=== PATIENT | male | born 1950 | race Caucasian/White ===

== ENCOUNTER 2016-07-06 00:21 | Inpatient (IN) | payer MEDICAID ==
[~2016-07-06] VITALS: Ht 160 cm; Wt 85.7 kg
[~2016-07-06 00:21] MED LIST: ASPI81 PO; GABA-533 PO; GLYB5 PO; HYDR25TA PO; LISI-662 PO; METF500T4 PO; ZIPR40CA2 PO
[2016-07-06 00:41] LABS: GLUCOSE,POINT OF CARE 173 MG/DL (70-110)
[2016-07-06 01:27] LABS: BASOPHILS # (AUTO) 0.05 K/uL (0.00-0.20); BASOPHILS % (AUTO) 0.4 % (0.0-2.0); EOSINOPHILS # (AUTO) 0.04 K/uL (0.00-0.70); EOSINOPHILS % (AUTO) 0.34 % (1.0-6.0); HEMATOCRIT 44.7 % (41-53); HEMOGLOBIN 14.7 g/dL (13.5-17.5); LYMPHOCYTES # (AUTO) 2.8 K/uL (1.0-4.8); LYMPHOCYTES % (AUTO) 24.9 % (22.0-44.0); MEAN CORPUSCULAR HEMOGLOBIN 27.9 pg (26.0-34.0); MEAN CORPUSCULAR HGB CONC 32.9 G/dL (31.0-37.0); MEAN CORPUSCULAR VOLUME 85 fL (80-100); MONOCYTES # (AUTO) 0.8 K/uL (0.1-1.0); MONOCYTES % (AUTO) 7.3 % (2.0-9.0); NEUTROPHILS # (AUTO) 7.6 K/uL (1.8-7.7); PLATELET COUNT (AUTO) 196 K/uL (150-450); RED BLOOD CELL COUNT(AUTO) 5.28 MIL/uL (4.50-5.90); RED CELL DISTRIBUTION WIDTH 16.7 % (11.5-14.5); WHITE BLOOD COUNT (AUTO) 11.4 K/uL (4.5-11.0)
[2016-07-06 01:40] LABS: ALANINE AMINOTRANSFERASE 110 U/L (12-78); ALBUMIN 3.8 g/dL (3.4-5.0); ANION GAP 15 mmol/L (8-16); ASPARTATE AMINOTRANSFERASE 74 U/L (15-37); BILIRUBIN,TOTAL 0.7 mg/dL (0.1-1.0); CARBON DIOXIDE 22 mmol/L (22-29); CHLORIDE 101 mmol/L (98-107); CREATININE 0.99 mg/dL (0.60-1.30); GLOMERULAR FILTR. RATE CALC > 60 mL/min (>60); SODIUM SERUM 138 mmol/L (136-145); TOTAL PROTEIN, SERUM 7.8 g/dL (6.4-8.2); UREA NITROGEN, BLOOD 14 mg/dL (7-18)
[2016-07-06 01:42] LABS: AMMONIA 29 umol/L (11-32); TROPONIN I < 0.02 ng/mL (0.00-0.05)
[2016-07-06 01:44] LABS: POTASSIUM 2.8 mmol/L (3.5-5.1)
[2016-07-06] MEDS ORDERED: ZOLPIDEM TARTRATE 10 MG TABLET PO PRN (02:00)
[2016-07-06] MEDS ORDERED: POTASSIUM CHLORIDE 10% 40 MEQ/30 ML LIQUID UDCUP PO ONE (02:00)
[2016-07-06] MEDS ORDERED: NALOXONE HCL 1 MG/ML 2 ML SYG IVP ONE (02:15)
[2016-07-06 02:36] LABS: APPEARANCE,URINE CLOUDY (CLEAR); GLUCOSE, URINE (UA) NEGATIVE (NEGATIVE); KETONES,URINE TRACE mg/dL (NEGATIVE); LEUKOCYTE ESTERASE ,URINE NEGATIVE (NEGATIVE); OCCULT BLOOD,URINE MODERATE (NEGATIVE); PROTEIN,URINE POS 1+ (NEGATIVE)
[2016-07-06 02:41] LABS: ADD UA MICROSCOPIC YES
[2016-07-06 02:43] LABS: SQUAMOUS EPITHELIAL CELL,UR Few /LPF (None Seen)
[2016-07-06] MEDS: HALOPERIDOL 5 MG TABLET PO PRN (06:13)
[2016-07-06] MEDS: LORazepam 2 MG TABLET PO PRN (06:24)
[2016-07-06 06:34] VITALS: BP 145/76
[2016-07-06] MEDS ORDERED: PNEUMOCOCCAL VACCINE POLYVALENT 0.5 ML VIAL [PPSV23] IM ONE (07:00)
[2016-07-06] MEDS ORDERED: INFLUENZA VIRUS VACCINE QVS 2016-17 (3YR+)/PF 60 MCG/0.5 ML SYRINGE IM ONE (07:00)
[2016-07-06] MEDS ORDERED: DEXTROSE 50%-WATER 25 GM/50 ML SYRINGE IVP PRN (08:00)
[2016-07-06] MEDS: LISINOPRIL 20 MG TABLET PO SCH (10:50)
[2016-07-06] MEDS: GABAPENTIN 400 MG CAPSULE PO SCH ×3 (10:50→19:00)
[2016-07-06] MEDS: ASPIRIN 81 MG CHEWABLE TABLET PO SCH (10:50)
[2016-07-06] MEDS: HYDROCHLOROTHIAZIDE 25 MG TABLET PO SCH (10:50)
[2016-07-06] MEDS ORDERED: POTASSIUM CHLORIDE 20 MEQ ER TABLET PO ONE (11:45)
[2016-07-06 17:30] VITALS: BP 139/80
[2016-07-06] MEDS: ZIPRASIDONE HCL 40 MG CAPSULE PO SCH (18:58)
[2016-07-06] MEDS: GlyBURIDE 5 MG TABLET PO SCH (18:58)
[2016-07-06] MEDS: MetFORMIN HCL 500 MG TABLET PO SCH (18:58)
[2016-07-06 19:00] LABS: GLUCOSE COMMENT 1 Received Meds; GLUCOSE,POINT OF CARE 117 MG/DL (70-110)
[2016-07-07 05:21] LABS: GLUCOSE COMMENT 1 Repeated; GLUCOSE,POINT OF CARE 142 MG/DL (70-110)
[2016-07-07 05:21] LABS: GLUCOSE COMMENT 1 Juice/Food/D50 Given; GLUCOSE,POINT OF CARE 58 MG/DL (70-110)
[2016-07-07] MEDS: MetFORMIN HCL 500 MG TABLET PO SCH ×2 (06:33→17:14)
[2016-07-07] MEDS: GlyBURIDE 5 MG TABLET PO SCH ×2 (06:33→17:28)
[2016-07-07] MEDS: ZIPRASIDONE HCL 40 MG CAPSULE PO SCH ×2 (06:33→17:28)
[2016-07-07 07:28] LABS: ALANINE AMINOTRANSFERASE 64 U/L (12-78); ALBUMIN 2.8 g/dL (3.4-5.0); ANION GAP 9 mmol/L (8-16); ASPARTATE AMINOTRANSFERASE 37 U/L (15-37); BILIRUBIN,TOTAL 0.6 mg/dL (0.1-1.0); CALCIUM, TOTAL 7.8 mg/dL (8.8-10.5); CARBON DIOXIDE 24 mmol/L (22-29); CHLORIDE 101 mmol/L (98-107); CREATININE 0.97 mg/dL (0.60-1.30); GLOMERULAR FILTR. RATE CALC > 60 mL/min (>60); POTASSIUM 3.9 mmol/L (3.5-5.1); SODIUM SERUM 134 mmol/L (136-145); TOTAL PROTEIN, SERUM 5.9 g/dL (6.4-8.2); UREA NITROGEN, BLOOD 11 mg/dL (7-18)
[2016-07-07] MEDS: ASPIRIN 81 MG CHEWABLE TABLET PO SCH (07:47)
[2016-07-07] MEDS: GABAPENTIN 400 MG CAPSULE PO SCH ×3 (07:47→17:01)
[2016-07-07] MEDS: LISINOPRIL 20 MG TABLET PO SCH (07:48)
[2016-07-07] MEDS: HYDROCHLOROTHIAZIDE 25 MG TABLET PO SCH (07:48)
[2016-07-07 08:00] VITALS: BP 154/82
[2016-07-07 10:01] LABS: GLUCOSE,POINT OF CARE 144 MG/DL (70-110)
[2016-07-07] MEDS ORDERED: BENZOCAINE/MENTHOL LOZENGE [8 LOZENGES/PACKET] PO PRN (11:00)
[2016-07-07] MEDS: HALOPERIDOL 5 MG TABLET PO PRN (11:54)
[2016-07-07] MEDS: LORazepam 2 MG TABLET PO PRN ×2 (11:55→17:01)
[2016-07-07] MEDS: LORATADINE 10 MG TABLET PO SCH (11:55)
[2016-07-07] MEDS: IBUPROFEN 800 MG TABLET PO PRN (14:33)
[2016-07-07 16:30] VITALS: BP 116/64
[2016-07-07 16:55] LABS: GLUCOSE COMMENT 1 Received Meds; GLUCOSE,POINT OF CARE 250 MG/DL (70-110)
[2016-07-07] MEDS: MOMETASONE FUROATE 50 MCG/SPRAY 17 GM NASAL SPRAY NASAL SCH (17:02)
[2016-07-07] MEDS: INSULIN ASPART 100 UNITS/ML SQ PRN (17:03)
[2016-07-08 05:37] LABS: GLUCOSE,POINT OF CARE 211 MG/DL (70-110)
[2016-07-08 05:47] VITALS: BP 139/96
[2016-07-08] MEDS: IBUPROFEN 800 MG TABLET PO PRN (05:48)
[2016-07-08] MEDS: ZIPRASIDONE HCL 40 MG CAPSULE PO SCH (06:42)
[2016-07-08] MEDS: MetFORMIN HCL 500 MG TABLET PO SCH (06:42)
[2016-07-08] MEDS: GlyBURIDE 5 MG TABLET PO SCH (06:42)
[2016-07-08] MEDS: INSULIN ASPART 100 UNITS/ML SQ PRN (06:45)
[2016-07-08 08:01] VITALS: BP 126/89
[2016-07-08] MEDS: LORATADINE 10 MG TABLET PO SCH (09:05)
[2016-07-08] MEDS: LISINOPRIL 20 MG TABLET PO SCH (09:05)
[2016-07-08] MEDS: GABAPENTIN 400 MG CAPSULE PO SCH (09:05)
[2016-07-08] MEDS: HYDROCHLOROTHIAZIDE 25 MG TABLET PO SCH (09:05)
[2016-07-08] MEDS: ASPIRIN 81 MG CHEWABLE TABLET PO SCH (09:05)
[2016-07-08] MEDS: MOMETASONE FUROATE 50 MCG/SPRAY 17 GM NASAL SPRAY NASAL SCH (09:07)
[2016-07-08] MEDS ORDERED: LORA10TA7 PO (09:59)
[2016-07-08] MEDS ORDERED: MOME17N NASAL (10:00)
== END 2016-07-08 12:00 | disposition home or self-care (01) | DRG 750 ==
LOC: EMS 00:22 → 3EC 02:48 → UNDOADMIN 03:00 → 3EC 03:00 → 3EI 07-07 13:49
PROVIDERS: ATTEND Psychiatry & Neurology Child & Adolescent Psychiatry
DX: F25.1 Schizoaffective disorder, depressive type (principal); E11.42 Type 2 diabetes mellitus with diabetic polyneuropathy; R45.851 Suicidal ideations; E11.65 Type 2 diabetes mellitus with hyperglycemia; E87.6 Hypokalemia; I10 Essential (primary) hypertension; I25.2 Old myocardial infarction; F10.10 Alcohol abuse, uncomplicated; F15.90 Other stimulant use, unspecified, uncomplicated; Z79.82 Long term (current) use of aspirin; Z79.899 Other long term (current) drug therapy; Z87.891 Personal history of nicotine dependence; Z91.5 Personal history of self-harm
CPT/HCPCS: 82962; 87081; 87086; 93005; 96374; 99285; G0480; J2310

== ENCOUNTER 2016-08-18 09:49 | Emergency (ER) | payer MEDICAID, OTHER ==
[~2016-08-18] VITALS: Ht 162.6 cm; Wt 86.3 kg
[~2016-08-18 09:49] MED LIST changes: +LORA10TA7 PO; +MOME17N NASAL
[2016-08-18] MEDS ORDERED: ASPI81 PO (10:04)
[2016-08-18] MEDS ORDERED: ACET-48 PO (10:04)
[2016-08-18] MEDS ORDERED: GLIP10 PO (10:04)
[2016-08-18] MEDS ORDERED: METF500T7 PO (10:04)
[2016-08-18] MEDS ORDERED: BECL8.7A6 PUFF (10:04)
[2016-08-18] MEDS ORDERED: LORA10TA7 PO (10:04)
[2016-08-18] MEDS ORDERED: GABA-533 PO (10:04)
[2016-08-18] MEDS ORDERED: LISI-662 PO (10:04)
[2016-08-18] MEDS ORDERED: HYDR25TA PO (10:04)
[2016-08-18] MEDS ORDERED: GuaiFENesin/D-METHORPHAN [SUGAR-FREE] 200-20MG/10 ML SYRUP UDCUP PO ONE (11:00)
[2016-08-18] MEDS ORDERED: TraMADol HCL 50 MG TABLET PO ONE (11:00)
[2016-08-18 11:17] LABS: INFLUENZA TYPE B NEGATIVE FOR TYPE B (NEGATIVE)
[2016-08-18] MEDS ORDERED: ONDANSETRON HCL 4 MG TABLET PO ONE (13:45)
[2016-08-18 14:15] VITALS: BP 123/85
== END 2016-08-18 14:16 | disposition home or self-care (01) ==
LOC: EMS 09:50
DX: J06.9 Acute upper respiratory infection, unspecified (principal); J45.909 Unspecified asthma, uncomplicated; E11.40 Type 2 diabetes mellitus with diabetic neuropathy, unspecified; I10 Essential (primary) hypertension; I25.2 Old myocardial infarction; E78.00 Pure hypercholesterolemia, unspecified; F17.210 Nicotine dependence, cigarettes, uncomplicated
CPT/HCPCS: 71010; 82962; 87804; 99285; Q0162

== ENCOUNTER 2017-01-10 10:28 | Emergency (ER) | payer OTHER ==
[~2017-01-10] VITALS: Ht 162.6 cm; Wt 86.4 kg
[~2017-01-10 10:28] MED LIST changes: +ACET-48 PO; +BECL8.7A6 PUFF; +GLIP10 PO; +METF500T7 PO
[2017-01-10 10:42] LABS: GLUCOSE,POINT OF CARE 303 MG/DL (70-110)
[2017-01-10] MEDS: OxyCODONE HCL/ACETAMINOPHEN 5-325 MG TABLET PO ONE ×2 (11:39→11:41)
[2017-01-10] MEDS ORDERED: LORazepam 2 MG/ML VIAL IVP ONE ×2 (11:45→13:30)
[2017-01-10] MEDS ORDERED: MORPHINE SULFATE 4 MG/ML SYRINGE IVP ONE (11:45)
[2017-01-10] MEDS ORDERED: LIDOCAINE HCL 1% 20 ML VIAL INJ ONE (12:15)
[2017-01-10] MEDS ORDERED: ONDANSETRON HCL 4 MG/2 ML VIAL IVP ONE (12:15)
[2017-01-10] MEDS ORDERED: MORPHINE SULFATE 2 MG/ML SYRINGE IVP ONE (13:30)
[2017-01-10 13:52] LABS: GLUCOSE,POINT OF CARE 209 MG/DL (70-110)
[2017-01-10] MEDS ORDERED: HYDROmorphone 2 MG/ML SYRINGE IVP ONE (14:15)
[2017-01-10 16:11] LABS: GLUCOSE,POINT OF CARE 187 MG/DL (70-110)
[2017-01-10] MEDS ORDERED: OxyCODONE HCL/ACETAMINOPHEN 5-325 MG TABLET PO ONE (16:45)
[2017-01-10 18:05] VITALS: BP 129/81
== END 2017-01-10 18:16 | disposition home or self-care (01) ==
LOC: EMS 10:30
DX: S46.002A Unspecified injury of muscle(s) and tendon(s) of the rotator cuff of left shoulder, initial encounter (principal); J45.909 Unspecified asthma, uncomplicated; E11.9 Type 2 diabetes mellitus without complications; E78.00 Pure hypercholesterolemia, unspecified; I10 Essential (primary) hypertension; I25.2 Old myocardial infarction; F17.210 Nicotine dependence, cigarettes, uncomplicated; W01.0XXA Fall on same level from slipping, tripping and stumbling without subsequent striking against object, initial encounter; Y93.89 Activity, other specified; Y92.89 Other specified places as the place of occurrence of the external cause; Y99.8 Other external cause status
CPT/HCPCS: 73030; 73221; 82962; 96374; 96375; 96376; 99284; J1170; J2060; J2270 ×2; J2405; J3490

== ENCOUNTER 2017-01-12 07:39 | Emergency (ER) | payer OTHER ==
[~2017-01-12] VITALS: Ht 160 cm; Wt 84.6 kg
[~2017-01-12 07:39] MED LIST changes: -GLYB5 PO; -METF500T4 PO
[2017-01-12 07:59] VITALS: BP 148/97
[2017-01-12] MEDS ORDERED: KETOROLAC TROMETHAMINE 30 MG/ML VIAL IM ONE (08:15)
== END 2017-01-12 08:10 | disposition home or self-care (01) ==
LOC: EMS 07:41
DX: F20.9 Schizophrenia, unspecified (principal); E11.9 Type 2 diabetes mellitus without complications; E78.00 Pure hypercholesterolemia, unspecified; M25.512 Pain in left shoulder; J45.909 Unspecified asthma, uncomplicated; M19.90 Unspecified osteoarthritis, unspecified site; I10 Essential (primary) hypertension; I25.2 Old myocardial infarction; G89.29 Other chronic pain; M54.5 Low back pain; F17.210 Nicotine dependence, cigarettes, uncomplicated; Z79.82 Long term (current) use of aspirin
CPT/HCPCS: 82962; 96372; 99283; J1885

== ENCOUNTER 2017-02-24 03:33 | Inpatient (IN) | payer MEDICAID, OTHER ==
[~2017-02-24] VITALS: Ht 162.6 cm; Wt 87.5 kg
[2017-02-24] MEDS ORDERED: LISI2.5T2 PO (03:47)
[2017-02-24 03:57] LABS: GLUCOSE,POINT OF CARE 299 MG/DL (70-110)
[2017-02-24 04:07] LABS: BASOPHILS # (AUTO) 0.05 K/uL (0.00-0.20); BASOPHILS % (AUTO) 0.4 % (0.0-2.0); EOSINOPHILS # (AUTO) 0.12 K/uL (0.00-0.70); EOSINOPHILS % (AUTO) 0.95 % (1.0-6.0); HEMATOCRIT 47.4 % (41-53); HEMOGLOBIN 16.2 g/dL (13.5-17.5); LYMPHOCYTES # (AUTO) 3.2 K/uL (1.0-4.8); LYMPHOCYTES % (AUTO) 25.9 % (22.0-44.0); MEAN CORPUSCULAR HEMOGLOBIN 29.2 pg (26.0-34.0); MEAN CORPUSCULAR HGB CONC 34.3 G/dL (31.0-37.0); MEAN CORPUSCULAR VOLUME 85 fL (80-100); MONOCYTES # (AUTO) 0.8 K/uL (0.1-1.0); MONOCYTES % (AUTO) 6.4 % (2.0-9.0); NEUTROPHILS # (AUTO) 8.2 K/uL (1.8-7.7); NEUTROPHILS % (AUTO) 66.4 % (40.0-70.0); PLATELET COUNT (AUTO) 166 K/uL (150-450); RED BLOOD CELL COUNT(AUTO) 5.56 MIL/uL (4.50-5.90); RED CELL DISTRIBUTION WIDTH 15.1 % (11.5-14.5); WHITE BLOOD COUNT (AUTO) 12.4 K/uL (4.5-11.0)
[2017-02-24 04:15] LABS: ANION GAP 14 mmol/L (8-16); CALCIUM, TOTAL 8.5 mg/dL (8.8-10.5); CARBON DIOXIDE 25 mmol/L (22-29); CHLORIDE 101 mmol/L (98-107); CREATININE 1.23 mg/dL (0.60-1.30); GLOMERULAR FILTR. RATE CALC 59 mL/min (>60); POTASSIUM 3.8 mmol/L (3.5-5.1); SODIUM SERUM 140 mmol/L (136-145); UREA NITROGEN, BLOOD 11 mg/dL (7-18)
[2017-02-24 04:27] LABS: ALANINE AMINOTRANSFERASE 47 U/L (12-78); ASPARTATE AMINOTRANSFERASE 36 U/L (15-37); BILIRUBIN,TOTAL 0.7 mg/dL (0.1-1.0); TOTAL PROTEIN, SERUM 8.1 g/dL (6.4-8.2)
[2017-02-24] MEDS ORDERED: HALOPERIDOL LACTATE 5 MG/ML VIAL IM ONE (04:45)
[2017-02-24] MEDS ORDERED: LORazepam 2 MG TABLET PO PRN (04:45)
[2017-02-24] MEDS ORDERED: DiphenhydrAMINE HCL 50 MG/ML VIAL IM ONE (04:45)
[2017-02-24] MEDS ORDERED: LORazepam 2 MG/ML VIAL IM ONE (04:45)
[2017-02-24] MEDS ORDERED: HALOPERIDOL 5 MG TABLET PO PRN (04:45)
[2017-02-24] MEDS ORDERED: ZOLPIDEM TARTRATE 10 MG TABLET PO PRN (04:45)
[2017-02-24 04:58] LABS: CHOL/HDL RATIO 4.4 (4.2-7.3)
[2017-02-24 05:00] LABS: APPEARANCE,URINE CLOUDY (CLEAR); GLUCOSE, URINE (UA) 500 mg/dL (NEGATIVE); KETONES,URINE NEGATIVE (NEGATIVE); LEUKOCYTE ESTERASE ,URINE NEGATIVE (NEGATIVE); OCCULT BLOOD,URINE TRACE (NEGATIVE); PH,URINE 5.5 (5.0-8.0); PROTEIN,URINE POS 1+ (NEGATIVE)
[2017-02-24 05:03] LABS: ADD UA MICROSCOPIC YES
[2017-02-24 05:16] LABS: RBC,URINE 0-2 /HPF (0-2); SQUAMOUS EPITHELIAL CELL,UR Few /LPF (None Seen)
[2017-02-24 14:27] LABS: GLUCOSE,POINT OF CARE 194 MG/DL (70-110)
[2017-02-24 14:39] VITALS: BP 138/88
[2017-02-24 14:46] VITALS: BP 138/88
[2017-02-24] MEDS ORDERED: DEXTROSE 50%-WATER 25 GM/50 ML SYRINGE IVP PRN (15:00)
[2017-02-24] MEDS: GlipiZIDE 10 MG TABLET PO SCH (17:18)
[2017-02-24] MEDS: MetFORMIN HCL 500 MG ER TABLET PO SCH (17:18)
[2017-02-24] MEDS: BECLOMETHASONE DIPR 40 MCG/PUFF 8.7 GM INHALER IH SCH (17:18)
[2017-02-24] MEDS: MOMETASONE FUROATE 50 MCG/SPRAY 17 GM NASAL SPRAY NASAL SCH (17:19)
[2017-02-24] MEDS: INSULIN ASPART 100 UNITS/ML SQ PRN (17:26)
[2017-02-24 18:56] VITALS: BP 142/87
[2017-02-24 21:22] LABS: GLUCOSE COMMENT 1 Received Meds; GLUCOSE,POINT OF CARE 254 MG/DL (70-110)
[2017-02-24 21:22] LABS: GLUCOSE,POINT OF CARE 116 MG/DL (70-110)
[2017-02-25 05:58] VITALS: BP 125/88
[2017-02-25 06:02] LABS: GLUCOSE,POINT OF CARE 138 MG/DL (70-110)
[2017-02-25] MEDS ORDERED: ONDANSETRON HCL 4 MG TABLET PO PRN (06:45)
[2017-02-25] MEDS ORDERED: MAG HYDROX/AL HYDROX/SIMETH ES 30 ML SUSPENSION UDCUP PO PRN (06:45)
[2017-02-25] MEDS ORDERED: BENZOCAINE/MENTHOL LOZENGE MM PRN (06:45)
[2017-02-25] MEDS ORDERED: BACITRACIN 28.4 GM OINTMENT TP PRN (06:45)
[2017-02-25] MEDS ORDERED: PETROLATUM,WHITE 71 GM JELLY TP PRN (06:45)
[2017-02-25] MEDS ORDERED: CloNIDine HCL 0.1 MG TABLET PO PRN (06:45)
[2017-02-25] MEDS ORDERED: LOPERAMIDE HCL 2 MG CAPSULE PO PRN (06:45)
[2017-02-25] MEDS ORDERED: ALBUTEROL SULFATE HFA 90 MCG/PUFF 8 GM INHALER IH PRN (06:45)
[2017-02-25] MEDS ORDERED: ACETAMINOPHEN 325 MG TABLET PO PRN (06:45)
[2017-02-25] MEDS ORDERED: MAGNESIUM HYDROXIDE SUSPENSION 30 ML UDCUP PO PRN (06:45)
[2017-02-25] MEDS: GlipiZIDE 10 MG TABLET PO SCH ×2 (07:02→16:40)
[2017-02-25] MEDS: INSULIN ASPART 100 UNITS/ML SQ PRN ×4 (07:02→23:14)
[2017-02-25] MEDS: ZIPRASIDONE HCL 40 MG CAPSULE PO SCH ×2 (07:03→16:40)
[2017-02-25] MEDS: MetFORMIN HCL 500 MG ER TABLET PO SCH ×2 (07:03→16:40)
[2017-02-25 08:00] VITALS: BP 128/79
[2017-02-25] MEDS: ASPIRIN 81 MG CHEWABLE TABLET PO SCH (08:51)
[2017-02-25] MEDS: GABAPENTIN 400 MG CAPSULE PO SCH ×3 (08:51→16:40)
[2017-02-25] MEDS: LORATADINE 10 MG TABLET PO SCH (08:52)
[2017-02-25] MEDS: OMEGA-3/DHA/EPA/FISH OIL 500 MG CAPSULE PO SCH (08:52)
[2017-02-25] MEDS: HYDROCHLOROTHIAZIDE 25 MG TABLET PO SCH (08:53)
[2017-02-25] MEDS: BECLOMETHASONE DIPR 40 MCG/PUFF 8.7 GM INHALER IH SCH ×2 (08:54→16:40)
[2017-02-25] MEDS: MOMETASONE FUROATE 50 MCG/SPRAY 17 GM NASAL SPRAY NASAL SCH ×2 (08:54→16:40)
[2017-02-25] MEDS: LISINOPRIL 5 MG TABLET PO SCH (08:55)
[2017-02-25 11:22] LABS: GLUCOSE,POINT OF CARE 208 MG/DL (70-110)
[2017-02-25 16:27] LABS: GLUCOSE,POINT OF CARE 181 MG/DL (70-110)
[2017-02-25 20:33] LABS: GLUCOSE,POINT OF CARE 296 MG/DL (70-110)
[2017-02-25 23:02] VITALS: BP 131/84
[2017-02-26 04:18] VITALS: BP 126/82
[2017-02-26 06:32] LABS: GLUCOSE,POINT OF CARE 245 MG/DL (70-110)
[2017-02-26] MEDS: ZIPRASIDONE HCL 40 MG CAPSULE PO SCH ×2 (07:00→17:24)
[2017-02-26] MEDS: MetFORMIN HCL 500 MG ER TABLET PO SCH ×2 (07:00→17:24)
[2017-02-26] MEDS: GlipiZIDE 10 MG TABLET PO SCH ×2 (07:00→16:17)
[2017-02-26] MEDS: INSULIN ASPART 100 UNITS/ML SQ PRN ×3 (07:01→21:00)
[2017-02-26 07:45] VITALS: BP 159/91
[2017-02-26] MEDS: IBUPROFEN 600 MG TABLET PO PRN ×2 (07:50→19:43)
[2017-02-26] MEDS: ASPIRIN 81 MG CHEWABLE TABLET PO SCH (07:51)
[2017-02-26] MEDS: OMEGA-3/DHA/EPA/FISH OIL 500 MG CAPSULE PO SCH (07:51)
[2017-02-26] MEDS: GABAPENTIN 400 MG CAPSULE PO SCH ×3 (07:51→16:18)
[2017-02-26] MEDS: HYDROCHLOROTHIAZIDE 25 MG TABLET PO SCH (07:51)
[2017-02-26] MEDS: LISINOPRIL 5 MG TABLET PO SCH (07:52)
[2017-02-26] MEDS: LORATADINE 10 MG TABLET PO SCH (07:52)
[2017-02-26] MEDS: BECLOMETHASONE DIPR 40 MCG/PUFF 8.7 GM INHALER IH SCH ×2 (07:53→16:17)
[2017-02-26] MEDS: MOMETASONE FUROATE 50 MCG/SPRAY 17 GM NASAL SPRAY NASAL SCH ×2 (07:53→16:17)
[2017-02-26 08:56] VITALS: BP 151/83
[2017-02-26 16:16] VITALS: BP 137/70
[2017-02-26 17:33] LABS: GLUCOSE,POINT OF CARE 253 MG/DL (70-110)
[2017-02-26] MEDS ORDERED: DICLOFENAC SODIUM 1% 100 GM GEL [2GM] TP PRN (18:30)
[2017-02-26 19:50] VITALS: BP 149/89
[2017-02-26 22:54] LABS: GLUCOSE COMMENT 1 Received Meds; GLUCOSE,POINT OF CARE 346 MG/DL (70-110)
[2017-02-27 06:17] LABS: GLUCOSE COMMENT 1 Juice/Food/D50 Given; GLUCOSE COMMENT 2 Received Meds; GLUCOSE,POINT OF CARE 243 MG/DL (70-110)
[2017-02-27] MEDS: MetFORMIN HCL 500 MG ER TABLET PO SCH ×2 (06:32→16:25)
[2017-02-27] MEDS: ZIPRASIDONE HCL 40 MG CAPSULE PO SCH ×2 (06:32→16:25)
[2017-02-27] MEDS: GlipiZIDE 10 MG TABLET PO SCH ×2 (06:32→16:25)
[2017-02-27] MEDS: INSULIN ASPART 100 UNITS/ML SQ PRN ×2 (07:09→11:35)
[2017-02-27 08:15] VITALS: BP 157/94
[2017-02-27] MEDS: LORATADINE 10 MG TABLET PO SCH (09:36)
[2017-02-27] MEDS: ASPIRIN 81 MG CHEWABLE TABLET PO SCH (09:36)
[2017-02-27] MEDS: BECLOMETHASONE DIPR 40 MCG/PUFF 8.7 GM INHALER IH SCH ×2 (09:36→16:24)
[2017-02-27] MEDS: MOMETASONE FUROATE 50 MCG/SPRAY 17 GM NASAL SPRAY NASAL SCH ×2 (09:36→16:25)
[2017-02-27] MEDS: HYDROCHLOROTHIAZIDE 25 MG TABLET PO SCH (09:37)
[2017-02-27] MEDS: GABAPENTIN 400 MG CAPSULE PO SCH ×3 (09:37→16:27)
[2017-02-27] MEDS: OMEGA-3/DHA/EPA/FISH OIL 500 MG CAPSULE PO SCH (09:37)
[2017-02-27] MEDS: LISINOPRIL 5 MG TABLET PO SCH (09:37)
[2017-02-27 11:18] LABS: GLUCOSE,POINT OF CARE 251 MG/DL (70-110)
[2017-02-27 11:48] LABS: GLUCOSE,POINT OF CARE 256 MG/DL (70-110)
[2017-02-27] MEDS ORDERED: OMEG-12 PO (14:47)
[2017-02-27 14:59] LABS: GLUCOSE,POINT OF CARE 313 MG/DL (70-110)
[2017-02-27] MEDS ORDERED: ZIPR40CA2 PO (16:40)
[2017-02-27] MEDS ORDERED: GABA-533 PO (16:41)
[2017-02-27 20:18] LABS: GLUCOSE,POINT OF CARE 304 MG/DL (70-110)
== END 2017-02-27 17:15 | disposition home or self-care (01) | DRG 750 ==
LOC: EMS 03:34 → 3EC 14:24 → 3EI 02-26 10:57
PROVIDERS: ADMIT Psychiatry & Neurology Psychiatry; ATTEND Psychiatry & Neurology Psychiatry
DX: F25.9 Schizoaffective disorder, unspecified (principal); E11.40 Type 2 diabetes mellitus with diabetic neuropathy, unspecified; R45.851 Suicidal ideations; E11.65 Type 2 diabetes mellitus with hyperglycemia; I10 Essential (primary) hypertension; I25.2 Old myocardial infarction; E78.5 Hyperlipidemia, unspecified; F10.129 Alcohol abuse with intoxication, unspecified; F12.90 Cannabis use, unspecified, uncomplicated; F17.200 Nicotine dependence, unspecified, uncomplicated; F32.9 Major depressive disorder, single episode, unspecified; F41.9 Anxiety disorder, unspecified; J31.0 Chronic rhinitis; J44.9 Chronic obstructive pulmonary disease, unspecified; Z87.442 Personal history of urinary calculi; G89.29 Other chronic pain; M19.90 Unspecified osteoarthritis, unspecified site; M25.512 Pain in left shoulder; M54.5 Low back pain; Z71.51 Drug abuse counseling and surveillance of drug abuser; Z71.6 Tobacco abuse counseling; Z56.0 Unemployment, unspecified; Z90.49 Acquired absence of other specified parts of digestive tract; Z79.82 Long term (current) use of aspirin; Z79.899 Other long term (current) drug therapy; Z71.41 Alcohol abuse counseling and surveillance of alcoholic
CPT/HCPCS: 82306; 82962; 84153; 87086; 87147; 93005; 96372; 99285; G0480; J1200; J1630; J2060; J3535

== ENCOUNTER 2017-03-23 15:50 | Emergency (ER) | payer MEDICAID, OTHER ==
[~2017-03-23] VITALS: Ht 170.2 cm; Wt 90.9 kg
[~2017-03-23 15:50] MED LIST changes: -ACET-48 PO; -ASPI81 PO; -BECL8.7A6 PUFF; -GLIP10 PO; -HYDR25TA PO; -LISI-662 PO; -LORA10TA7 PO; -METF500T7 PO; -MOME17N NASAL
[2017-03-23] MEDS ORDERED: NITROGLYCERIN 2% (1 GM=INCH) PACKET TP ONE (16:15)
[2017-03-23] MEDS ORDERED: ASPIRIN 81 MG CHEWABLE TABLET PO ONE (16:15)
[2017-03-23 16:17] LABS: GLUCOSE,POINT OF CARE 242 MG/DL (70-110)
[2017-03-23 16:37] LABS: BASOPHILS # (AUTO) 0.05 K/uL (0.00-0.20); BASOPHILS % (AUTO) 0.4 % (0.0-2.0); EOSINOPHILS # (AUTO) 0.13 K/uL (0.00-0.70); EOSINOPHILS % (AUTO) 1.12 % (1.0-6.0); HEMATOCRIT 49.3 % (41-53); HEMOGLOBIN 16.6 g/dL (13.5-17.5); LYMPHOCYTES # (AUTO) 2.7 K/uL (1.0-4.8); LYMPHOCYTES % (AUTO) 23.5 % (22.0-44.0); MEAN CORPUSCULAR HEMOGLOBIN 29.4 pg (26.0-34.0); MEAN CORPUSCULAR HGB CONC 33.7 G/dL (31.0-37.0); MEAN CORPUSCULAR VOLUME 87 fL (80-100); MONOCYTES # (AUTO) 0.5 K/uL (0.1-1.0); MONOCYTES % (AUTO) 4.3 % (2.0-9.0); NEUTROPHILS # (AUTO) 8.1 K/uL (1.8-7.7); NEUTROPHILS % (AUTO) 70.7 % (40.0-70.0); PLATELET COUNT (AUTO) 162 K/uL (150-450); RED BLOOD CELL COUNT(AUTO) 5.65 MIL/uL (4.50-5.90); RED CELL DISTRIBUTION WIDTH 15.4 % (11.5-14.5)
[2017-03-23 16:40] LABS: ANION GAP 12 mmol/L (8-16); CALCIUM, TOTAL 8.8 mg/dL (8.8-10.5); CARBON DIOXIDE 20 mmol/L (22-29); CHLORIDE 102 mmol/L (98-107); CREATININE 1.09 mg/dL (0.60-1.30); GLOMERULAR FILTR. RATE CALC > 60 mL/min (>60); GLUCOSE,RANDOM 210 mg/dL (70-110); POTASSIUM 3.3 mmol/L (3.5-5.1); SODIUM SERUM 134 mmol/L (136-145); UREA NITROGEN, BLOOD 16 mg/dL (7-18)
[2017-03-23 16:44] LABS: INR 1.1 (0.9-1.1); PROTHROMBIN TIME 11.4 SEC (9.4-11.6)
[2017-03-23] MEDS ORDERED: SODIUM CHLORIDE 0.9% 1,000 ML IV ONE (16:45)
[2017-03-23 16:46] LABS: ALANINE AMINOTRANSFERASE 102 U/L (12-78); ALBUMIN 3.9 g/dL (3.4-5.0); ALKALINE PHOSPHATASE 115 U/L (46-116); ASPARTATE AMINOTRANSFERASE 61 U/L (15-37); BILIRUBIN,TOTAL 0.5 mg/dL (0.1-1.0); LIPASE 208 U/L (73-393); TOTAL PROTEIN, SERUM 7.7 g/dL (6.4-8.2)
[2017-03-23 16:48] LABS: AMMONIA 32 umol/L (11-32)
[2017-03-23 16:52] LABS: TROPONIN I < 0.02 ng/mL (0.00-0.05)
[2017-03-23] MEDS ORDERED: LORazepam 2 MG/ML VIAL ONE (16:57)
[2017-03-23] MEDS ORDERED: DiphenhydrAMINE HCL 50 MG/ML VIAL ONE (16:57)
[2017-03-23] MEDS ORDERED: HALOPERIDOL LACTATE 5 MG/ML VIAL ONE (16:57)
[2017-03-23 17:01] LABS: B-TYPE NATRIURETIC PEPTIDE 50 pg/mL (0-100)
[2017-03-23] MEDS ORDERED: NALOXONE HCL 1 MG/ML 2 ML SYG ONE (17:09)
[2017-03-23] MEDS ORDERED: POTASSIUM CHLORIDE 20 MEQ ER TABLET PO ONE (17:15)
[2017-03-23 18:42] VITALS: BP 144/110
== END 2017-03-23 20:18 | disposition home or self-care (01) ==
LOC: EMS 15:51
DX: F10.129 Alcohol abuse with intoxication, unspecified (principal); J45.909 Unspecified asthma, uncomplicated; E78.00 Pure hypercholesterolemia, unspecified; I10 Essential (primary) hypertension; I25.2 Old myocardial infarction; E11.9 Type 2 diabetes mellitus without complications; F17.210 Nicotine dependence, cigarettes, uncomplicated; F11.90 Opioid use, unspecified, uncomplicated; Y90.8 Blood alcohol level of 240 mg/100 ml or more
CPT/HCPCS: 36415; 71010; 80053; 82140; 82948; 82962; 83690; 83880; 84484; 85025; 85610; 93005; 96360; 99285; G0480; J2310; J7030; J1200; J1630; J2060

== ENCOUNTER 2017-09-20 16:00 | Inpatient (IN) | payer MEDICARE, MEDICAID ==
[~2017-09-20] VITALS: Ht 162.6 cm; Wt 83.4 kg
[2017-09-20 16:22] LABS: GLUCOSE,POINT OF CARE 248 MG/DL (70-110)
[2017-09-20 16:46] LABS: BASOPHILS % (AUTO) 0.7 % (0.0-2.0); EOSINOPHILS % (AUTO) 1.5 % (1.0-6.0); HEMATOCRIT 46.2 % (41-53); HEMOGLOBIN 16.3 g/dL (13.5-17.5); LYMPHOCYTES # (AUTO) 2.3 K/uL (1.0-4.8); LYMPHOCYTES % (AUTO) 27.5 % (22.0-44.0); MEAN CORPUSCULAR HEMOGLOBIN 30.5 pg (26.0-34.0); MEAN CORPUSCULAR HGB CONC 35.3 G/dL (31.0-37.0); MEAN CORPUSCULAR VOLUME 87 fL (80-100); MONOCYTES # (AUTO) 0.6 K/uL (0.1-1.0); MONOCYTES % (AUTO) 7.2 % (2.0-9.0); NEUTROPHILS # (AUTO) 5.2 K/uL (1.8-7.7); NEUTROPHILS % (AUTO) 63.1 % (40.0-70.0); PLATELET COUNT (AUTO) 150 K/uL (150-450); RED BLOOD CELL COUNT(AUTO) 5.34 MIL/uL (4.50-5.90); RED CELL DISTRIBUTION WIDTH 15.5 % (11.5-14.5)
[2017-09-20 16:55] LABS: ANION GAP 8 mmol/L (8-16); CALCIUM, TOTAL 9.1 mg/dL (8.8-10.5); CARBON DIOXIDE 27 mmol/L (22-29); CHLORIDE 101 mmol/L (98-107); CREATININE 0.82 mg/dL (0.60-1.30); GLOMERULAR FILTR. RATE CALC > 60 mL/min (>60); GLUCOSE,RANDOM 277 mg/dL (70-110); POTASSIUM 3.2 mmol/L (3.5-5.1); SODIUM SERUM 136 mmol/L (136-145); UREA NITROGEN, BLOOD 5 mg/dL (7-18)
[2017-09-20 17:01] LABS: ALANINE AMINOTRANSFERASE 113 U/L (12-78); ALBUMIN 3.7 g/dL (3.4-5.0); ALKALINE PHOSPHATASE 135 U/L (46-116); ASPARTATE AMINOTRANSFERASE 87 U/L (15-37); BILIRUBIN,TOTAL 0.7 mg/dL (0.1-1.0); TOTAL PROTEIN, SERUM 7.5 g/dL (6.4-8.2)
[2017-09-20 17:03] LABS: AMPHET/METH SCREEN,URINE NEGATIVE (NEGATIVE); BARBITURATE SCREEN, URINE NEGATIVE (NEGATIVE); BENZODIAZEPINES SCREEN,URINE NEGATIVE (NEGATIVE); CANNABINOID SCREEN,URINE NEGATIVE (NEGATIVE); COCAINE SCREEN,URINE NEGATIVE (NEGATIVE); METHADONE SCREEN, URINE NEGATIVE (NEGATIVE); OPIATE SCREEN,URINE NEGATIVE (NEGATIVE); PHENCYCLIDINE SCREEN,URINE NEGATIVE (NEGATIVE)
[2017-09-20] MEDS ORDERED: LORazepam 1 MG TABLET PO ONE (18:45)
[2017-09-20] MEDS ORDERED: POTASSIUM CHLORIDE 20 MEQ ER TABLET PO ONE (19:00)
[2017-09-20] MEDS ORDERED: LORazepam 2 MG TABLET PO PRN (19:15)
[2017-09-20] MEDS ORDERED: HALOPERIDOL 5 MG TABLET PO PRN (19:15)
[2017-09-20] MEDS ORDERED: ZOLPIDEM TARTRATE 10 MG TABLET PO PRN (19:15)
[2017-09-20 19:55] LABS: CHOL/HDL RATIO 3.3 (4.2-7.3); CHOLESTEROL 178 mg/dL (131-200); FREE T4 (FREE THYROXINE) 1.13 ng/dL (0.76-1.46); HDL CHOLESTEROL 54 mg/dL (40-60); LDL CHOL (CALC.) 45 mg/dL (0-130); THYROID STIMULATING HORMONE 1.57 uIU/mL (0.36-3.74); TRIGLYCERIDES 396 mg/dL (15-150)
[2017-09-20] MEDS ORDERED: DEXTROSE 50%-WATER 25 GM/50 ML SYRINGE IVP PRN (21:00)
[2017-09-20] MEDS ORDERED: LISINOPRIL 20 MG TABLET PO ONE (21:00)
[2017-09-20] MEDS ORDERED: PNEUMOCOCCAL VACCINE POLYVALENT 0.5 ML VIAL [PPSV23] IM ONE (21:30)
[2017-09-20 21:31] VITALS: BP 170/100
[2017-09-20 22:08] LABS: GLUCOMETER DEV NAME(LOC) 3EX 1; GLUCOSE,POINT OF CARE 377 MG/DL (70-110)
[2017-09-20] MEDS ORDERED: INSULIN LISPRO 100 UNITS/ML SQ ONE (22:15)
[2017-09-20 22:57] LABS: GLUCOMETER DEV NAME(LOC) 3EX 1; GLUCOSE,POINT OF CARE 299 MG/DL (70-110)
[2017-09-21 03:33] VITALS: BP_SYST 119; BP_SYST 132; BP_DIAS 66; BP_DIAS 71
[2017-09-21 03:38] LABS: GLUCOMETER DEV NAME(LOC) 3EI B; GLUCOSE,POINT OF CARE 171 MG/DL (70-110)
[2017-09-21] MEDS ORDERED: PNEUMOCOCCAL VACCINE POLYVALENT 0.5 ML VIAL [PPSV23] IM ONE (04:00)
[2017-09-21 06:23] LABS: GLUCOMETER DEV NAME(LOC) 3EI B; GLUCOSE,POINT OF CARE 182 MG/DL (70-110)
[2017-09-21] MEDS: INSULIN LISPRO 100 UNITS/ML SQ PRN ×2 (06:41→11:39)
[2017-09-21] MEDS ORDERED: POTASSIUM CHLORIDE 20 MEQ ER TABLET PO ONE (07:45)
[2017-09-21] MEDS ORDERED: CloNIDine HCL 0.1 MG TABLET PO PRN (07:45)
[2017-09-21] MEDS ORDERED: MAG HYDROX/AL HYDROX/SIMETH ES 30 ML SUSPENSION UDCUP PO PRN (07:45)
[2017-09-21] MEDS ORDERED: ALBUTEROL SULFATE HFA 90 MCG/PUFF 8 GM INHALER IH PRN (07:45)
[2017-09-21] MEDS ORDERED: BACITRACIN 28.4 GM OINTMENT TP PRN (07:45)
[2017-09-21] MEDS ORDERED: MAGNESIUM HYDROXIDE SUSPENSION 30 ML UDCUP PO PRN (07:45)
[2017-09-21] MEDS ORDERED: IBUPROFEN 600 MG TABLET PO PRN (07:45)
[2017-09-21] MEDS ORDERED: ACETAMINOPHEN 325 MG TABLET PO PRN (07:45)
[2017-09-21] MEDS ORDERED: LOPERAMIDE HCL 2 MG CAPSULE PO PRN (07:45)
[2017-09-21] MEDS ORDERED: BENZOCAINE/MENTHOL LOZENGE MM PRN (07:45)
[2017-09-21] MEDS ORDERED: PETROLATUM,WHITE 71 GM JELLY TP PRN (07:45)
[2017-09-21] MEDS ORDERED: ONDANSETRON HCL 4 MG TABLET PO PRN (07:45)
[2017-09-21 08:00] VITALS: BP 129/78
[2017-09-21] MEDS: MetFORMIN HCL 500 MG TABLET PO SCH ×2 (09:00→16:20)
[2017-09-21] MEDS ORDERED: LISINOPRIL 20 MG TABLET PO SCH (09:00)
[2017-09-21] MEDS ORDERED: OMEPRAZOLE 20 MG CAPSULE PO SCH (09:00)
[2017-09-21] MEDS ORDERED: CHOLECALCIFEROL (VIT D3) 1,000 UNITS TABLET PO SCH (09:00)
[2017-09-21] MEDS ORDERED: DOCUSATE SODIUM 100 MG CAPSULE PO SCH (09:00)
[2017-09-21] MEDS: GABAPENTIN 400 MG CAPSULE PO SCH ×3 (09:00→16:20)
[2017-09-21 11:33] LABS: GLUCOMETER DEV NAME(LOC) 3EX 1; GLUCOSE,POINT OF CARE 260 MG/DL (70-110)
[2017-09-21 16:19] VITALS: BP 148/89
[2017-09-21 17:13] LABS: GLUCOMETER DEV NAME(LOC) 3EX 1; GLUCOSE,POINT OF CARE 205 MG/DL (70-110)
[2017-09-22] MEDS ORDERED: ARIPiprazole 10 MG TABLET PO SCH (09:00)
== END 2017-09-21 17:49 | disposition short-term general hospital (02) | DRG 750 ==
LOC: EMS 16:02 → 3EX 19:25
DX: F25.9 Schizoaffective disorder, unspecified (principal); E11.65 Type 2 diabetes mellitus with hyperglycemia; J44.9 Chronic obstructive pulmonary disease, unspecified; I10 Essential (primary) hypertension; E55.9 Vitamin D deficiency, unspecified; E78.5 Hyperlipidemia, unspecified; E87.6 Hypokalemia; F10.10 Alcohol abuse, uncomplicated; F32.9 Major depressive disorder, single episode, unspecified; F41.9 Anxiety disorder, unspecified; G47.00 Insomnia, unspecified; M19.90 Unspecified osteoarthritis, unspecified site; G89.29 Other chronic pain; M54.9 Dorsalgia, unspecified; R74.0 Nonspecific elevation of levels of transaminase and lactic acid dehydrogenase [LDH]; Z81.8 Family history of other mental and behavioral disorders
CPT/HCPCS: 82962; 83036; 84439; 84443; 90471; 99285; G0480; J1815

== ENCOUNTER 2017-09-21 17:50 | Inpatient (IN) | payer MEDICARE, MEDICAID ==
[~2017-09-21] VITALS: Ht 162.6 cm; Wt 83.0 kg
[2017-09-21] MEDS ORDERED: HALOPERIDOL 5 MG TABLET PO PRN (19:00)
[2017-09-21] MEDS ORDERED: ZOLPIDEM TARTRATE 10 MG TABLET PO PRN (19:00)
[2017-09-21] MEDS ORDERED: ALBUTEROL SULFATE HFA 90 MCG/PUFF 8 GM INHALER IH PRN (19:15)
[2017-09-21] MEDS ORDERED: MAGNESIUM HYDROXIDE SUSPENSION 30 ML UDCUP PO PRN (19:15)
[2017-09-21] MEDS ORDERED: PETROLATUM,WHITE 71 GM JELLY TP PRN (19:15)
[2017-09-21] MEDS ORDERED: BACITRACIN 28.4 GM OINTMENT TP PRN (19:15)
[2017-09-21] MEDS ORDERED: CloNIDine HCL 0.1 MG TABLET PO PRN (19:15)
[2017-09-21] MEDS ORDERED: ACETAMINOPHEN 325 MG TABLET PO PRN (19:15)
[2017-09-21] MEDS ORDERED: ONDANSETRON HCL 4 MG TABLET PO PRN (19:15)
[2017-09-21] MEDS ORDERED: BENZOCAINE/MENTHOL LOZENGE MM PRN (19:15)
[2017-09-21] MEDS ORDERED: LOPERAMIDE HCL 2 MG CAPSULE PO PRN (19:15)
[2017-09-21] MEDS ORDERED: DEXTROSE 50%-WATER 25 GM/50 ML SYRINGE IVP PRN (19:15)
[2017-09-21] MEDS ORDERED: MAG HYDROX/AL HYDROX/SIMETH ES 30 ML SUSPENSION UDCUP PO PRN (19:15)
[2017-09-21 19:58] VITALS: BP 125/76
[2017-09-21] MEDS: GABAPENTIN 400 MG CAPSULE PO SCH (20:58)
[2017-09-21 21:17] LABS: GLUCOMETER DEV NAME(LOC) 3EI B; GLUCOSE,POINT OF CARE 211 MG/DL (70-110)
[2017-09-21] MEDS: INSULIN LISPRO 100 UNITS/ML SQ PRN (21:19)
[2017-09-22 00:50] VITALS: BP 154/101
[2017-09-22] MEDS: IBUPROFEN 600 MG TABLET PO PRN (00:53)
[2017-09-22] MEDS: LORazepam 2 MG TABLET PO PRN (00:53)
[2017-09-22 05:33] LABS: GLUCOMETER DEV NAME(LOC) 3EI B; GLUCOSE,POINT OF CARE 274 MG/DL (70-110)
[2017-09-22] MEDS: MetFORMIN HCL 500 MG TABLET PO SCH ×2 (06:41→17:20)
[2017-09-22] MEDS: INSULIN LISPRO 100 UNITS/ML SQ PRN ×3 (06:41→21:35)
[2017-09-22 06:51] LABS: POTASSIUM 3.3 mmol/L (3.5-5.1)
[2017-09-22 08:00] VITALS: BP 147/99
[2017-09-22] MEDS ORDERED: POTASSIUM CHLORIDE 20 MEQ ER TABLET PO ONE (08:45)
[2017-09-22] MEDS: DOCUSATE SODIUM 100 MG CAPSULE PO SCH (09:00)
[2017-09-22] MEDS: OMEPRAZOLE 20 MG CAPSULE PO SCH (09:12)
[2017-09-22] MEDS: GABAPENTIN 400 MG CAPSULE PO SCH ×3 (09:12→16:02)
[2017-09-22] MEDS: ARIPiprazole 10 MG TABLET PO SCH (09:12)
[2017-09-22] MEDS: CHOLECALCIFEROL (VIT D3) 1,000 UNITS TABLET PO SCH (09:12)
[2017-09-22] MEDS: LISINOPRIL 20 MG TABLET PO SCH (09:13)
[2017-09-22 11:22] LABS: GLUCOMETER DEV NAME(LOC) 3EI B; GLUCOSE,POINT OF CARE 184 MG/DL (70-110)
[2017-09-22 16:37] LABS: GLUCOMETER DEV NAME(LOC) 3EI B; GLUCOSE,POINT OF CARE 190 MG/DL (70-110)
[2017-09-22 21:33] LABS: GLUCOMETER DEV NAME(LOC) 3EI B; GLUCOSE,POINT OF CARE 209 MG/DL (70-110)
[2017-09-22 22:02] VITALS: BP 137/77
[2017-09-23 04:15] VITALS: BP 133/96
[2017-09-23] MEDS: IBUPROFEN 600 MG TABLET PO PRN ×2 (04:22→04:25)
[2017-09-23 06:23] LABS: GLUCOMETER DEV NAME(LOC) 3EI B; GLUCOSE,POINT OF CARE 149 MG/DL (70-110)
[2017-09-23] MEDS: INSULIN LISPRO 100 UNITS/ML SQ PRN ×4 (06:34→20:49)
[2017-09-23] MEDS: MetFORMIN HCL 500 MG TABLET PO SCH ×2 (07:04→19:08)
[2017-09-23 07:29] LABS: POTASSIUM 3.6 mmol/L (3.5-5.1)
[2017-09-23] MEDS: ARIPiprazole 10 MG TABLET PO SCH (09:14)
[2017-09-23] MEDS: CHOLECALCIFEROL (VIT D3) 1,000 UNITS TABLET PO SCH (09:14)
[2017-09-23] MEDS: OMEPRAZOLE 20 MG CAPSULE PO SCH (09:14)
[2017-09-23] MEDS: DOCUSATE SODIUM 100 MG CAPSULE PO SCH (09:14)
[2017-09-23] MEDS: LORazepam 2 MG TABLET PO PRN (09:15)
[2017-09-23] MEDS: LISINOPRIL 20 MG TABLET PO SCH (09:15)
[2017-09-23] MEDS: GABAPENTIN 400 MG CAPSULE PO SCH ×3 (09:16→16:48)
[2017-09-23 11:42] LABS: GLUCOMETER DEV NAME(LOC) 3EI B; GLUCOSE,POINT OF CARE 156 MG/DL (70-110)
[2017-09-23 16:53] LABS: GLUCOMETER DEV NAME(LOC) 3EI B; GLUCOSE,POINT OF CARE 197 MG/DL (70-110)
[2017-09-23 19:28] VITALS: BP 142/79
[2017-09-23 21:18] LABS: GLUCOMETER DEV NAME(LOC) 3EI B; GLUCOSE,POINT OF CARE 207 MG/DL (70-110)
[2017-09-24 01:00] VITALS: BP 145/85
[2017-09-24 05:57] LABS: GLUCOMETER DEV NAME(LOC) 3EI B; GLUCOSE,POINT OF CARE 135 MG/DL (70-110)
[2017-09-24 06:07] VITALS: BP 121/73
[2017-09-24] MEDS: MetFORMIN HCL 500 MG TABLET PO SCH ×2 (06:35→17:27)
[2017-09-24] MEDS: IBUPROFEN 600 MG TABLET PO PRN (06:35)
[2017-09-24] MEDS: GABAPENTIN 400 MG CAPSULE PO SCH ×3 (08:50→16:21)
[2017-09-24] MEDS: OMEGA-3/DHA/EPA/FISH OIL 1,000 MG CAPSULE PO SCH (08:50)
[2017-09-24] MEDS: ARIPiprazole 10 MG TABLET PO SCH (08:50)
[2017-09-24] MEDS: OMEPRAZOLE 20 MG CAPSULE PO SCH (08:50)
[2017-09-24] MEDS: CHOLECALCIFEROL (VIT D3) 1,000 UNITS TABLET PO SCH (08:50)
[2017-09-24] MEDS: DOCUSATE SODIUM 100 MG CAPSULE PO SCH (09:00)
[2017-09-24] MEDS: LISINOPRIL 20 MG TABLET PO SCH (10:13)
[2017-09-24] MEDS: TraMADol HCL 50 MG TABLET PO PRN ×2 (10:45→17:35)
[2017-09-24 11:37] LABS: GLUCOMETER DEV NAME(LOC) 3EI B; GLUCOSE,POINT OF CARE 194 MG/DL (70-110)
[2017-09-24] MEDS: INSULIN LISPRO 100 UNITS/ML SQ PRN ×3 (11:39→22:02)
[2017-09-24 13:34] LABS: APPEARANCE,URINE CLEAR (CLEAR); BILIRUBIN,URINE NEGATIVE (NEGATIVE); GLUCOSE, URINE (UA) 100 mg/dL (NEGATIVE); KETONES,URINE NEGATIVE (NEGATIVE); LEUKOCYTE ESTERASE ,URINE NEGATIVE (NEGATIVE); NITRATE,URINE NEGATIVE (NEGATIVE); OCCULT BLOOD,URINE NEGATIVE (NEGATIVE); PH,URINE 6.5 (5.0-8.0); PROTEIN,URINE NEGATIVE (NEGATIVE)
[2017-09-24 13:53] LABS: BACTERIA,URINE None Seen /HPF (None Seen); RBC,URINE None Seen /HPF (0-2); WBC,URINE 0-2 /HPF (0-5)
[2017-09-24 13:54] LABS: SQUAMOUS EPITHELIAL CELL,UR Few /LPF (None Seen)
[2017-09-24 14:16] VITALS: BP 130/88
[2017-09-24] MEDS: HYDROCODONE/ACETAMINOPHEN 5-325 MG TABLET PO PRN ×2 (14:16→22:57)
[2017-09-24 16:37] LABS: GLUCOMETER DEV NAME(LOC) 3EI B; GLUCOSE,POINT OF CARE 183 MG/DL (70-110)
[2017-09-24 17:31] VITALS: BP 120/69
[2017-09-24 18:31] VITALS: BP 128/77
[2017-09-24 21:58] LABS: GLUCOMETER DEV NAME(LOC) 3EI B; GLUCOSE,POINT OF CARE 240 MG/DL (70-110)
[2017-09-24 22:55] VITALS: BP 130/71
[2017-09-25 04:45] VITALS: BP 148/87
[2017-09-25] MEDS: TraMADol HCL 50 MG TABLET PO PRN (04:49)
[2017-09-25 05:33] LABS: GLUCOMETER DEV NAME(LOC) 3EI B; GLUCOSE,POINT OF CARE 149 MG/DL (70-110)
[2017-09-25] MEDS: MetFORMIN HCL 500 MG TABLET PO SCH (06:59)
[2017-09-25] MEDS: INSULIN LISPRO 100 UNITS/ML SQ PRN ×2 (07:02→11:44)
[2017-09-25] MEDS: OMEPRAZOLE 20 MG CAPSULE PO SCH (08:51)
[2017-09-25] MEDS: ARIPiprazole 10 MG TABLET PO SCH (08:51)
[2017-09-25] MEDS: OMEGA-3/DHA/EPA/FISH OIL 1,000 MG CAPSULE PO SCH (08:51)
[2017-09-25] MEDS: GABAPENTIN 400 MG CAPSULE PO SCH ×2 (08:52→12:56)
[2017-09-25] MEDS: CHOLECALCIFEROL (VIT D3) 1,000 UNITS TABLET PO SCH (08:52)
[2017-09-25] MEDS: LISINOPRIL 20 MG TABLET PO SCH (08:53)
[2017-09-25 08:55] VITALS: BP 134/82
[2017-09-25] MEDS: HYDROCODONE/ACETAMINOPHEN 5-325 MG TABLET PO PRN (08:55)
[2017-09-25] MEDS: DOCUSATE SODIUM 100 MG CAPSULE PO SCH (09:00)
[2017-09-25 09:57] VITALS: BP 130/80
[2017-09-25 11:42] LABS: GLUCOMETER DEV NAME(LOC) 3EI B; GLUCOSE,POINT OF CARE 163 MG/DL (70-110)
[2017-09-25] MEDS ORDERED: ARIP10TA8 PO (12:28)
[2017-09-25] MEDS ORDERED: DSS100 PO (12:42)
[2017-09-25] MEDS ORDERED: VITAD1000 PO (12:42)
[2017-09-25] MEDS ORDERED: LISI-662 PO (12:47)
[2017-09-25] MEDS ORDERED: METF500T6 PO (12:47)
[2017-09-25] MEDS ORDERED: OMEG-12 PO (12:48)
[2017-09-25] MEDS ORDERED: OMEP20 PO (12:49)
== END 2017-09-25 14:35 | disposition home or self-care (01) | DRG 750 ==
LOC: 3EI 17:50 → OBSVTOIN 17:50
DX: F25.1 Schizoaffective disorder, depressive type (principal); E11.40 Type 2 diabetes mellitus with diabetic neuropathy, unspecified; R45.851 Suicidal ideations; J44.9 Chronic obstructive pulmonary disease, unspecified; I10 Essential (primary) hypertension; E78.5 Hyperlipidemia, unspecified; M19.90 Unspecified osteoarthritis, unspecified site; G89.29 Other chronic pain; M54.9 Dorsalgia, unspecified; F10.20 Alcohol dependence, uncomplicated; Y90.9 Presence of alcohol in blood, level not specified; E11.65 Type 2 diabetes mellitus with hyperglycemia; B19.20 Unspecified viral hepatitis C without hepatic coma; E55.9 Vitamin D deficiency, unspecified; E87.1 Hypo-osmolality and hyponatremia; E87.6 Hypokalemia; F17.200 Nicotine dependence, unspecified, uncomplicated; F41.9 Anxiety disorder, unspecified; G47.00 Insomnia, unspecified; N20.0 Calculus of kidney; Z79.899 Other long term (current) drug therapy; Z87.442 Personal history of urinary calculi; Z91.14 Patient's other noncompliance with medication regimen; Z90.49 Acquired absence of other specified parts of digestive tract; Z56.0 Unemployment, unspecified; Z71.6 Tobacco abuse counseling
CPT/HCPCS: 76770; 80074; 82962; 84132; 84295

== ENCOUNTER 2017-10-21 13:49 | Inpatient (IN) | payer MEDICARE, MEDICAID ==
[~2017-10-21] VITALS: Ht 162.6 cm; Wt 83.5 kg
[~2017-10-21 13:49] MED LIST changes: +ARIP10TA8 PO; +DSS100 PO; +LISI-662 PO; +METF500T6 PO; +OMEG-12 PO; +OMEP20 PO; +VITAD1000 PO; -ZIPR40CA2 PO
[2017-10-21] MEDS ORDERED: LORazepam 2 MG TABLET PO ONE (15:30)
[2017-10-21 16:01] LABS: BASOPHILS % (AUTO) 0.6 % (0.0-2.0); EOSINOPHILS % (AUTO) 1.3 % (1.0-6.0); HEMATOCRIT 50.2 % (41-53); HEMOGLOBIN 17.4 g/dL (13.5-17.5); LYMPHOCYTES # (AUTO) 2.3 K/uL (1.0-4.8); LYMPHOCYTES % (AUTO) 25.1 % (22.0-44.0); MEAN CORPUSCULAR HEMOGLOBIN 30.1 pg (26.0-34.0); MEAN CORPUSCULAR HGB CONC 34.7 G/dL (31.0-37.0); MEAN CORPUSCULAR VOLUME 87 fL (80-100); MONOCYTES # (AUTO) 0.6 K/uL (0.1-1.0); MONOCYTES % (AUTO) 6.2 % (2.0-9.0); NEUTROPHILS % (AUTO) 66.8 % (40.0-70.0); PLATELET COUNT (AUTO) 156 K/uL (150-450); RED BLOOD CELL COUNT(AUTO) 5.79 MIL/uL (4.50-5.90); RED CELL DISTRIBUTION WIDTH 14.3 % (11.5-14.5)
[2017-10-21 16:09] LABS: ANION GAP 14 mmol/L (8-16); CALCIUM, TOTAL 8.5 mg/dL (8.8-10.5); CARBON DIOXIDE 23 mmol/L (22-29); CHLORIDE 96 mmol/L (98-107); CREATININE 1.03 mg/dL (0.60-1.30); GLOMERULAR FILTR. RATE CALC > 60 mL/min (>60); GLUCOSE,RANDOM 379 mg/dL (70-110); POTASSIUM 3.6 mmol/L (3.5-5.1); SODIUM SERUM 133 mmol/L (136-145); UREA NITROGEN, BLOOD 8 mg/dL (7-18)
[2017-10-21 16:10] LABS: ALBUMIN 3.7 g/dL (3.4-5.0)
[2017-10-21 16:21] LABS: ALANINE AMINOTRANSFERASE 186 U/L (12-78); ALKALINE PHOSPHATASE 162 U/L (46-116); ASPARTATE AMINOTRANSFERASE 127 U/L (15-37); BILIRUBIN,TOTAL 1.1 mg/dL (0.1-1.0); TOTAL PROTEIN, SERUM 8.3 g/dL (6.4-8.2)
[2017-10-21 17:00] LABS: AMPHET/METH SCREEN,URINE NEGATIVE (NEGATIVE); BARBITURATE SCREEN, URINE NEGATIVE (NEGATIVE); BENZODIAZEPINES SCREEN,URINE NEGATIVE (NEGATIVE); CANNABINOID SCREEN,URINE POSITIVE (NEGATIVE); COCAINE SCREEN,URINE NEGATIVE (NEGATIVE); METHADONE SCREEN, URINE NEGATIVE (NEGATIVE); OPIATE SCREEN,URINE NEGATIVE (NEGATIVE); PHENCYCLIDINE SCREEN,URINE NEGATIVE (NEGATIVE)
[2017-10-21] MEDS ORDERED: MetFORMIN HCL 500 MG TABLET PO ONE (18:00)
[2017-10-21] MEDS ORDERED: HALOPERIDOL 5 MG TABLET PO PRN (18:45)
[2017-10-21] MEDS ORDERED: LORazepam 2 MG TABLET PO PRN (18:45)
[2017-10-21] MEDS ORDERED: ZOLPIDEM TARTRATE 10 MG TABLET PO PRN (18:45)
[2017-10-21 18:57] LABS: GLUCOSE,POINT OF CARE 403 MG/DL (70-110)
[2017-10-21] MEDS ORDERED: INSULIN REGULAR, HUMAN 100 UNITS/ML SQ ONE (20:00)
[2017-10-21 21:13] LABS: GLUCOSE,POINT OF CARE 335 MG/DL (70-110)
[2017-10-21] MEDS ORDERED: BACITRACIN 28.4 GM OINTMENT TP PRN (21:45)
[2017-10-21] MEDS ORDERED: ALBUTEROL SULFATE HFA 90 MCG/PUFF 8 GM INHALER IH PRN (21:45)
[2017-10-21] MEDS ORDERED: CloNIDine HCL 0.1 MG TABLET PO PRN (21:45)
[2017-10-21] MEDS ORDERED: MAG HYDROX/AL HYDROX/SIMETH ES 30 ML SUSPENSION UDCUP PO PRN (21:45)
[2017-10-21] MEDS ORDERED: DEXTROSE 50%-WATER 25 GM/50 ML SYRINGE IVP PRN (21:45)
[2017-10-21] MEDS ORDERED: ONDANSETRON HCL 4 MG TABLET PO PRN (21:45)
[2017-10-21] MEDS ORDERED: BENZOCAINE/MENTHOL LOZENGE MM PRN (21:45)
[2017-10-21] MEDS ORDERED: LOPERAMIDE HCL 2 MG CAPSULE PO PRN (21:45)
[2017-10-21] MEDS ORDERED: PETROLATUM,WHITE 71 GM JELLY TP PRN (21:45)
[2017-10-21] MEDS ORDERED: IBUPROFEN 600 MG TABLET PO PRN (21:45)
[2017-10-21] MEDS ORDERED: MAGNESIUM HYDROXIDE SUSPENSION 30 ML UDCUP PO PRN (21:45)
[2017-10-21 22:33] VITALS: BP 156/90
[2017-10-21] MEDS ORDERED: DENTURE ADHESIVE 68 GM CREAM DT PRN (23:00)
[2017-10-22 06:08] LABS: GLUCOMETER DEV NAME(LOC) 3EX 1; GLUCOSE,POINT OF CARE 254 MG/DL (70-110)
[2017-10-22 06:41] LABS: ANION GAP 9 mmol/L (8-16); CALCIUM, TOTAL 8.2 mg/dL (8.8-10.5); CARBON DIOXIDE 26 mmol/L (22-29); CHLORIDE 100 mmol/L (98-107); CREATININE 0.86 mg/dL (0.60-1.30); GLOMERULAR FILTR. RATE CALC > 60 mL/min (>60); GLUCOSE,RANDOM 232 mg/dL (70-110); POTASSIUM 3.5 mmol/L (3.5-5.1); SODIUM SERUM 135 mmol/L (136-145); UREA NITROGEN, BLOOD 12 mg/dL (7-18)
[2017-10-22 06:42] LABS: CHOL/HDL RATIO 4.8 (4.2-7.3); CHOLESTEROL 164 mg/dL (131-200); HDL CHOLESTEROL 34 mg/dL (40-60); LDL CHOL (CALC.) 78 mg/dL (0-130); PHOSPHORUS 3.4 mg/dL (2.5-4.9); THYROID STIMULATING HORMONE 2.08 uIU/mL (0.36-3.74); TRIGLYCERIDES 262 mg/dL (15-150)
[2017-10-22] MEDS: INSULIN LISPRO 100 UNITS/ML SQ PRN ×3 (06:46→21:04)
[2017-10-22 06:50] LABS: BASOPHILS % (AUTO) 0.4 % (0.0-2.0); EOSINOPHILS % (AUTO) 3.3 % (1.0-6.0); HEMATOCRIT 43.5 % (41-53); HEMOGLOBIN 15.5 g/dL (13.5-17.5); LYMPHOCYTES # (AUTO) 1.7 K/uL (1.0-4.8); LYMPHOCYTES % (AUTO) 26.1 % (22.0-44.0); MEAN CORPUSCULAR HEMOGLOBIN 30.7 pg (26.0-34.0); MEAN CORPUSCULAR HGB CONC 35.6 G/dL (31.0-37.0); MEAN CORPUSCULAR VOLUME 86 fL (80-100); MONOCYTES # (AUTO) 0.5 K/uL (0.1-1.0); MONOCYTES % (AUTO) 7.7 % (2.0-9.0); NEUTROPHILS % (AUTO) 62.5 % (40.0-70.0); PLATELET COUNT (AUTO) 97 K/uL (150-450); RED BLOOD CELL COUNT(AUTO) 5.05 MIL/uL (4.50-5.90); RED CELL DISTRIBUTION WIDTH 14.5 % (11.5-14.5)
[2017-10-22] MEDS: OMEPRAZOLE 20 MG CAPSULE PO SCH (08:49)
[2017-10-22] MEDS: DOCUSATE SODIUM 100 MG CAPSULE PO SCH (08:51)
[2017-10-22] MEDS ORDERED: OMEPRAZOLE 20 MG CAPSULE PO SCH (09:00)
[2017-10-22] MEDS: ACETAMINOPHEN 325 MG TABLET PO PRN ×2 (09:01→16:35)
[2017-10-22 09:27] LABS: HEMOGLOBIN A1C 8.7 % (4.5-6.2)
[2017-10-22 10:00] VITALS: BP 164/87
[2017-10-22] MEDS: ARIPiprazole 10 MG TABLET PO SCH (12:23)
[2017-10-22] MEDS: OMEGA-3/DHA/EPA/FISH OIL 1,000 MG CAPSULE PO SCH (12:23)
[2017-10-22] MEDS: CHOLECALCIFEROL (VIT D3) 1,000 UNITS TABLET PO SCH (12:25)
[2017-10-22] MEDS: LISINOPRIL 20 MG TABLET PO SCH (12:25)
[2017-10-22] MEDS: GABAPENTIN 400 MG CAPSULE PO SCH ×2 (12:25→16:32)
[2017-10-22] MEDS: TraMADol HCL 50 MG TABLET PO PRN (14:28)
[2017-10-22] MEDS: MetFORMIN HCL 500 MG TABLET PO SCH (16:32)
[2017-10-22 17:00] VITALS: BP 140/91
[2017-10-22 17:13] LABS: GLUCOMETER DEV NAME(LOC) 3EX 1; GLUCOSE,POINT OF CARE 361 MG/DL (70-110)
[2017-10-22 17:35] VITALS: BP 144/92
[2017-10-22 21:22] LABS: GLUCOMETER DEV NAME(LOC) 3EX 1; GLUCOSE,POINT OF CARE 291 MG/DL (70-110)
[2017-10-23] VITALS (7 sets, daily range): BP systolic 115–158; BP diastolic 72–99
[2017-10-23 06:18] LABS: GLUCOMETER DEV NAME(LOC) 3EX 1; GLUCOSE,POINT OF CARE 273 MG/DL (70-110)
[2017-10-23] MEDS: TraMADol HCL 50 MG TABLET PO PRN ×3 (06:23→19:02)
[2017-10-23] MEDS: MetFORMIN HCL 500 MG TABLET PO SCH ×2 (06:23→17:02)
[2017-10-23] MEDS: INSULIN LISPRO 100 UNITS/ML SQ PRN ×4 (06:54→21:29)
[2017-10-23] MEDS: GABAPENTIN 400 MG CAPSULE PO SCH ×3 (08:59→17:02)
[2017-10-23] MEDS: OMEPRAZOLE 20 MG CAPSULE PO SCH (08:59)
[2017-10-23] MEDS: LISINOPRIL 20 MG TABLET PO SCH (08:59)
[2017-10-23] MEDS: ARIPiprazole 10 MG TABLET PO SCH (08:59)
[2017-10-23] MEDS: CHOLECALCIFEROL (VIT D3) 1,000 UNITS TABLET PO SCH (08:59)
[2017-10-23] MEDS: OMEGA-3/DHA/EPA/FISH OIL 1,000 MG CAPSULE PO SCH (08:59)
[2017-10-23] MEDS: DOCUSATE SODIUM 100 MG CAPSULE PO SCH (09:00)
[2017-10-23 12:27] LABS: GLUCOMETER DEV NAME(LOC) 3EX 1; GLUCOSE,POINT OF CARE 346 MG/DL (70-110)
[2017-10-23 16:38] LABS: GLUCOMETER DEV NAME(LOC) 3EX 1; GLUCOSE,POINT OF CARE 227 MG/DL (70-110)
[2017-10-23] MEDS: ACETAMINOPHEN 325 MG TABLET PO PRN (20:16)
[2017-10-23 20:29] LABS: GLUCOMETER DEV NAME(LOC) 3EX 1; GLUCOSE,POINT OF CARE 213 MG/DL (70-110)
[2017-10-24] MEDS: TraMADol HCL 50 MG TABLET PO PRN (01:52)
[2017-10-24 01:54] VITALS: BP 131/90
[2017-10-24 06:39] LABS: GLUCOMETER DEV NAME(LOC) 3EI B; GLUCOSE,POINT OF CARE 243 MG/DL (70-110)
[2017-10-24] MEDS: INSULIN LISPRO 100 UNITS/ML SQ PRN ×2 (06:49→12:53)
[2017-10-24] MEDS: MetFORMIN HCL 500 MG TABLET PO SCH (07:13)
[2017-10-24] MEDS: GABAPENTIN 400 MG CAPSULE PO SCH ×2 (07:49→12:33)
[2017-10-24] MEDS: OMEPRAZOLE 20 MG CAPSULE PO SCH (07:49)
[2017-10-24] MEDS: LISINOPRIL 20 MG TABLET PO SCH (07:49)
[2017-10-24] MEDS: OMEGA-3/DHA/EPA/FISH OIL 1,000 MG CAPSULE PO SCH (07:49)
[2017-10-24] MEDS: ARIPiprazole 10 MG TABLET PO SCH (07:50)
[2017-10-24] MEDS: CHOLECALCIFEROL (VIT D3) 1,000 UNITS TABLET PO SCH (07:50)
[2017-10-24] MEDS: DOCUSATE SODIUM 100 MG CAPSULE PO SCH (07:52)
[2017-10-24 10:12] VITALS: BP 145/97
[2017-10-24 11:43] LABS: GLUCOMETER DEV NAME(LOC) 3EI B; GLUCOSE,POINT OF CARE 295 MG/DL (70-110)
[2017-10-24] MEDS ORDERED: ARIP10TA8 PO (11:45)
[2017-10-24] MEDS ORDERED: GABA-533 PO (11:45)
[2017-10-25] MEDS ORDERED: LISINOPRIL 20 MG TABLET PO SCH (09:00)
== END 2017-10-24 15:15 | disposition home or self-care (01) | DRG 750 ==
LOC: EMS 13:50 → 3EI 18:58
DX: F25.1 Schizoaffective disorder, depressive type (principal); E11.65 Type 2 diabetes mellitus with hyperglycemia; J44.9 Chronic obstructive pulmonary disease, unspecified; R45.851 Suicidal ideations; I10 Essential (primary) hypertension; F10.20 Alcohol dependence, uncomplicated; F12.10 Cannabis abuse, uncomplicated; M19.90 Unspecified osteoarthritis, unspecified site; G89.29 Other chronic pain; E55.9 Vitamin D deficiency, unspecified; F41.9 Anxiety disorder, unspecified; G47.00 Insomnia, unspecified; M54.5 Low back pain; E78.00 Pure hypercholesterolemia, unspecified; F17.210 Nicotine dependence, cigarettes, uncomplicated; Z91.14 Patient's other noncompliance with medication regimen; Z79.84 Long term (current) use of oral hypoglycemic drugs; Z79.899 Other long term (current) drug therapy; Z87.442 Personal history of urinary calculi; Z91.5 Personal history of self-harm
CPT/HCPCS: 82306; 83036; 83735; 84100; 84443; 87081; 96372; 99285; G0480; J1815; J3535

== ENCOUNTER 2018-01-02 17:03 | Inpatient (IN) | payer MEDICARE, MEDICAID ==
[~2018-01-02] VITALS: Ht 162.6 cm; Wt 83.7 kg
[2018-01-02] MEDS ORDERED: GLIM2 PO (17:17)
[2018-01-02] MEDS ORDERED: SUCR1TAB PO (17:17)
[2018-01-02] MEDS ORDERED: CYAN250014 PO (17:17)
[2018-01-02 17:39] LABS: GLUCOSE,POINT OF CARE 234 MG/DL (70-110)
[2018-01-02 17:58] LABS: BASOPHILS % (AUTO) 0.8 % (0.0-2.0); EOSINOPHILS % (AUTO) 2.3 % (1.0-6.0); HEMATOCRIT 46.7 % (41-53); HEMOGLOBIN 16.7 g/dL (13.5-17.5); LYMPHOCYTES # (AUTO) 1.9 K/uL (1.0-4.8); LYMPHOCYTES % (AUTO) 18.4 % (22.0-44.0); MEAN CORPUSCULAR HGB CONC 35.7 G/dL (31.0-37.0); MEAN CORPUSCULAR VOLUME 87 fL (80-100); MONOCYTES # (AUTO) 0.6 K/uL (0.1-1.0); MONOCYTES % (AUTO) 5.7 % (2.0-9.0); NEUTROPHILS # (AUTO) 7.4 K/uL (1.8-7.7); NEUTROPHILS % (AUTO) 72.8 % (40.0-70.0); PLATELET COUNT (AUTO) 120 K/uL (150-450); RED BLOOD CELL COUNT(AUTO) 5.39 MIL/uL (4.50-5.90); RED CELL DISTRIBUTION WIDTH 14.3 % (11.5-14.5)
[2018-01-02 18:08] LABS: ANION GAP 10 mmol/L (8-16); CALCIUM, TOTAL 8.6 mg/dL (8.8-10.5); CARBON DIOXIDE 24 mmol/L (22-29); CHLORIDE 102 mmol/L (98-107); CREATININE 0.76 mg/dL (0.60-1.30); GLOMERULAR FILTR. RATE CALC > 60 mL/min (>60); GLUCOSE,RANDOM 234 mg/dL (70-110); POTASSIUM 3.6 mmol/L (3.5-5.1); SODIUM SERUM 136 mmol/L (136-145); UREA NITROGEN, BLOOD 10 mg/dL (7-18)
[2018-01-02 18:14] LABS: ALANINE AMINOTRANSFERASE 73 U/L (12-78); ALBUMIN 3.7 g/dL (3.4-5.0); ALKALINE PHOSPHATASE 139 U/L (46-116); ASPARTATE AMINOTRANSFERASE 38 U/L (15-37); BILIRUBIN,TOTAL 0.7 mg/dL (0.1-1.0); TOTAL PROTEIN, SERUM 7.5 g/dL (6.4-8.2)
[2018-01-02] MEDS ORDERED: CYAN100099 PO (18:54)
[2018-01-02] MEDS ORDERED: LORazepam 2 MG TABLET PO PRN (19:00)
[2018-01-02] MEDS ORDERED: HALOPERIDOL 5 MG TABLET PO PRN (19:00)
[2018-01-02] MEDS ORDERED: ZOLPIDEM TARTRATE 10 MG TABLET PO PRN (19:00)
[2018-01-02 19:02] LABS: AMPHET/METH SCREEN,URINE NEGATIVE (NEGATIVE); BARBITURATE SCREEN, URINE NEGATIVE (NEGATIVE); BENZODIAZEPINES SCREEN,URINE NEGATIVE (NEGATIVE); CANNABINOID SCREEN,URINE POSITIVE (NEGATIVE); COCAINE SCREEN,URINE NEGATIVE (NEGATIVE); METHADONE SCREEN, URINE NEGATIVE (NEGATIVE); OPIATE SCREEN,URINE NEGATIVE (NEGATIVE)
[2018-01-02 19:06] LABS: PHENCYCLIDINE SCREEN,URINE NEGATIVE (NEGATIVE)
[2018-01-02] MEDS ORDERED: PETROLATUM,WHITE 71 GM JELLY TP PRN (20:15)
[2018-01-02] MEDS ORDERED: CloNIDine HCL 0.1 MG TABLET PO PRN (20:15)
[2018-01-02] MEDS ORDERED: MAGNESIUM HYDROXIDE SUSPENSION 30 ML UDCUP PO PRN (20:15)
[2018-01-02] MEDS ORDERED: GuaiFENesin/D-METHORPHAN [SUGAR-FREE] 200-20MG/10 ML SYRUP UDCUP PO PRN (20:15)
[2018-01-02] MEDS ORDERED: MAG HYDROX/AL HYDROX/SIMETH ES 30 ML SUSPENSION UDCUP PO PRN (20:15)
[2018-01-02] MEDS ORDERED: ACETAMINOPHEN 325 MG TABLET PO PRN (20:15)
[2018-01-02] MEDS ORDERED: ONDANSETRON HCL 4 MG TABLET PO PRN (20:15)
[2018-01-02] MEDS ORDERED: ALBUTEROL SULFATE HFA 90 MCG/PUFF 8 GM INHALER IH PRN (20:15)
[2018-01-02] MEDS ORDERED: NICOTINE 14 MG/24 HOUR PATCH TD PRN (20:15)
[2018-01-02] MEDS ORDERED: LOPERAMIDE HCL 2 MG CAPSULE PO PRN (20:15)
[2018-01-02 20:30] VITALS: BP 156/98
[2018-01-02] MEDS: IBUPROFEN 400 MG TABLET PO PRN (20:41)
[2018-01-02 21:41] VITALS: BP 119/65
[2018-01-03 00:10] VITALS: BP 148/98
[2018-01-03 05:54] LABS: GLUCOMETER DEV NAME(LOC) 3EI C; GLUCOSE,POINT OF CARE 300 MG/DL (70-110)
[2018-01-03 07:00] VITALS: BP 136/78
[2018-01-03] MEDS: GLIMEPIRIDE 2 MG TABLET PO SCH ×2 (07:07→17:13)
[2018-01-03] MEDS: MetFORMIN HCL 500 MG TABLET PO SCH ×2 (07:07→17:13)
[2018-01-03] MEDS: IBUPROFEN 400 MG TABLET PO PRN ×2 (07:08→16:18)
[2018-01-03 07:12] LABS: BASOPHILS % (AUTO) 0.5 % (0.0-2.0); EOSINOPHILS % (AUTO) 4.1 % (1.0-6.0); HEMATOCRIT 45.9 % (41-53); HEMOGLOBIN 16.1 g/dL (13.5-17.5); LYMPHOCYTES # (AUTO) 1.5 K/uL (1.0-4.8); LYMPHOCYTES % (AUTO) 18.2 % (22.0-44.0); MEAN CORPUSCULAR HGB CONC 35.1 G/dL (31.0-37.0); MEAN CORPUSCULAR VOLUME 88 fL (80-100); MONOCYTES # (AUTO) 0.6 K/uL (0.1-1.0); MONOCYTES % (AUTO) 7.4 % (2.0-9.0); NEUTROPHILS # (AUTO) 5.7 K/uL (1.8-7.7); NEUTROPHILS % (AUTO) 69.8 % (40.0-70.0); PLATELET COUNT (AUTO) 106 K/uL (150-450); RED CELL DISTRIBUTION WIDTH 14.5 % (11.5-14.5)
[2018-01-03 07:24] LABS: HEMOGLOBIN A1C 8.2 % (4.5-6.2)
[2018-01-03 07:36] LABS: ALANINE AMINOTRANSFERASE 68 U/L (12-78); ALBUMIN 3.3 g/dL (3.4-5.0); ALKALINE PHOSPHATASE 129 U/L (46-116); ANION GAP 8 mmol/L (8-16); ASPARTATE AMINOTRANSFERASE 37 U/L (15-37); BILIRUBIN,TOTAL 0.6 mg/dL (0.1-1.0); CALCIUM, TOTAL 8.2 mg/dL (8.8-10.5); CARBON DIOXIDE 24 mmol/L (22-29); CHLORIDE 102 mmol/L (98-107); CHOL/HDL RATIO 3.8 (4.2-7.3); CHOLESTEROL 160 mg/dL (131-200); CREATININE 0.73 mg/dL (0.60-1.30); GLOMERULAR FILTR. RATE CALC > 60 mL/min (>60); GLUCOSE,RANDOM 304 mg/dL (70-110); HDL CHOLESTEROL 42 mg/dL (40-60); LDL CHOL (CALC.) 67 mg/dL (0-130); POTASSIUM 3.9 mmol/L (3.5-5.1); SODIUM SERUM 134 mmol/L (136-145); TRIGLYCERIDES 255 mg/dL (15-150); UREA NITROGEN, BLOOD 14 mg/dL (7-18)
[2018-01-03 08:05] VITALS: BP 144/92
[2018-01-03] MEDS: LISINOPRIL 20 MG TABLET PO SCH (09:09)
[2018-01-03] MEDS: CHOLECALCIFEROL (VIT D3) 1,000 UNITS TABLET PO SCH (09:09)
[2018-01-03] MEDS: OMEGA-3/DHA/EPA/FISH OIL 1,000 MG CAPSULE PO SCH (09:10)
[2018-01-03] MEDS: CYANOCOBALAMIN 500 MCG TABLET PO SCH (09:11)
[2018-01-03] MEDS: DOCUSATE SODIUM 100 MG CAPSULE PO SCH (09:11)
[2018-01-03] MEDS: OMEPRAZOLE 20 MG CAPSULE PO SCH (09:11)
[2018-01-03] MEDS: SUCRALFATE 1 GM TABLET PO SCH ×2 (09:11→16:22)
[2018-01-03] MEDS: TraMADol HCL 50 MG TABLET PO PRN (10:49)
[2018-01-03 10:50] VITALS: BP 139/74
[2018-01-03 17:00] VITALS: BP 149/80
[2018-01-03] MEDS ORDERED: INSULIN LISPRO 100 UNITS/ML SQ PRN (17:00)
[2018-01-03] MEDS ORDERED: GLUCAGON,HUMAN RECOMBINANT 1 MG VIAL IM PRN (17:00)
[2018-01-03 17:04] LABS: GLUCOMETER DEV NAME(LOC) 3EX 1; GLUCOSE,POINT OF CARE 245 MG/DL (70-110)
[2018-01-03] MEDS ORDERED: DEXTROSE 50%-WATER 25 GM/50 ML SYG IVP PRN (22:00)
[2018-01-04 05:30] VITALS: BP 138/87
[2018-01-04] MEDS: TraMADol HCL 50 MG TABLET PO PRN ×2 (05:37→16:30)
[2018-01-04 05:44] LABS: GLUCOMETER DEV NAME(LOC) 3EI C; GLUCOSE,POINT OF CARE 247 MG/DL (70-110)
[2018-01-04] MEDS: INSULIN LISPRO 100 UNITS/ML SQ PRN ×2 (07:12→12:07)
[2018-01-04] MEDS: MetFORMIN HCL 500 MG TABLET PO SCH ×2 (07:14→16:27)
[2018-01-04] MEDS: GLIMEPIRIDE 2 MG TABLET PO SCH ×2 (07:16→16:27)
[2018-01-04 08:30] VITALS: BP 136/89
[2018-01-04] MEDS: CHOLECALCIFEROL (VIT D3) 1,000 UNITS TABLET PO SCH (09:01)
[2018-01-04] MEDS: OMEPRAZOLE 20 MG CAPSULE PO SCH (09:01)
[2018-01-04] MEDS: LISINOPRIL 20 MG TABLET PO SCH (09:01)
[2018-01-04] MEDS: DOCUSATE SODIUM 100 MG CAPSULE PO SCH (09:02)
[2018-01-04] MEDS: SUCRALFATE 1 GM TABLET PO SCH ×2 (09:02→16:27)
[2018-01-04] MEDS: OMEGA-3/DHA/EPA/FISH OIL 1,000 MG CAPSULE PO SCH (09:02)
[2018-01-04] MEDS: CYANOCOBALAMIN 500 MCG TABLET PO SCH (09:03)
[2018-01-04] MEDS ORDERED: ARIPiprazole 15 MG TABLET PO SCH (10:45)
[2018-01-04] MEDS ORDERED: ESCITALOPRAM OXALATE 10 MG TABLET PO SCH (10:45)
[2018-01-04] MEDS ORDERED: DEXTROSE 50%-WATER 25 GM/50 ML SYRINGE IVP PRN (11:00)
[2018-01-04] MEDS ORDERED: INSULIN LISPRO 100 UNITS/ML SQ PRN (11:00)
[2018-01-04 11:44] LABS: GLUCOMETER DEV NAME(LOC) 3EX 1; GLUCOSE,POINT OF CARE 203 MG/DL (70-110)
[2018-01-04 16:31] VITALS: BP 136/86
[2018-01-04 19:08] LABS: GLUCOMETER DEV NAME(LOC) 3EX 1; GLUCOSE,POINT OF CARE 235 MG/DL (70-110)
[2018-01-05] MEDS ORDERED: ESCI10TA54 PO (13:43)
[2018-01-05] MEDS ORDERED: ARIP15TA2 PO (13:43)
[2018-01-05] MEDS ORDERED: ESCI10TA PO (14:16)
== END 2018-01-04 16:30 | DRG 750 ==
LOC: EMS 17:04 → 3EX 19:00
DX: F25.0 Schizoaffective disorder, bipolar type (principal); E11.40 Type 2 diabetes mellitus with diabetic neuropathy, unspecified; R45.851 Suicidal ideations; G89.29 Other chronic pain; M19.90 Unspecified osteoarthritis, unspecified site; J45.909 Unspecified asthma, uncomplicated; I10 Essential (primary) hypertension; E78.00 Pure hypercholesterolemia, unspecified; E11.65 Type 2 diabetes mellitus with hyperglycemia; F11.90 Opioid use, unspecified, uncomplicated; F41.9 Anxiety disorder, unspecified; F10.20 Alcohol dependence, uncomplicated; K21.9 Gastro-esophageal reflux disease without esophagitis; E78.5 Hyperlipidemia, unspecified; N20.0 Calculus of kidney; F17.200 Nicotine dependence, unspecified, uncomplicated; Z91.14 Patient's other noncompliance with medication regimen; Z87.442 Personal history of urinary calculi; Z23 Encounter for immunization
CPT/HCPCS: 76770; 83036; 84443; 99285; G0480

== ENCOUNTER 2018-01-04 16:35 | Inpatient (IN) | payer MEDICARE, MEDICAID ==
[~2018-01-04] VITALS: Ht 160 cm; Wt 85.9 kg
[~2018-01-04 16:35] MED LIST changes: +CYAN100099 PO; +GLIM2 PO; +SUCR1TAB PO
[2018-01-04 17:00] VITALS: BP 138/86
[2018-01-04] MEDS ORDERED: HALOPERIDOL 5 MG TABLET PO PRN (19:00)
[2018-01-04] MEDS ORDERED: ZOLPIDEM TARTRATE 10 MG TABLET PO PRN (19:00)
[2018-01-04] MEDS ORDERED: LORazepam 2 MG TABLET PO PRN (19:00)
[2018-01-04] MEDS ORDERED: DEXTROSE 50%-WATER 25 GM/50 ML SYRINGE IVP PRN (19:30)
[2018-01-04] MEDS ORDERED: MAG HYDROX/AL HYDROX/SIMETH ES 30 ML SUSPENSION UDCUP PO PRN (19:45)
[2018-01-04] MEDS ORDERED: DOCUSATE SODIUM 100 MG CAPSULE PO PRN (19:45)
[2018-01-04] MEDS ORDERED: CloNIDine HCL 0.1 MG TABLET PO PRN (19:45)
[2018-01-04] MEDS ORDERED: IBUPROFEN 400 MG TABLET PO PRN (19:45)
[2018-01-04] MEDS ORDERED: NICOTINE 14 MG/24 HOUR PATCH TD PRN (19:45)
[2018-01-04] MEDS ORDERED: ALBUTEROL SULFATE HFA 90 MCG/PUFF 8 GM INHALER IH PRN (19:45)
[2018-01-04] MEDS ORDERED: ACETAMINOPHEN 325 MG TABLET PO PRN (19:45)
[2018-01-04] MEDS ORDERED: ONDANSETRON HCL 4 MG TABLET PO PRN (19:45)
[2018-01-04] MEDS ORDERED: PETROLATUM,WHITE 71 GM JELLY TP PRN (19:45)
[2018-01-04] MEDS ORDERED: GuaiFENesin/D-METHORPHAN [SUGAR-FREE] 200-20MG/10 ML SYRUP UDCUP PO PRN (19:45)
[2018-01-04] MEDS ORDERED: TraMADol HCL 50 MG TABLET PO PRN (19:45)
[2018-01-04] MEDS ORDERED: MAGNESIUM HYDROXIDE SUSPENSION 30 ML UDCUP PO PRN (19:45)
[2018-01-04] MEDS ORDERED: LOPERAMIDE HCL 2 MG CAPSULE PO PRN (19:45)
[2018-01-04 21:38] LABS: GLUCOMETER DEV NAME(LOC) 3EI C; GLUCOSE,POINT OF CARE 239 MG/DL (70-110)
[2018-01-04] MEDS: INSULIN LISPRO 100 UNITS/ML SQ PRN (21:52)
[2018-01-05 05:57] VITALS: BP 144/86
[2018-01-05 06:09] LABS: BASOPHILS % (AUTO) 0.6 % (0.0-2.0); EOSINOPHILS % (AUTO) 3.2 % (1.0-6.0); HEMATOCRIT 46.4 % (41-53); HEMOGLOBIN 16.5 g/dL (13.5-17.5); LYMPHOCYTES # (AUTO) 2.1 K/uL (1.0-4.8); LYMPHOCYTES % (AUTO) 23.3 % (22.0-44.0); MEAN CORPUSCULAR HEMOGLOBIN 31.4 pg (26.0-34.0); MEAN CORPUSCULAR HGB CONC 35.5 G/dL (31.0-37.0); MEAN CORPUSCULAR VOLUME 88 fL (80-100); MONOCYTES # (AUTO) 0.6 K/uL (0.1-1.0); MONOCYTES % (AUTO) 7.3 % (2.0-9.0); NEUTROPHILS # (AUTO) 5.8 K/uL (1.8-7.7); NEUTROPHILS % (AUTO) 65.6 % (40.0-70.0); PLATELET COUNT (AUTO) 111 K/uL (150-450); RED BLOOD CELL COUNT(AUTO) 5.26 MIL/uL (4.50-5.90); RED CELL DISTRIBUTION WIDTH 14.4 % (11.5-14.5)
[2018-01-05 06:19] LABS: GLUCOMETER DEV NAME(LOC) 3EI C; GLUCOSE,POINT OF CARE 259 MG/DL (70-110)
[2018-01-05 07:09] LABS: ALANINE AMINOTRANSFERASE 52 U/L (12-78); ALBUMIN 3.1 g/dL (3.4-5.0); ALKALINE PHOSPHATASE 120 U/L (46-116); ANION GAP 7 mmol/L (8-16); ASPARTATE AMINOTRANSFERASE 26 U/L (15-37); BILIRUBIN,TOTAL 0.4 mg/dL (0.1-1.0); CALCIUM, TOTAL 8.5 mg/dL (8.8-10.5); CARBON DIOXIDE 24 mmol/L (22-29); CHLORIDE 102 mmol/L (98-107); CHOL/HDL RATIO 3.5 (4.2-7.3); CHOLESTEROL 154 mg/dL (131-200); CREATININE 0.71 mg/dL (0.60-1.30); GLOMERULAR FILTR. RATE CALC > 60 mL/min (>60); GLUCOSE,RANDOM 256 mg/dL (70-110); HDL CHOLESTEROL 44 mg/dL (40-60); LDL CHOL (CALC.) 74 mg/dL (0-130); SODIUM SERUM 133 mmol/L (136-145); THYROID STIMULATING HORMONE 2.96 uIU/mL (0.36-3.74); TOTAL PROTEIN, SERUM 6.7 g/dL (6.4-8.2); TRIGLYCERIDES 182 mg/dL (15-150); UREA NITROGEN, BLOOD 16 mg/dL (7-18)
[2018-01-05] MEDS: INSULIN LISPRO 100 UNITS/ML SQ PRN ×2 (07:21→12:40)
[2018-01-05] MEDS ORDERED: GLIMEPIRIDE 2 MG TABLET PO SCH (07:30)
[2018-01-05] MEDS ORDERED: MetFORMIN HCL 500 MG TABLET PO SCH (07:30)
[2018-01-05 08:14] VITALS: BP 152/86
[2018-01-05] MEDS ORDERED: DOCUSATE SODIUM 100 MG CAPSULE PO SCH (09:00)
[2018-01-05] MEDS ORDERED: ESCITALOPRAM OXALATE 10 MG TABLET PO SCH (09:00)
[2018-01-05] MEDS ORDERED: CYANOCOBALAMIN 500 MCG TABLET PO SCH (09:00)
[2018-01-05] MEDS ORDERED: CHOLECALCIFEROL (VIT D3) 1,000 UNITS TABLET PO SCH (09:00)
[2018-01-05] MEDS ORDERED: ARIPiprazole 15 MG TABLET PO SCH (09:00)
[2018-01-05] MEDS ORDERED: OMEPRAZOLE 20 MG CAPSULE PO SCH (09:00)
[2018-01-05] MEDS ORDERED: LISINOPRIL 20 MG TABLET PO SCH (09:00)
[2018-01-05] MEDS ORDERED: SUCRALFATE 1 GM TABLET PO SCH (09:00)
[2018-01-05] MEDS ORDERED: OMEGA-3/DHA/EPA/FISH OIL 1,000 MG CAPSULE PO SCH (09:00)
[2018-01-05 11:24] LABS: GLUCOMETER DEV NAME(LOC) 3EI C; GLUCOSE,POINT OF CARE 260 MG/DL (70-110)
[2018-01-05] MEDS ORDERED: ARIP15TA2 PO (13:43)
[2018-01-05] MEDS ORDERED: ESCI10TA54 PO (13:43)
[2018-01-05] MEDS ORDERED: ESCI10TA PO (14:16)
== END 2018-01-05 16:30 | disposition home or self-care (01) | DRG 750 ==
LOC: 3EI 16:35
DX: F25.0 Schizoaffective disorder, bipolar type (principal); E11.40 Type 2 diabetes mellitus with diabetic neuropathy, unspecified; I10 Essential (primary) hypertension; F10.10 Alcohol abuse, uncomplicated; E78.5 Hyperlipidemia, unspecified; M19.90 Unspecified osteoarthritis, unspecified site; F12.10 Cannabis abuse, uncomplicated; G89.29 Other chronic pain; N20.0 Calculus of kidney; K21.9 Gastro-esophageal reflux disease without esophagitis; J45.909 Unspecified asthma, uncomplicated; F11.90 Opioid use, unspecified, uncomplicated; Z79.899 Other long term (current) drug therapy; Z87.442 Personal history of urinary calculi
CPT/HCPCS: 83036; 84443; J3535

== ENCOUNTER 2018-03-06 14:35 | Emergency (ER) | payer MEDICARE, OTHER ==
[~2018-03-06] VITALS: Ht 170.2 cm; Wt 84.1 kg
[~2018-03-06 14:35] MED LIST changes: +ARIP15TA2 PO; +ESCI10TA PO; +ESCI10TA54 PO; -GABA-533 PO; +METF-960 PO; -METF500T6 PO
[2018-03-06 14:49] LABS: GLUCOSE,POINT OF CARE 227 MG/DL (70-110)
[2018-03-06] MEDS ORDERED: ACETAMINOPHEN 500 MG TABLET PO ONE (15:15)
[2018-03-06 16:33] VITALS: BP 137/91
== END 2018-03-06 16:38 | disposition home or self-care (01) ==
LOC: EMS 14:37
DX: L03.115 Cellulitis of right lower limb (principal); J45.909 Unspecified asthma, uncomplicated; E11.9 Type 2 diabetes mellitus without complications; E78.00 Pure hypercholesterolemia, unspecified; I10 Essential (primary) hypertension; I25.2 Old myocardial infarction; F20.9 Schizophrenia, unspecified; G89.29 Other chronic pain; F17.210 Nicotine dependence, cigarettes, uncomplicated; F11.90 Opioid use, unspecified, uncomplicated; Z79.84 Long term (current) use of oral hypoglycemic drugs; Z79.899 Other long term (current) drug therapy
CPT/HCPCS: 99283

== ENCOUNTER 2018-08-23 04:28 | Emergency (ER) | payer MEDICARE, OTHER ==
[~2018-08-23] VITALS: Ht 162.6 cm; Wt 82.5 kg
[~2018-08-23 04:28] MED LIST changes: -ARIP10TA8 PO; -CYAN100099 PO; -ESCI10TA54 PO; -GLIM2 PO
[2018-08-23] MEDS ORDERED: CYCLOBENZAPRINE HCL 10 MG TABLET PO ONE (05:30)
[2018-08-23] MEDS ORDERED: KETOROLAC TROMETHAMINE 30 MG/ML VIAL IVP ONE (05:30)
[2018-08-23 05:51] LABS: BASOPHILS % (AUTO) 0.6 % (0.0-2.0); EOSINOPHILS % (AUTO) 1.9 % (1.0-6.0); HEMATOCRIT 46.3 % (41-53); HEMOGLOBIN 16.4 g/dL (13.5-17.5); LYMPHOCYTES # (AUTO) 3.6 K/uL (1.0-4.8); MEAN CORPUSCULAR HEMOGLOBIN 30.6 pg (26.0-34.0); MEAN CORPUSCULAR HGB CONC 35.4 G/dL (31.0-37.0); MEAN CORPUSCULAR VOLUME 86 fL (80-100); MONOCYTES # (AUTO) 0.5 K/uL (0.1-1.0); NEUTROPHILS # (AUTO) 6.5 K/uL (1.8-7.7); NEUTROPHILS % (AUTO) 59.5 % (40.0-70.0); PLATELET COUNT (AUTO) 211 K/uL (150-450); RED BLOOD CELL COUNT(AUTO) 5.35 MIL/uL (4.50-5.90); RED CELL DISTRIBUTION WIDTH 14.7 % (11.5-14.5)
[2018-08-23 05:56] LABS: ANION GAP 12 mmol/L (8-16); CALCIUM, TOTAL 9.1 mg/dL (8.8-10.5); CARBON DIOXIDE 25 mmol/L (22-29); CHLORIDE 99 mmol/L (98-107); CREATININE 1.09 mg/dL (0.60-1.30); GLOMERULAR FILTR. RATE CALC > 60 mL/min (>60); GLUCOSE,RANDOM 304 mg/dL (70-110); POTASSIUM 4.2 mmol/L (3.5-5.1); SODIUM SERUM 136 mmol/L (136-145); UREA NITROGEN, BLOOD 13 mg/dL (7-18)
[2018-08-23 05:58] LABS: APPEARANCE,URINE CLEAR (CLEAR); BILIRUBIN,URINE NEGATIVE (NEGATIVE); GLUCOSE, URINE (UA) 500 mg/dL (NEGATIVE); KETONES,URINE NEGATIVE (NEGATIVE); LEUKOCYTE ESTERASE ,URINE NEGATIVE (NEGATIVE); NITRATE,URINE NEGATIVE (NEGATIVE); OCCULT BLOOD,URINE NEGATIVE (NEGATIVE); PROTEIN,URINE NEGATIVE (NEGATIVE); UROBILINOGEN,URINE 0.2 mg/dL (<=1.0)
[2018-08-23 06:13] LABS: B-TYPE NATRIURETIC PEPTIDE 17 pg/mL (0-100)
[2018-08-23 06:21] LABS: BACTERIA,URINE None Seen /HPF (None Seen); RBC,URINE None Seen /HPF (0-2); SQUAMOUS EPITHELIAL CELL,UR Few /LPF (None Seen); WBC,URINE None Seen /HPF (0-5)
[2018-08-23 06:30] LABS: ALANINE AMINOTRANSFERASE 58 U/L (12-78); ALBUMIN 3.7 g/dL (3.4-5.0); ALKALINE PHOSPHATASE 132 U/L (46-116); ASPARTATE AMINOTRANSFERASE 101 U/L (15-37); BILIRUBIN,TOTAL 0.6 mg/dL (0.1-1.0); TOTAL PROTEIN, SERUM 7.8 g/dL (6.4-8.2)
[2018-08-23 06:37] LABS: CREATINE KINASE, TOTAL ONLY 2136 U/L (39-308)
[2018-08-23] MEDS ORDERED: SODIUM CHLORIDE 0.9% 1,000 ML IV ONE (07:00)
[2018-08-23] MEDS ORDERED: HYDROCODONE/ACETAMINOPHEN 5-325 MG TABLET PO ONE (07:15)
[2018-08-23 09:14] VITALS: BP 113/75
== END 2018-08-23 09:40 | disposition home or self-care (01) ==
LOC: EMS 04:29
DX: M62.82 Rhabdomyolysis (principal); R10.9 Unspecified abdominal pain; R31.9 Hematuria, unspecified; R07.89 Other chest pain; M54.5 Low back pain; E78.00 Pure hypercholesterolemia, unspecified; E11.40 Type 2 diabetes mellitus with diabetic neuropathy, unspecified; I11.9 Hypertensive heart disease without heart failure; I25.2 Old myocardial infarction; J45.909 Unspecified asthma, uncomplicated; M19.90 Unspecified osteoarthritis, unspecified site; F20.9 Schizophrenia, unspecified; F11.90 Opioid use, unspecified, uncomplicated; Z79.899 Other long term (current) drug therapy; Z87.891 Personal history of nicotine dependence; Z87.442 Personal history of urinary calculi
CPT/HCPCS: 36415; 71045; 80053; 81001; 82550; 83880; 84484; 85025; 93005; 96361; 96374; 99285; J1885; J7030

== ENCOUNTER 2018-09-01 01:27 | Emergency (ER) | payer MEDICARE, OTHER ==
[~2018-09-01] VITALS: Ht 162.6 cm; Wt 82.7 kg
[2018-09-01] MEDS ORDERED: MORPHINE SULFATE 2 MG/ML SYRINGE IVP ONE (02:45)
[2018-09-01] MEDS: ONDANSETRON HCL 4 MG/2 ML VIAL IVP ONE (03:21)
[2018-09-01] MEDS: MORPHINE SULFATE 4 MG/ML SYRINGE IVP ONE (03:21)
[2018-09-01 03:24] LABS: BASOPHILS % (AUTO) 0.3 % (0.0-2.0); EOSINOPHILS % (AUTO) 1.5 % (1.0-6.0); HEMATOCRIT 48.6 % (41-53); HEMOGLOBIN 16.7 g/dL (13.5-17.5); LYMPHOCYTES # (AUTO) 3.7 K/uL (1.0-4.8); LYMPHOCYTES % (AUTO) 29.2 % (22.0-44.0); MEAN CORPUSCULAR HEMOGLOBIN 30.5 pg (26.0-34.0); MEAN CORPUSCULAR HGB CONC 34.3 G/dL (31.0-37.0); MEAN CORPUSCULAR VOLUME 89 fL (80-100); MONOCYTES # (AUTO) 0.8 K/uL (0.1-1.0); MONOCYTES % (AUTO) 6.4 % (2.0-9.0); NEUTROPHILS # (AUTO) 7.9 K/uL (1.8-7.7); NEUTROPHILS % (AUTO) 62.6 % (40.0-70.0); PLATELET COUNT (AUTO) 176 K/uL (150-450); RED BLOOD CELL COUNT(AUTO) 5.46 MIL/uL (4.50-5.90); RED CELL DISTRIBUTION WIDTH 14.8 % (11.5-14.5)
[2018-09-01 03:36] LABS: ANION GAP 14 mmol/L (8-16); CALCIUM, TOTAL 9.3 mg/dL (8.8-10.5); CARBON DIOXIDE 22 mmol/L (22-29); CHLORIDE 100 mmol/L (98-107); CREATININE 1.18 mg/dL (0.60-1.30); GLOMERULAR FILTR. RATE CALC > 60 mL/min (>60); GLUCOSE,RANDOM 360 mg/dL (70-110); POTASSIUM 3.4 mmol/L (3.5-5.1); SODIUM SERUM 136 mmol/L (136-145); UREA NITROGEN, BLOOD 16 mg/dL (7-18)
[2018-09-01 03:42] LABS: ALANINE AMINOTRANSFERASE 41 U/L (12-78); ALBUMIN 3.7 g/dL (3.4-5.0); ALKALINE PHOSPHATASE 129 U/L (46-116); ASPARTATE AMINOTRANSFERASE 26 U/L (15-37); BILIRUBIN,TOTAL 0.7 mg/dL (0.1-1.0); LIPASE 217 U/L (73-393); TOTAL PROTEIN, SERUM 7.5 g/dL (6.4-8.2)
[2018-09-01] MEDS ORDERED: IOVERSOL 350 MG/ML 100 ML VIAL ONE (03:49)
[2018-09-01] MEDS ORDERED: SODIUM CHLORIDE 0.9% 100 ML ONE (03:49)
[2018-09-01 03:56] LABS: LACTIC ACID 2.3 mmol/L (0.4-2.0)
[2018-09-01 04:27] LABS: APPEARANCE,URINE CLOUDY (CLEAR); BILIRUBIN,URINE NEGATIVE (NEGATIVE); GLUCOSE, URINE (UA) 500 mg/dL (NEGATIVE); KETONES,URINE NEGATIVE (NEGATIVE); LEUKOCYTE ESTERASE ,URINE MODERATE (NEGATIVE); NITRATE,URINE NEGATIVE (NEGATIVE); OCCULT BLOOD,URINE LARGE (NEGATIVE); PROTEIN,URINE NEGATIVE (NEGATIVE)
[2018-09-01 04:35] LABS: BACTERIA,URINE Few /HPF (None Seen); SQUAMOUS EPITHELIAL CELL,UR Few /LPF (None Seen)
[2018-09-01] MEDS: CEPHALEXIN MONOHYDRATE 500 MG CAPSULE PO ONE (05:43)
[2018-09-01] MEDS: INSULIN REGULAR, HUMAN 100 UNITS/ML SQ ONE (05:45)
[2018-09-01 05:49] VITALS: BP 107/65
== END 2018-09-01 06:06 | disposition home or self-care (01) ==
LOC: EMS 01:29
DX: S30.0XXA Contusion of lower back and pelvis, initial encounter (principal); E11.65 Type 2 diabetes mellitus with hyperglycemia; F10.229 Alcohol dependence with intoxication, unspecified; G89.29 Other chronic pain; E87.6 Hypokalemia; J45.909 Unspecified asthma, uncomplicated; I11.9 Hypertensive heart disease without heart failure; E78.00 Pure hypercholesterolemia, unspecified; F20.9 Schizophrenia, unspecified; I25.2 Old myocardial infarction; F11.90 Opioid use, unspecified, uncomplicated; M19.90 Unspecified osteoarthritis, unspecified site; Z87.891 Personal history of nicotine dependence; Z79.84 Long term (current) use of oral hypoglycemic drugs; Z79.899 Other long term (current) drug therapy; W19.XXXA Unspecified fall, initial encounter; Y93.89 Activity, other specified; Y92.89 Other specified places as the place of occurrence of the external cause; Y99.8 Other external cause status; Y90.8 Blood alcohol level of 240 mg/100 ml or more
CPT/HCPCS: 36415; 71045; 74177; 80053; 81001; 82962; 83605; 83690; 84484; 85025; 87040; 87086; 96372; 96374; 96375; 99284; G0480; J1815; J2270; J2405; J7050; Q9967

== ENCOUNTER 2018-09-18 23:09 | Emergency (ER) | payer MEDICARE, OTHER ==
[~2018-09-18] VITALS: Ht 162.6 cm; Wt 82.7 kg
[2018-09-19 00:35] LABS: GLUCOSE,POINT OF CARE 292 MG/DL (70-110)
[2018-09-19 00:44] LABS: BASOPHILS % (AUTO) 0.7 % (0.0-2.0); EOSINOPHILS % (AUTO) 1.4 % (1.0-6.0); HEMATOCRIT 45.6 % (41-53); HEMOGLOBIN 15.8 g/dL (13.5-17.5); LYMPHOCYTES # (AUTO) 3.2 K/uL (1.0-4.8); LYMPHOCYTES % (AUTO) 37.4 % (22.0-44.0); MEAN CORPUSCULAR HEMOGLOBIN 30.9 pg (26.0-34.0); MEAN CORPUSCULAR HGB CONC 34.6 G/dL (31.0-37.0); MEAN CORPUSCULAR VOLUME 89 fL (80-100); MONOCYTES # (AUTO) 0.6 K/uL (0.1-1.0); MONOCYTES % (AUTO) 6.4 % (2.0-9.0); NEUTROPHILS # (AUTO) 4.7 K/uL (1.8-7.7); NEUTROPHILS % (AUTO) 54.1 % (40.0-70.0); PLATELET COUNT (AUTO) 181 K/uL (150-450); RED CELL DISTRIBUTION WIDTH 15.1 % (11.5-14.5)
[2018-09-19] MEDS ORDERED: HYDROCODONE/ACETAMINOPHEN 5-325 MG TABLET PO ONE (00:45)
[2018-09-19] MEDS ORDERED: KETOROLAC TROMETHAMINE 30 MG/ML VIAL IM ONE (00:45)
[2018-09-19 00:53] LABS: AMPHET/METH SCREEN,URINE NEGATIVE (NEGATIVE); BARBITURATE SCREEN, URINE NEGATIVE (NEGATIVE); BENZODIAZEPINES SCREEN,URINE NEGATIVE (NEGATIVE); CANNABINOID SCREEN,URINE POSITIVE (NEGATIVE); COCAINE SCREEN,URINE NEGATIVE (NEGATIVE); METHADONE SCREEN, URINE NEGATIVE (NEGATIVE); OPIATE SCREEN,URINE NEGATIVE (NEGATIVE); PHENCYCLIDINE SCREEN,URINE NEGATIVE (NEGATIVE)
[2018-09-19 01:13] LABS: ANION GAP 12 mmol/L (8-16); CALCIUM, TOTAL 8.1 mg/dL (8.8-10.5); CARBON DIOXIDE 24 mmol/L (22-29); CHLORIDE 103 mmol/L (98-107); GLOMERULAR FILTR. RATE CALC > 60 mL/min (>60); GLUCOSE,RANDOM 303 mg/dL (70-110); POTASSIUM 3.9 mmol/L (3.5-5.1); SODIUM SERUM 139 mmol/L (136-145); UREA NITROGEN, BLOOD 8 mg/dL (7-18)
[2018-09-19] MEDS ORDERED: INSULIN GLARGINE,HUM.REC.ANLOG 100 UNITS/ML SQ ONE (01:15)
[2018-09-19 01:19] LABS: ALANINE AMINOTRANSFERASE 39 U/L (12-78); ALBUMIN 3.6 g/dL (3.4-5.0); ALKALINE PHOSPHATASE 143 U/L (46-116); ASPARTATE AMINOTRANSFERASE 42 U/L (15-37); BILIRUBIN,TOTAL 0.6 mg/dL (0.1-1.0); TOTAL PROTEIN, SERUM 7.7 g/dL (6.4-8.2)
[2018-09-19 02:59] LABS: GLUCOSE,POINT OF CARE 243 MG/DL (70-110)
[2018-09-19] MEDS ORDERED: HALOPERIDOL 5 MG TABLET PO PRN (04:30)
[2018-09-19] MEDS ORDERED: LORazepam 2 MG TABLET PO PRN (04:30)
[2018-09-19] MEDS ORDERED: ZOLPIDEM TARTRATE 10 MG TABLET PO PRN (04:30)
[2018-09-19 05:05] LABS: GLUCOSE,POINT OF CARE 215 MG/DL (70-110)
[2018-09-19] MEDS ORDERED: MetFORMIN HCL 500 MG TABLET PO ONE (06:00)
[2018-09-19] MEDS ORDERED: TraMADol HCL 50 MG TABLET PO PRN (08:30)
[2018-09-19] MEDS ORDERED: INSULIN REGULAR, HUMAN 100 UNITS/ML SQ ONE (09:15)
[2018-09-19 09:20] LABS: GLUCOSE,POINT OF CARE 365 MG/DL (70-110)
[2018-09-19 14:08] VITALS: BP 130/81
[2018-09-19] MEDS ORDERED: LOPERAMIDE HCL 2 MG CAPSULE PO ONE (14:15)
[2018-09-19] MEDS ORDERED: IBUPROFEN 600 MG TABLET PO ONE (14:15)
[2018-09-19 15:15] LABS: GLUCOSE,POINT OF CARE 254 MG/DL (70-110)
[2018-09-19 15:15] LABS: GLUCOSE,POINT OF CARE 298 MG/DL (70-110)
== END 2018-09-19 14:48 | disposition short-term general hospital (02) ==
LOC: EMS 23:12
DX: F10.129 Alcohol abuse with intoxication, unspecified (principal); R45.851 Suicidal ideations; E11.65 Type 2 diabetes mellitus with hyperglycemia; G89.29 Other chronic pain; M54.5 Low back pain; J45.909 Unspecified asthma, uncomplicated; I10 Essential (primary) hypertension; E78.00 Pure hypercholesterolemia, unspecified; I25.2 Old myocardial infarction; F11.90 Opioid use, unspecified, uncomplicated; Z87.891 Personal history of nicotine dependence; Z79.84 Long term (current) use of oral hypoglycemic drugs; Z79.899 Other long term (current) drug therapy; Y90.8 Blood alcohol level of 240 mg/100 ml or more
CPT/HCPCS: 36415; 80053; 80307; 82962; 85025; 96372; 99285; G0480; J1815 ×2; J1885

== ENCOUNTER 2018-11-20 09:13 | Emergency (ER) | payer MEDICARE, OTHER ==
[~2018-11-20] VITALS: Ht 162.6 cm; Wt 82.7 kg
[2018-11-20 09:29] LABS: GLUCOSE,POINT OF CARE 363 MG/DL (70-110)
[2018-11-20] MEDS ORDERED: KETOROLAC TROMETHAMINE 60 MG/2 ML VIAL IM ONE (12:15)
[2018-11-20 12:26] VITALS: BP 152/90
== END 2018-11-20 12:30 | disposition home or self-care (01) ==
LOC: EMS 09:15
DX: R22.1 Localized swelling, mass and lump, neck (principal); I10 Essential (primary) hypertension; E78.00 Pure hypercholesterolemia, unspecified; E11.9 Type 2 diabetes mellitus without complications; J45.909 Unspecified asthma, uncomplicated; I25.2 Old myocardial infarction; F20.9 Schizophrenia, unspecified; Z87.891 Personal history of nicotine dependence; Z79.899 Other long term (current) drug therapy
CPT/HCPCS: 70490; 82962; 96372; 99284; J1885

== ENCOUNTER 2019-02-19 04:00 | Inpatient (IN) | payer MEDICARE, MEDICAID ==
[~2019-02-19] VITALS: Ht 160 cm; Wt 85.0 kg
[~2019-02-19 04:00] MED LIST changes: +CHOL100018 PO; -VITAD1000 PO
[2019-02-19] MEDS ORDERED: LORazepam 1 MG TABLET PO ONE (04:30)
[2019-02-19] MEDS ORDERED: ARIPiprazole 15 MG TABLET PO ONE (04:30)
[2019-02-19] MEDS ORDERED: LISINOPRIL 10 MG TABLET PO ONE (04:30)
[2019-02-19] MEDS ORDERED: MetFORMIN HCL 500 MG TABLET PO ONE (04:30)
[2019-02-19] MEDS ORDERED: LISINOPRIL 20 MG TABLET PO ONE (04:30)
[2019-02-19 05:52] LABS: BASOPHILS % (AUTO) 0.5 % (0.0-2.0); EOSINOPHILS % (AUTO) 1.8 % (1.0-6.0); HEMATOCRIT 48.1 % (41-53); HEMOGLOBIN 16.9 g/dL (13.5-17.5); LYMPHOCYTES # (AUTO) 3.1 K/uL (1.0-4.8); LYMPHOCYTES % (AUTO) 25.6 % (22.0-44.0); MEAN CORPUSCULAR HEMOGLOBIN 29.8 pg (26.0-34.0); MEAN CORPUSCULAR HGB CONC 35.1 G/dL (31.0-37.0); MEAN CORPUSCULAR VOLUME 85 fL (80-100); MONOCYTES # (AUTO) 0.7 K/uL (0.1-1.0); NEUTROPHILS % (AUTO) 66.1 % (40.0-70.0); PLATELET COUNT (AUTO) 153 K/uL (150-450); RED BLOOD CELL COUNT(AUTO) 5.66 MIL/uL (4.50-5.90); RED CELL DISTRIBUTION WIDTH 15.2 % (11.5-14.5)
[2019-02-19 05:59] LABS: ANION GAP 10 mmol/L (8-16); CALCIUM, TOTAL 9.2 mg/dL (8.8-10.5); CARBON DIOXIDE 25 mmol/L (22-29); CHLORIDE 97 mmol/L (98-107); CREATININE 1.15 mg/dL (0.60-1.30); GLOMERULAR FILTR. RATE CALC > 60 mL/min (>60); GLUCOSE,RANDOM 338 mg/dL (70-110); POTASSIUM 4.5 mmol/L (3.5-5.1); SODIUM SERUM 132 mmol/L (136-145); UREA NITROGEN, BLOOD 14 mg/dL (7-18)
[2019-02-19] MEDS ORDERED: ZOLPIDEM TARTRATE 10 MG TABLET PO PRN (06:00)
[2019-02-19] MEDS ORDERED: HALOPERIDOL 5 MG TABLET PO PRN (06:00)
[2019-02-19 06:06] LABS: ALANINE AMINOTRANSFERASE 50 U/L (12-78); ALBUMIN 3.9 g/dL (3.4-5.0); ALKALINE PHOSPHATASE 152 U/L (46-116); ASPARTATE AMINOTRANSFERASE 38 U/L (15-37); BILIRUBIN,TOTAL 0.7 mg/dL (0.1-1.0); TOTAL PROTEIN, SERUM 8.1 g/dL (6.4-8.2)
[2019-02-19 06:22] LABS: AMPHET/METH SCREEN,URINE NEGATIVE (NEGATIVE); BARBITURATE SCREEN, URINE NEGATIVE (NEGATIVE); BENZODIAZEPINES SCREEN,URINE NEGATIVE (NEGATIVE); CANNABINOID SCREEN,URINE NEGATIVE (NEGATIVE); COCAINE SCREEN,URINE NEGATIVE (NEGATIVE); METHADONE SCREEN, URINE NEGATIVE (NEGATIVE); OPIATE SCREEN,URINE POSITIVE (NEGATIVE); PHENCYCLIDINE SCREEN,URINE NEGATIVE (NEGATIVE)
[2019-02-19 06:57] LABS: APPEARANCE,URINE CLOUDY (CLEAR); BILIRUBIN,URINE NEGATIVE (NEGATIVE); GLUCOSE, URINE (UA) >=1000 mg/dL (NEGATIVE); KETONES,URINE NEGATIVE (NEGATIVE); LEUKOCYTE ESTERASE ,URINE MODERATE (NEGATIVE); NITRATE,URINE POSITIVE (NEGATIVE); OCCULT BLOOD,URINE TRACE (NEGATIVE); PROTEIN,URINE NEGATIVE (NEGATIVE); UROBILINOGEN,URINE 0.2 mg/dL (<=1.0)
[2019-02-19 07:18] LABS: RBC,URINE 0-2 /HPF (0-2)
[2019-02-19 07:19] LABS: BACTERIA,URINE Moderate /HPF (None Seen); SQUAMOUS EPITHELIAL CELL,UR Few /LPF (None Seen); WBC,URINE 51-100 /HPF (0-5)
[2019-02-19] MEDS ORDERED: CEPHALEXIN MONOHYDRATE 500 MG CAPSULE PO ONE (09:15)
[2019-02-19 10:16] VITALS: BP 140/90
[2019-02-19] MEDS ORDERED: IBUPROFEN 400 MG TABLET PO PRN (12:00)
[2019-02-19] MEDS ORDERED: ONDANSETRON HCL 4 MG TABLET PO PRN (12:00)
[2019-02-19] MEDS ORDERED: DOCUSATE SODIUM 100 MG CAPSULE PO PRN (12:00)
[2019-02-19] MEDS ORDERED: GuaiFENesin/D-METHORPHAN [SUGAR-FREE] 200-20MG/10 ML SYRUP UDCUP PO PRN (12:00)
[2019-02-19] MEDS ORDERED: ACETAMINOPHEN 325 MG TABLET PO PRN (12:00)
[2019-02-19] MEDS ORDERED: LOPERAMIDE HCL 2 MG CAPSULE PO PRN (12:00)
[2019-02-19] MEDS ORDERED: MAG HYDROX/AL HYDROX/SIMETH ES 30 ML SUSPENSION UDCUP PO PRN (12:00)
[2019-02-19] MEDS ORDERED: MAGNESIUM HYDROXIDE SUSPENSION 30 ML UDCUP PO PRN (12:00)
[2019-02-19] MEDS ORDERED: PETROLATUM,WHITE 28 GM JELLY TP PRN (12:00)
[2019-02-19] MEDS ORDERED: CloNIDine HCL 0.1 MG TABLET PO PRN (12:00)
[2019-02-19] MEDS ORDERED: ALBUTEROL SULFATE HFA 90 MCG/PUFF 8 GM INHALER IH PRN (12:00)
[2019-02-19] MEDS ORDERED: NICOTINE 14 MG/24 HOUR PATCH TD PRN (12:00)
[2019-02-19] MEDS: ESCITALOPRAM OXALATE 10 MG TABLET PO SCH (12:03)
[2019-02-19] MEDS: ARIPiprazole 15 MG TABLET PO SCH (12:03)
[2019-02-19] MEDS: CEPHALEXIN MONOHYDRATE 500 MG CAPSULE PO SCH ×2 (12:04→16:43)
[2019-02-19 16:00] VITALS: BP 129/81
[2019-02-19] MEDS: MetFORMIN HCL 500 MG TABLET PO SCH (16:42)
[2019-02-19] MEDS: SUCRALFATE 1 GM TABLET PO SCH (16:42)
[2019-02-19 16:50] LABS: GLUCOMETER DEV NAME(LOC) 3EX.; GLUCOSE,POINT OF CARE 310 MG/DL (70-110)
[2019-02-19] MEDS ORDERED: DEXTROSE 50%-WATER 25 GM/50 ML SYRINGE IVP PRN (17:15)
[2019-02-19] MEDS: INSULIN LISPRO 100 UNITS/ML SQ PRN (17:27)
[2019-02-20 06:11] LABS: GLUCOMETER DEV NAME(LOC) 3E.I; GLUCOSE,POINT OF CARE 277 MG/DL (70-110)
[2019-02-20 06:38] LABS: CHOL/HDL RATIO 4.1 (4.2-7.3); FREE T4 (FREE THYROXINE) 1.04 ng/dL (0.76-1.46); THYROID STIMULATING HORMONE 0.89 uIU/mL (0.36-3.74)
[2019-02-20] MEDS: MetFORMIN HCL 500 MG TABLET PO SCH ×2 (06:39→18:40)
[2019-02-20] MEDS: INSULIN LISPRO 100 UNITS/ML SQ PRN ×2 (06:41→17:20)
[2019-02-20] MEDS: CHOLECALCIFEROL (VIT D3) 1,000 UNITS TABLET PO SCH (08:11)
[2019-02-20] MEDS: ESCITALOPRAM OXALATE 10 MG TABLET PO SCH (08:12)
[2019-02-20] MEDS: CEPHALEXIN MONOHYDRATE 500 MG CAPSULE PO SCH ×3 (08:12→16:12)
[2019-02-20] MEDS: LISINOPRIL 20 MG TABLET PO SCH (08:12)
[2019-02-20] MEDS: OMEPRAZOLE 20 MG CAPSULE PO SCH (08:12)
[2019-02-20] MEDS: SUCRALFATE 1 GM TABLET PO SCH ×2 (08:12→16:12)
[2019-02-20] MEDS: OMEGA-3/DHA/EPA/FISH OIL 1,000 MG CAPSULE PO SCH (08:13)
[2019-02-20] MEDS: ARIPiprazole 15 MG TABLET PO SCH (08:13)
[2019-02-20 09:04] VITALS: BP 145/96
[2019-02-20 16:26] LABS: GLUCOMETER DEV NAME(LOC) 3EX.; GLUCOSE,POINT OF CARE 320 MG/DL (70-110)
[2019-02-20 18:50] VITALS: BP 139/78
[2019-02-20 22:06] LABS: GLUCOMETER DEV NAME(LOC) 3EX.; GLUCOSE,POINT OF CARE 269 MG/DL (70-110)
[2019-02-21 06:31] LABS: GLUCOMETER DEV NAME(LOC) 3E.I; GLUCOSE,POINT OF CARE 298 MG/DL (70-110)
[2019-02-21] MEDS: MetFORMIN HCL 500 MG TABLET PO SCH ×2 (07:00→16:40)
[2019-02-21] MEDS ORDERED: GlipiZIDE 5 MG TABLET PO SCH (07:00)
[2019-02-21] MEDS: INSULIN LISPRO 100 UNITS/ML SQ PRN ×2 (07:01→17:35)
[2019-02-21] MEDS: LORazepam 2 MG TABLET PO PRN (07:53)
[2019-02-21] MEDS: ARIPiprazole 15 MG TABLET PO SCH (08:07)
[2019-02-21] MEDS: CEPHALEXIN MONOHYDRATE 500 MG CAPSULE PO SCH ×3 (08:07→16:40)
[2019-02-21] MEDS: CHOLECALCIFEROL (VIT D3) 1,000 UNITS TABLET PO SCH (08:07)
[2019-02-21] MEDS: ESCITALOPRAM OXALATE 10 MG TABLET PO SCH (08:07)
[2019-02-21] MEDS: FOLIC ACID 1 MG TABLET PO SCH (08:07)
[2019-02-21] MEDS: SUCRALFATE 1 GM TABLET PO SCH ×2 (08:07→16:41)
[2019-02-21] MEDS: OMEPRAZOLE 20 MG CAPSULE PO SCH (08:07)
[2019-02-21] MEDS: LISINOPRIL 20 MG TABLET PO SCH (08:08)
[2019-02-21] MEDS: THIAMINE HCL 100 MG TABLET PO SCH (08:08)
[2019-02-21] MEDS: OMEGA-3/DHA/EPA/FISH OIL 1,000 MG CAPSULE PO SCH (08:08)
[2019-02-21 09:25] VITALS: BP 152/95
[2019-02-21 16:03] VITALS: BP 132/93
[2019-02-21 16:51] LABS: GLUCOMETER DEV NAME(LOC) 3EX.; GLUCOSE,POINT OF CARE 231 MG/DL (70-110)
[2019-02-21 17:12] VITALS: BP 136/88
[2019-02-21] MEDS: GlipiZIDE 5 MG TABLET PO SCH (17:31)
[2019-02-22 03:58] VITALS: BP 142/93
[2019-02-22 05:26] LABS: GLUCOMETER DEV NAME(LOC) 3E.I; GLUCOSE,POINT OF CARE 264 MG/DL (70-110)
[2019-02-22] MEDS: MetFORMIN HCL 500 MG TABLET PO SCH (06:56)
[2019-02-22] MEDS: INSULIN LISPRO 100 UNITS/ML SQ PRN (06:57)
[2019-02-22] MEDS: LORazepam 2 MG TABLET PO PRN (07:29)
[2019-02-22] MEDS: GlipiZIDE 5 MG TABLET PO SCH (08:16)
[2019-02-22] MEDS: LISINOPRIL 20 MG TABLET PO SCH (08:17)
[2019-02-22] MEDS: OMEPRAZOLE 20 MG CAPSULE PO SCH (08:17)
[2019-02-22] MEDS: OMEGA-3/DHA/EPA/FISH OIL 1,000 MG CAPSULE PO SCH (08:17)
[2019-02-22] MEDS: ESCITALOPRAM OXALATE 10 MG TABLET PO SCH (08:17)
[2019-02-22] MEDS: ARIPiprazole 15 MG TABLET PO SCH (08:17)
[2019-02-22] MEDS: THIAMINE HCL 100 MG TABLET PO SCH (08:17)
[2019-02-22] MEDS: SUCRALFATE 1 GM TABLET PO SCH (08:17)
[2019-02-22] MEDS: CHOLECALCIFEROL (VIT D3) 1,000 UNITS TABLET PO SCH (08:17)
[2019-02-22] MEDS: FOLIC ACID 1 MG TABLET PO SCH (08:17)
[2019-02-22] MEDS: CEPHALEXIN MONOHYDRATE 500 MG CAPSULE PO SCH ×2 (08:17→12:48)
[2019-02-22 10:22] VITALS: BP 134/68
[2019-02-22] MEDS ORDERED: GLIP5 PO (11:50)
[2019-02-22] MEDS ORDERED: ARIP15TA2 PO (11:50)
[2019-02-22] MEDS ORDERED: CEPH500 PO (11:50)
[2019-02-22] MEDS ORDERED: THIA100T67 PO (11:50)
[2019-02-22] MEDS ORDERED: FOLI1 PO (11:50)
== END 2019-02-22 16:25 | disposition home or self-care (01) | DRG 885 ==
LOC: EMS 04:00 → 3EX 08:34
PROVIDERS: ADMIT Psychiatry & Neurology Psychiatry; ATTEND Psychiatry & Neurology Psychiatry
DX: F25.9 Schizoaffective disorder, unspecified (principal); N39.0 Urinary tract infection, site not specified; E11.65 Type 2 diabetes mellitus with hyperglycemia; E55.9 Vitamin D deficiency, unspecified; E78.00 Pure hypercholesterolemia, unspecified; E78.5 Hyperlipidemia, unspecified; F17.200 Nicotine dependence, unspecified, uncomplicated; F32.9 Major depressive disorder, single episode, unspecified; E11.40 Type 2 diabetes mellitus with diabetic neuropathy, unspecified; I10 Essential (primary) hypertension; J45.909 Unspecified asthma, uncomplicated; K21.9 Gastro-esophageal reflux disease without esophagitis; K59.09 Other constipation; M19.90 Unspecified osteoarthritis, unspecified site; Z63.9 Problem related to primary support group, unspecified; I25.2 Old myocardial infarction; Z79.4 Long term (current) use of insulin; Z81.8 Family history of other mental and behavioral disorders; Z87.442 Personal history of urinary calculi; Z91.5 Personal history of self-harm; Z91.14 Patient's other noncompliance with medication regimen; F19.10 Other psychoactive substance abuse, uncomplicated
CPT/HCPCS: 83036; 84439; 84443; 87086; G0378; G0480

== ENCOUNTER 2019-05-11 15:50 | Emergency (ER) | payer MEDICARE, OTHER ==
[~2019-05-11] VITALS: Ht 165.1 cm; Wt 90.9 kg
[~2019-05-11 15:50] MED LIST changes: +CEPH500 PO; -DSS100 PO; +FOLI1 PO; +GLIP5 PO; +THIA100T67 PO
[2019-05-11 16:14] LABS: GLUCOSE,POINT OF CARE 496 MG/DL (70-110)
[2019-05-11] MEDS ORDERED: KETOROLAC TROMETHAMINE 30 MG/ML VIAL IM ONE (19:15)
[2019-05-11 19:46] VITALS: BP 148/80
== END 2019-05-11 19:47 | disposition home or self-care (01) ==
LOC: EMS 15:54
DX: M17.11 Unilateral primary osteoarthritis, right knee (principal); E78.00 Pure hypercholesterolemia, unspecified; E11.40 Type 2 diabetes mellitus with diabetic neuropathy, unspecified; I11.9 Hypertensive heart disease without heart failure; I25.2 Old myocardial infarction; J45.909 Unspecified asthma, uncomplicated; F20.9 Schizophrenia, unspecified; F11.90 Opioid use, unspecified, uncomplicated; Z87.891 Personal history of nicotine dependence; Z98.890 Other specified postprocedural states; Z79.899 Other long term (current) drug therapy
CPT/HCPCS: 82962; 96372; 99283; J1885

== ENCOUNTER 2019-05-23 08:14 | Emergency (ER) | payer MEDICARE, OTHER ==
[~2019-05-23] VITALS: Ht 162.6 cm; Wt 83.2 kg
[2019-05-23 08:37] LABS: GLUCOSE,POINT OF CARE 303 MG/DL (70-110)
[2019-05-23 09:33] LABS: HEMATOCRIT 49.3 % (41-53); HEMOGLOBIN 17.6 g/dL (13.5-17.5)
[2019-05-23 09:34] LABS: BASOPHILS % (AUTO) 0.5 % (0.0-2.0); EOSINOPHILS % (AUTO) 3.2 % (1.0-6.0); LYMPHOCYTES # (AUTO) 1.6 K/uL (1.0-4.8); LYMPHOCYTES % (AUTO) 19.4 % (22.0-44.0); MEAN CORPUSCULAR HEMOGLOBIN 30.4 pg (26.0-34.0); MEAN CORPUSCULAR HGB CONC 35.8 G/dL (31.0-37.0); MEAN CORPUSCULAR VOLUME 85 fL (80-100); MONOCYTES # (AUTO) 0.5 K/uL (0.1-1.0); MONOCYTES % (AUTO) 6.5 % (2.0-9.0); NEUTROPHILS # (AUTO) 5.9 K/uL (1.8-7.7); NEUTROPHILS % (AUTO) 70.4 % (40.0-70.0); PLATELET COUNT (AUTO) 137 K/uL (150-450)
[2019-05-23 09:58] LABS: ANION GAP 9 mmol/L (8-16); CALCIUM, TOTAL 8.9 mg/dL (8.8-10.5); CARBON DIOXIDE 26 mmol/L (22-29); CHLORIDE 100 mmol/L (98-107); GLOMERULAR FILTR. RATE CALC > 60 mL/min (>60); GLUCOSE,RANDOM 327 mg/dL (70-110); POTASSIUM 4.6 mmol/L (3.5-5.1); SODIUM SERUM 135 mmol/L (136-145); UREA NITROGEN, BLOOD 13 mg/dL (7-18)
[2019-05-23 10:03] LABS: ALANINE AMINOTRANSFERASE 58 U/L (12-78); ALBUMIN 3.5 g/dL (3.4-5.0); ALKALINE PHOSPHATASE 152 U/L (46-116); ASPARTATE AMINOTRANSFERASE 54 U/L (15-37); BILIRUBIN,TOTAL 0.7 mg/dL (0.1-1.0); LIPASE 269 U/L (73-393); TOTAL PROTEIN, SERUM 7.8 g/dL (6.4-8.2)
[2019-05-23] MEDS: HYDROmorphone 2 MG/ML SYRINGE IVP ONE (11:32)
[2019-05-23] MEDS: ONDANSETRON HCL 4 MG/2 ML VIAL IVP ONE (11:32)
[2019-05-23] MEDS: GuaiFENesin/D-METHORPHAN [SUGAR-FREE] 200-20MG/10 ML SYRUP UDCUP PO ONE (11:32)
[2019-05-23 12:42] VITALS: BP 162/106
== END 2019-05-23 13:26 | disposition home or self-care (01) ==
LOC: EMS 08:18
DX: K52.9 Noninfective gastroenteritis and colitis, unspecified (principal); E11.65 Type 2 diabetes mellitus with hyperglycemia; R59.1 Generalized enlarged lymph nodes; J40 Bronchitis, not specified as acute or chronic; I10 Essential (primary) hypertension; E78.00 Pure hypercholesterolemia, unspecified; I25.2 Old myocardial infarction; F20.9 Schizophrenia, unspecified; F11.90 Opioid use, unspecified, uncomplicated; Z87.891 Personal history of nicotine dependence; Z79.84 Long term (current) use of oral hypoglycemic drugs; Z79.899 Other long term (current) drug therapy
CPT/HCPCS: 36415; 71045; 74176; 80053; 82962; 83690; 84484; 85025; 93005; 96374; 96375; 99285; G0480; J1170; J2405

== ENCOUNTER 2019-08-19 06:26 | Emergency (ER) | payer MEDICARE, OTHER ==
[~2019-08-19] VITALS: Ht 162.6 cm; Wt 93.5 kg
[~2019-08-19 06:26] MED LIST changes: -CEPH500 PO; -FOLI1 PO; -SUCR1TAB PO; -THIA100T67 PO
[2019-08-19] MEDS ORDERED: DICLOFENAC SODIUM 1% 100 GM GEL [4GM] TP ONE (07:00)
[2019-08-19 07:29] VITALS: BP 145/89
== END 2019-08-19 07:38 | disposition home or self-care (01) ==
LOC: EMS 06:26
DX: M25.561 Pain in right knee (principal); I10 Essential (primary) hypertension; E78.00 Pure hypercholesterolemia, unspecified; E11.9 Type 2 diabetes mellitus without complications; I25.2 Old myocardial infarction; F20.9 Schizophrenia, unspecified; Z79.84 Long term (current) use of oral hypoglycemic drugs; Z79.899 Other long term (current) drug therapy

== ENCOUNTER 2019-08-25 05:54 | Emergency (ER) | payer MEDICARE, OTHER ==
[~2019-08-25] VITALS: Ht 162.6 cm; Wt 83.2 kg
[2019-08-25] MEDS ORDERED: TraMADol HCL 50 MG TABLET PO ONE (07:15)
[2019-08-25] MEDS ORDERED: MetFORMIN HCL 500 MG TABLET PO ONE (07:15)
[2019-08-25] MEDS ORDERED: KETOROLAC TROMETHAMINE 30 MG/ML VIAL IM ONE (07:15)
[2019-08-25] MEDS ORDERED: ACETAMINOPHEN 500 MG TABLET PO ONE (07:15)
[2019-08-25 07:41] VITALS: BP 151/85
== END 2019-08-25 07:41 | disposition home or self-care (01) ==
LOC: EMS 05:54
DX: S83.91XA Sprain of unspecified site of right knee, initial encounter (principal); J45.909 Unspecified asthma, uncomplicated; E11.9 Type 2 diabetes mellitus without complications; I11.9 Hypertensive heart disease without heart failure; E78.00 Pure hypercholesterolemia, unspecified; F20.9 Schizophrenia, unspecified; I25.2 Old myocardial infarction; Z79.899 Other long term (current) drug therapy; Z79.84 Long term (current) use of oral hypoglycemic drugs; W19.XXXA Unspecified fall, initial encounter; Y93.89 Activity, other specified; Y92.89 Other specified places as the place of occurrence of the external cause; Y99.8 Other external cause status
CPT/HCPCS: 82962; 96372; 99284; J1885

== ENCOUNTER 2019-12-13 06:16 | Emergency (ER) | payer MEDICARE, OTHER ==
[~2019-12-13] VITALS: Ht 162.6 cm; Wt 80.9 kg
[~2019-12-13 06:16] MED LIST changes: +ASPI-1111 PO; -CHOL100018 PO; +ESCI-8 PO; -ESCI10TA PO; +GABA-1181 PO; +GLIM2 PO; -GLIP5 PO; +LURA20TA PO; -OMEG-12 PO; -OMEP20 PO; +PANT-31 PO; +TRAM50TA4 PO
[2019-12-13] MEDS ORDERED: SODIUM CHLORIDE 0.9% 1,000 ML IV ONE (07:00)
[2019-12-13] MEDS ORDERED: TraMADol HCL 50 MG TABLET PO ONE (07:00)
[2019-12-13] MEDS ORDERED: ACETAMINOPHEN 500 MG TABLET PO ONE (07:00)
[2019-12-13 08:14] LABS: BASOPHILS % (AUTO) 0.2 % (0.0-2.0); EOSINOPHILS % (AUTO) 0.3 % (1.0-6.0); LYMPHOCYTES # (AUTO) 1.9 K/uL (1.0-4.8); LYMPHOCYTES % (AUTO) 13.5 % (22.0-44.0); MEAN CORPUSCULAR HEMOGLOBIN 28.8 pg (26.0-34.0); MEAN CORPUSCULAR HGB CONC 34.5 G/dL (31.0-37.0); MEAN CORPUSCULAR VOLUME 84 fL (80-100); MONOCYTES # (AUTO) 0.9 K/uL (0.1-1.0); MONOCYTES % (AUTO) 6.1 % (2.0-9.0); NEUTROPHILS # (AUTO) 11.2 K/uL (1.8-7.7); NEUTROPHILS % (AUTO) 79.9 % (40.0-70.0); PLATELET COUNT (AUTO) 203 K/uL (150-450); RED BLOOD CELL COUNT(AUTO) 3.83 MIL/uL (4.50-5.90); RED CELL DISTRIBUTION WIDTH 16.9 % (11.5-14.5)
[2019-12-13 08:20] LABS: ALANINE AMINOTRANSFERASE 29 U/L (12-78); ALBUMIN 3.7 g/dL (3.4-5.0); ALKALINE PHOSPHATASE 150 U/L (46-116); ANION GAP 10 mmol/L (8-16); ASPARTATE AMINOTRANSFERASE 13 U/L (15-37); BILIRUBIN,TOTAL 0.7 mg/dL (0.1-1.0); CALCIUM, TOTAL 8.6 mg/dL (8.8-10.5); CARBON DIOXIDE 25 mmol/L (22-29); CHLORIDE 96 mmol/L (98-107); CREATININE 0.93 mg/dL (0.60-1.30); GLOMERULAR FILTR. RATE CALC > 60 mL/min (>60); POTASSIUM 4.2 mmol/L (3.5-5.1); SODIUM SERUM 131 mmol/L (136-145); TOTAL PROTEIN, SERUM 7.1 g/dL (6.4-8.2); UREA NITROGEN, BLOOD 22 mg/dL (7-18)
[2019-12-13 08:24] LABS: GLUCOSE,RANDOM 466 mg/dL (70-110)
[2019-12-13] MEDS ORDERED: INSULIN REGULAR, HUMAN 100 UNITS/ML IVP ONE ×2 (08:30→09:15)
[2019-12-13 09:39] LABS: GLUCOSE,POINT OF CARE 377 MG/DL (70-110)
[2019-12-13 10:24] VITALS: BP 136/77
[2019-12-13 10:35] LABS: GLUCOSE,POINT OF CARE 336 MG/DL (70-110)
== END 2019-12-13 10:44 | disposition home or self-care (01) ==
LOC: EMS 06:16
DX: M13.861 Other specified arthritis, right knee (principal); E11.65 Type 2 diabetes mellitus with hyperglycemia; I11.9 Hypertensive heart disease without heart failure; E78.00 Pure hypercholesterolemia, unspecified; I25.2 Old myocardial infarction; F20.9 Schizophrenia, unspecified; J45.909 Unspecified asthma, uncomplicated; Z79.82 Long term (current) use of aspirin; Z79.84 Long term (current) use of oral hypoglycemic drugs; Z79.899 Other long term (current) drug therapy
CPT/HCPCS: 36415; 80053; 82962; 85025; 96361; 96374; 99283; J1815; J7030

== ENCOUNTER 2020-01-29 15:45 | Emergency (ER) | payer MEDICARE, OTHER ==
[~2020-01-29] VITALS: Ht 175.3 cm; Wt 84.1 kg
[~2020-01-29 15:45] MED LIST changes: +DOCU-275 PO; -GLIM2 PO; +INSLAN SQ; +INSU100V39 SQ; -METF-960 PO; +OXYC5 PO; -TRAM50TA4 PO
[2020-01-29 17:26] LABS: BASOPHILS % (AUTO) 0.6 % (0.0-2.0); EOSINOPHILS % (AUTO) 0.9 % (1.0-6.0); HEMATOCRIT 35.5 % (41-53); HEMOGLOBIN 10.9 g/dL (13.5-17.5); LYMPHOCYTES # (AUTO) 2.1 K/uL (1.0-4.8); LYMPHOCYTES % (AUTO) 16.9 % (22.0-44.0); MEAN CORPUSCULAR HEMOGLOBIN 20.8 pg (26.0-34.0); MEAN CORPUSCULAR HGB CONC 30.6 G/dL (31.0-37.0); MEAN CORPUSCULAR VOLUME 68 fL (80-100); MONOCYTES # (AUTO) 0.8 K/uL (0.1-1.0); MONOCYTES % (AUTO) 6.6 % (2.0-9.0); NEUTROPHILS # (AUTO) 9.4 K/uL (1.8-7.7); PLATELET COUNT (AUTO) 205 K/uL (150-450); RED BLOOD CELL COUNT(AUTO) 5.21 MIL/uL (4.50-5.90); RED CELL DISTRIBUTION WIDTH 22.7 % (11.5-14.5)
[2020-01-29 17:50] LABS: ALANINE AMINOTRANSFERASE 33 U/L (12-78); ALBUMIN 3.8 g/dL (3.4-5.0); ALKALINE PHOSPHATASE 128 U/L (46-116); ANION GAP 8 mmol/L (8-16); ASPARTATE AMINOTRANSFERASE 11 U/L (15-37); BILIRUBIN,TOTAL 0.5 mg/dL (0.1-1.0); CALCIUM, TOTAL 9.1 mg/dL (8.8-10.5); CARBON DIOXIDE 26 mmol/L (22-29); CHLORIDE 99 mmol/L (98-107); CREATININE 0.99 mg/dL (0.60-1.30); GLOMERULAR FILTR. RATE CALC > 60 mL/min (>60); POTASSIUM 4.3 mmol/L (3.5-5.1); SODIUM SERUM 133 mmol/L (136-145); TOTAL PROTEIN, SERUM 7.6 g/dL (6.4-8.2); UREA NITROGEN, BLOOD 17 mg/dL (7-18)
[2020-01-29 17:51] LABS: GLUCOSE,RANDOM 423 mg/dL (70-110)
[2020-01-29] MEDS ORDERED: HYDROCODONE/ACETAMINOPHEN 5-325 MG TABLET PO ONE (19:45)
[2020-01-29 19:49] LABS: APPEARANCE,URINE CLOUDY (CLEAR); BILIRUBIN,URINE NEGATIVE (NEGATIVE); GLUCOSE, URINE (UA) >=1000 mg/dL (NEGATIVE); KETONES,URINE NEGATIVE (NEGATIVE); LEUKOCYTE ESTERASE ,URINE SMALL (NEGATIVE); NITRATE,URINE NEGATIVE (NEGATIVE); OCCULT BLOOD,URINE NEGATIVE (NEGATIVE); PH,URINE 7.5 (5.0-8.0); PROTEIN,URINE NEGATIVE (NEGATIVE); UROBILINOGEN,URINE 0.2 mg/dL (<=1.0)
[2020-01-29 20:50] LABS: BACTERIA,URINE Few /HPF (None Seen); RBC,URINE 0-2 /HPF (0-2); SQUAMOUS EPITHELIAL CELL,UR Rare /LPF (None Seen)
[2020-01-29 21:06] VITALS: BP 129/70
== END 2020-01-29 21:26 | disposition home or self-care (01) ==
LOC: EMS 15:46
DX: N39.0 Urinary tract infection, site not specified (principal); G89.29 Other chronic pain; M79.662 Pain in left lower leg; E11.65 Type 2 diabetes mellitus with hyperglycemia; I11.9 Hypertensive heart disease without heart failure; E78.00 Pure hypercholesterolemia, unspecified; I25.2 Old myocardial infarction; F12.90 Cannabis use, unspecified, uncomplicated; Z79.899 Other long term (current) drug therapy
CPT/HCPCS: 87086; 93971

== ENCOUNTER 2020-02-06 10:38 | Emergency (ER) | payer MEDICARE, OTHER ==
[~2020-02-06] VITALS: Ht 162.6 cm; Wt 78.6 kg
[2020-02-06] MEDS ORDERED: KETOROLAC TROMETHAMINE 60 MG/2 ML VIAL IM ONE (11:30)
[2020-02-06 12:13] VITALS: BP 152/86
== END 2020-02-06 12:21 | disposition home or self-care (01) ==
LOC: EMS 10:39
DX: G89.29 Other chronic pain (principal); M25.561 Pain in right knee; M25.562 Pain in left knee; E11.65 Type 2 diabetes mellitus with hyperglycemia; E78.00 Pure hypercholesterolemia, unspecified; I11.9 Hypertensive heart disease without heart failure; F12.90 Cannabis use, unspecified, uncomplicated
CPT/HCPCS: 82962; 96372; 99283; J1885

== ENCOUNTER 2020-02-07 11:19 | Emergency (ER) | payer MEDICARE, OTHER ==
[~2020-02-07] VITALS: Ht 160 cm; Wt 78.6 kg
[2020-02-07 12:09] LABS: BASOPHILS % (AUTO) 0.7 % (0.0-2.0); EOSINOPHILS % (AUTO) 1.7 % (1.0-6.0); HEMATOCRIT 35.5 % (41-53); HEMOGLOBIN 11.2 g/dL (13.5-17.5); LYMPHOCYTES # (AUTO) 1.6 K/uL (1.0-4.8); LYMPHOCYTES % (AUTO) 22.5 % (22.0-44.0); MEAN CORPUSCULAR HEMOGLOBIN 21.2 pg (26.0-34.0); MEAN CORPUSCULAR HGB CONC 31.5 G/dL (31.0-37.0); MEAN CORPUSCULAR VOLUME 67 fL (80-100); MONOCYTES # (AUTO) 0.4 K/uL (0.1-1.0); MONOCYTES % (AUTO) 6.1 % (2.0-9.0); NEUTROPHILS # (AUTO) 4.9 K/uL (1.8-7.7); PLATELET COUNT (AUTO) 134 K/uL (150-450); RED BLOOD CELL COUNT(AUTO) 5.28 MIL/uL (4.50-5.90); RED CELL DISTRIBUTION WIDTH 22.6 % (11.5-14.5)
[2020-02-07 12:19] LABS: ANION GAP 8 mmol/L (8-16); CALCIUM, TOTAL 8.9 mg/dL (8.8-10.5); CARBON DIOXIDE 25 mmol/L (22-29); CHLORIDE 97 mmol/L (98-107); CREATININE 0.86 mg/dL (0.60-1.30); GLOMERULAR FILTR. RATE CALC > 60 mL/min (>60); GLUCOSE,RANDOM 280 mg/dL (70-110); POTASSIUM 3.7 mmol/L (3.5-5.1); SODIUM SERUM 130 mmol/L (136-145); UREA NITROGEN, BLOOD 12 mg/dL (7-18)
[2020-02-07 12:20] LABS: C-REACTIVE PROTEIN QUANT 0.23 mg/dL (0.00-0.30)
[2020-02-07] MEDS ORDERED: KETOROLAC TROMETHAMINE 30 MG/ML VIAL IM ONE (12:45)
[2020-02-07] MEDS ORDERED: LIDOCAINE 5% TRANSDERMAL PATCH TD ONE (12:45)
[2020-02-07 14:18] LABS: ERYTHROCYTE SEDIMENTATION RATE 11 MM/HR (0-15)
[2020-02-07 14:23] VITALS: BP 131/85
[2020-02-07 14:49] LABS: APPEARANCE,URINE CLEAR (CLEAR); BILIRUBIN,URINE NEGATIVE (NEGATIVE); GLUCOSE, URINE (UA) >=1000 mg/dL (NEGATIVE); KETONES,URINE NEGATIVE (NEGATIVE); LEUKOCYTE ESTERASE ,URINE NEGATIVE (NEGATIVE); NITRATE,URINE NEGATIVE (NEGATIVE); OCCULT BLOOD,URINE NEGATIVE (NEGATIVE); PH,URINE 5.5 (5.0-8.0); PROTEIN,URINE TRACE (NEGATIVE); UROBILINOGEN,URINE 0.2 mg/dL (<=1.0)
[2020-02-07 14:58] LABS: BACTERIA,URINE None Seen /HPF (None Seen); RBC,URINE 0-2 /HPF (0-2); WBC,URINE None Seen /HPF (0-5)
== END 2020-02-07 14:41 | disposition home or self-care (01) ==
LOC: EMS 11:20
DX: M25.561 Pain in right knee (principal); J45.909 Unspecified asthma, uncomplicated; E11.9 Type 2 diabetes mellitus without complications; I11.9 Hypertensive heart disease without heart failure; E78.00 Pure hypercholesterolemia, unspecified; I25.2 Old myocardial infarction; F20.9 Schizophrenia, unspecified; F12.90 Cannabis use, unspecified, uncomplicated; G89.29 Other chronic pain; Z79.899 Other long term (current) drug therapy; Z79.4 Long term (current) use of insulin; Z79.82 Long term (current) use of aspirin
CPT/HCPCS: 36415; 73564; 80048; 81001; 82962; 85025; 85651; 86140; 96372; 99284; J1885

== ENCOUNTER 2020-02-20 01:33 | Emergency (ER) | payer MEDICARE, OTHER ==
[~2020-02-20] VITALS: Ht 162.6 cm; Wt 78.6 kg
[2020-02-20] MEDS ORDERED: IBUP-1506 PO (01:43)
[2020-02-20] MEDS ORDERED: LIDOCAINE 1%/EPI 1:200,000/PF 10 ML VIAL INJ ONE (02:00)
[2020-02-20 02:43] VITALS: BP 148/97
== END 2020-02-20 03:03 | disposition home or self-care (01) ==
LOC: EMS 01:33
DX: M25.461 Effusion, right knee (principal); I10 Essential (primary) hypertension; E78.00 Pure hypercholesterolemia, unspecified; J45.909 Unspecified asthma, uncomplicated; E11.9 Type 2 diabetes mellitus without complications; F12.90 Cannabis use, unspecified, uncomplicated; Z79.82 Long term (current) use of aspirin; Z79.4 Long term (current) use of insulin; Z79.899 Other long term (current) drug therapy
CPT/HCPCS: 20610; 99283; J3490

== ENCOUNTER 2020-02-21 05:03 | Emergency (ER) | payer MEDICARE, OTHER ==
[~2020-02-21] VITALS: Ht 162.6 cm; Wt 78.6 kg
[~2020-02-21 05:03] MED LIST changes: +IBUP-1506 PO
[2020-02-21 06:28] VITALS: BP 148/98
[2020-02-21] MEDS: TraMADol HCL 50 MG TABLET PO ONE (06:48)
[2020-02-21] MEDS: KETOROLAC TROMETHAMINE 60 MG/2 ML VIAL IM ONE (06:48)
== END 2020-02-21 07:03 | disposition home or self-care (01) ==
LOC: EMS 05:03
DX: M17.11 Unilateral primary osteoarthritis, right knee (principal); J45.909 Unspecified asthma, uncomplicated; E11.9 Type 2 diabetes mellitus without complications; I11.9 Hypertensive heart disease without heart failure; E78.00 Pure hypercholesterolemia, unspecified; I25.2 Old myocardial infarction; F20.9 Schizophrenia, unspecified; F12.90 Cannabis use, unspecified, uncomplicated; Z79.899 Other long term (current) drug therapy; Z79.4 Long term (current) use of insulin; Z79.82 Long term (current) use of aspirin
CPT/HCPCS: 29505; 96372; 99283; J1885

== ENCOUNTER → 2020-02-26 | Outpatient (CLI) | payer MEDICARE, OTHER | END | disposition home or self-care (01) | LOC: RADMN 08:53 | PROVIDERS: ATTEND Orthopaedic Surgery | DX: S83.221A Peripheral tear of medial meniscus, current injury, right knee, initial encounter (principal); M25.461 Effusion, right knee; M17.11 Unilateral primary osteoarthritis, right knee; X58.XXXA Exposure to other specified factors, initial encounter; Y93.89 Activity, other specified; Y92.89 Other specified places as the place of occurrence of the external cause; Y99.8 Other external cause status | CPT/HCPCS: 73721 ==

== ENCOUNTER 2020-02-27 13:31 | Emergency (ER) | payer MEDICARE, OTHER ==
[~2020-02-27] VITALS: Ht 162.6 cm; Wt 78.6 kg
[2020-02-27] MEDS ORDERED: HYDROCODONE/ACETAMINOPHEN 5-325 MG TABLET PO ONE (15:00)
[2020-02-27] MEDS ORDERED: KETOROLAC TROMETHAMINE 60 MG/2 ML VIAL IM ONE (15:00)
[2020-02-27 15:04] VITALS: BP 144/104
== END 2020-02-27 15:20 | disposition home or self-care (01) ==
LOC: EMS 13:39
DX: M23.91 Unspecified internal derangement of right knee (principal); E11.65 Type 2 diabetes mellitus with hyperglycemia; E78.00 Pure hypercholesterolemia, unspecified; I11.9 Hypertensive heart disease without heart failure; Z79.82 Long term (current) use of aspirin; Z79.899 Other long term (current) drug therapy
CPT/HCPCS: 82962; 96372; 99283; J1885

== ENCOUNTER 2020-05-07 06:43 | Emergency (ER) | payer MEDICARE, OTHER ==
[~2020-05-07] VITALS: Ht 162.6 cm; Wt 75.0 kg
[2020-05-07 07:00] VITALS: BP 158/91
[2020-05-07 07:09] LABS: GLUCOSE,POINT OF CARE 289 MG/DL (70-110)
[2020-05-07] MEDS ORDERED: MORPHINE SULFATE 15 MG IR TABLET PO ONE (08:00)
== END 2020-05-07 08:34 | disposition home or self-care (01) ==
LOC: EMS 06:44
DX: M25.561 Pain in right knee (principal); G89.29 Other chronic pain; J45.909 Unspecified asthma, uncomplicated; E11.9 Type 2 diabetes mellitus without complications; I11.9 Hypertensive heart disease without heart failure; I25.2 Old myocardial infarction; F20.9 Schizophrenia, unspecified; F12.90 Cannabis use, unspecified, uncomplicated; Z79.4 Long term (current) use of insulin

== ENCOUNTER 2020-05-17 06:44 | Emergency (ER) | payer MEDICARE, OTHER ==
[~2020-05-17] VITALS: Ht 162.6 cm; Wt 85.0 kg
[2020-05-17 06:53] VITALS: BP 152/86
== END 2020-05-17 09:14 | disposition home or self-care (01) ==
LOC: EMS 06:47
DX: M25.561 Pain in right knee (principal); G89.29 Other chronic pain; J45.909 Unspecified asthma, uncomplicated; E11.9 Type 2 diabetes mellitus without complications; I11.9 Hypertensive heart disease without heart failure; E78.00 Pure hypercholesterolemia, unspecified; I25.2 Old myocardial infarction; F20.9 Schizophrenia, unspecified; F12.90 Cannabis use, unspecified, uncomplicated; Z79.899 Other long term (current) drug therapy

== ENCOUNTER 2020-08-05 11:33 | Emergency (ER) | payer MEDICARE, OTHER ==
[~2020-08-05] VITALS: Ht 162.6 cm; Wt 81.8 kg
[~2020-08-05 11:33] MED LIST changes: -ARIP15TA2 PO; -ASPI-1111 PO; -DOCU-275 PO; +DULO-8 PO; -ESCI-8 PO; +GLIM2 PO; -IBUP-1506 PO; +IBUP-2071 PO; -INSLAN SQ; +INSU100I26 SQ; +INSU100I3 SQ; -INSU100V39 SQ; -LISI-662 PO; +LISI-894 PO; -LURA20TA PO; +LURA40TA2 PO; +MENT1ADH18 TP; +METF-960 PO; -OXYC5 PO; -PANT-31 PO; +TAMS-13 PO; +TRAZ-252 PO
[2020-08-05] MEDS ORDERED: FERR-89 PO (12:15)
[2020-08-05] MEDS ORDERED: DOXY-354 PO (12:15)
[2020-08-05] MEDS ORDERED: BISA-151 PO (12:15)
[2020-08-05] MEDS ORDERED: FAMO20 PO (12:15)
[2020-08-05 12:57] LABS: BASOPHILS % (AUTO) 0.4 % (0.0-2.0); EOSINOPHILS % (AUTO) 1.2 % (1.0-6.0); HEMATOCRIT 28.4 % (41-53); HEMOGLOBIN 9.1 g/dL (13.5-17.5); LYMPHOCYTES # (AUTO) 1.3 K/uL (1.0-4.8); LYMPHOCYTES % (AUTO) 12.8 % (22.0-44.0); MEAN CORPUSCULAR HEMOGLOBIN 23.4 pg (26.0-34.0); MEAN CORPUSCULAR VOLUME 73 fL (80-100); MONOCYTES # (AUTO) 0.9 K/uL (0.1-1.0); NEUTROPHILS # (AUTO) 7.9 K/uL (1.8-7.7); NEUTROPHILS % (AUTO) 76.6 % (40.0-70.0); PLATELET COUNT (AUTO) 237 K/uL (150-450); RED BLOOD CELL COUNT(AUTO) 3.88 MIL/uL (4.50-5.90); RED CELL DISTRIBUTION WIDTH 21.1 % (11.5-14.5)
[2020-08-05 13:18] LABS: ANION GAP 9 mmol/L (8-16); CALCIUM, TOTAL 8.9 mg/dL (8.8-10.5); CARBON DIOXIDE 27 mmol/L (22-29); CHLORIDE 94 mmol/L (98-107); CREATININE 0.71 mg/dL (0.60-1.30); GLOMERULAR FILTR. RATE CALC > 60 mL/min (>60); GLUCOSE,RANDOM 260 mg/dL (70-110); POTASSIUM 3.9 mmol/L (3.5-5.1); SODIUM SERUM 130 mmol/L (136-145); UREA NITROGEN, BLOOD 12 mg/dL (7-18)
[2020-08-05 13:26] LABS: ALANINE AMINOTRANSFERASE 15 U/L (12-78); ALBUMIN 3.2 g/dL (3.4-5.0); ALKALINE PHOSPHATASE 98 U/L (46-116); ASPARTATE AMINOTRANSFERASE 15 U/L (15-37); BILIRUBIN,TOTAL 1.3 mg/dL (0.1-1.0); TOTAL PROTEIN, SERUM 7.7 g/dL (6.4-8.2)
[2020-08-05] MEDS ORDERED: KETOROLAC TROMETHAMINE 30 MG/ML VIAL IVP ONE (13:30)
[2020-08-05] MEDS ORDERED: MORPHINE SULFATE 4 MG/ML SYRINGE IVP ONE (15:00)
[2020-08-05 15:22] VITALS: BP 127/83
[2020-08-05] MEDS ORDERED: MORPHINE SULFATE 4 MG/ML SYRINGE IM ONE (15:45)
[2020-08-05] MEDS ORDERED: KETOROLAC TROMETHAMINE 30 MG/ML VIAL IM ONE (15:45)
== END 2020-08-05 17:00 | disposition home or self-care (01) ==
LOC: EMS 12:11
DX: M25.561 Pain in right knee (principal); M79.89 Other specified soft tissue disorders; I10 Essential (primary) hypertension; K21.9 Gastro-esophageal reflux disease without esophagitis; E11.9 Type 2 diabetes mellitus without complications; E78.00 Pure hypercholesterolemia, unspecified; I51.9 Heart disease, unspecified; F12.90 Cannabis use, unspecified, uncomplicated; I25.2 Old myocardial infarction; J45.909 Unspecified asthma, uncomplicated; Z87.442 Personal history of urinary calculi; Z96.651 Presence of right artificial knee joint; Z86.2 Personal history of diseases of the blood and blood-forming organs and certain disorders involving the immune mechanism
CPT/HCPCS: 36415; 73562; 80053; 82962; 83605; 85025; 85651; 86140; 87040; 93971; 96372; 99285; J1885; J2270

== ENCOUNTER → 2020-08-28 | Outpatient (CLI) | payer MEDICARE, OTHER ==
[~2020-08-28] VITALS: Ht 162.6 cm; Wt 78.7 kg
[~2020-08-28] MED LIST changes: +BISA-151 PO; +DOXY-354 PO; +FAMO20 PO; +FERR-89 PO
[2020-08-28 11:19] VITALS: BP 154/88
== END | disposition home or self-care (01) ==
LOC: SRCNTR 10:51
PROVIDERS: ATTEND Hospitalist
DX: I10 Essential (primary) hypertension (principal); E11.9 Type 2 diabetes mellitus without complications; E78.5 Hyperlipidemia, unspecified; M19.90 Unspecified osteoarthritis, unspecified site; R31.9 Hematuria, unspecified; N40.0 Benign prostatic hyperplasia without lower urinary tract symptoms; M25.561 Pain in right knee; J45.909 Unspecified asthma, uncomplicated; R22.1 Localized swelling, mass and lump, neck; Z79.899 Other long term (current) drug therapy
CPT/HCPCS: G0463

== ENCOUNTER 2020-09-01 04:54 | Emergency (ER) | payer MEDICARE, OTHER ==
[~2020-09-01] VITALS: Ht 162.6 cm; Wt 77.7 kg
[2020-09-01] MEDS ORDERED: IOVERSOL 350 MG/ML 100 ML VIAL ONE (06:29)
[2020-09-01] MEDS ORDERED: SODIUM CHLORIDE 0.9% 100 ML ONE (06:29)
[2020-09-01 06:30] LABS: GLUCOSE,POINT OF CARE 215 MG/DL (70-110)
[2020-09-01] MEDS ORDERED: ASPIRIN 81 MG CHEWABLE TABLET PO ONE (06:30)
[2020-09-01] MEDS ORDERED: NITROGLYCERIN 2% (1 GM=INCH) PACKET TP ONE (06:30)
[2020-09-01 06:45] LABS: BASOPHILS % (AUTO) 0.4 % (0.0-2.0); EOSINOPHILS % (AUTO) 2.7 % (1.0-6.0); HEMATOCRIT 35.7 % (41-53); HEMOGLOBIN 11.4 g/dL (13.5-17.5); LYMPHOCYTES # (AUTO) 1.5 K/uL (1.0-4.8); LYMPHOCYTES % (AUTO) 17.8 % (22.0-44.0); MEAN CORPUSCULAR HEMOGLOBIN 22.9 pg (26.0-34.0); MEAN CORPUSCULAR HGB CONC 31.9 G/dL (31.0-37.0); MEAN CORPUSCULAR VOLUME 72 fL (80-100); MONOCYTES # (AUTO) 0.6 K/uL (0.1-1.0); MONOCYTES % (AUTO) 6.5 % (2.0-9.0); NEUTROPHILS # (AUTO) 6.2 K/uL (1.8-7.7); NEUTROPHILS % (AUTO) 72.6 % (40.0-70.0); PLATELET COUNT (AUTO) 177 K/uL (150-450); RED BLOOD CELL COUNT(AUTO) 4.97 MIL/uL (4.50-5.90); RED CELL DISTRIBUTION WIDTH 17.8 % (11.5-14.5)
[2020-09-01 06:53] LABS: ANION GAP 11 mmol/L (8-16); CALCIUM, TOTAL 8.7 mg/dL (8.8-10.5); CARBON DIOXIDE 24 mmol/L (22-29); CHLORIDE 101 mmol/L (98-107); CREATININE 0.96 mg/dL (0.60-1.30); GLOMERULAR FILTR. RATE CALC > 60 mL/min (>60); GLUCOSE,RANDOM 223 mg/dL (70-110); POTASSIUM 4.1 mmol/L (3.5-5.1); SODIUM SERUM 136 mmol/L (136-145); UREA NITROGEN, BLOOD 12 mg/dL (7-18)
[2020-09-01] MEDS ORDERED: MORPHINE SULFATE 4 MG/ML SYRINGE IVP ONE (07:45)
[2020-09-01 08:20] VITALS: BP 142/69
== END 2020-09-01 08:40 | disposition home or self-care (01) ==
LOC: EMS 04:56
DX: R07.89 Other chest pain (principal); M25.561 Pain in right knee; I10 Essential (primary) hypertension; E78.00 Pure hypercholesterolemia, unspecified; F32.9 Major depressive disorder, single episode, unspecified; J45.909 Unspecified asthma, uncomplicated; F12.90 Cannabis use, unspecified, uncomplicated; Z87.891 Personal history of nicotine dependence; Z79.84 Long term (current) use of oral hypoglycemic drugs; Z79.899 Other long term (current) drug therapy
CPT/HCPCS: 36415; 71045; 71275; 80048; 82962; 84484; 85025; 93005; 96374; 99285; J2270; J7050; Q9967

== ENCOUNTER → 2020-09-04 | Outpatient (CLI) | payer MEDICARE, OTHER ==
[2020-09-04 10:15] LABS: BASOPHILS % (AUTO) 0.7 % (0.0-2.0); EOSINOPHILS % (AUTO) 2.1 % (1.0-6.0); HEMOGLOBIN 11.6 g/dL (13.5-17.5); LYMPHOCYTES # (AUTO) 1.4 K/uL (1.0-4.8); LYMPHOCYTES % (AUTO) 17.7 % (22.0-44.0); MEAN CORPUSCULAR HGB CONC 31.4 G/dL (31.0-37.0); MEAN CORPUSCULAR VOLUME 73 fL (80-100); MONOCYTES # (AUTO) 0.5 K/uL (0.1-1.0); MONOCYTES % (AUTO) 7.1 % (2.0-9.0); NEUTROPHILS # (AUTO) 5.6 K/uL (1.8-7.7); NEUTROPHILS % (AUTO) 72.4 % (40.0-70.0); PLATELET COUNT (AUTO) 190 K/uL (150-450); RED BLOOD CELL COUNT(AUTO) 5.06 MIL/uL (4.50-5.90)
[2020-09-04 10:29] LABS: ALANINE AMINOTRANSFERASE 20 U/L (12-78); ALBUMIN 3.7 g/dL (3.4-5.0); ALKALINE PHOSPHATASE 165 U/L (46-116); ANION GAP 9 mmol/L (8-16); ASPARTATE AMINOTRANSFERASE 12 U/L (15-37); BILIRUBIN,TOTAL 0.4 mg/dL (0.1-1.0); CALCIUM, TOTAL 8.8 mg/dL (8.8-10.5); CARBON DIOXIDE 25 mmol/L (22-29); CHLORIDE 99 mmol/L (98-107); CHOLESTEROL 144 mg/dL (131-200); CREATININE 0.88 mg/dL (0.60-1.30); GLOMERULAR FILTR. RATE CALC > 60 mL/min (>60); GLUCOSE,RANDOM 342 mg/dL (70-110); HDL CHOLESTEROL 48 mg/dL (40-60); LDL CHOL (CALC.) 43 mg/dL (0-130); POTASSIUM 4.7 mmol/L (3.5-5.1); SODIUM SERUM 133 mmol/L (136-145); TOTAL PROTEIN, SERUM 8.1 g/dL (6.4-8.2); TRIGLYCERIDES 265 mg/dL (15-150); UREA NITROGEN, BLOOD 16 mg/dL (7-18)
[2020-09-04 10:49] LABS: PROSTATE SPECIFIC ANTIGEN 0.69 ng/mL (0.00-4.00)
== END | disposition home or self-care (01) ==
LOC: MSR 08:40
PROVIDERS: ATTEND Hospitalist
DX: N28.1 Cyst of kidney, acquired (principal); N20.0 Calculus of kidney; I10 Essential (primary) hypertension
CPT/HCPCS: 76770; 82043; 82570; 84153

== ENCOUNTER 2020-09-27 06:45 | Emergency (ER) | payer MEDICARE, OTHER ==
[~2020-09-27] VITALS: Ht 162.6 cm; Wt 77.7 kg
[2020-09-27] MEDS ORDERED: NAPROXEN 250 MG TABLET PO ONE (08:15)
[2020-09-27 10:23] VITALS: BP 157/119
== END 2020-09-27 10:35 | disposition home or self-care (01) ==
LOC: EMS 06:53
DX: S93.401A Sprain of unspecified ligament of right ankle, initial encounter (principal); M25.461 Effusion, right knee; J45.909 Unspecified asthma, uncomplicated; F32.9 Major depressive disorder, single episode, unspecified; E11.9 Type 2 diabetes mellitus without complications; I11.9 Hypertensive heart disease without heart failure; E78.00 Pure hypercholesterolemia, unspecified; F20.9 Schizophrenia, unspecified; I25.2 Old myocardial infarction; F12.90 Cannabis use, unspecified, uncomplicated; Z87.891 Personal history of nicotine dependence; Z79.4 Long term (current) use of insulin; W05.0XXA Fall from non-moving wheelchair, initial encounter; Y93.89 Activity, other specified; Y92.89 Other specified places as the place of occurrence of the external cause; Y99.8 Other external cause status
CPT/HCPCS: 82962; 99284

== ENCOUNTER 2020-10-16 04:52 | Emergency (ER) | payer MEDICARE, OTHER ==
[~2020-10-16] VITALS: Ht 167.6 cm; Wt 99.0 kg
[2020-10-16] MEDS ORDERED: MORPHINE SULFATE 4 MG/ML SYRINGE IM ONE (05:15)
[2020-10-16 05:30] VITALS: BP 149/87
== END 2020-10-16 05:57 | disposition home or self-care (01) ==
LOC: EMS 04:53
DX: M25.561 Pain in right knee (principal)
CPT/HCPCS: 96372; 99283; J2270

== ENCOUNTER 2020-11-11 05:20 | Emergency (ER) | payer MEDICARE, OTHER ==
[~2020-11-11] VITALS: Ht 160 cm; Wt 77.7 kg
[2020-11-11] MEDS ORDERED: OMEP20 PO (05:47)
[2020-11-11] MEDS ORDERED: CHOL100044 PO (05:47)
[2020-11-11] MEDS ORDERED: NAPROXEN 250 MG TABLET PO ONE (06:30)
[2020-11-11 08:00] VITALS: BP 138/79
== END 2020-11-11 08:21 | disposition home or self-care (01) ==
LOC: EMS 05:21
DX: M25.561 Pain in right knee (principal); M25.512 Pain in left shoulder; M79.89 Other specified soft tissue disorders; J45.909 Unspecified asthma, uncomplicated; F32.9 Major depressive disorder, single episode, unspecified; E11.9 Type 2 diabetes mellitus without complications; I11.9 Hypertensive heart disease without heart failure; E78.00 Pure hypercholesterolemia, unspecified; I25.2 Old myocardial infarction; F20.9 Schizophrenia, unspecified; F12.90 Cannabis use, unspecified, uncomplicated; Z87.891 Personal history of nicotine dependence
CPT/HCPCS: 99285; 73000-TC; 73030-TC; 73562-TC; Z7502; Z7610

== ENCOUNTER 2020-11-13 20:38 | Inpatient (IN) | payer MEDICARE, OTHER ==
[~2020-11-13] VITALS: Ht 162.6 cm; Wt 99.6 kg
[~2020-11-13 20:38] MED LIST changes: +CHOL100044 PO; -DOXY-354 PO; +OMEP20 PO
[2020-11-13 21:39] LABS: HEMATOCRIT 31.8 % (41-53); HEMOGLOBIN 9.7 g/dL (13.5-17.5); MEAN CORPUSCULAR HEMOGLOBIN 20.6 pg (26.0-34.0); MEAN CORPUSCULAR HGB CONC 30.4 G/dL (31.0-37.0); MEAN CORPUSCULAR VOLUME 68 fL (80-100); PLATELET COUNT (AUTO) 173 K/uL (150-450); RED CELL DISTRIBUTION WIDTH 18.3 % (11.5-14.5)
[2020-11-13 21:54] LABS: ABG A-A DIFF O2 45.4 mmHg (10-20.0); ABG BASE EXCESS -4.2 mmol/L (-2.0-3.0); ABG CARBOXYHEMOGLOBIN 0.4 % (0.0-1.5); ABG HCO3 21.7 mmol/L (22.0-26.0); ABG METHEMOGLOBIN 0.4 % (0.0-1.5); ABG OXYGEN CONTENT 14.5 mL/dL (15.0-23.0); ABG OXYGEN SATURATION 94.3 % (95.0-98.0); ABG OXYHEMOGLOBIN 93.5 % (94.0-100.0); ABG PCO2 29 mmHg (35-45); ABG PH 7.454 (7.35-7.450); PO2, ARTERIAL BG 69.8 mmHg (79.0-87.0); SITE, BLOOD GAS RT BRACHIAL; SOURCE, BLOOD GAS ARTERIAL; TEMPERATURE, FAHRENHEIT, BG 98.6 FAHREN (96.0-98.6)
[2020-11-13 22:00] LABS: LACTIC ACID 6.3 mmol/L (0.4-2.0)
[2020-11-13 22:03] LABS: ALANINE AMINOTRANSFERASE 24 U/L (12-78); ALBUMIN 2.1 g/dL (3.4-5.0); ALKALINE PHOSPHATASE 176 U/L (46-116); ANION GAP 14 mmol/L (8-16); ASPARTATE AMINOTRANSFERASE 30 U/L (15-37); CALCIUM, TOTAL 8.3 mg/dL (8.8-10.5); CARBON DIOXIDE 19 mmol/L (22-29); CHLORIDE 89 mmol/L (98-107); CREATININE 1.23 mg/dL (0.60-1.30); GLOMERULAR FILTR. RATE CALC 59 mL/min (>60); TOTAL PROTEIN, SERUM 6.3 g/dL (6.4-8.2); UREA NITROGEN, BLOOD 19 mg/dL (7-18)
[2020-11-13] MEDS ORDERED: CEFEPIME HCL 1 GM/VIAL IM ONE (22:15)
[2020-11-13] MEDS ORDERED: 0.9% SODIUM CHLORIDE 10 ML SYRINGE IVP PRN (22:15)
[2020-11-13] MEDS ORDERED: SODIUM CHLORIDE 0.9% 2,450 ML IV ONE (22:15)
[2020-11-13] MEDS ORDERED: CEFEPIME HCL 1 GM in DEXTROSE 5%-WATER 50 ML IV ONE ×4 (22:30)
[2020-11-13] MEDS ORDERED: MORPHINE SULFATE 4 MG/ML SYRINGE IVP ONE (22:30)
[2020-11-13 22:35] LABS: SODIUM SERUM 122 mmol/L (136-145)
[2020-11-13 22:36] LABS: GLUCOSE,RANDOM 531 mg/dL (70-110); POTASSIUM 2.9 mmol/L (3.5-5.1)
[2020-11-13 22:39] LABS: BAND NEUTROPHILS % (MANUAL) 31 % (0-5); LYMPHOCYTES % (MANUAL) 1 % (22-44); METAMYELOCYTES % 1 % (0-0); MONOCYTES % (MANUAL) 6 % (2-9); MYELOCYTES % 1 % (0-0); SEGMENTED NEUTROPHILS % 60 % (40-70)
[2020-11-13] MEDS ORDERED: SODIUM CHLORIDE 0.9% 500 ML IV ONE (22:41)
[2020-11-13 22:46] LABS: COVID AG,FIA SOURCE NASOPHARYNGEAL
[2020-11-13 22:48] LABS: APPEARANCE,URINE CLEAR (CLEAR); BILIRUBIN,URINE NEGATIVE (NEGATIVE); GLUCOSE, URINE (UA) >=1000 mg/dL (NEGATIVE); KETONES,URINE NEGATIVE (NEGATIVE); LEUKOCYTE ESTERASE ,URINE SMALL (NEGATIVE); NITRATE,URINE NEGATIVE (NEGATIVE); OCCULT BLOOD,URINE MODERATE (NEGATIVE); PROTEIN,URINE TRACE (NEGATIVE)
[2020-11-13] MEDS ORDERED: VANCOMYCIN HCL 1.5 GM in DEXTROSE 5%-WATER 250 ML IV ONE (23:00)
[2020-11-13] MEDS ORDERED: POTASSIUM CHLORIDE 20 MEQ ER TABLET PO ONE (23:00)
[2020-11-13 23:17] LABS: INR 1.3 (0.9-1.1); PROTHROMBIN TIME 13.2 SEC (9.4-11.6)
[2020-11-13 23:26] LABS: ACETONE,BLOOD NEGATIVE (NEGATIVE)
[2020-11-13 23:27] LABS: B-TYPE NATRIURETIC PEPTIDE 21 pg/mL (0-100)
[2020-11-13 23:37] LABS: SPECIMENTYPE,BODY FLUID SYNOVIAL
[2020-11-13] MEDS ORDERED: SODIUM CHLORIDE 0.9% 250 ML IV ONE (23:38)
[2020-11-13] MEDS: POTASSIUM CHL 10 MEQ/WATER 50 ML IV SCH (23:39)
[2020-11-13 23:42] LABS: CREATINE KINASE, TOTAL ONLY 120 U/L (39-308)
[2020-11-13 23:48] LABS: RBC,URINE 0-2 /HPF (0-2)
[2020-11-13 23:49] LABS: BACTERIA,URINE Rare /HPF (None Seen); SQUAMOUS EPITHELIAL CELL,UR Rare /LPF (None Seen)
[2020-11-14] VITALS (9 sets, daily range): BP systolic 124–168; BP diastolic 73–95
[2020-11-14] LABS: C-REACTIVE PROTEIN QUANT 28.24 mg/dL (0.00-0.30)
[2020-11-14 00:52] LABS: GLUCOMETER DEV NAME(LOC) ERT.5; GLUCOSE,POINT OF CARE 337 MG/DL (70-110)
[2020-11-14 01:01] LABS: APPEARANCE,UNSPUN,BODY FLUID TURBID (CLEAR)
[2020-11-14] MEDS: POTASSIUM CHL 10 MEQ/WATER 50 ML IV SCH (01:01)
[2020-11-14 01:02] LABS: COLOR,BODY FLUID BROWN (LT YELLOW)
[2020-11-14 01:05] LABS: TOTAL VOLUME,BODY FLUID 70 mL
[2020-11-14 01:06] LABS: BASOPHILS,BODY FLUID 0 %; EOSINOPHILS,BF (ANAL) 0 %; LYMPHOCYTES,BODY FLUID 5 %; MONOCYTES,BODY FLUID 0 %; NEUTROPHILS,BODY FLUID 95 %; WBC, BODY FLUID 418000 /cu. mm.
[2020-11-14 01:11] LABS: APPEARANCE,SPUN,BODY FLUID CLOUDY (CLEAR)
[2020-11-14] MEDS ORDERED: MORPHINE SULFATE 4 MG/ML SYRINGE IVP ONE (03:00)
[2020-11-14 04:30] LABS: ANION GAP 14 mmol/L (8-16); CALCIUM, TOTAL 7.9 mg/dL (8.8-10.5); CARBON DIOXIDE 21 mmol/L (22-29); CHLORIDE 95 mmol/L (98-107); CREATININE 0.79 mg/dL (0.60-1.30); GLOMERULAR FILTR. RATE CALC > 60 mL/min (>60); GLUCOSE,RANDOM 308 mg/dL (70-110); POTASSIUM 3.6 mmol/L (3.5-5.1); SODIUM SERUM 130 mmol/L (136-145); UREA NITROGEN, BLOOD 17 mg/dL (7-18)
[2020-11-14] MEDS ORDERED: ONDANSETRON HCL 4 MG/2 ML VIAL IVP PRN ×2 (04:30→05:30)
[2020-11-14] MEDS ORDERED: ACETAMINOPHEN 325 MG TABLET PO PRN (04:30)
[2020-11-14] MEDS ORDERED: *CLINICAL-CEFEPIME DOSING CLINICAL ONE (05:30)
[2020-11-14] MEDS ORDERED: DEXTROSE 50%-WATER 25 GM/50 ML SYRINGE IVP PRN (05:30)
[2020-11-14] MEDS ORDERED: MORPHINE SULFATE 2 MG/ML SYRINGE IVP PRN ×3 (05:30→11:30)
[2020-11-14] MEDS ORDERED: POTASSIUM CHLORIDE 20 MEQ ER TABLET PO PRN (05:30)
[2020-11-14] MEDS: SODIUM CHLORIDE 0.9% 1,000 ML IV SCH ×3 (05:53→20:54)
[2020-11-14] MEDS: INSULIN LISPRO 100 UNITS/ML SQ PRN ×4 (07:10→20:54)
[2020-11-14] MEDS ORDERED: VANCOMYCIN HCL 750 MG in DEXTROSE 5%-WATER 250 ML IV SCH (08:00)
[2020-11-14] MEDS: VANCOMYCIN HCL 750 MG in DEXTROSE 5%-WATER 250 ML IV SCH ×2 (08:28→16:21)
[2020-11-14] MEDS: FAMOTIDINE 20 MG TABLET PO SCH (09:04)
[2020-11-14] MEDS: DOCUSATE SODIUM 100 MG CAPSULE PO SCH ×2 (09:04→20:53)
[2020-11-14] MEDS: INSULIN GLARGINE,HUM.REC.ANLOG 100 UNITS/ML SQ SCH ×2 (09:11→20:53)
[2020-11-14] MEDS: MORPHINE SULFATE 2 MG/ML SYRINGE IVP PRN ×5 (09:36→23:18)
[2020-11-14] MEDS ORDERED: CEFEPIME HCL 2 GM in DEXTROSE 5%-WATER 50 ML IV SCH (10:00)
[2020-11-14 10:11] LABS: GLUCOSE,POINT OF CARE 276 MG/DL (70-110)
[2020-11-14 10:13] LABS: GLUCOSE,POINT OF CARE 291 MG/DL (70-110)
[2020-11-14 12:17] LABS: GLUCOSE,POINT OF CARE 287 MG/DL (70-110)
[2020-11-14 20:39] LABS: GLUCOSE,POINT OF CARE 257 MG/DL (70-110)
[2020-11-15] VITALS (7 sets, daily range): BP systolic 126–152; BP diastolic 76–89
[2020-11-15] MEDS: VANCOMYCIN HCL 750 MG in DEXTROSE 5%-WATER 250 ML IV SCH ×3 (00:35→16:03)
[2020-11-15] MEDS: MORPHINE SULFATE 2 MG/ML SYRINGE IVP PRN ×4 (03:03→18:43)
[2020-11-15 05:06] LABS: GLUCOSE,POINT OF CARE 215 MG/DL (70-110)
[2020-11-15] MEDS: SODIUM CHLORIDE 0.9% 1,000 ML IV SCH ×3 (06:06→20:25)
[2020-11-15 06:43] LABS: INR 1.1 (0.9-1.1); PROTHROMBIN TIME 12.1 SEC (9.4-11.6)
[2020-11-15 06:47] LABS: ANION GAP 12 mmol/L (8-16); CALCIUM, TOTAL 8.1 mg/dL (8.8-10.5); CARBON DIOXIDE 20 mmol/L (22-29); CHLORIDE 93 mmol/L (98-107); CREATININE 0.68 mg/dL (0.60-1.30); GLOMERULAR FILTR. RATE CALC > 60 mL/min (>60); GLUCOSE,RANDOM 201 mg/dL (70-110); SODIUM SERUM 125 mmol/L (136-145); UREA NITROGEN, BLOOD 17 mg/dL (7-18)
[2020-11-15 06:59] LABS: C-REACTIVE PROTEIN QUANT 25.35 mg/dL (0.00-0.30)
[2020-11-15 07:17] LABS: HEMATOCRIT 31.4 % (41-53); HEMOGLOBIN 9.7 g/dL (13.5-17.5); MEAN CORPUSCULAR HEMOGLOBIN 20.7 pg (26.0-34.0); MEAN CORPUSCULAR VOLUME 67 fL (80-100); PLATELET COUNT (AUTO) 173 K/uL (150-450); RED CELL DISTRIBUTION WIDTH 18.7 % (11.5-14.5)
[2020-11-15 07:21] LABS: GLUCOSE,POINT OF CARE 204 MG/DL (70-110)
[2020-11-15] MEDS: POTASSIUM CHL 10 MEQ/WATER 50 ML IV PRN ×4 (08:01→10:00)
[2020-11-15] MEDS: DOCUSATE SODIUM 100 MG CAPSULE PO SCH ×2 (08:03→20:25)
[2020-11-15] MEDS: FAMOTIDINE 20 MG TABLET PO SCH (08:04)
[2020-11-15] MEDS: INSULIN GLARGINE,HUM.REC.ANLOG 100 UNITS/ML SQ SCH ×2 (08:06→20:27)
[2020-11-15] MEDS ORDERED: SODIUM CHLORIDE 0.9% 250 ML IV ONE (08:10)
[2020-11-15] MEDS ORDERED: POTASSIUM CHL 10 MEQ/WATER 50 ML IV PRN (09:15)
[2020-11-15 10:02] LABS: BAND NEUTROPHILS % (MANUAL) 20 % (0-5); LYMPHOCYTES % (MANUAL) 2 % (22-44); MONOCYTES % (MANUAL) 3 % (2-9); SEGMENTED NEUTROPHILS % 75 % (40-70)
[2020-11-15] MEDS ORDERED: VANCOMYCIN HCL 1 GM/VIAL ONE (10:43)
[2020-11-15] MEDS ORDERED: TRANEXAMIC ACID 1,000 MG/10 ML VIAL ONE (10:43)
[2020-11-15] MEDS ORDERED: LIDOCAINE/PF 1% 30 ML VIAL ONE (10:44)
[2020-11-15] MEDS ORDERED: BACITRACIN 50,000 UNITS/VIAL ONE ×2 (10:44→13:25)
[2020-11-15] MEDS ORDERED: SODIUM CL IRRIG SOLN BAG 6,000 ML IRRIG ONE (10:44)
[2020-11-15] MEDS ORDERED: SODIUM CHLORIDE 0.9% 10 ML ONE ×2 (10:44→13:25)
[2020-11-15] MEDS ORDERED: BUPIVACAINE HCL/PF 0.25% 30 ML VIAL ONE (10:44)
[2020-11-15] MEDS ORDERED: BUPIVACAINE LIPOSOME/PF 1.3%-13.3MG/ML SUSPENSION 20 ML VIAL INJ ONE (12:15)
[2020-11-15] MEDS ORDERED: FentaNYL CITRATE PF 100 MCG/2 ML VIAL IVP PRN (13:15)
[2020-11-15] MEDS ORDERED: HYDROmorphone 2 MG/ML VIAL IVP PRN (13:15)
[2020-11-15] MEDS ORDERED: MEPERIDINE-PF 25 MG/ML VIAL IVP PRN (13:15)
[2020-11-15] MEDS ORDERED: SODIUM CHLORIDE 0.9% 1,000 ML ONE (13:25)
[2020-11-15] MEDS ORDERED: MUPIROCIN CALCIUM 2% 22 GM OINTMENT ONE (13:30)
[2020-11-15] MEDS ORDERED: BACITRACIN 28 GM OINTMENT TP ONE (13:30)
[2020-11-15 14:30] LABS: GLUCOMETER DEV NAME(LOC) SDS.; GLUCOSE,POINT OF CARE 189 MG/DL (70-110)
[2020-11-15] MEDS: INSULIN LISPRO 100 UNITS/ML SQ PRN ×2 (17:32→20:26)
[2020-11-15 18:04] LABS: GLUCOSE,POINT OF CARE 221 MG/DL (70-110)
[2020-11-15 18:04] LABS: GLUCOSE,POINT OF CARE 193 MG/DL (70-110)
[2020-11-15] MEDS: OXYGEN THERAPY IH SCH (20:27)
[2020-11-15 22:36] LABS: GLUCOSE,POINT OF CARE 201 MG/DL (70-110)
[2020-11-16] VITALS (8 sets, daily range): BP systolic 120–150; BP diastolic 72–96
[2020-11-16] MEDS: VANCOMYCIN HCL 750 MG in DEXTROSE 5%-WATER 250 ML IV SCH ×2 (00:18→08:16)
[2020-11-16] MEDS: MORPHINE SULFATE 2 MG/ML SYRINGE IVP PRN ×5 (00:19→22:49)
[2020-11-16] MEDS: SODIUM CHLORIDE 0.9% 1,000 ML IV SCH ×2 (04:21→13:30)
[2020-11-16] MEDS ORDERED: 0.9% SODIUM CHLORIDE 10 ML VIAL IVP ONE (05:33)
[2020-11-16] MEDS ORDERED: ONDANSETRON HCL 4 MG/2 ML VIAL IVP ONE (05:33)
[2020-11-16] MEDS ORDERED: LIDOCAINE/PF 2% 5 ML VIAL IM ONE (05:33)
[2020-11-16] MEDS ORDERED: ESMOLOL HCL 10 MG/ML 10 ML VIAL IVP ONE (05:33)
[2020-11-16] MEDS ORDERED: ALBUTEROL SULFATE HFA 90 MCG/PUFF 8 GM INHALER IH ONE (05:33)
[2020-11-16] MEDS ORDERED: LABETALOL HCL 5 MG/ML 20 ML VIAL IVP ONE (05:33)
[2020-11-16] MEDS ORDERED: FentaNYL CITRATE PF 100 MCG/2 ML VIAL IVP ONE (05:33)
[2020-11-16] MEDS ORDERED: ROCURONIUM BROMIDE 10 MG/ML 5 ML VIAL IVP ONE (05:33)
[2020-11-16] MEDS ORDERED: PROPOFOL 1% 20 ML VIAL IVP ONE (05:33)
[2020-11-16] MEDS ORDERED: PHENYLEPHRINE HCL 10 MG/ML VIAL IVP ONE (05:33)
[2020-11-16] MEDS ORDERED: HYDROmorphone 2 MG/ML VIAL IVP ONE (05:33)
[2020-11-16] MEDS ORDERED: MIDAZOLAM HCL 2 MG/2 ML VIAL IVP ONE (05:33)
[2020-11-16] MEDS ORDERED: SUGAMMADEX SODIUM 200 MG/2 ML VIAL IVP ONE (05:39)
[2020-11-16] MEDS: INSULIN LISPRO 100 UNITS/ML SQ PRN ×4 (06:02→20:45)
[2020-11-16] MEDS: OXYGEN THERAPY IH SCH ×2 (08:00→20:00)
[2020-11-16] MEDS: INSULIN GLARGINE,HUM.REC.ANLOG 100 UNITS/ML SQ SCH ×2 (08:15→20:45)
[2020-11-16] MEDS: ETHYL ALCOHOL 62% ANTISEPTIC NASAL INHALANT 0.6 ML AMPUL NASAL SCH ×2 (08:15→20:35)
[2020-11-16] MEDS: DOCUSATE SODIUM 100 MG CAPSULE PO SCH ×2 (08:15→20:35)
[2020-11-16] MEDS: FAMOTIDINE 20 MG TABLET PO SCH (08:15)
[2020-11-16 08:36] LABS: HEMATOCRIT 28.3 % (41-53); HEMOGLOBIN 8.8 g/dL (13.5-17.5); MEAN CORPUSCULAR HEMOGLOBIN 20.8 pg (26.0-34.0); MEAN CORPUSCULAR HGB CONC 31.1 G/dL (31.0-37.0); MEAN CORPUSCULAR VOLUME 67 fL (80-100); PLATELET COUNT (AUTO) 176 K/uL (150-450); RED BLOOD CELL COUNT(AUTO) 4.23 MIL/uL (4.50-5.90); RED CELL DISTRIBUTION WIDTH 18.4 % (11.5-14.5)
[2020-11-16 08:45] LABS: GLUCOSE,POINT OF CARE 182 MG/DL (70-110)
[2020-11-16 08:45] LABS: GLUCOSE,POINT OF CARE 218 MG/DL (70-110)
[2020-11-16 09:05] LABS: ANION GAP 10 mmol/L (8-16); CALCIUM, TOTAL 7.5 mg/dL (8.8-10.5); CARBON DIOXIDE 21 mmol/L (22-29); CHLORIDE 99 mmol/L (98-107); CREATININE 0.64 mg/dL (0.60-1.30); GLOMERULAR FILTR. RATE CALC > 60 mL/min (>60); GLUCOSE,RANDOM 223 mg/dL (70-110); POTASSIUM 3.5 mmol/L (3.5-5.1); SODIUM SERUM 130 mmol/L (136-145); UREA NITROGEN, BLOOD 17 mg/dL (7-18); VANCOMYCIN,RANDOM 10.4 mcg/mL (25.0-50.0)
[2020-11-16 09:13] LABS: SEGMENTED NEUTROPHILS % 79 % (40-70)
[2020-11-16 09:14] LABS: BAND NEUTROPHILS % (MANUAL) 16 % (0-5); LYMPHOCYTES % (MANUAL) 3 % (22-44); MONOCYTES % (MANUAL) 1 % (2-9); MYELOCYTES % 1 % (0-0)
[2020-11-16 12:02] LABS: GLUCOMETER DEV NAME(LOC) 6S.1; GLUCOSE,POINT OF CARE 292 MG/DL (70-110)
[2020-11-16] MEDS ORDERED: FUROSEMIDE 20 MG/2 ML VIAL IVP ONE (15:45)
[2020-11-16] MEDS ORDERED: SODIUM CHLORIDE 0.9% 500 ML IV ONE (16:01)
[2020-11-16] MEDS: NAFCILLIN SODIUM 2 GM in DEXTROSE 5%-WATER 100 ML IV SCH ×3 (16:10→23:15)
[2020-11-16] MEDS: ALBUTEROL SULFATE 2.5 MG/0.5 ML NEB SOLUTION NEB PRN (17:08)
[2020-11-16] MEDS: VANCOMYCIN HCL 1 GM/D5% WATER 200 ML IV SCH (17:29)
[2020-11-16 19:05] LABS: GLUCOMETER DEV NAME(LOC) 6S.1; GLUCOSE,POINT OF CARE 273 MG/DL (70-110)
[2020-11-16 23:24] LABS: GLUCOMETER DEV NAME(LOC) 6N.1; GLUCOSE,POINT OF CARE 292 MG/DL (70-110)
[2020-11-17] MEDS: VANCOMYCIN HCL 1 GM/D5% WATER 200 ML IV SCH ×2 (00:33→08:37)
[2020-11-17] MEDS: NAFCILLIN SODIUM 2 GM in DEXTROSE 5%-WATER 100 ML IV SCH ×6 (04:22→23:26)
[2020-11-17 04:45] VITALS: BP 136/83
[2020-11-17] MEDS: MORPHINE SULFATE 2 MG/ML SYRINGE IVP PRN ×4 (05:14→21:45)
[2020-11-17] MEDS: INSULIN LISPRO 100 UNITS/ML SQ PRN ×4 (05:30→19:58)
[2020-11-17 07:07] LABS: GLUCOMETER DEV NAME(LOC) 6N.1; GLUCOSE,POINT OF CARE 302 MG/DL (70-110)
[2020-11-17 07:47] VITALS: BP 156/83
[2020-11-17] MEDS ORDERED: HEPARIN SODIUM,PORCINE 5,000 UNITS/ML VIAL SQ SCH (08:00)
[2020-11-17] MEDS: OXYGEN THERAPY IH SCH (08:00)
[2020-11-17] MEDS: DOCUSATE SODIUM 100 MG CAPSULE PO SCH ×2 (08:18→19:57)
[2020-11-17] MEDS ORDERED: GADOTERATE MEGLUMINE 10 MMOL/20 ML VIAL IVP ONE (08:18)
[2020-11-17] MEDS: FAMOTIDINE 20 MG TABLET PO SCH (08:19)
[2020-11-17] MEDS: ETHYL ALCOHOL 62% ANTISEPTIC NASAL INHALANT 0.6 ML AMPUL NASAL SCH ×2 (08:19→19:57)
[2020-11-17] MEDS: INSULIN GLARGINE,HUM.REC.ANLOG 100 UNITS/ML SQ SCH ×2 (08:27→19:58)
[2020-11-17] MEDS: ACETAMINOPHEN 325 MG TABLET PO PRN ×2 (08:31→19:57)
[2020-11-17] MEDS ORDERED: 0.9% SODIUM CHLORIDE 5 ML NEB SOLUTION NEB ONE (09:41)
[2020-11-17 09:53] LABS: ANION GAP 10 mmol/L (8-16); C-REACTIVE PROTEIN QUANT 13.05 mg/dL (0.00-0.30); CALCIUM, TOTAL 7.5 mg/dL (8.8-10.5); CARBON DIOXIDE 24 mmol/L (22-29); CHLORIDE 95 mmol/L (98-107); CREATININE 0.72 mg/dL (0.60-1.30); GLOMERULAR FILTR. RATE CALC > 60 mL/min (>60); GLUCOSE,RANDOM 292 mg/dL (70-110); POTASSIUM 3.5 mmol/L (3.5-5.1); SODIUM SERUM 129 mmol/L (136-145); UREA NITROGEN, BLOOD 17 mg/dL (7-18)
[2020-11-17] MEDS: ALBUTEROL SULFATE 2.5 MG/0.5 ML NEB SOLUTION NEB PRN (09:53)
[2020-11-17 10:23] LABS: BASOPHILS % (AUTO) 0.4 % (0.0-2.0); EOSINOPHILS % (AUTO) 0.4 % (1.0-6.0); HEMATOCRIT 28.4 % (41-53); HEMOGLOBIN 8.6 g/dL (13.5-17.5); LYMPHOCYTES # (AUTO) 0.5 K/uL (1.0-4.8); LYMPHOCYTES % (AUTO) 2.8 % (22.0-44.0); MEAN CORPUSCULAR HEMOGLOBIN 20.2 pg (26.0-34.0); MEAN CORPUSCULAR HGB CONC 30.3 G/dL (31.0-37.0); MEAN CORPUSCULAR VOLUME 67 fL (80-100); MONOCYTES # (AUTO) 0.7 K/uL (0.1-1.0); MONOCYTES % (AUTO) 4.1 % (2.0-9.0); NEUTROPHILS # (AUTO) 16.2 K/uL (1.8-7.7); NEUTROPHILS % (AUTO) 92.3 % (40.0-70.0); PLATELET COUNT (AUTO) 166 K/uL (150-450); RED BLOOD CELL COUNT(AUTO) 4.26 MIL/uL (4.50-5.90); RED CELL DISTRIBUTION WIDTH 18.1 % (11.5-14.5)
[2020-11-17] MEDS: GABAPENTIN 100 MG CAPSULE PO SCH ×2 (11:46→19:57)
[2020-11-17 15:40] VITALS: BP 143/86
[2020-11-17] MEDS: APIXABAN 5 MG TABLET PO SCH ×2 (15:43→23:25)
[2020-11-17] MEDS ORDERED: MAGNESIUM HYDROXIDE SUSPENSION 30 ML UDCUP PO PRN (18:45)
[2020-11-17 19:45] VITALS: BP 156/90
[2020-11-17 23:30] VITALS: BP 150/90
[2020-11-17] MEDS ORDERED: SODIUM CHLORIDE 0.9% 500 ML IV ONE (23:58)
[2020-11-18 03:18] LABS: GLUCOMETER DEV NAME(LOC) 6S.1; GLUCOSE,POINT OF CARE 270 MG/DL (70-110)
[2020-11-18 03:18] LABS: GLUCOMETER DEV NAME(LOC) 6N.1; GLUCOSE,POINT OF CARE 277 MG/DL (70-110)
[2020-11-18 03:18] LABS: GLUCOMETER DEV NAME(LOC) 6N.1; GLUCOSE,POINT OF CARE 295 MG/DL (70-110)
[2020-11-18] MEDS: NAFCILLIN SODIUM 2 GM in DEXTROSE 5%-WATER 100 ML IV SCH ×6 (03:38→23:04)
[2020-11-18] MEDS: MORPHINE SULFATE 2 MG/ML SYRINGE IVP PRN ×6 (03:44→23:04)
[2020-11-18 03:55] VITALS: BP 142/84
[2020-11-18] MEDS: ACETAMINOPHEN 325 MG TABLET PO PRN (06:11)
[2020-11-18] MEDS: INSULIN LISPRO 100 UNITS/ML SQ PRN ×4 (06:11→20:24)
[2020-11-18 07:30] LABS: GLUCOMETER DEV NAME(LOC) 6S.1; GLUCOSE,POINT OF CARE 153 MG/DL (70-110)
[2020-11-18] MEDS: OXYGEN THERAPY IH SCH ×2 (07:53→20:00)
[2020-11-18 08:07] VITALS: BP 135/79
[2020-11-18] MEDS: FAMOTIDINE 20 MG TABLET PO SCH (10:10)
[2020-11-18] MEDS: APIXABAN 5 MG TABLET PO SCH ×2 (10:10→23:04)
[2020-11-18] MEDS: DOCUSATE SODIUM 100 MG CAPSULE PO SCH ×2 (10:10→20:04)
[2020-11-18] MEDS: GABAPENTIN 100 MG CAPSULE PO SCH ×2 (10:10→20:04)
[2020-11-18] MEDS: ETHYL ALCOHOL 62% ANTISEPTIC NASAL INHALANT 0.6 ML AMPUL NASAL SCH ×2 (10:10→20:05)
[2020-11-18] MEDS: INSULIN GLARGINE,HUM.REC.ANLOG 100 UNITS/ML SQ SCH ×2 (10:12→20:25)
[2020-11-18 14:49] LABS: GLUCOMETER DEV NAME(LOC) 6N.1; GLUCOSE,POINT OF CARE 219 MG/DL (70-110)
[2020-11-18 16:33] VITALS: BP 149/91
[2020-11-18] MEDS: AmLODIPine BESYLATE 5 MG TABLET PO SCH (17:30)
[2020-11-18 17:41] LABS: GLUCOMETER DEV NAME(LOC) 6N.1; GLUCOSE,POINT OF CARE 348 MG/DL (70-110)
[2020-11-18] MEDS ORDERED: 0.9% SODIUM CHLORIDE 5 ML NEB SOLUTION NEB ONE (18:43)
[2020-11-18] MEDS: ALBUTEROL SULFATE 2.5 MG/0.5 ML NEB SOLUTION NEB PRN (18:54)
[2020-11-18 20:31] VITALS: BP 139/87
[2020-11-18] MEDS: BISACODYL 10 MG RECTAL RECTAL SUPPOSITORY PR PRN (23:16)
[2020-11-18 23:55] VITALS: BP 149/95
[2020-11-19] MEDS: MORPHINE SULFATE 2 MG/ML SYRINGE IVP PRN ×6 (01:58→20:58)
[2020-11-19 03:17] LABS: GLUCOMETER DEV NAME(LOC) 6S.1; GLUCOSE,POINT OF CARE 281 MG/DL (70-110)
[2020-11-19] MEDS: NAFCILLIN SODIUM 2 GM in DEXTROSE 5%-WATER 100 ML IV SCH ×6 (03:48→23:31)
[2020-11-19 04:36] VITALS: BP 135/79
[2020-11-19] MEDS: INSULIN LISPRO 100 UNITS/ML SQ PRN ×4 (05:08→20:25)
[2020-11-19 05:20] LABS: BASOPHILS % (AUTO) 2.7 % (0.0-2.0); EOSINOPHILS % (AUTO) 0.8 % (1.0-6.0); HEMATOCRIT 28.3 % (41-53); HEMOGLOBIN 8.8 g/dL (13.5-17.5); LYMPHOCYTES # (AUTO) 0.6 K/uL (1.0-4.8); LYMPHOCYTES % (AUTO) 2.7 % (22.0-44.0); MEAN CORPUSCULAR HEMOGLOBIN 20.4 pg (26.0-34.0); MEAN CORPUSCULAR VOLUME 66 fL (80-100); MONOCYTES # (AUTO) 0.9 K/uL (0.1-1.0); NEUTROPHILS # (AUTO) 20.9 K/uL (1.8-7.7); PLATELET COUNT (AUTO) 287 K/uL (150-450); RED BLOOD CELL COUNT(AUTO) 4.31 MIL/uL (4.50-5.90)
[2020-11-19 05:27] LABS: NEUTROPHILS % (AUTO) 89.8 % (40.0-70.0)
[2020-11-19 05:49] LABS: ANION GAP 9 mmol/L (8-16); C-REACTIVE PROTEIN QUANT 9.96 mg/dL (0.00-0.30); CALCIUM, TOTAL 7.4 mg/dL (8.8-10.5); CARBON DIOXIDE 23 mmol/L (22-29); CHLORIDE 94 mmol/L (98-107); CREATININE 1.13 mg/dL (0.60-1.30); GLOMERULAR FILTR. RATE CALC > 60 mL/min (>60); GLUCOSE,RANDOM 143 mg/dL (70-110); POTASSIUM 3.8 mmol/L (3.5-5.1); SODIUM SERUM 126 mmol/L (136-145); UREA NITROGEN, BLOOD 27 mg/dL (7-18)
[2020-11-19] MEDS ORDERED: SODIUM CHLORIDE 0.9% 250 ML IV ONE (07:31)
[2020-11-19] MEDS: OXYGEN THERAPY IH SCH (07:42)
[2020-11-19 08:04] LABS: GLUCOMETER DEV NAME(LOC) 6N.1; GLUCOSE,POINT OF CARE 132 MG/DL (70-110)
[2020-11-19 08:26] VITALS: BP 137/82
[2020-11-19] MEDS: MULTIVITAMINS WITH MINERALS, THERAPEUTIC TABLET PO SCH (08:31)
[2020-11-19] MEDS: FAMOTIDINE 20 MG TABLET PO SCH (08:31)
[2020-11-19] MEDS: GABAPENTIN 100 MG CAPSULE PO SCH ×2 (08:31→20:24)
[2020-11-19] MEDS: DOCUSATE SODIUM 100 MG CAPSULE PO SCH ×2 (08:31→20:24)
[2020-11-19] MEDS: ETHYL ALCOHOL 62% ANTISEPTIC NASAL INHALANT 0.6 ML AMPUL NASAL SCH ×2 (08:31→20:38)
[2020-11-19] MEDS: APIXABAN 5 MG TABLET PO SCH ×2 (08:31→20:24)
[2020-11-19] MEDS: INSULIN GLARGINE,HUM.REC.ANLOG 100 UNITS/ML SQ SCH ×2 (08:50→20:25)
[2020-11-19 08:56] LABS: GLUCOMETER DEV NAME(LOC) 6S.1; GLUCOSE,POINT OF CARE 136 MG/DL (70-110)
[2020-11-19] MEDS: AmLODIPine BESYLATE 5 MG TABLET PO SCH (09:00)
[2020-11-19 12:55] LABS: GLUCOMETER DEV NAME(LOC) 6S.1; GLUCOSE,POINT OF CARE 169 MG/DL (70-110)
[2020-11-19 15:07] VITALS: BP 139/79
[2020-11-19 17:32] LABS: GLUCOMETER DEV NAME(LOC) 6S.1; GLUCOSE,POINT OF CARE 241 MG/DL (70-110)
[2020-11-19 19:00] LABS: COVID AG,FIA SOURCE NASOPHARYNGEAL
[2020-11-19 20:11] VITALS: BP 146/80
[2020-11-19 20:46] LABS: GLUCOMETER DEV NAME(LOC) 6S.1; GLUCOSE,POINT OF CARE 247 MG/DL (70-110)
[2020-11-19 23:38] VITALS: BP 149/71
[2020-11-20] MEDS: MORPHINE SULFATE 2 MG/ML SYRINGE IVP PRN ×4 (02:55→20:05)
[2020-11-20] MEDS: NAFCILLIN SODIUM 2 GM in DEXTROSE 5%-WATER 100 ML IV SCH ×6 (03:38→23:51)
[2020-11-20 04:03] VITALS: BP 151/77
[2020-11-20] MEDS: INSULIN LISPRO 100 UNITS/ML SQ PRN ×4 (06:19→22:21)
[2020-11-20 08:00] VITALS: BP 148/86
[2020-11-20] MEDS: APIXABAN 5 MG TABLET PO SCH ×2 (08:21→20:04)
[2020-11-20] MEDS: MULTIVITAMINS WITH MINERALS, THERAPEUTIC TABLET PO SCH (08:21)
[2020-11-20] MEDS: AmLODIPine BESYLATE 5 MG TABLET PO SCH (08:21)
[2020-11-20] MEDS: FAMOTIDINE 20 MG TABLET PO SCH (08:21)
[2020-11-20] MEDS: GABAPENTIN 100 MG CAPSULE PO SCH ×2 (08:21→20:04)
[2020-11-20] MEDS: DOCUSATE SODIUM 100 MG CAPSULE PO SCH ×2 (08:22→20:04)
[2020-11-20] MEDS: ETHYL ALCOHOL 62% ANTISEPTIC NASAL INHALANT 0.6 ML AMPUL NASAL SCH ×2 (08:23→20:04)
[2020-11-20] MEDS: INSULIN GLARGINE,HUM.REC.ANLOG 100 UNITS/ML SQ SCH ×3 (08:25→20:19)
[2020-11-20] MEDS: OXYGEN THERAPY IH SCH (08:31)
[2020-11-20 09:14] LABS: BASOPHILS % (AUTO) 1.1 % (0.0-2.0); EOSINOPHILS % (AUTO) 0.8 % (1.0-6.0); HEMATOCRIT 29.4 % (41-53); LYMPHOCYTES # (AUTO) 0.6 K/uL (1.0-4.8); LYMPHOCYTES % (AUTO) 3.3 % (22.0-44.0); MEAN CORPUSCULAR HEMOGLOBIN 20.4 pg (26.0-34.0); MEAN CORPUSCULAR HGB CONC 30.5 G/dL (31.0-37.0); MEAN CORPUSCULAR VOLUME 67 fL (80-100); MONOCYTES # (AUTO) 0.7 K/uL (0.1-1.0); MONOCYTES % (AUTO) 3.9 % (2.0-9.0); NEUTROPHILS # (AUTO) 17.2 K/uL (1.8-7.7); PLATELET COUNT (AUTO) 309 K/uL (150-450); RED BLOOD CELL COUNT(AUTO) 4.41 MIL/uL (4.50-5.90); RED CELL DISTRIBUTION WIDTH 18.5 % (11.5-14.5)
[2020-11-20 09:16] LABS: NEUTROPHILS % (AUTO) 90.9 % (40.0-70.0)
[2020-11-20 09:23] LABS: CALCIUM, TOTAL 7.2 mg/dL (8.8-10.5); CREATININE 1.51 mg/dL (0.60-1.30); POTASSIUM 4.3 mmol/L (3.5-5.1)
[2020-11-20] MEDS ORDERED: SODIUM CHLORIDE 0.9% 500 ML IV ONE (12:38)
[2020-11-20 13:03] LABS: GLUCOMETER DEV NAME(LOC) 6S.1; GLUCOSE,POINT OF CARE 218 MG/DL (70-110)
[2020-11-20 13:03] LABS: GLUCOMETER DEV NAME(LOC) 6N.1; GLUCOSE,POINT OF CARE 161 MG/DL (70-110)
[2020-11-20 15:30] VITALS: BP 158/88
[2020-11-20 19:21] VITALS: BP 138/73
[2020-11-20 23:54] LABS: GLUCOMETER DEV NAME(LOC) 6N.1; GLUCOSE,POINT OF CARE 265 MG/DL (70-110)
[2020-11-20 23:55] LABS: GLUCOMETER DEV NAME(LOC) 6S.1; GLUCOSE,POINT OF CARE 287 MG/DL (70-110)
[2020-11-21] VITALS (8 sets, daily range): BP systolic 135–199; BP diastolic 62–86
[2020-11-21] MEDS: MORPHINE SULFATE 2 MG/ML SYRINGE IVP PRN ×4 (02:40→21:02)
[2020-11-21] MEDS: NAFCILLIN SODIUM 2 GM in DEXTROSE 5%-WATER 100 ML IV SCH ×4 (03:58→15:09)
[2020-11-21] MEDS: OXYGEN THERAPY IH SCH ×2 (08:00→20:00)
[2020-11-21] MEDS: APIXABAN 5 MG TABLET PO SCH ×2 (08:15→20:39)
[2020-11-21] MEDS: GABAPENTIN 100 MG CAPSULE PO SCH ×2 (08:16→20:40)
[2020-11-21] MEDS: MULTIVITAMINS WITH MINERALS, THERAPEUTIC TABLET PO SCH (08:17)
[2020-11-21] MEDS: AmLODIPine BESYLATE 5 MG TABLET PO SCH (08:17)
[2020-11-21] MEDS: DOCUSATE SODIUM 100 MG CAPSULE PO SCH ×2 (08:17→21:00)
[2020-11-21] MEDS: FAMOTIDINE 20 MG TABLET PO SCH (08:18)
[2020-11-21] MEDS: INSULIN GLARGINE,HUM.REC.ANLOG 100 UNITS/ML SQ SCH ×2 (08:24→20:39)
[2020-11-21] MEDS ORDERED: FentaNYL CITRATE PF 100 MCG/2 ML VIAL ONE (08:57)
[2020-11-21] MEDS ORDERED: MIDAZOLAM HCL 2 MG/2 ML VIAL ONE (08:58)
[2020-11-21] MEDS ORDERED: BENZOCAINE 20% 50 MCG/SPRAY 57 GM ONE (08:58)
[2020-11-21 09:05] LABS: BILIRUBIN,TOTAL 1.9 mg/dL (0.1-1.0); CALCIUM, TOTAL 7.1 mg/dL (8.8-10.5); CREATININE 1.54 mg/dL (0.60-1.30); POTASSIUM 4.2 mmol/L (3.5-5.1); TOTAL PROTEIN, SERUM 6.1 g/dL (6.4-8.2)
[2020-11-21] MEDS ORDERED: FentaNYL CITRATE PF 100 MCG/2 ML VIAL IVP ONE (09:30)
[2020-11-21] MEDS ORDERED: BENZOCAINE 20% 50 MCG/SPRAY 57 GM TP ONE (09:30)
[2020-11-21] MEDS: ETHYL ALCOHOL 62% ANTISEPTIC NASAL INHALANT 0.6 ML AMPUL NASAL SCH ×2 (11:16→20:40)
[2020-11-21] MEDS: INSULIN LISPRO 100 UNITS/ML SQ PRN ×3 (11:29→20:38)
[2020-11-21 11:45] LABS: GLUCOMETER DEV NAME(LOC) 6N.1; GLUCOSE,POINT OF CARE 222 MG/DL (70-110)
[2020-11-21] MEDS: ACETAMINOPHEN 325 MG TABLET PO PRN (12:57)
[2020-11-21 18:12] LABS: GLUCOMETER DEV NAME(LOC) 6N.1; GLUCOSE,POINT OF CARE 335 MG/DL (70-110)
[2020-11-21 18:12] LABS: GLUCOMETER DEV NAME(LOC) 6S.1; GLUCOSE,POINT OF CARE 215 MG/DL (70-110)
[2020-11-21] MEDS ORDERED: SODIUM CHLORIDE 0.9% IV SCH (21:00)
[2020-11-21] MEDS ORDERED: DAPTOMYCIN IV SCH (21:00)
[2020-11-22] MEDS: MELATONIN 3 MG TABLET PO PRN (00:15)
[2020-11-22 01:03] LABS: GLUCOMETER DEV NAME(LOC) 6N.1; GLUCOSE,POINT OF CARE 351 MG/DL (70-110)
[2020-11-22 06:01] VITALS: BP 148/77
[2020-11-22] MEDS: INSULIN LISPRO 100 UNITS/ML SQ PRN ×4 (06:02→21:50)
[2020-11-22] MEDS: ACETAMINOPHEN 325 MG TABLET PO PRN (06:12)
[2020-11-22 06:53] LABS: GLUCOMETER DEV NAME(LOC) 6S.1; GLUCOSE,POINT OF CARE 217 MG/DL (70-110)
[2020-11-22 06:54] LABS: BAND NEUTROPHILS % (MANUAL) 0 % (0-5)
[2020-11-22 07:04] LABS: HEMATOCRIT 23.5 % (41-53); HEMOGLOBIN 7.4 g/dL (13.5-17.5); MEAN CORPUSCULAR HGB CONC 31.4 G/dL (31.0-37.0); MEAN CORPUSCULAR VOLUME 67 fL (80-100); PLATELET COUNT (AUTO) 353 K/uL (150-450); RED BLOOD CELL COUNT(AUTO) 3.51 MIL/uL (4.50-5.90); RED CELL DISTRIBUTION WIDTH 18.9 % (11.5-14.5)
[2020-11-22 07:20] LABS: C-REACTIVE PROTEIN QUANT 12.17 mg/dL (0.00-0.30); CALCIUM, TOTAL 7.3 mg/dL (8.8-10.5); CREATININE 1.54 mg/dL (0.60-1.30); POTASSIUM 4.1 mmol/L (3.5-5.1); TOTAL PROTEIN, SERUM 6.4 g/dL (6.4-8.2)
[2020-11-22] MEDS: MORPHINE SULFATE 2 MG/ML SYRINGE IVP PRN (07:46)
[2020-11-22] MEDS: OXYGEN THERAPY IH SCH (08:00)
[2020-11-22 08:28] VITALS: BP 143/79
[2020-11-22] MEDS: AmLODIPine BESYLATE 5 MG TABLET PO SCH (08:42)
[2020-11-22] MEDS: APIXABAN 5 MG TABLET PO SCH ×2 (08:42→20:11)
[2020-11-22] MEDS: MULTIVITAMINS WITH MINERALS, THERAPEUTIC TABLET PO SCH (08:42)
[2020-11-22] MEDS: ETHYL ALCOHOL 62% ANTISEPTIC NASAL INHALANT 0.6 ML AMPUL NASAL SCH ×2 (08:43→21:00)
[2020-11-22] MEDS: FAMOTIDINE 20 MG TABLET PO SCH (08:43)
[2020-11-22] MEDS: DOCUSATE SODIUM 100 MG CAPSULE PO SCH ×2 (08:45→20:12)
[2020-11-22] MEDS: GABAPENTIN 100 MG CAPSULE PO SCH (08:45)
[2020-11-22] MEDS ORDERED: GABAPENTIN 100 MG CAPSULE PO SCH (09:00)
[2020-11-22] MEDS ORDERED: MORPHINE SULFATE 2 MG/ML SYRINGE IVP PRN (09:00)
[2020-11-22] MEDS ORDERED: GABAPENTIN 300 MG CAPSULE PO SCH (09:00)
[2020-11-22] MEDS: FUROSEMIDE 20 MG/2 ML VIAL IVP SCH (09:01)
[2020-11-22] MEDS: INSULIN GLARGINE,HUM.REC.ANLOG 100 UNITS/ML SQ SCH ×2 (09:02→21:49)
[2020-11-22 09:15] LABS: LYMPHOCYTES % (MANUAL) 8 % (22-44); MONOCYTES % (MANUAL) 5 % (2-9); SEGMENTED NEUTROPHILS % 87 % (40-70)
[2020-11-22] MEDS ORDERED: GABAPENTIN 100 MG CAPSULE PO ONE (09:30)
[2020-11-22] MEDS: MORPHINE SULFATE 4 MG/ML SYRINGE IVP PRN ×4 (12:12→22:30)
[2020-11-22 14:21] LABS: GLUCOMETER DEV NAME(LOC) 6S.1; GLUCOSE,POINT OF CARE 297 MG/DL (70-110)
[2020-11-22 15:21] VITALS: BP 151/84
[2020-11-22 19:27] VITALS: BP 192/94
[2020-11-22 19:41] VITALS: BP 151/80
[2020-11-22] MEDS: GABAPENTIN 300 MG CAPSULE PO SCH (20:15)
[2020-11-22] MEDS ORDERED: AmLODIPine BESYLATE 5 MG TABLET PO ONE (20:15)
[2020-11-22] MEDS: CeFAZolin 2 GM/DEXTROSE 50 ML IV SCH (22:30)
[2020-11-22 23:34] LABS: GLUCOMETER DEV NAME(LOC) 6N.1; GLUCOSE,POINT OF CARE 296 MG/DL (70-110)
[2020-11-22 23:35] LABS: GLUCOMETER DEV NAME(LOC) 6N.1; GLUCOSE,POINT OF CARE 338 MG/DL (70-110)
[2020-11-23 00:26] VITALS: BP 148/82
[2020-11-23] MEDS ORDERED: SODIUM CHLORIDE 0.9% 250 ML IV ONE (02:58)
[2020-11-23] MEDS: MORPHINE SULFATE 4 MG/ML SYRINGE IVP PRN ×6 (03:28→19:58)
[2020-11-23 05:15] VITALS: BP 178/89
[2020-11-23] MEDS: INSULIN LISPRO 100 UNITS/ML SQ PRN ×4 (06:00→20:07)
[2020-11-23 06:12] LABS: GLUCOMETER DEV NAME(LOC) 6S.1; GLUCOSE,POINT OF CARE 301 MG/DL (70-110)
[2020-11-23] MEDS: AmLODIPine BESYLATE 10 MG TABLET PO SCH (06:21)
[2020-11-23] MEDS: CeFAZolin 2 GM/DEXTROSE 50 ML IV SCH ×3 (06:30→21:00)
[2020-11-23 07:33] VITALS: BP 147/80
[2020-11-23] MEDS: OXYGEN THERAPY IH SCH ×2 (08:00→20:09)
[2020-11-23] MEDS: MULTIVITAMINS WITH MINERALS, THERAPEUTIC TABLET PO SCH (08:12)
[2020-11-23] MEDS: ETHYL ALCOHOL 62% ANTISEPTIC NASAL INHALANT 0.6 ML AMPUL NASAL SCH (08:12)
[2020-11-23] MEDS: FAMOTIDINE 20 MG TABLET PO SCH (08:13)
[2020-11-23] MEDS: GABAPENTIN 300 MG CAPSULE PO SCH ×2 (08:13→20:45)
[2020-11-23] MEDS: DOCUSATE SODIUM 100 MG CAPSULE PO SCH ×2 (08:13→19:58)
[2020-11-23] MEDS: FUROSEMIDE 20 MG/2 ML VIAL IVP SCH ×2 (08:13→19:59)
[2020-11-23] MEDS: APIXABAN 5 MG TABLET PO SCH ×2 (08:13→20:45)
[2020-11-23] MEDS: INSULIN GLARGINE,HUM.REC.ANLOG 100 UNITS/ML SQ SCH ×2 (08:16→20:05)
[2020-11-23] MEDS ORDERED: BARIUM SULFATE 0.1% SUSPENSION 450 ML BOTTLE ONE (10:13)
[2020-11-23 11:11] LABS: GLUCOMETER DEV NAME(LOC) 6S.1; GLUCOSE,POINT OF CARE 337 MG/DL (70-110)
[2020-11-23 15:14] VITALS: BP 157/87
[2020-11-23] MEDS: ACETAMINOPHEN 325 MG TABLET PO PRN (15:19)
[2020-11-23] MEDS ORDERED: 0.9% SODIUM CHLORIDE 5 ML NEB SOLUTION NEB ONE (15:30)
[2020-11-23] MEDS: ALBUTEROL SULFATE 2.5 MG/0.5 ML NEB SOLUTION NEB PRN (15:34)
[2020-11-23 17:35] LABS: GLUCOMETER DEV NAME(LOC) 6S.1; GLUCOSE,POINT OF CARE 311 MG/DL (70-110)
[2020-11-23] MEDS: MELATONIN 3 MG TABLET PO PRN (19:58)
[2020-11-23 20:00] VITALS: BP 141/81
[2020-11-24] VITALS (14 sets, daily range): BP systolic 141–167; BP diastolic 81–96
[2020-11-24] MEDS: MORPHINE SULFATE 4 MG/ML SYRINGE IVP PRN ×6 (00:44→20:35)
[2020-11-24 01:14] LABS: GLUCOMETER DEV NAME(LOC) 6N.1; GLUCOSE,POINT OF CARE 315 MG/DL (70-110)
[2020-11-24] MEDS ORDERED: 0.9% SODIUM CHLORIDE 5 ML NEB SOLUTION NEB ONE (02:49)
[2020-11-24] MEDS: ALBUTEROL SULFATE 2.5 MG/0.5 ML NEB SOLUTION NEB PRN (02:55)
[2020-11-24] MEDS: CeFAZolin 2 GM/DEXTROSE 50 ML IV SCH ×3 (05:36→21:26)
[2020-11-24] MEDS: INSULIN LISPRO 100 UNITS/ML SQ PRN ×4 (05:40→20:45)
[2020-11-24 05:55] LABS: BASOPHILS % (AUTO) 0.3 % (0.0-2.0); EOSINOPHILS % (AUTO) 0.4 % (1.0-6.0); LYMPHOCYTES # (AUTO) 0.7 K/uL (1.0-4.8); LYMPHOCYTES % (AUTO) 4.9 % (22.0-44.0); MEAN CORPUSCULAR HEMOGLOBIN 21.1 pg (26.0-34.0); MEAN CORPUSCULAR HGB CONC 31.2 G/dL (31.0-37.0); MEAN CORPUSCULAR VOLUME 68 fL (80-100); MONOCYTES # (AUTO) 0.9 K/uL (0.1-1.0); MONOCYTES % (AUTO) 6.6 % (2.0-9.0); NEUTROPHILS # (AUTO) 11.7 K/uL (1.8-7.7); PLATELET COUNT (AUTO) 293 K/uL (150-450); RED BLOOD CELL COUNT(AUTO) 3.01 MIL/uL (4.50-5.90); RED CELL DISTRIBUTION WIDTH 18.7 % (11.5-14.5)
[2020-11-24 06:15] LABS: CALCIUM, TOTAL 7.5 mg/dL (8.8-10.5); CREATININE 1.59 mg/dL (0.60-1.30)
[2020-11-24] MEDS ORDERED: SODIUM CHLORIDE 0.9% 500 ML IV ONE (06:39)
[2020-11-24 06:44] LABS: HEMOGLOBIN 6.4 g/dL (13.5-17.5)
[2020-11-24 06:45] LABS: HEMATOCRIT 20.4 % (41-53); NEUTROPHILS % (AUTO) 87.8 % (40.0-70.0)
[2020-11-24 07:07] LABS: GLUCOMETER DEV NAME(LOC) 6S.1; GLUCOSE,POINT OF CARE 328 MG/DL (70-110)
[2020-11-24] MEDS: OXYGEN THERAPY IH SCH ×2 (07:47→20:00)
[2020-11-24] MEDS ORDERED: SODIUM CHLORIDE 1 GM TABLET PO SCH (08:00)
[2020-11-24] MEDS: AmLODIPine BESYLATE 10 MG TABLET PO SCH (08:35)
[2020-11-24] MEDS: FUROSEMIDE 20 MG/2 ML VIAL IVP SCH (08:35)
[2020-11-24] MEDS: DOCUSATE SODIUM 100 MG CAPSULE PO SCH ×2 (08:35→20:46)
[2020-11-24] MEDS: GABAPENTIN 300 MG CAPSULE PO SCH ×2 (08:35→20:35)
[2020-11-24] MEDS: FAMOTIDINE 20 MG TABLET PO SCH (08:35)
[2020-11-24] MEDS: MULTIVITAMINS WITH MINERALS, THERAPEUTIC TABLET PO SCH (08:35)
[2020-11-24] MEDS: INSULIN GLARGINE,HUM.REC.ANLOG 100 UNITS/ML SQ SCH ×3 (08:38→20:44)
[2020-11-24 10:34] LABS: INR 1.2 (0.9-1.1); PROTHROMBIN TIME 12.7 SEC (9.4-11.6)
[2020-11-24] MEDS ORDERED: TOLVAPTAN 15 MG TABLET PO ONE (11:00)
[2020-11-24 12:24] LABS: BILIRUBIN,DIRECT 0.3 mg/dL (0.00-0.20); BILIRUBIN,TOTAL 0.6 mg/dL (0.1-1.0); TOTAL PROTEIN, SERUM 6.8 g/dL (6.4-8.2)
[2020-11-24] MEDS ORDERED: SODIUM CHLORIDE 0.9% 250 ML IV ONE (13:42)
[2020-11-24 17:15] LABS: GLUCOMETER DEV NAME(LOC) 5S.2B; GLUCOSE,POINT OF CARE 257 MG/DL (70-110)
[2020-11-24 17:16] LABS: GLUCOMETER DEV NAME(LOC) 5S.2B; GLUCOSE,POINT OF CARE 341 MG/DL (70-110)
[2020-11-24] MEDS: MELATONIN 3 MG TABLET PO PRN ×2 (20:35→21:26)
[2020-11-24] MEDS: FUROSEMIDE 40 MG/4 ML VIAL IVP SCH (20:46)
[2020-11-24 22:36] LABS: GLUCOMETER DEV NAME(LOC) 5N.1C; GLUCOSE,POINT OF CARE 325 MG/DL (70-110)
[2020-11-24] MEDS ORDERED: MORPHINE SULFATE 4 MG/ML SYRINGE IVP ONE (23:00)
[2020-11-25] VITALS (7 sets, daily range): BP systolic 139–155; BP diastolic 78–105
[2020-11-25] MEDS: MORPHINE SULFATE 4 MG/ML SYRINGE IVP PRN (01:17)
[2020-11-25] MEDS: HYDROmorphone 2 MG/ML VIAL IVP PRN ×4 (02:58→22:26)
[2020-11-25] MEDS: INSULIN LISPRO 100 UNITS/ML SQ PRN ×4 (05:21→20:41)
[2020-11-25] MEDS: CeFAZolin 2 GM/DEXTROSE 50 ML IV SCH ×2 (05:58→17:34)
[2020-11-25 07:12] LABS: HEMOGLOBIN A1C 10.4 % (3.8-5.6)
[2020-11-25 07:30] LABS: BILIRUBIN,TOTAL 0.7 mg/dL (0.1-1.0); CALCIUM, TOTAL 7.8 mg/dL (8.8-10.5); CREATININE 1.57 mg/dL (0.60-1.30); POTASSIUM 4.7 mmol/L (3.5-5.1); TOTAL PROTEIN, SERUM 7.3 g/dL (6.4-8.2)
[2020-11-25 07:53] LABS: EOSINOPHILS % (AUTO) 0.4 % (1.0-6.0); HEMATOCRIT 23.5 % (41-53); HEMOGLOBIN 7.5 g/dL (13.5-17.5); LYMPHOCYTES # (AUTO) 0.7 K/uL (1.0-4.8); LYMPHOCYTES % (AUTO) 5.3 % (22.0-44.0); MEAN CORPUSCULAR HEMOGLOBIN 22.6 pg (26.0-34.0); MEAN CORPUSCULAR HGB CONC 31.9 G/dL (31.0-37.0); MEAN CORPUSCULAR VOLUME 71 fL (80-100); MONOCYTES # (AUTO) 0.8 K/uL (0.1-1.0); NEUTROPHILS # (AUTO) 12.2 K/uL (1.8-7.7); PLATELET COUNT (AUTO) 338 K/uL (150-450); RED BLOOD CELL COUNT(AUTO) 3.32 MIL/uL (4.50-5.90); RED CELL DISTRIBUTION WIDTH 21.8 % (11.5-14.5)
[2020-11-25 07:54] LABS: NEUTROPHILS % (AUTO) 87.3 % (40.0-70.0)
[2020-11-25] MEDS: OXYGEN THERAPY IH SCH ×2 (08:00→20:00)
[2020-11-25 08:04] LABS: FREE T4 (FREE THYROXINE) 0.88 ng/dL (0.76-1.46); THYROID STIMULATING HORMONE 5.58 uIU/mL (0.36-3.74)
[2020-11-25] MEDS: MULTIVITAMINS WITH MINERALS, THERAPEUTIC TABLET PO SCH (08:58)
[2020-11-25] MEDS: GABAPENTIN 300 MG CAPSULE PO SCH ×2 (08:58→20:38)
[2020-11-25] MEDS: AmLODIPine BESYLATE 10 MG TABLET PO SCH (08:58)
[2020-11-25] MEDS: FAMOTIDINE 20 MG TABLET PO SCH (08:58)
[2020-11-25] MEDS: DOCUSATE SODIUM 100 MG CAPSULE PO SCH ×2 (08:59→20:38)
[2020-11-25] MEDS: FUROSEMIDE 40 MG/4 ML VIAL IVP SCH ×2 (08:59→20:39)
[2020-11-25] MEDS: INSULIN GLARGINE,HUM.REC.ANLOG 100 UNITS/ML SQ SCH ×2 (09:08→20:41)
[2020-11-25] MEDS ORDERED: TOLVAPTAN 15 MG TABLET PO ONE (09:30)
[2020-11-25] MEDS ORDERED: LIDOCAINE 1% 10 ML VIAL SQ ONE (10:15)
[2020-11-25 14:16] LABS: APPEARANCE,URINE CLOUDY (CLEAR); BILIRUBIN,URINE NEGATIVE (NEGATIVE); GLUCOSE, URINE (UA) 100 mg/dL (NEGATIVE); KETONES,URINE NEGATIVE (NEGATIVE); NITRATE,URINE NEGATIVE (NEGATIVE); OCCULT BLOOD,URINE LARGE (NEGATIVE); PROTEIN,URINE SEE CONFIRM (NEGATIVE); UROBILINOGEN,URINE 0.2 mg/dL (<=1.0)
[2020-11-25 14:18] LABS: CREATININE,URINE RANDOM 33.8 mg/dL (30.0-125.0)
[2020-11-25 14:20] LABS: LEUKOCYTE ESTERASE ,URINE MODERATE (NEGATIVE); RBC,URINE 26-50 /HPF (0-2); SULFOSALICYLIC ACID,URINE 3+ (Negative)
[2020-11-25 14:21] LABS: BACTERIA,URINE Moderate /HPF (None Seen); FINE GRANULAR CASTS,URINE 0-2 /LPF (None Seen)
[2020-11-25 17:23] LABS: GLUCOMETER DEV NAME(LOC) 5N.3; GLUCOSE,POINT OF CARE 222 MG/DL (70-110)
[2020-11-25] MEDS: LEVOFLOXACIN 750 MG/D5% WATER 150 ML IV SCH (17:30)
[2020-11-25 18:42] LABS: GLUCOMETER DEV NAME(LOC) 5S.1; GLUCOSE,POINT OF CARE 216 MG/DL (70-110)
[2020-11-25 18:42] LABS: GLUCOMETER DEV NAME(LOC) 5S.1; GLUCOSE,POINT OF CARE 246 MG/DL (70-110)
[2020-11-25 18:54] LABS: TPROTEIN TIMED,URINE 267 mg/dL
[2020-11-25 18:56] LABS: TPROTEIN URINE, 24HRS COLL 12015 mg/24Hr (0-165)
[2020-11-25 19:03] LABS: COLLECTION TIME,URINE 24 HR
[2020-11-25] MEDS: MELATONIN 3 MG TABLET PO PRN (20:38)
[2020-11-26] MEDS: CeFAZolin 2 GM/DEXTROSE 50 ML IV SCH ×3 (00:21→17:27)
[2020-11-26] MEDS: ACETAMINOPHEN 325 MG TABLET PO PRN ×3 (00:31→20:42)
[2020-11-26 01:19] LABS: GLUCOMETER DEV NAME(LOC) 5S.1; GLUCOSE,POINT OF CARE 286 MG/DL (70-110)
[2020-11-26] MEDS: HYDROmorphone 2 MG/ML VIAL IVP PRN ×5 (02:28→22:25)
[2020-11-26 06:08] LABS: BASOPHILS % (AUTO) 0.9 % (0.0-2.0); EOSINOPHILS % (AUTO) 0.7 % (1.0-6.0); HEMATOCRIT 22.5 % (41-53); HEMOGLOBIN 7.1 g/dL (13.5-17.5); LYMPHOCYTES # (AUTO) 0.8 K/uL (1.0-4.8); MEAN CORPUSCULAR HEMOGLOBIN 22.7 pg (26.0-34.0); MEAN CORPUSCULAR HGB CONC 31.7 G/dL (31.0-37.0); MEAN CORPUSCULAR VOLUME 72 fL (80-100); MONOCYTES % (AUTO) 8.8 % (2.0-9.0); NEUTROPHILS # (AUTO) 9.5 K/uL (1.8-7.7); NEUTROPHILS % (AUTO) 82.6 % (40.0-70.0); PLATELET COUNT (AUTO) 298 K/uL (150-450); RED BLOOD CELL COUNT(AUTO) 3.14 MIL/uL (4.50-5.90); RED CELL DISTRIBUTION WIDTH 22.8 % (11.5-14.5)
[2020-11-26] MEDS: INSULIN LISPRO 100 UNITS/ML SQ PRN ×4 (06:16→20:43)
[2020-11-26 06:25] VITALS: BP 139/77
[2020-11-26 06:31] LABS: GLUCOMETER DEV NAME(LOC) 5S.2B; GLUCOSE,POINT OF CARE 184 MG/DL (70-110)
[2020-11-26 06:54] LABS: CALCIUM, TOTAL 7.5 mg/dL (8.8-10.5); CREATININE 1.58 mg/dL (0.60-1.30); POTASSIUM 4.4 mmol/L (3.5-5.1)
[2020-11-26 07:23] VITALS: BP 142/89
[2020-11-26] MEDS: OXYGEN THERAPY IH SCH ×2 (07:57→20:00)
[2020-11-26] MEDS: FAMOTIDINE 20 MG TABLET PO SCH (08:04)
[2020-11-26] MEDS: AmLODIPine BESYLATE 10 MG TABLET PO SCH (08:04)
[2020-11-26] MEDS: GABAPENTIN 300 MG CAPSULE PO SCH ×2 (08:04→20:42)
[2020-11-26] MEDS: MULTIVITAMINS WITH MINERALS, THERAPEUTIC TABLET PO SCH (08:04)
[2020-11-26] MEDS: FUROSEMIDE 40 MG/4 ML VIAL IVP SCH ×2 (08:05→20:42)
[2020-11-26] MEDS: DOCUSATE SODIUM 100 MG CAPSULE PO SCH ×2 (08:06→20:42)
[2020-11-26] MEDS: INSULIN GLARGINE,HUM.REC.ANLOG 100 UNITS/ML SQ SCH ×2 (09:03→20:43)
[2020-11-26] MEDS ORDERED: SODIUM CHLORIDE 3% 500 ML IV ONE (09:45)
[2020-11-26 11:37] VITALS: BP 156/92
[2020-11-26] MEDS ORDERED: SIMETHICONE 80 MG CHEWABLE TABLET CHEW PRN ×2 (11:45)
[2020-11-26 15:32] VITALS: BP 152/86
[2020-11-26 18:36] LABS: GLUCOMETER DEV NAME(LOC) 5N.1C; GLUCOSE,POINT OF CARE 209 MG/DL (70-110)
[2020-11-26 19:50] VITALS: BP 140/92
[2020-11-26] MEDS: MELATONIN 3 MG TABLET PO PRN (20:42)
[2020-11-26 21:07] LABS: GLUCOMETER DEV NAME(LOC) 5S.1; GLUCOSE,POINT OF CARE 293 MG/DL (70-110)
[2020-11-26 21:07] LABS: GLUCOMETER DEV NAME(LOC) 5S.1; GLUCOSE,POINT OF CARE 267 MG/DL (70-110)
[2020-11-26 23:40] VITALS: BP 150/90
[2020-11-27] MEDS: CeFAZolin 2 GM/DEXTROSE 50 ML IV SCH ×3 (01:38→17:55)
[2020-11-27 03:20] VITALS: BP 136/78
[2020-11-27] MEDS: HYDROmorphone 2 MG/ML VIAL IVP PRN ×5 (05:05→22:44)
[2020-11-27] MEDS: INSULIN LISPRO 100 UNITS/ML SQ PRN ×4 (05:39→20:24)
[2020-11-27 07:04] LABS: BASOPHILS % (AUTO) 0.6 % (0.0-2.0); EOSINOPHILS % (AUTO) 0.7 % (1.0-6.0); HEMATOCRIT 22.6 % (41-53); HEMOGLOBIN 7.3 g/dL (13.5-17.5); LYMPHOCYTES # (AUTO) 0.9 K/uL (1.0-4.8); LYMPHOCYTES % (AUTO) 8.2 % (22.0-44.0); MEAN CORPUSCULAR HGB CONC 32.5 G/dL (31.0-37.0); MEAN CORPUSCULAR VOLUME 71 fL (80-100); MONOCYTES # (AUTO) 0.8 K/uL (0.1-1.0); MONOCYTES % (AUTO) 7.3 % (2.0-9.0); NEUTROPHILS # (AUTO) 9.1 K/uL (1.8-7.7); NEUTROPHILS % (AUTO) 83.2 % (40.0-70.0); RED BLOOD CELL COUNT(AUTO) 3.18 MIL/uL (4.50-5.90)
[2020-11-27 07:08] LABS: CALCIUM, TOTAL 7.5 mg/dL (8.8-10.5); CREATININE 1.55 mg/dL (0.60-1.30)
[2020-11-27 07:53] VITALS: BP 142/80
[2020-11-27] MEDS: OXYGEN THERAPY IH SCH ×2 (08:00→20:00)
[2020-11-27] MEDS: MULTIVITAMINS WITH MINERALS, THERAPEUTIC TABLET PO SCH (08:04)
[2020-11-27] MEDS: AmLODIPine BESYLATE 10 MG TABLET PO SCH (08:04)
[2020-11-27] MEDS: DOCUSATE SODIUM 100 MG CAPSULE PO SCH ×2 (08:04→20:22)
[2020-11-27] MEDS: FAMOTIDINE 20 MG TABLET PO SCH (08:04)
[2020-11-27] MEDS: GABAPENTIN 300 MG CAPSULE PO SCH ×2 (08:04→20:22)
[2020-11-27] MEDS: FUROSEMIDE 40 MG/4 ML VIAL IVP SCH ×2 (08:05→20:22)
[2020-11-27] MEDS: ACETAMINOPHEN 325 MG TABLET PO PRN ×2 (08:05→16:05)
[2020-11-27] MEDS: INSULIN GLARGINE,HUM.REC.ANLOG 100 UNITS/ML SQ SCH ×2 (08:21→20:23)
[2020-11-27 11:23] VITALS: BP 147/84
[2020-11-27 11:46] LABS: PLATELET COUNT (AUTO) 284 K/uL (150-450)
[2020-11-27] MEDS: EPOETIN ALFA 10,000 UNITS/ML VIAL SQ SCH (14:50)
[2020-11-27] MEDS: BISACODYL 10 MG RECTAL RECTAL SUPPOSITORY PR PRN (14:55)
[2020-11-27] MEDS: LEVOFLOXACIN 750 MG/D5% WATER 150 ML IV SCH (16:06)
[2020-11-27 16:15] VITALS: BP 153/85
[2020-11-27] MEDS ORDERED: SODIUM CHLORIDE 0.9% 500 ML IV ONE (18:56)
[2020-11-27 20:11] VITALS: BP 154/89
[2020-11-27] MEDS: MELATONIN 3 MG TABLET PO PRN (20:22)
[2020-11-28] VITALS (7 sets, daily range): BP systolic 135–157; BP diastolic 6–96
[2020-11-28] MEDS: CeFAZolin 2 GM/DEXTROSE 50 ML IV SCH ×3 (00:51→17:05)
[2020-11-28] MEDS: HYDROmorphone 2 MG/ML VIAL IVP PRN ×4 (03:31→19:43)
[2020-11-28 04:12] LABS: GLUCOMETER DEV NAME(LOC) 5N.1C; GLUCOSE,POINT OF CARE 300 MG/DL (70-110)
[2020-11-28 04:12] LABS: GLUCOMETER DEV NAME(LOC) 5N.1C; GLUCOSE,POINT OF CARE 212 MG/DL (70-110)
[2020-11-28] MEDS: INSULIN LISPRO 100 UNITS/ML SQ PRN ×4 (05:46→20:11)
[2020-11-28] MEDS: ACETAMINOPHEN 325 MG TABLET PO PRN ×3 (05:51→18:32)
[2020-11-28 06:50] LABS: C-REACTIVE PROTEIN QUANT 8.29 mg/dL (0.00-0.30); CALCIUM, TOTAL 7.7 mg/dL (8.8-10.5); CREATININE 1.6 mg/dL (0.60-1.30); POTASSIUM 4.1 mmol/L (3.5-5.1)
[2020-11-28] MEDS: OXYGEN THERAPY IH SCH ×2 (08:00→20:00)
[2020-11-28] MEDS: AmLODIPine BESYLATE 10 MG TABLET PO SCH (08:41)
[2020-11-28] MEDS: MULTIVITAMINS WITH MINERALS, THERAPEUTIC TABLET PO SCH (08:41)
[2020-11-28] MEDS: DOCUSATE SODIUM 100 MG CAPSULE PO SCH ×2 (08:41→20:07)
[2020-11-28] MEDS: FUROSEMIDE 40 MG/4 ML VIAL IVP SCH ×2 (08:41→20:07)
[2020-11-28] MEDS: FAMOTIDINE 20 MG TABLET PO SCH (08:41)
[2020-11-28] MEDS: GABAPENTIN 300 MG CAPSULE PO SCH ×2 (08:41→20:07)
[2020-11-28] MEDS: INSULIN GLARGINE,HUM.REC.ANLOG 100 UNITS/ML SQ SCH ×2 (08:42→20:14)
[2020-11-28 11:30] LABS: GLUCOMETER DEV NAME(LOC) 5N.3; GLUCOSE,POINT OF CARE 201 MG/DL (70-110)
[2020-11-28 11:31] LABS: GLUCOMETER DEV NAME(LOC) 5N.3; GLUCOSE,POINT OF CARE 128 MG/DL (70-110)
[2020-11-28 11:59] LABS: GLUCOMETER DEV NAME(LOC) 5N.1C; GLUCOSE,POINT OF CARE 207 MG/DL (70-110)
[2020-11-28 18:29] LABS: GLUCOMETER DEV NAME(LOC) 5S.2B; GLUCOSE,POINT OF CARE 218 MG/DL (70-110)
[2020-11-28] MEDS: MELATONIN 3 MG TABLET PO PRN (20:07)
[2020-11-29] MEDS: HYDROmorphone 2 MG/ML VIAL IVP PRN ×5 (00:28→19:50)
[2020-11-29] MEDS: CeFAZolin 2 GM/DEXTROSE 50 ML IV SCH ×3 (00:29→16:03)
[2020-11-29 04:06] VITALS: BP 141/92
[2020-11-29] MEDS: ACETAMINOPHEN 325 MG TABLET PO PRN ×3 (04:59→22:55)
[2020-11-29 05:09] LABS: GLUCOMETER DEV NAME(LOC) 5S.1; GLUCOSE,POINT OF CARE 282 MG/DL (70-110)
[2020-11-29 05:09] LABS: GLUCOMETER DEV NAME(LOC) 5S.1; GLUCOSE,POINT OF CARE 291 MG/DL (70-110)
[2020-11-29 06:24] LABS: CALCIUM, TOTAL 7.5 mg/dL (8.8-10.5); CREATININE 1.54 mg/dL (0.60-1.30); POTASSIUM 4.1 mmol/L (3.5-5.1)
[2020-11-29 07:11] LABS: GLUCOMETER DEV NAME(LOC) 5S.2B; GLUCOSE,POINT OF CARE 124 MG/DL (70-110)
[2020-11-29 07:19] VITALS: BP 145/82
[2020-11-29] MEDS: MULTIVITAMINS WITH MINERALS, THERAPEUTIC TABLET PO SCH (07:46)
[2020-11-29] MEDS: FAMOTIDINE 20 MG TABLET PO SCH (07:46)
[2020-11-29] MEDS: AmLODIPine BESYLATE 10 MG TABLET PO SCH (07:46)
[2020-11-29] MEDS: FUROSEMIDE 40 MG/4 ML VIAL IVP SCH (07:46)
[2020-11-29] MEDS: DOCUSATE SODIUM 100 MG CAPSULE PO SCH ×2 (07:46→20:50)
[2020-11-29] MEDS: GABAPENTIN 300 MG CAPSULE PO SCH ×2 (07:46→20:50)
[2020-11-29] MEDS: INSULIN GLARGINE,HUM.REC.ANLOG 100 UNITS/ML SQ SCH ×2 (07:56→20:52)
[2020-11-29 11:24] VITALS: BP 157/94
[2020-11-29 11:48] LABS: GLUCOMETER DEV NAME(LOC) 5S.2B; GLUCOSE,POINT OF CARE 196 MG/DL (70-110)
[2020-11-29] MEDS: INSULIN LISPRO 100 UNITS/ML SQ PRN ×2 (11:55→17:29)
[2020-11-29 15:18] VITALS: BP 153/81
[2020-11-29] MEDS: METOPROLOL TARTRATE 25 MG TABLET PO SCH ×2 (15:33→20:51)
[2020-11-29] MEDS: OXYGEN THERAPY IH SCH ×2 (16:07→20:00)
[2020-11-29] MEDS: LEVOFLOXACIN 750 MG/D5% WATER 150 ML IV SCH (16:29)
[2020-11-29 19:39] VITALS: BP 158/86
[2020-11-29] MEDS ORDERED: SODIUM CHLORIDE 0.9% 500 ML IV ONE (19:53)
[2020-11-29] MEDS: RIFAMPIN 300 MG CAPSULE PO SCH (20:51)
[2020-11-29] MEDS: MELATONIN 3 MG TABLET PO PRN (20:51)
[2020-11-29 23:36] VITALS: BP 150/87
[2020-11-30] MEDS: HYDROmorphone 2 MG/ML VIAL IVP PRN ×6 (00:10→22:42)
[2020-11-30] MEDS: CeFAZolin 2 GM/DEXTROSE 50 ML IV SCH ×3 (00:10→18:04)
[2020-11-30] MEDS: ACETAMINOPHEN 325 MG TABLET PO PRN ×2 (03:47→20:14)
[2020-11-30 04:17] VITALS: BP 136/79
[2020-11-30 07:04] LABS: CALCIUM, TOTAL 7.6 mg/dL (8.8-10.5); CREATININE 1.5 mg/dL (0.60-1.30)
[2020-11-30 07:27] LABS: GLUCOMETER DEV NAME(LOC) 5S.2B; GLUCOSE,POINT OF CARE 259 MG/DL (70-110)
[2020-11-30 07:28] LABS: GLUCOMETER DEV NAME(LOC) 5S.2B; GLUCOSE,POINT OF CARE 183 MG/DL (70-110)
[2020-11-30 07:48] VITALS: BP 158/88
[2020-11-30] MEDS: METOPROLOL TARTRATE 25 MG TABLET PO SCH ×2 (07:54→20:14)
[2020-11-30] MEDS: FAMOTIDINE 20 MG TABLET PO SCH (07:54)
[2020-11-30] MEDS: FUROSEMIDE 40 MG/4 ML VIAL IVP SCH (07:54)
[2020-11-30] MEDS: GABAPENTIN 300 MG CAPSULE PO SCH ×2 (07:54→20:14)
[2020-11-30] MEDS: AmLODIPine BESYLATE 10 MG TABLET PO SCH (07:54)
[2020-11-30] MEDS: RIFAMPIN 300 MG CAPSULE PO SCH ×2 (07:54→20:14)
[2020-11-30] MEDS: DOCUSATE SODIUM 100 MG CAPSULE PO SCH ×2 (07:54→20:14)
[2020-11-30] MEDS: MULTIVITAMINS WITH MINERALS, THERAPEUTIC TABLET PO SCH (07:54)
[2020-11-30] MEDS: INSULIN GLARGINE,HUM.REC.ANLOG 100 UNITS/ML SQ SCH ×2 (07:59→20:18)
[2020-11-30] MEDS: OXYGEN THERAPY IH SCH ×2 (08:00→20:00)
[2020-11-30] MEDS: INSULIN LISPRO 100 UNITS/ML SQ PRN ×3 (11:41→20:17)
[2020-11-30 12:02] VITALS: BP 155/79
[2020-11-30 12:32] LABS: GLUCOMETER DEV NAME(LOC) 5S.1; GLUCOSE,POINT OF CARE 289 MG/DL (70-110)
[2020-11-30 15:32] VITALS: BP 151/79
[2020-11-30 15:45] LABS: ALBUMIN 1.1 g/dL (3.4-5.0); BILIRUBIN,DIRECT 0.3 mg/dL (0.00-0.20); BILIRUBIN,TOTAL 0.5 mg/dL (0.1-1.0); C-REACTIVE PROTEIN QUANT 7.87 mg/dL (0.00-0.30); TOTAL PROTEIN, SERUM 7.6 g/dL (6.4-8.2)
[2020-11-30 19:51] VITALS: BP 154/89
[2020-11-30] MEDS: MELATONIN 3 MG TABLET PO PRN (20:14)
[2020-11-30 23:11] LABS: GLUCOMETER DEV NAME(LOC) 5S.1; GLUCOSE,POINT OF CARE 226 MG/DL (70-110)
[2020-11-30 23:45] VITALS: BP 151/92
[2020-12-01] MEDS: CeFAZolin 2 GM/DEXTROSE 50 ML IV SCH ×3 (00:16→16:49)
[2020-12-01 04:13] VITALS: BP 146/82
[2020-12-01 07:21] VITALS: BP 167/84
[2020-12-01] MEDS: HYDROmorphone 2 MG/ML VIAL IVP PRN ×3 (08:37→19:52)
[2020-12-01] MEDS: MULTIVITAMINS WITH MINERALS, THERAPEUTIC TABLET PO SCH (08:55)
[2020-12-01] MEDS: RIFAMPIN 300 MG CAPSULE PO SCH ×2 (08:55→19:51)
[2020-12-01] MEDS: METOPROLOL TARTRATE 25 MG TABLET PO SCH ×2 (08:56→19:51)
[2020-12-01] MEDS: AmLODIPine BESYLATE 10 MG TABLET PO SCH (08:56)
[2020-12-01] MEDS: GABAPENTIN 300 MG CAPSULE PO SCH ×2 (08:56→19:51)
[2020-12-01] MEDS: FUROSEMIDE 40 MG/4 ML VIAL IVP SCH (08:57)
[2020-12-01] MEDS: FAMOTIDINE 20 MG TABLET PO SCH (08:58)
[2020-12-01] MEDS: DOCUSATE SODIUM 100 MG CAPSULE PO SCH ×2 (09:00→20:08)
[2020-12-01] MEDS: INSULIN GLARGINE,HUM.REC.ANLOG 100 UNITS/ML SQ SCH ×2 (09:04→20:03)
[2020-12-01] MEDS: OXYGEN THERAPY IH SCH ×2 (09:07→20:00)
[2020-12-01] MEDS: ACETAMINOPHEN 325 MG TABLET PO PRN ×3 (10:27→22:56)
[2020-12-01 11:00] VITALS: BP 148/80
[2020-12-01 11:08] LABS: CALCIUM, TOTAL 7.5 mg/dL (8.8-10.5); CREATININE 1.3 mg/dL (0.60-1.30); MAGNESIUM 2.1 mg/dL (1.80-2.40); PHOSPHORUS 4.5 mg/dL (2.5-4.9); POTASSIUM 3.9 mmol/L (3.5-5.1)
[2020-12-01 11:20] LABS: GLUCOMETER DEV NAME(LOC) 5N.3; GLUCOSE,POINT OF CARE 118 MG/DL (70-110)
[2020-12-01 11:30] LABS: GLUCOMETER DEV NAME(LOC) 5S.1; GLUCOSE,POINT OF CARE 161 MG/DL (70-110)
[2020-12-01] MEDS: INSULIN LISPRO 100 UNITS/ML SQ PRN ×3 (11:40→20:02)
[2020-12-01 11:57] LABS: GLUCOMETER DEV NAME(LOC) 5N.1C; GLUCOSE,POINT OF CARE 141 MG/DL (70-110)
[2020-12-01] MEDS: LEVOFLOXACIN 750 MG/D5% WATER 150 ML IV SCH (15:05)
[2020-12-01] MEDS ORDERED: SODIUM CHLORIDE 0.9% 250 ML IV ONE (15:08)
[2020-12-01 15:35] VITALS: BP 148/80
[2020-12-01] MEDS ORDERED: 0.9% SODIUM CHLORIDE 5 ML NEB SOLUTION NEB ONE (16:41)
[2020-12-01] MEDS: ALBUTEROL SULFATE 2.5 MG/0.5 ML NEB SOLUTION NEB PRN (16:43)
[2020-12-01 18:05] LABS: GLUCOMETER DEV NAME(LOC) 5S.2B; GLUCOSE,POINT OF CARE 212 MG/DL (70-110)
[2020-12-01 19:48] VITALS: BP 152/85
[2020-12-01] MEDS: MELATONIN 3 MG TABLET PO PRN (19:51)
[2020-12-01 23:32] VITALS: BP 148/92
[2020-12-02 00:19] LABS: GLUCOMETER DEV NAME(LOC) 5S.1; GLUCOSE,POINT OF CARE 235 MG/DL (70-110)
[2020-12-02] MEDS: HYDROmorphone 2 MG/ML VIAL IVP PRN ×5 (00:35→19:57)
[2020-12-02] MEDS: CeFAZolin 2 GM/DEXTROSE 50 ML IV SCH ×3 (00:44→18:56)
[2020-12-02] MEDS: ACETAMINOPHEN 325 MG TABLET PO PRN ×3 (03:33→21:56)
[2020-12-02 05:31] VITALS: BP 146/89
[2020-12-02 06:59] LABS: BASOPHILS % (AUTO) 0.7 % (0.0-2.0); EOSINOPHILS % (AUTO) 1.3 % (1.0-6.0); HEMATOCRIT 23.1 % (41-53); HEMOGLOBIN 7.3 g/dL (13.5-17.5); LYMPHOCYTES # (AUTO) 0.9 K/uL (1.0-4.8); LYMPHOCYTES % (AUTO) 9.3 % (22.0-44.0); MEAN CORPUSCULAR HEMOGLOBIN 23.6 pg (26.0-34.0); MEAN CORPUSCULAR HGB CONC 31.8 G/dL (31.0-37.0); MEAN CORPUSCULAR VOLUME 74 fL (80-100); MONOCYTES # (AUTO) 0.8 K/uL (0.1-1.0); MONOCYTES % (AUTO) 8.1 % (2.0-9.0); NEUTROPHILS # (AUTO) 7.8 K/uL (1.8-7.7); NEUTROPHILS % (AUTO) 80.6 % (40.0-70.0); PLATELET COUNT (AUTO) 187 K/uL (150-450); RED CELL DISTRIBUTION WIDTH 26.4 % (11.5-14.5)
[2020-12-02 07:34] LABS: ALBUMIN 1.1 g/dL (3.4-5.0); BILIRUBIN,TOTAL 0.5 mg/dL (0.1-1.0); C-REACTIVE PROTEIN QUANT 6.68 mg/dL (0.00-0.30); CALCIUM, TOTAL 7.8 mg/dL (8.8-10.5); CREATININE 1.32 mg/dL (0.60-1.30); POTASSIUM 3.6 mmol/L (3.5-5.1); TOTAL PROTEIN, SERUM 7.6 g/dL (6.4-8.2)
[2020-12-02 07:42] VITALS: BP 152/82
[2020-12-02] MEDS: OXYGEN THERAPY IH SCH ×2 (08:00→20:00)
[2020-12-02] MEDS: FUROSEMIDE 40 MG/4 ML VIAL IVP SCH (08:18)
[2020-12-02] MEDS: MULTIVITAMINS WITH MINERALS, THERAPEUTIC TABLET PO SCH (08:18)
[2020-12-02] MEDS: FAMOTIDINE 20 MG TABLET PO SCH (08:19)
[2020-12-02] MEDS: GABAPENTIN 300 MG CAPSULE PO SCH ×2 (08:19→19:57)
[2020-12-02] MEDS: RIFAMPIN 300 MG CAPSULE PO SCH ×2 (08:19→20:25)
[2020-12-02] MEDS: METOPROLOL TARTRATE 25 MG TABLET PO SCH ×2 (08:20→20:25)
[2020-12-02] MEDS: AmLODIPine BESYLATE 10 MG TABLET PO SCH (08:20)
[2020-12-02] MEDS: DOCUSATE SODIUM 100 MG CAPSULE PO SCH ×2 (08:44→19:57)
[2020-12-02] MEDS: INSULIN GLARGINE,HUM.REC.ANLOG 100 UNITS/ML SQ SCH ×2 (08:44→20:27)
[2020-12-02 11:25] VITALS: BP 155/93
[2020-12-02] MEDS: INSULIN LISPRO 100 UNITS/ML SQ PRN ×3 (11:55→20:28)
[2020-12-02 12:58] VITALS: BP 151/81
[2020-12-02 15:13] LABS: GLUCOMETER DEV NAME(LOC) 5S.1; GLUCOSE,POINT OF CARE 83 MG/DL (70-110)
[2020-12-02 15:14] LABS: GLUCOMETER DEV NAME(LOC) 5N.1C; GLUCOSE,POINT OF CARE 195 MG/DL (70-110)
[2020-12-02 15:44] VITALS: BP 150/80
[2020-12-02] MEDS: LEVOFLOXACIN 750 MG/D5% WATER 150 ML IV SCH (17:04)
[2020-12-02 19:25] VITALS: BP 159/86
[2020-12-02 23:05] LABS: GLUCOMETER DEV NAME(LOC) 6N.1; GLUCOSE,POINT OF CARE 217 MG/DL (70-110)
[2020-12-02 23:05] LABS: GLUCOMETER DEV NAME(LOC) 6N.1; GLUCOSE,POINT OF CARE 150 MG/DL (70-110)
[2020-12-03] VITALS (9 sets, daily range): BP systolic 135–163; BP diastolic 88–104
[2020-12-03] MEDS: HYDROmorphone 2 MG/ML VIAL IVP PRN ×5 (00:17→20:46)
[2020-12-03] MEDS: CeFAZolin 2 GM/DEXTROSE 50 ML IV SCH ×3 (01:50→18:20)
[2020-12-03] MEDS: ACETAMINOPHEN 325 MG TABLET PO PRN ×2 (02:33→11:14)
[2020-12-03 05:56] LABS: GLUCOMETER DEV NAME(LOC) 6N.1; GLUCOSE,POINT OF CARE 84 MG/DL (70-110)
[2020-12-03] MEDS: OXYGEN THERAPY IH SCH ×2 (08:00→20:31)
[2020-12-03] MEDS: RIFAMPIN 300 MG CAPSULE PO SCH ×2 (08:54→20:30)
[2020-12-03] MEDS: DOCUSATE SODIUM 100 MG CAPSULE PO SCH ×3 (08:55→20:30)
[2020-12-03] MEDS: FUROSEMIDE 40 MG TABLET PO SCH (08:55)
[2020-12-03] MEDS: AmLODIPine BESYLATE 10 MG TABLET PO SCH (08:55)
[2020-12-03] MEDS: GABAPENTIN 300 MG CAPSULE PO SCH ×3 (08:55→20:30)
[2020-12-03] MEDS: METOPROLOL TARTRATE 25 MG TABLET PO SCH ×2 (08:55→20:30)
[2020-12-03] MEDS: MULTIVITAMINS WITH MINERALS, THERAPEUTIC TABLET PO SCH (08:55)
[2020-12-03] MEDS: FAMOTIDINE 20 MG TABLET PO SCH (08:55)
[2020-12-03] MEDS: INSULIN GLARGINE,HUM.REC.ANLOG 100 UNITS/ML SQ SCH ×2 (09:00→20:45)
[2020-12-03] MEDS ORDERED: LOSARTAN POTASSIUM 25 MG TABLET PO SCH (09:30)
[2020-12-03] MEDS: METHYL SALICYLATE/MENTHOL 85 GM CREAM TP PRN ×2 (09:50→17:30)
[2020-12-03] MEDS: INSULIN LISPRO 100 UNITS/ML SQ PRN ×3 (12:03→20:45)
[2020-12-03] MEDS: LEVOFLOXACIN 750 MG/D5% WATER 150 ML IV SCH (15:47)
[2020-12-03] MEDS: CloNIDine HCL 0.2 MG TABLET PO PRN ×2 (15:48→22:26)
[2020-12-03] MEDS: LOSARTAN POTASSIUM 25 MG TABLET PO SCH (20:31)
[2020-12-03] MEDS ORDERED: 0.9% SODIUM CHLORIDE 5 ML NEB SOLUTION NEB ONE (22:10)
[2020-12-03] MEDS ORDERED: LORazepam 2 MG/ML VIAL ONE (22:12)
[2020-12-03] MEDS: LORazepam 2 MG/ML VIAL IVP PRN (22:17)
[2020-12-03] MEDS: ALBUTEROL SULFATE 2.5 MG/0.5 ML NEB SOLUTION NEB PRN (22:18)
[2020-12-04] MEDS ORDERED: SODIUM CHLORIDE 0.9% 500 ML IV ONE (00:49)
[2020-12-04] MEDS: CeFAZolin 2 GM/DEXTROSE 50 ML IV SCH ×3 (00:57→18:01)
[2020-12-04 03:51] LABS: GLUCOMETER DEV NAME(LOC) 6S.1; GLUCOSE,POINT OF CARE 134 MG/DL (70-110)
[2020-12-04] MEDS: HYDROmorphone 2 MG/ML VIAL IVP PRN ×4 (03:51→20:24)
[2020-12-04 03:53] LABS: GLUCOMETER DEV NAME(LOC) 6N.1; GLUCOSE,POINT OF CARE 192 MG/DL (70-110)
[2020-12-04 03:55] VITALS: BP 144/90
[2020-12-04] MEDS ORDERED: 0.9% SODIUM CHLORIDE 5 ML NEB SOLUTION NEB ONE (04:21)
[2020-12-04] MEDS: ALBUTEROL SULFATE 2.5 MG/0.5 ML NEB SOLUTION NEB PRN (04:27)
[2020-12-04 06:32] LABS: CALCIUM, TOTAL 7.7 mg/dL (8.8-10.5); CREATININE 1.32 mg/dL (0.60-1.30)
[2020-12-04] MEDS: GABAPENTIN 300 MG CAPSULE PO SCH ×3 (08:07→20:23)
[2020-12-04] MEDS: RIFAMPIN 300 MG CAPSULE PO SCH ×2 (08:07→20:23)
[2020-12-04] MEDS: FUROSEMIDE 40 MG TABLET PO SCH (08:08)
[2020-12-04] MEDS: MULTIVITAMINS WITH MINERALS, THERAPEUTIC TABLET PO SCH (08:08)
[2020-12-04] MEDS: LOSARTAN POTASSIUM 25 MG TABLET PO SCH ×2 (08:08→20:23)
[2020-12-04] MEDS: OXYGEN THERAPY IH SCH ×2 (08:09→20:25)
[2020-12-04] MEDS: FAMOTIDINE 20 MG TABLET PO SCH (08:09)
[2020-12-04] MEDS: EPOETIN ALFA 10,000 UNITS/ML VIAL SQ SCH (08:09)
[2020-12-04] MEDS: METOPROLOL TARTRATE 25 MG TABLET PO SCH ×2 (08:09→20:23)
[2020-12-04] MEDS: DOCUSATE SODIUM 100 MG CAPSULE PO SCH ×2 (08:10→20:11)
[2020-12-04 08:20] VITALS: BP 173/89
[2020-12-04] MEDS: INSULIN GLARGINE,HUM.REC.ANLOG 100 UNITS/ML SQ SCH ×2 (08:27→20:42)
[2020-12-04 11:52] LABS: GLUCOMETER DEV NAME(LOC) 6N.1; GLUCOSE,POINT OF CARE 117 MG/DL (70-110)
[2020-12-04] MEDS: INSULIN LISPRO 100 UNITS/ML SQ PRN ×2 (12:25→20:39)
[2020-12-04] MEDS: ACETAMINOPHEN 325 MG TABLET PO PRN (12:26)
[2020-12-04 12:27] VITALS: BP 149/89
[2020-12-04] MEDS: LORazepam 2 MG/ML VIAL IVP PRN (14:40)
[2020-12-04] MEDS: LEVOFLOXACIN 750 MG/D5% WATER 150 ML IV SCH (16:21)
[2020-12-04] MEDS: CloNIDine HCL 0.2 MG TABLET PO PRN (16:22)
[2020-12-04 16:29] VITALS: BP 159/91
[2020-12-04 19:55] VITALS: BP 164/82
[2020-12-04 21:13] LABS: GLUCOMETER DEV NAME(LOC) 6S.1; GLUCOSE,POINT OF CARE 114 MG/DL (70-110)
[2020-12-04 21:13] LABS: GLUCOMETER DEV NAME(LOC) 6S.1; GLUCOSE,POINT OF CARE 254 MG/DL (70-110)
[2020-12-04 21:13] LABS: GLUCOMETER DEV NAME(LOC) 6S.1; GLUCOSE,POINT OF CARE 187 MG/DL (70-110)
[2020-12-04 23:17] VITALS: BP 170/88
[2020-12-05 00:02] VITALS: BP 161/82
[2020-12-05] MEDS: CeFAZolin 2 GM/DEXTROSE 50 ML IV SCH ×3 (00:17→17:28)
[2020-12-05] MEDS: CloNIDine HCL 0.2 MG TABLET PO PRN (00:17)
[2020-12-05] MEDS: HYDROmorphone 2 MG/ML VIAL IVP PRN ×5 (00:18→20:07)
[2020-12-05 03:45] VITALS: BP 158/89
[2020-12-05 06:44] LABS: GLUCOMETER DEV NAME(LOC) 6S.1; GLUCOSE,POINT OF CARE 80 MG/DL (70-110)
[2020-12-05] MEDS ORDERED: SODIUM CHLORIDE 0.9% 250 ML IV ONE (08:06)
[2020-12-05] MEDS: INSULIN GLARGINE,HUM.REC.ANLOG 100 UNITS/ML SQ SCH ×2 (08:31→20:20)
[2020-12-05] MEDS: ALBUTEROL SULFATE 2.5 MG/0.5 ML NEB SOLUTION NEB PRN ×2 (08:32→20:23)
[2020-12-05] MEDS: METOPROLOL TARTRATE 25 MG TABLET PO SCH ×2 (08:33→20:09)
[2020-12-05] MEDS: RIFAMPIN 300 MG CAPSULE PO SCH ×2 (08:33→20:09)
[2020-12-05] MEDS: FAMOTIDINE 20 MG TABLET PO SCH (08:34)
[2020-12-05] MEDS: LOSARTAN POTASSIUM 25 MG TABLET PO SCH ×2 (08:34→20:09)
[2020-12-05] MEDS: GABAPENTIN 300 MG CAPSULE PO SCH ×3 (08:34→20:09)
[2020-12-05] MEDS: MULTIVITAMINS WITH MINERALS, THERAPEUTIC TABLET PO SCH (08:35)
[2020-12-05] MEDS: FUROSEMIDE 40 MG TABLET PO SCH (08:35)
[2020-12-05] MEDS: DOCUSATE SODIUM 100 MG CAPSULE PO SCH ×2 (08:35→20:09)
[2020-12-05] MEDS: ACETAMINOPHEN 325 MG TABLET PO PRN (11:27)
[2020-12-05] MEDS: INSULIN LISPRO 100 UNITS/ML SQ PRN ×2 (11:48→20:19)
[2020-12-05] MEDS ORDERED: HYDROmorphone 2 MG/ML VIAL IVP ONE (12:00)
[2020-12-05 13:15] LABS: GLUCOMETER DEV NAME(LOC) 6S.1; GLUCOSE,POINT OF CARE 133 MG/DL (70-110)
[2020-12-05] MEDS: LEVOFLOXACIN 750 MG/D5% WATER 150 ML IV SCH (15:16)
[2020-12-05 15:50] VITALS: BP 178/96
[2020-12-05] MEDS ORDERED: 0.9% SODIUM CHLORIDE 5 ML NEB SOLUTION NEB ONE (20:22)
[2020-12-05 20:30] VITALS: BP 162/93
[2020-12-05 20:30] LABS: GLUCOMETER DEV NAME(LOC) 6N.1; GLUCOSE,POINT OF CARE 242 MG/DL (70-110)
[2020-12-06] VITALS (8 sets, daily range): BP systolic 153–180; BP diastolic 77–96
[2020-12-06] MEDS: CeFAZolin 2 GM/DEXTROSE 50 ML IV SCH ×3 (00:13→17:31)
[2020-12-06] MEDS: MELATONIN 3 MG TABLET PO PRN ×2 (00:14→21:24)
[2020-12-06] MEDS: HYDROmorphone 2 MG/ML VIAL IVP PRN ×6 (00:14→21:28)
[2020-12-06] MEDS: LORazepam 2 MG/ML VIAL IVP PRN (00:14)
[2020-12-06] MEDS: CloNIDine HCL 0.2 MG TABLET PO PRN ×2 (00:18→17:38)
[2020-12-06] MEDS ORDERED: 0.9% SODIUM CHLORIDE 5 ML NEB SOLUTION NEB ONE (04:54)
[2020-12-06] MEDS: ALBUTEROL SULFATE 2.5 MG/0.5 ML NEB SOLUTION NEB PRN (05:14)
[2020-12-06 06:46] LABS: GLUCOMETER DEV NAME(LOC) 6S.1; GLUCOSE,POINT OF CARE 101 MG/DL (70-110)
[2020-12-06 08:00] LABS: ALBUMIN 1.1 g/dL (3.4-5.0); BILIRUBIN,TOTAL 0.5 mg/dL (0.1-1.0); C-REACTIVE PROTEIN QUANT 5.89 mg/dL (0.00-0.30); CALCIUM, TOTAL 7.8 mg/dL (8.8-10.5); CREATININE 1.25 mg/dL (0.60-1.30); POTASSIUM 5.6 mmol/L (3.5-5.1); TOTAL PROTEIN, SERUM 7.5 g/dL (6.4-8.2)
[2020-12-06] MEDS: INSULIN GLARGINE,HUM.REC.ANLOG 100 UNITS/ML SQ SCH ×2 (08:47→21:41)
[2020-12-06] MEDS: METOPROLOL TARTRATE 25 MG TABLET PO SCH ×2 (08:50→21:23)
[2020-12-06] MEDS: GABAPENTIN 300 MG CAPSULE PO SCH ×3 (08:50→21:24)
[2020-12-06] MEDS: DOCUSATE SODIUM 100 MG CAPSULE PO SCH ×2 (08:50→21:00)
[2020-12-06] MEDS: MULTIVITAMINS WITH MINERALS, THERAPEUTIC TABLET PO SCH (08:50)
[2020-12-06] MEDS: FUROSEMIDE 40 MG TABLET PO SCH (08:51)
[2020-12-06] MEDS: LOSARTAN POTASSIUM 25 MG TABLET PO SCH ×2 (08:52→21:23)
[2020-12-06] MEDS: RIFAMPIN 300 MG CAPSULE PO SCH ×2 (08:52→21:24)
[2020-12-06] MEDS: FAMOTIDINE 20 MG TABLET PO SCH (08:52)
[2020-12-06] MEDS: INSULIN LISPRO 100 UNITS/ML SQ PRN ×2 (11:33→17:32)
[2020-12-06] MEDS ORDERED: SODIUM ZIRCONIUM CYCLOSILICATE 5 GM POWDER PACKET PO ONE (14:00)
[2020-12-06 14:04] LABS: GLUCOMETER DEV NAME(LOC) 6N.1; GLUCOSE,POINT OF CARE 203 MG/DL (70-110)
[2020-12-06] MEDS: ACETAMINOPHEN 325 MG TABLET PO PRN (15:03)
[2020-12-06] MEDS ORDERED: HYDROmorphone 2 MG/ML VIAL IVP ONE (15:15)
[2020-12-06] MEDS: LEVOFLOXACIN 750 MG/D5% WATER 150 ML IV SCH (16:05)
[2020-12-06] MEDS: AmLODIPine BESYLATE 10 MG TABLET PO SCH (18:43)
[2020-12-06] MEDS ORDERED: SODIUM CHLORIDE 0.9% 250 ML IV ONE (21:34)
[2020-12-06 23:12] LABS: GLUCOMETER DEV NAME(LOC) 6S.1; GLUCOSE,POINT OF CARE 166 MG/DL (70-110)
[2020-12-06 23:12] LABS: GLUCOMETER DEV NAME(LOC) 6S.1; GLUCOSE,POINT OF CARE 178 MG/DL (70-110)
[2020-12-07] MEDS: HYDROmorphone 2 MG/ML VIAL IVP PRN ×6 (01:21→21:35)
[2020-12-07] MEDS: CeFAZolin 2 GM/DEXTROSE 50 ML IV SCH ×3 (01:21→16:41)
[2020-12-07 04:00] VITALS: BP 158/88
[2020-12-07 06:46] LABS: GLUCOMETER DEV NAME(LOC) 6S.1; GLUCOSE,POINT OF CARE 130 MG/DL (70-110)
[2020-12-07 06:53] LABS: BASOPHILS % (AUTO) 0.4 % (0.0-2.0); EOSINOPHILS % (AUTO) 2.4 % (1.0-6.0); HEMATOCRIT 23.8 % (41-53); HEMOGLOBIN 7.7 g/dL (13.5-17.5); LYMPHOCYTES # (AUTO) 1.1 K/uL (1.0-4.8); LYMPHOCYTES % (AUTO) 13.8 % (22.0-44.0); MEAN CORPUSCULAR HEMOGLOBIN 24.5 pg (26.0-34.0); MEAN CORPUSCULAR HGB CONC 32.2 G/dL (31.0-37.0); MEAN CORPUSCULAR VOLUME 76 fL (80-100); MONOCYTES # (AUTO) 0.8 K/uL (0.1-1.0); NEUTROPHILS # (AUTO) 5.8 K/uL (1.8-7.7); NEUTROPHILS % (AUTO) 73.4 % (40.0-70.0); PLATELET COUNT (AUTO) 202 K/uL (150-450); RED BLOOD CELL COUNT(AUTO) 3.14 MIL/uL (4.50-5.90); RED CELL DISTRIBUTION WIDTH 26.7 % (11.5-14.5)
[2020-12-07 07:09] LABS: % IRON SATURATION 21.4 % (30-44); IRON, SERUM 29 mcg/dL (50-175); TOTAL IRON BINDING CAPACITY 135 mcg/dL (250-450)
[2020-12-07 07:19] LABS: ANION GAP 4 mmol/L (8-16); CALCIUM, TOTAL 7.7 mg/dL (8.8-10.5); CARBON DIOXIDE 27 mmol/L (22-29); CHLORIDE 102 mmol/L (98-107); CREATININE 1.07 mg/dL (0.60-1.30); FERRITIN 103 ng/mL (26-388); GLOMERULAR FILTR. RATE CALC > 60 mL/min (>60); GLUCOSE,RANDOM 111 mg/dL (70-110); POTASSIUM 3.9 mmol/L (3.5-5.1); SODIUM SERUM 133 mmol/L (136-145); UREA NITROGEN, BLOOD 25 mg/dL (7-18)
[2020-12-07 08:18] VITALS: BP 168/86
[2020-12-07] MEDS: RIFAMPIN 300 MG CAPSULE PO SCH (08:27)
[2020-12-07] MEDS: MULTIVITAMINS WITH MINERALS, THERAPEUTIC TABLET PO SCH (08:27)
[2020-12-07] MEDS: FUROSEMIDE 40 MG TABLET PO SCH (08:27)
[2020-12-07] MEDS: LOSARTAN POTASSIUM 25 MG TABLET PO SCH ×2 (08:27→21:33)
[2020-12-07] MEDS: DOCUSATE SODIUM 100 MG CAPSULE PO SCH ×2 (08:27→21:00)
[2020-12-07] MEDS: GABAPENTIN 300 MG CAPSULE PO SCH ×3 (08:28→21:34)
[2020-12-07] MEDS: AmLODIPine BESYLATE 10 MG TABLET PO SCH (08:28)
[2020-12-07] MEDS: METOPROLOL TARTRATE 25 MG TABLET PO SCH ×2 (08:28→21:33)
[2020-12-07] MEDS: FAMOTIDINE 20 MG TABLET PO SCH (08:28)
[2020-12-07] MEDS: INSULIN GLARGINE,HUM.REC.ANLOG 100 UNITS/ML SQ SCH ×2 (08:35→21:45)
[2020-12-07] MEDS ORDERED: SODIUM ZIRCONIUM CYCLOSILICATE 5 GM POWDER PACKET PO SCH (09:00)
[2020-12-07 13:46] LABS: GLUCOMETER DEV NAME(LOC) 6S.1; GLUCOSE,POINT OF CARE 131 MG/DL (70-110)
[2020-12-07] MEDS: LEVOFLOXACIN 750 MG/D5% WATER 150 ML IV SCH (15:06)
[2020-12-07] MEDS: METHYL SALICYLATE/MENTHOL 85 GM CREAM TP PRN (15:07)
[2020-12-07 15:29] VITALS: BP 172/96
[2020-12-07] MEDS: INSULIN LISPRO 100 UNITS/ML SQ PRN (17:35)
[2020-12-07 18:17] VITALS: BP 153/90
[2020-12-07 19:22] LABS: GLUCOMETER DEV NAME(LOC) 6S.1; GLUCOSE,POINT OF CARE 149 MG/DL (70-110)
[2020-12-07] MEDS: LORazepam 2 MG/ML VIAL IVP PRN (19:59)
[2020-12-07] MEDS: ACETAMINOPHEN 325 MG TABLET PO PRN (19:59)
[2020-12-07 20:18] VITALS: BP 145/84
[2020-12-07] MEDS: MELATONIN 3 MG TABLET PO PRN (21:34)
[2020-12-07 23:15] VITALS: BP 149/87
[2020-12-07 23:38] LABS: GLUCOMETER DEV NAME(LOC) 6S.1; GLUCOSE,POINT OF CARE 162 MG/DL (70-110)
[2020-12-08] VITALS (10 sets, daily range): BP systolic 75–156; BP diastolic 41–80
[2020-12-08] MEDS: HYDROmorphone 2 MG/ML VIAL IVP PRN ×5 (01:23→22:06)
[2020-12-08] MEDS: CeFAZolin 2 GM/DEXTROSE 50 ML IV SCH ×3 (01:24→18:52)
[2020-12-08 06:50] LABS: BASOPHILS % (AUTO) 0.7 % (0.0-2.0); EOSINOPHILS % (AUTO) 2.5 % (1.0-6.0); HEMOGLOBIN 7.7 g/dL (13.5-17.5); LYMPHOCYTES # (AUTO) 1.2 K/uL (1.0-4.8); LYMPHOCYTES % (AUTO) 13.8 % (22.0-44.0); MEAN CORPUSCULAR HEMOGLOBIN 24.8 pg (26.0-34.0); MEAN CORPUSCULAR HGB CONC 32.2 G/dL (31.0-37.0); MEAN CORPUSCULAR VOLUME 77 fL (80-100); MONOCYTES # (AUTO) 0.9 K/uL (0.1-1.0); MONOCYTES % (AUTO) 10.7 % (2.0-9.0); NEUTROPHILS # (AUTO) 6.2 K/uL (1.8-7.7); NEUTROPHILS % (AUTO) 72.3 % (40.0-70.0); PLATELET COUNT (AUTO) 211 K/uL (150-450); RED BLOOD CELL COUNT(AUTO) 3.12 MIL/uL (4.50-5.90); RED CELL DISTRIBUTION WIDTH 26.2 % (11.5-14.5)
[2020-12-08 07:08] LABS: GLUCOMETER DEV NAME(LOC) 6N.1; GLUCOSE,POINT OF CARE 100 MG/DL (70-110)
[2020-12-08] MEDS: LORazepam 2 MG/ML VIAL IVP PRN (07:15)
[2020-12-08 07:20] LABS: ANION GAP 8 mmol/L (8-16); C-REACTIVE PROTEIN QUANT 5.12 mg/dL (0.00-0.30); CALCIUM, TOTAL 7.9 mg/dL (8.8-10.5); CARBON DIOXIDE 25 mmol/L (22-29); CHLORIDE 102 mmol/L (98-107); CREATININE 1.04 mg/dL (0.60-1.30); GLOMERULAR FILTR. RATE CALC > 60 mL/min (>60); GLUCOSE,RANDOM 97 mg/dL (70-110); POTASSIUM 3.8 mmol/L (3.5-5.1); SODIUM SERUM 135 mmol/L (136-145); UREA NITROGEN, BLOOD 25 mg/dL (7-18)
[2020-12-08 07:39] LABS: INR 1.2 (0.9-1.1); PROTHROMBIN TIME 12.5 SEC (9.4-11.6)
[2020-12-08] MEDS: INSULIN GLARGINE,HUM.REC.ANLOG 100 UNITS/ML SQ SCH ×2 (08:02→20:57)
[2020-12-08] MEDS: GABAPENTIN 300 MG CAPSULE PO SCH ×3 (08:04→20:51)
[2020-12-08] MEDS: LOSARTAN POTASSIUM 25 MG TABLET PO SCH ×2 (08:05→20:50)
[2020-12-08] MEDS: MULTIVITAMINS WITH MINERALS, THERAPEUTIC TABLET PO SCH (08:05)
[2020-12-08] MEDS: DOCUSATE SODIUM 100 MG CAPSULE PO SCH ×2 (08:05→20:50)
[2020-12-08] MEDS: AmLODIPine BESYLATE 10 MG TABLET PO SCH (08:05)
[2020-12-08] MEDS: FAMOTIDINE 20 MG TABLET PO SCH (08:05)
[2020-12-08] MEDS: FUROSEMIDE 40 MG TABLET PO SCH (08:05)
[2020-12-08] MEDS: METOPROLOL TARTRATE 25 MG TABLET PO SCH ×2 (08:07→20:51)
[2020-12-08] MEDS: METHYL SALICYLATE/MENTHOL 85 GM CREAM TP PRN (08:09)
[2020-12-08 11:14] LABS: ERYTHROCYTE SEDIMENTATION RATE > 140 MM/HR (0-15)
[2020-12-08 11:39] LABS: GLUCOMETER DEV NAME(LOC) 6S.1; GLUCOSE,POINT OF CARE 82 MG/DL (70-110)
[2020-12-08] MEDS ORDERED: PHENYLEPHRINE HCL 10 MG/ML VIAL IVP ONE (12:00)
[2020-12-08] MEDS ORDERED: ETOMIDATE 2 MG/ML 10 ML VIAL IVP ONE (12:00)
[2020-12-08] MEDS ORDERED: HYDROmorphone 2 MG/ML VIAL IVP ONE (12:00)
[2020-12-08] MEDS ORDERED: FentaNYL CITRATE PF 100 MCG/2 ML VIAL IVP ONE (12:00)
[2020-12-08] MEDS ORDERED: DEXAMETHASONE SOD PHOS 4 MG/ML VIAL IVP ONE (12:00)
[2020-12-08] MEDS ORDERED: SUCCINYLCHOLINE CHLORIDE 20 MG/ML 10 ML VIAL IVP ONE (12:00)
[2020-12-08] MEDS ORDERED: LIDOCAINE/PF 2% 5 ML VIAL IM ONE (12:00)
[2020-12-08] MEDS ORDERED: PROPOFOL 1% 20 ML VIAL IVP ONE (12:00)
[2020-12-08] MEDS ORDERED: ROCURONIUM BROMIDE 10 MG/ML 5 ML VIAL IVP ONE (12:00)
[2020-12-08] MEDS ORDERED: 0.9% SODIUM CHLORIDE 10 ML VIAL IVP ONE (12:00)
[2020-12-08] MEDS ORDERED: ONDANSETRON HCL 4 MG/2 ML VIAL IVP ONE (12:00)
[2020-12-08] MEDS ORDERED: SODIUM CL IRRIG SOLN BAG 12,000 ML IRRIG ONE (12:09)
[2020-12-08] MEDS ORDERED: RINGERS SOLUTION,LACTATED 1,000 ML IV ONE (13:00)
[2020-12-08] MEDS ORDERED: TRANEXAMIC ACID 1,000 MG/10 ML VIAL ONE (13:37)
[2020-12-08] MEDS ORDERED: BACITRACIN 28 GM OINTMENT TP ONE (13:38)
[2020-12-08] MEDS ORDERED: BACITRACIN 50,000 UNITS/VIAL ONE (13:38)
[2020-12-08] MEDS ORDERED: BUPIVACAINE HCL/PF 0.5% 30 ML VIAL ONE (13:38)
[2020-12-08] MEDS ORDERED: VANCOMYCIN HCL 1 GM/VIAL ONE ×2 (13:39→13:44)
[2020-12-08] MEDS ORDERED: BUPIVACAINE LIPOSOME/PF 1.3%-13.3MG/ML SUSPENSION 20 ML VIAL INJ ONE (13:45)
[2020-12-08] MEDS ORDERED: TRANEXAMIC ACID 1,000 MG in DEXTROSE 5%-WATER 50 ML IV ONE (13:45)
[2020-12-08] MEDS ORDERED: MEPERIDINE-PF 25 MG/ML VIAL IVP PRN (14:15)
[2020-12-08] MEDS ORDERED: FentaNYL CITRATE PF 100 MCG/2 ML VIAL IVP PRN (14:15)
[2020-12-08] MEDS ORDERED: ONDANSETRON HCL 4 MG/2 ML VIAL IVP PRN (14:15)
[2020-12-08] MEDS ORDERED: HYDROmorphone 2 MG/ML VIAL IVP PRN (14:15)
[2020-12-08] MEDS ORDERED: SODIUM CHLORIDE 0.9% 500 ML IV ONE ×2 (15:16→18:50)
[2020-12-08] MEDS ORDERED: SUGAMMADEX SODIUM 200 MG/2 ML VIAL IVP ONE (16:38)
[2020-12-08 17:05] LABS: HEMATOCRIT 25.8 % (41-53); HEMOGLOBIN 8.3 g/dL (13.5-17.5)
[2020-12-08] MEDS ORDERED: HydrALAZINE HCL 20 MG/ML VIAL IVP PRN (17:45)
[2020-12-08] MEDS: OXYGEN THERAPY IH SCH (20:00)
[2020-12-08] MEDS: MIRTAZAPINE 15 MG TABLET PO SCH (20:51)
[2020-12-08] MEDS: GABAPENTIN 100 MG CAPSULE PO SCH (20:51)
[2020-12-08] MEDS: INSULIN LISPRO 100 UNITS/ML SQ PRN (21:00)
[2020-12-08] MEDS: ZOLPIDEM TARTRATE 5 MG TABLET PO PRN (22:06)
[2020-12-08 23:06] LABS: GLUCOMETER DEV NAME(LOC) 6N.1; GLUCOSE,POINT OF CARE 282 MG/DL (70-110)
[2020-12-09] VITALS (7 sets, daily range): BP systolic 146–160; BP diastolic 73–99
[2020-12-09] MEDS: HYDROmorphone 2 MG/ML VIAL IVP PRN ×9 (00:12→22:59)
[2020-12-09] MEDS: CeFAZolin 2 GM/DEXTROSE 50 ML IV SCH ×3 (00:12→17:15)
[2020-12-09] MEDS: GABAPENTIN 400 MG CAPSULE PO PRN (02:23)
[2020-12-09] MEDS: CYCLOBENZAPRINE HCL 10 MG TABLET PO PRN ×3 (04:10→23:34)
[2020-12-09 05:43] LABS: GLUCOMETER DEV NAME(LOC) SDS.; GLUCOSE,POINT OF CARE 101 MG/DL (70-110)
[2020-12-09] MEDS: INSULIN LISPRO 100 UNITS/ML SQ PRN ×4 (06:17→20:59)
[2020-12-09] MEDS ORDERED: 0.9% SODIUM CHLORIDE 5 ML NEB SOLUTION NEB ONE ×2 (07:57→12:08)
[2020-12-09] MEDS: ALBUTEROL SULFATE 2.5 MG/0.5 ML NEB SOLUTION NEB PRN ×2 (08:01→12:09)
[2020-12-09] MEDS: LOSARTAN POTASSIUM 25 MG TABLET PO SCH ×2 (08:49→20:48)
[2020-12-09] MEDS: GABAPENTIN 100 MG CAPSULE PO SCH ×2 (08:49→20:48)
[2020-12-09] MEDS: LURASIDONE HCL 40 MG TABLET PO SCH (08:49)
[2020-12-09] MEDS: MULTIVITAMINS WITH MINERALS, THERAPEUTIC TABLET PO SCH (08:49)
[2020-12-09] MEDS: FUROSEMIDE 40 MG TABLET PO SCH (08:50)
[2020-12-09] MEDS: AmLODIPine BESYLATE 10 MG TABLET PO SCH (08:50)
[2020-12-09] MEDS: METOPROLOL TARTRATE 25 MG TABLET PO SCH ×2 (08:50→20:47)
[2020-12-09] MEDS: GABAPENTIN 300 MG CAPSULE PO SCH (08:50)
[2020-12-09] MEDS: DOCUSATE SODIUM 100 MG CAPSULE PO SCH ×2 (08:50→20:47)
[2020-12-09] MEDS: FAMOTIDINE 20 MG TABLET PO SCH (08:50)
[2020-12-09] MEDS: LORazepam 2 MG/ML VIAL IVP PRN (08:52)
[2020-12-09] MEDS: INSULIN GLARGINE,HUM.REC.ANLOG 100 UNITS/ML SQ SCH ×2 (08:53→21:00)
[2020-12-09 08:59] LABS: BASOPHILS % (AUTO) 0.5 % (0.0-2.0); EOSINOPHILS % (AUTO) 0.4 % (1.0-6.0); HEMATOCRIT 24.6 % (41-53); LYMPHOCYTES # (AUTO) 1.7 K/uL (1.0-4.8); LYMPHOCYTES % (AUTO) 11.6 % (22.0-44.0); MEAN CORPUSCULAR HGB CONC 32.6 G/dL (31.0-37.0); MEAN CORPUSCULAR VOLUME 80 fL (80-100); MONOCYTES # (AUTO) 1.7 K/uL (0.1-1.0); MONOCYTES % (AUTO) 11.7 % (2.0-9.0); NEUTROPHILS # (AUTO) 10.9 K/uL (1.8-7.7); NEUTROPHILS % (AUTO) 75.8 % (40.0-70.0); PLATELET COUNT (AUTO) 198 K/uL (150-450); RED BLOOD CELL COUNT(AUTO) 3.09 MIL/uL (4.50-5.90); RED CELL DISTRIBUTION WIDTH 24.6 % (11.5-14.5)
[2020-12-09] MEDS: OXYGEN THERAPY IH SCH ×2 (09:00→20:00)
[2020-12-09] MEDS: METHYL SALICYLATE/MENTHOL 85 GM CREAM TP PRN (09:01)
[2020-12-09 09:10] LABS: GLUCOMETER DEV NAME(LOC) 6N.1; GLUCOSE,POINT OF CARE 142 MG/DL (70-110)
[2020-12-09 09:17] LABS: ALBUMIN 1.1 g/dL (3.4-5.0); BILIRUBIN,TOTAL 0.3 mg/dL (0.1-1.0); CALCIUM, TOTAL 7.1 mg/dL (8.8-10.5); CREATININE 1.29 mg/dL (0.60-1.30); POTASSIUM 4.1 mmol/L (3.5-5.1); TOTAL PROTEIN, SERUM 6.7 g/dL (6.4-8.2)
[2020-12-09] MEDS: OxyCODONE HCL/ACETAMINOPHEN 10-325 MG TABLET PO PRN (13:48)
[2020-12-09 19:41] LABS: GLUCOMETER DEV NAME(LOC) 6N.1; GLUCOSE,POINT OF CARE 202 MG/DL (70-110)
[2020-12-09 19:41] LABS: GLUCOMETER DEV NAME(LOC) 6N.1; GLUCOSE,POINT OF CARE 173 MG/DL (70-110)
[2020-12-09] MEDS: MIRTAZAPINE 15 MG TABLET PO SCH (20:47)
[2020-12-09 21:42] LABS: GLUCOMETER DEV NAME(LOC) 6S.1; GLUCOSE,POINT OF CARE 146 MG/DL (70-110)
[2020-12-10] MEDS: CeFAZolin 2 GM/DEXTROSE 50 ML IV SCH ×3 (00:46→17:39)
[2020-12-10] MEDS: HYDROmorphone 2 MG/ML VIAL IVP PRN ×7 (02:11→20:20)
[2020-12-10 04:10] VITALS: BP 184/89
[2020-12-10] MEDS: CloNIDine HCL 0.1 MG TABLET PO PRN (04:30)
[2020-12-10] MEDS: INSULIN LISPRO 100 UNITS/ML SQ PRN ×4 (06:09→20:33)
[2020-12-10 06:56] LABS: GLUCOMETER DEV NAME(LOC) 6N.1; GLUCOSE,POINT OF CARE 139 MG/DL (70-110)
[2020-12-10 08:01] VITALS: BP 174/94
[2020-12-10] MEDS: MULTIVITAMINS WITH MINERALS, THERAPEUTIC TABLET PO SCH (08:23)
[2020-12-10] MEDS: DOCUSATE SODIUM 100 MG CAPSULE PO SCH ×2 (08:23→20:20)
[2020-12-10] MEDS: FUROSEMIDE 40 MG TABLET PO SCH (08:23)
[2020-12-10] MEDS: GABAPENTIN 100 MG CAPSULE PO SCH ×2 (08:24→20:19)
[2020-12-10] MEDS: AmLODIPine BESYLATE 10 MG TABLET PO SCH (08:24)
[2020-12-10] MEDS: FAMOTIDINE 20 MG TABLET PO SCH (08:24)
[2020-12-10] MEDS: METOPROLOL TARTRATE 25 MG TABLET PO SCH ×2 (08:24→20:20)
[2020-12-10] MEDS: LOSARTAN POTASSIUM 25 MG TABLET PO SCH ×2 (08:24→20:19)
[2020-12-10] MEDS: CYCLOBENZAPRINE HCL 10 MG TABLET PO PRN (08:35)
[2020-12-10] MEDS: LURASIDONE HCL 40 MG TABLET PO SCH (08:35)
[2020-12-10] MEDS: OXYGEN THERAPY IH SCH ×2 (08:38→20:00)
[2020-12-10] MEDS: INSULIN GLARGINE,HUM.REC.ANLOG 100 UNITS/ML SQ SCH ×2 (08:58→20:32)
[2020-12-10] MEDS ORDERED: HYDROmorphone 2 MG/ML VIAL IM ONE (09:00)
[2020-12-10] MEDS ORDERED: HYDROmorphone 2 MG/ML VIAL IVP ONE (09:45)
[2020-12-10 11:16] VITALS: BP 155/86
[2020-12-10 13:28] LABS: GLUCOMETER DEV NAME(LOC) 6S.1; GLUCOSE,POINT OF CARE 160 MG/DL (70-110)
[2020-12-10] MEDS: GABAPENTIN 400 MG CAPSULE PO PRN (15:11)
[2020-12-10] MEDS: OxyCODONE HCL/ACETAMINOPHEN 10-325 MG TABLET PO PRN (16:43)
[2020-12-10 17:12] VITALS: BP 155/85
[2020-12-10] MEDS: METHYL SALICYLATE/MENTHOL 85 GM CREAM TP PRN (18:28)
[2020-12-10 18:34] LABS: GLUCOMETER DEV NAME(LOC) 6S.1; GLUCOSE,POINT OF CARE 169 MG/DL (70-110)
[2020-12-10 20:06] VITALS: BP 176/86
[2020-12-10] MEDS: MIRTAZAPINE 15 MG TABLET PO SCH (20:19)
[2020-12-10] MEDS ORDERED: 0.9% SODIUM CHLORIDE 5 ML NEB SOLUTION NEB ONE (21:38)
[2020-12-10] MEDS: ALBUTEROL SULFATE 2.5 MG/0.5 ML NEB SOLUTION NEB PRN (21:39)
[2020-12-10 23:30] VITALS: BP 162/80
[2020-12-11] MEDS: CeFAZolin 2 GM/DEXTROSE 50 ML IV SCH ×3 (00:15→16:19)
[2020-12-11] MEDS: CloNIDine HCL 0.1 MG TABLET PO PRN (00:15)
[2020-12-11] MEDS: CYCLOBENZAPRINE HCL 10 MG TABLET PO PRN (00:15)
[2020-12-11 00:39] LABS: GLUCOMETER DEV NAME(LOC) 6N.1; GLUCOSE,POINT OF CARE 166 MG/DL (70-110)
[2020-12-11 04:00] VITALS: BP 169/83
[2020-12-11] MEDS: HYDROmorphone 2 MG/ML VIAL IVP PRN ×6 (04:42→23:06)
[2020-12-11 05:03] LABS: GLUCOMETER DEV NAME(LOC) 6S.1; GLUCOSE,POINT OF CARE 122 MG/DL (70-110)
[2020-12-11] MEDS: INSULIN LISPRO 100 UNITS/ML SQ PRN ×4 (05:03→20:48)
[2020-12-11 06:57] LABS: ANION GAP 3 mmol/L (8-16); CALCIUM, TOTAL 7.4 mg/dL (8.8-10.5); CARBON DIOXIDE 25 mmol/L (22-29); CHLORIDE 104 mmol/L (98-107); CREATININE 0.89 mg/dL (0.60-1.30); GLOMERULAR FILTR. RATE CALC > 60 mL/min (>60); GLUCOSE,RANDOM 116 mg/dL (70-110); POTASSIUM 3.7 mmol/L (3.5-5.1); SODIUM SERUM 132 mmol/L (136-145); UREA NITROGEN, BLOOD 17 mg/dL (7-18)
[2020-12-11 08:00] VITALS: BP 146/85
[2020-12-11] MEDS: FAMOTIDINE 20 MG TABLET PO SCH (08:17)
[2020-12-11] MEDS: DOCUSATE SODIUM 100 MG CAPSULE PO SCH ×2 (08:17→20:42)
[2020-12-11] MEDS: FERROUS SULFATE 325 MG EC TABLET PO SCH (08:17)
[2020-12-11] MEDS: AmLODIPine BESYLATE 10 MG TABLET PO SCH (08:17)
[2020-12-11] MEDS: METOPROLOL TARTRATE 25 MG TABLET PO SCH ×2 (08:18→20:42)
[2020-12-11] MEDS: MULTIVITAMINS WITH MINERALS, THERAPEUTIC TABLET PO SCH (08:18)
[2020-12-11] MEDS: LURASIDONE HCL 40 MG TABLET PO SCH (08:18)
[2020-12-11] MEDS: GABAPENTIN 100 MG CAPSULE PO SCH ×2 (08:18→20:46)
[2020-12-11] MEDS: LOSARTAN POTASSIUM 25 MG TABLET PO SCH ×2 (08:18→20:42)
[2020-12-11] MEDS: INSULIN GLARGINE,HUM.REC.ANLOG 100 UNITS/ML SQ SCH ×2 (08:21→20:48)
[2020-12-11] MEDS: EPOETIN ALFA 10,000 UNITS/ML VIAL SQ SCH (08:23)
[2020-12-11] MEDS: OXYGEN THERAPY IH SCH ×2 (08:27→20:46)
[2020-12-11] MEDS: METHYL SALICYLATE/MENTHOL 85 GM CREAM TP PRN (08:39)
[2020-12-11] MEDS: FUROSEMIDE 40 MG TABLET PO SCH (10:08)
[2020-12-11] MEDS: OxyCODONE HCL/ACETAMINOPHEN 10-325 MG TABLET PO PRN (11:27)
[2020-12-11 11:57] LABS: GLUCOMETER DEV NAME(LOC) 6S.1; GLUCOSE,POINT OF CARE 151 MG/DL (70-110)
[2020-12-11 12:30] LABS: COVID AG,FIA SOURCE NASOPHARYNGEAL
[2020-12-11 13:17] LABS: BASOPHILS % (AUTO) 0.7 % (0.0-2.0); EOSINOPHILS % (AUTO) 3.4 % (1.0-6.0); HEMATOCRIT 23.5 % (41-53); HEMOGLOBIN 7.7 g/dL (13.5-17.5); LYMPHOCYTES # (AUTO) 1.2 K/uL (1.0-4.8); LYMPHOCYTES % (AUTO) 12.9 % (22.0-44.0); MEAN CORPUSCULAR HEMOGLOBIN 26.1 pg (26.0-34.0); MEAN CORPUSCULAR HGB CONC 32.8 G/dL (31.0-37.0); MEAN CORPUSCULAR VOLUME 80 fL (80-100); MONOCYTES # (AUTO) 0.8 K/uL (0.1-1.0); MONOCYTES % (AUTO) 8.1 % (2.0-9.0); NEUTROPHILS # (AUTO) 7.1 K/uL (1.8-7.7); NEUTROPHILS % (AUTO) 74.9 % (40.0-70.0); PLATELET COUNT (AUTO) 193 K/uL (150-450); RED BLOOD CELL COUNT(AUTO) 2.95 MIL/uL (4.50-5.90); RED CELL DISTRIBUTION WIDTH 23.3 % (11.5-14.5)
[2020-12-11 15:10] VITALS: BP 145/78
[2020-12-11] MEDS: GABAPENTIN 400 MG CAPSULE PO PRN (16:07)
[2020-12-11 18:53] LABS: GLUCOMETER DEV NAME(LOC) 6N.1; GLUCOSE,POINT OF CARE 158 MG/DL (70-110)
[2020-12-11 19:54] VITALS: BP 143/86
[2020-12-11] MEDS: MIRTAZAPINE 15 MG TABLET PO SCH (20:43)
[2020-12-11 21:23] LABS: GLUCOMETER DEV NAME(LOC) 6S.1; GLUCOSE,POINT OF CARE 154 MG/DL (70-110)
[2020-12-11] MEDS: ZOLPIDEM TARTRATE 5 MG TABLET PO PRN (23:06)
[2020-12-11] MEDS ORDERED: SODIUM CHLORIDE 0.9% 500 ML IV ONE (23:54)
[2020-12-12] MEDS: CeFAZolin 2 GM/DEXTROSE 50 ML IV SCH ×3 (00:35→16:04)
[2020-12-12] MEDS: HYDROmorphone 2 MG/ML VIAL IVP PRN ×8 (02:22→23:12)
[2020-12-12 03:25] VITALS: BP 141/85
[2020-12-12] MEDS ORDERED: 0.9% SODIUM CHLORIDE 5 ML NEB SOLUTION NEB ONE ×3 (05:20→23:43)
[2020-12-12] MEDS: ALBUTEROL SULFATE 2.5 MG/0.5 ML NEB SOLUTION NEB PRN ×2 (05:22→23:49)
[2020-12-12] MEDS: OXYGEN THERAPY IH SCH ×2 (08:00→20:10)
[2020-12-12] MEDS: LURASIDONE HCL 40 MG TABLET PO SCH (08:07)
[2020-12-12] MEDS: LOSARTAN POTASSIUM 25 MG TABLET PO SCH ×2 (08:08→20:04)
[2020-12-12] MEDS: MULTIVITAMINS WITH MINERALS, THERAPEUTIC TABLET PO SCH (08:08)
[2020-12-12] MEDS: DOCUSATE SODIUM 100 MG CAPSULE PO SCH ×2 (08:08→20:04)
[2020-12-12] MEDS: AmLODIPine BESYLATE 10 MG TABLET PO SCH (08:09)
[2020-12-12] MEDS: FAMOTIDINE 20 MG TABLET PO SCH (08:09)
[2020-12-12] MEDS: METOPROLOL TARTRATE 25 MG TABLET PO SCH ×2 (08:09→20:04)
[2020-12-12] MEDS: GABAPENTIN 100 MG CAPSULE PO SCH ×2 (08:09→20:04)
[2020-12-12 08:10] LABS: GLUCOMETER DEV NAME(LOC) 6S.1; GLUCOSE,POINT OF CARE 116 MG/DL (70-110)
[2020-12-12] MEDS: FERROUS SULFATE 325 MG EC TABLET PO SCH (08:10)
[2020-12-12] MEDS: FUROSEMIDE 40 MG TABLET PO SCH (08:10)
[2020-12-12 08:14] VITALS: BP 154/94
[2020-12-12] MEDS: INSULIN GLARGINE,HUM.REC.ANLOG 100 UNITS/ML SQ SCH ×2 (08:15→20:05)
[2020-12-12] MEDS ORDERED: SODIUM CHLORIDE 0.9% 500 ML IV ONE (08:17)
[2020-12-12] MEDS: INSULIN LISPRO 100 UNITS/ML SQ PRN ×3 (11:33→20:56)
[2020-12-12 13:08] LABS: GLUCOMETER DEV NAME(LOC) 6N.1; GLUCOSE,POINT OF CARE 139 MG/DL (70-110)
[2020-12-12] MEDS: LURASIDONE HCL 20 MG TABLET PO PRN (16:03)
[2020-12-12 18:55] LABS: GLUCOMETER DEV NAME(LOC) 6N.1; GLUCOSE,POINT OF CARE 128 MG/DL (70-110)
[2020-12-12] MEDS: MIRTAZAPINE 15 MG TABLET PO SCH (20:09)
[2020-12-12 21:03] VITALS: BP 165/94
[2020-12-12 22:09] LABS: GLUCOMETER DEV NAME(LOC) 6S.1; GLUCOSE,POINT OF CARE 150 MG/DL (70-110)
[2020-12-12] MEDS: ZOLPIDEM TARTRATE 5 MG TABLET PO PRN (23:12)
[2020-12-12 23:34] VITALS: BP 150/91
[2020-12-13] MEDS: CeFAZolin 2 GM/DEXTROSE 50 ML IV SCH ×3 (00:05→16:16)
[2020-12-13] MEDS: HYDROmorphone 2 MG/ML VIAL IVP PRN ×5 (01:58→20:35)
[2020-12-13] MEDS: MELATONIN 3 MG TABLET PO PRN ×2 (01:59→23:08)
[2020-12-13] MEDS: GABAPENTIN 400 MG CAPSULE PO PRN (03:59)
[2020-12-13 04:46] VITALS: BP 151/88
[2020-12-13 06:52] LABS: GLUCOMETER DEV NAME(LOC) 6S.1; GLUCOSE,POINT OF CARE 86 MG/DL (70-110)
[2020-12-13 07:21] LABS: BASOPHILS % (AUTO) 0.6 % (0.0-2.0); EOSINOPHILS % (AUTO) 2.6 % (1.0-6.0); HEMATOCRIT 23.4 % (41-53); HEMOGLOBIN 7.7 g/dL (13.5-17.5); LYMPHOCYTES # (AUTO) 1.3 K/uL (1.0-4.8); LYMPHOCYTES % (AUTO) 15.8 % (22.0-44.0); MEAN CORPUSCULAR VOLUME 79 fL (80-100); MONOCYTES # (AUTO) 0.8 K/uL (0.1-1.0); MONOCYTES % (AUTO) 10.3 % (2.0-9.0); NEUTROPHILS # (AUTO) 5.8 K/uL (1.8-7.7); NEUTROPHILS % (AUTO) 70.7 % (40.0-70.0); PLATELET COUNT (AUTO) 209 K/uL (150-450); RED BLOOD CELL COUNT(AUTO) 2.98 MIL/uL (4.50-5.90); RED CELL DISTRIBUTION WIDTH 22.8 % (11.5-14.5)
[2020-12-13 07:33] LABS: ANION GAP 0 mmol/L (8-16); CALCIUM, TOTAL 7.6 mg/dL (8.8-10.5); CARBON DIOXIDE 28 mmol/L (22-29); CHLORIDE 103 mmol/L (98-107); CREATININE 0.89 mg/dL (0.60-1.30); GLOMERULAR FILTR. RATE CALC > 60 mL/min (>60); GLUCOSE,RANDOM 101 mg/dL (70-110); POTASSIUM 3.3 mmol/L (3.5-5.1); SODIUM SERUM 131 mmol/L (136-145); UREA NITROGEN, BLOOD 16 mg/dL (7-18)
[2020-12-13] MEDS: OXYGEN THERAPY IH SCH ×2 (08:00→20:00)
[2020-12-13 08:21] VITALS: BP 148/81
[2020-12-13] MEDS: AmLODIPine BESYLATE 10 MG TABLET PO SCH (09:07)
[2020-12-13] MEDS: LURASIDONE HCL 40 MG TABLET PO SCH (09:07)
[2020-12-13] MEDS: GABAPENTIN 100 MG CAPSULE PO SCH (09:07)
[2020-12-13] MEDS: DOCUSATE SODIUM 100 MG CAPSULE PO SCH ×2 (09:07→20:31)
[2020-12-13] MEDS: ACETAMINOPHEN 325 MG TABLET PO PRN (09:07)
[2020-12-13] MEDS: MULTIVITAMINS WITH MINERALS, THERAPEUTIC TABLET PO SCH (09:07)
[2020-12-13] MEDS: METOPROLOL TARTRATE 25 MG TABLET PO SCH ×2 (09:08→20:31)
[2020-12-13] MEDS: FERROUS SULFATE 325 MG EC TABLET PO SCH (09:08)
[2020-12-13] MEDS: FAMOTIDINE 20 MG TABLET PO SCH (09:08)
[2020-12-13] MEDS: FUROSEMIDE 40 MG TABLET PO SCH (09:08)
[2020-12-13] MEDS: LOSARTAN POTASSIUM 25 MG TABLET PO SCH ×2 (09:08→20:31)
[2020-12-13] MEDS: INSULIN GLARGINE,HUM.REC.ANLOG 100 UNITS/ML SQ SCH ×2 (09:29→20:21)
[2020-12-13] MEDS: INSULIN LISPRO 100 UNITS/ML SQ PRN ×3 (11:13→20:22)
[2020-12-13] MEDS: POTASSIUM CHLORIDE 20 MEQ ER TABLET PO PRN (11:57)
[2020-12-13 12:21] LABS: GLUCOMETER DEV NAME(LOC) 6N.1; GLUCOSE,POINT OF CARE 161 MG/DL (70-110)
[2020-12-13 15:07] VITALS: BP 136/70
[2020-12-13] MEDS: GABAPENTIN 300 MG CAPSULE PO SCH ×2 (16:15→23:08)
[2020-12-13 17:37] LABS: GLUCOMETER DEV NAME(LOC) 6S.1; GLUCOSE,POINT OF CARE 123 MG/DL (70-110)
[2020-12-13 17:41] LABS: APPEARANCE,URINE CLEAR (CLEAR); BILIRUBIN,URINE NEGATIVE (NEGATIVE); GLUCOSE, URINE (UA) NEGATIVE (NEGATIVE); KETONES,URINE NEGATIVE (NEGATIVE); LEUKOCYTE ESTERASE ,URINE TRACE (NEGATIVE); NITRATE,URINE NEGATIVE (NEGATIVE); OCCULT BLOOD,URINE LARGE (NEGATIVE); PH,URINE 7.5 (5.0-8.0); PROTEIN,URINE SEE CONFIRM (NEGATIVE); UROBILINOGEN,URINE 0.2 mg/dL (<=1.0)
[2020-12-13] MEDS ORDERED: 0.9% SODIUM CHLORIDE 5 ML NEB SOLUTION NEB ONE (17:41)
[2020-12-13] MEDS: ALBUTEROL SULFATE 2.5 MG/0.5 ML NEB SOLUTION NEB PRN (17:43)
[2020-12-13 17:45] LABS: CREATININE,URINE RANDOM 22.3 mg/dL (30.0-125.0); PROTEIN,URINE RANDOM 192 mg/dL (0-11.9)
[2020-12-13 18:09] LABS: SULFOSALICYLIC ACID,URINE 3+ (Negative)
[2020-12-13 18:10] LABS: RBC,URINE 51-100 /HPF (0-2)
[2020-12-13 18:11] LABS: BACTERIA,URINE None Seen /HPF (None Seen)
[2020-12-13 18:12] LABS: SQUAMOUS EPITHELIAL CELL,UR None Seen /LPF (None Seen)
[2020-12-13 20:06] LABS: GLUCOMETER DEV NAME(LOC) 6S.1; GLUCOSE,POINT OF CARE 180 MG/DL (70-110)
[2020-12-13 20:15] VITALS: BP 157/85
[2020-12-13] MEDS: MIRTAZAPINE 15 MG TABLET PO SCH (20:31)
[2020-12-13] MEDS: ZOLPIDEM TARTRATE 5 MG TABLET PO PRN (20:32)
[2020-12-13 23:08] VITALS: BP 157/90
[2020-12-14] MEDS: CeFAZolin 2 GM/DEXTROSE 50 ML IV SCH ×3 (00:26→16:05)
[2020-12-14] MEDS: HYDROmorphone 2 MG/ML VIAL IVP PRN ×2 (01:06→05:33)
[2020-12-14 03:48] VITALS: BP 143/85
[2020-12-14] MEDS: OXYGEN THERAPY IH SCH ×2 (08:00→21:51)
[2020-12-14 08:37] VITALS: BP 180/86
[2020-12-14] MEDS: HYDROmorphone HCL 2 MG TABLET PO PRN ×2 (09:17→15:35)
[2020-12-14] MEDS: GABAPENTIN 300 MG CAPSULE PO SCH ×2 (09:17→15:35)
[2020-12-14] MEDS: LURASIDONE HCL 40 MG TABLET PO SCH (09:17)
[2020-12-14] MEDS: LOSARTAN POTASSIUM 25 MG TABLET PO SCH ×2 (09:17→20:46)
[2020-12-14] MEDS: DOCUSATE SODIUM 100 MG CAPSULE PO SCH ×2 (09:18→20:45)
[2020-12-14] MEDS: AmLODIPine BESYLATE 10 MG TABLET PO SCH (09:18)
[2020-12-14] MEDS: MULTIVITAMINS WITH MINERALS, THERAPEUTIC TABLET PO SCH (09:18)
[2020-12-14] MEDS: FERROUS SULFATE 325 MG EC TABLET PO SCH (09:18)
[2020-12-14] MEDS: METOPROLOL TARTRATE 25 MG TABLET PO SCH ×2 (09:18→20:45)
[2020-12-14] MEDS: FAMOTIDINE 20 MG TABLET PO SCH (09:19)
[2020-12-14] MEDS: INSULIN GLARGINE,HUM.REC.ANLOG 100 UNITS/ML SQ SCH ×2 (09:20→20:55)
[2020-12-14] MEDS: FUROSEMIDE 40 MG TABLET PO SCH (09:32)
[2020-12-14 11:12] LABS: GLUCOMETER DEV NAME(LOC) 6N.1; GLUCOSE,POINT OF CARE 98 MG/DL (70-110)
[2020-12-14] MEDS: INSULIN LISPRO 100 UNITS/ML SQ PRN ×3 (11:51→20:56)
[2020-12-14 16:07] VITALS: BP 166/87
[2020-12-14] MEDS: LORazepam 2 MG/ML VIAL IVP PRN ×2 (17:14→21:48)
[2020-12-14 18:56] LABS: GLUCOMETER DEV NAME(LOC) 6S.1; GLUCOSE,POINT OF CARE 208 MG/DL (70-110)
[2020-12-14 18:56] LABS: GLUCOMETER DEV NAME(LOC) 6S.1; GLUCOSE,POINT OF CARE 158 MG/DL (70-110)
[2020-12-14 20:05] VITALS: BP 158/94
[2020-12-14] MEDS: MIRTAZAPINE 15 MG TABLET PO SCH (20:45)
[2020-12-14] MEDS: ZOLPIDEM TARTRATE 5 MG TABLET PO PRN (20:45)
[2020-12-14] MEDS: ACETAMINOPHEN 325 MG TABLET PO PRN (20:50)
[2020-12-14 23:08] LABS: GLUCOMETER DEV NAME(LOC) 6N.1; GLUCOSE,POINT OF CARE 167 MG/DL (70-110)
[2020-12-15] MEDS: CeFAZolin 2 GM/DEXTROSE 50 ML IV SCH ×3 (00:23→17:08)
[2020-12-15] MEDS: GABAPENTIN 300 MG CAPSULE PO SCH ×4 (00:24→23:09)
[2020-12-15 06:00] VITALS: BP 144/84
[2020-12-15] MEDS: CANAGLIFLOZIN 100 MG TABLET PO SCH (06:08)
[2020-12-15] MEDS: HYDROmorphone HCL 2 MG TABLET PO PRN ×5 (06:25→23:17)
[2020-12-15 07:38] VITALS: BP 152/91
[2020-12-15] MEDS: OXYGEN THERAPY IH SCH ×2 (08:00→20:39)
[2020-12-15] MEDS: DOCUSATE SODIUM 100 MG CAPSULE PO SCH ×2 (08:22→20:42)
[2020-12-15] MEDS: FAMOTIDINE 20 MG TABLET PO SCH (08:22)
[2020-12-15] MEDS: LOSARTAN POTASSIUM 25 MG TABLET PO SCH ×2 (08:23→20:13)
[2020-12-15] MEDS: FERROUS SULFATE 325 MG EC TABLET PO SCH (08:23)
[2020-12-15] MEDS: METOPROLOL TARTRATE 25 MG TABLET PO SCH ×2 (08:23→20:13)
[2020-12-15] MEDS: LURASIDONE HCL 40 MG TABLET PO SCH (08:23)
[2020-12-15] MEDS: AmLODIPine BESYLATE 10 MG TABLET PO SCH (08:23)
[2020-12-15] MEDS: FUROSEMIDE 40 MG TABLET PO SCH (08:23)
[2020-12-15] MEDS: MULTIVITAMINS WITH MINERALS, THERAPEUTIC TABLET PO SCH (08:23)
[2020-12-15] MEDS: INSULIN GLARGINE,HUM.REC.ANLOG 100 UNITS/ML SQ SCH ×2 (08:29→20:37)
[2020-12-15] MEDS: LORazepam 2 MG/ML VIAL IVP PRN ×3 (09:08→20:17)
[2020-12-15 09:42] LABS: GLUCOMETER DEV NAME(LOC) 6S.1; GLUCOSE,POINT OF CARE 102 MG/DL (70-110)
[2020-12-15 11:12] LABS: BASOPHILS % (AUTO) 0.4 % (0.0-2.0); HEMATOCRIT 26.5 % (41-53); HEMOGLOBIN 8.6 g/dL (13.5-17.5); LYMPHOCYTES % (AUTO) 10.5 % (22.0-44.0); MEAN CORPUSCULAR HEMOGLOBIN 25.5 pg (26.0-34.0); MEAN CORPUSCULAR HGB CONC 32.4 G/dL (31.0-37.0); MEAN CORPUSCULAR VOLUME 79 fL (80-100); MONOCYTES # (AUTO) 0.7 K/uL (0.1-1.0); MONOCYTES % (AUTO) 7.4 % (2.0-9.0); NEUTROPHILS # (AUTO) 7.8 K/uL (1.8-7.7); NEUTROPHILS % (AUTO) 80.7 % (40.0-70.0); PLATELET COUNT (AUTO) 223 K/uL (150-450); RED BLOOD CELL COUNT(AUTO) 3.36 MIL/uL (4.50-5.90); RED CELL DISTRIBUTION WIDTH 21.7 % (11.5-14.5)
[2020-12-15 11:28] LABS: ANION GAP 5 mmol/L (8-16); CALCIUM, TOTAL 7.8 mg/dL (8.8-10.5); CARBON DIOXIDE 27 mmol/L (22-29); CHLORIDE 103 mmol/L (98-107); CREATININE 1.02 mg/dL (0.60-1.30); GLOMERULAR FILTR. RATE CALC > 60 mL/min (>60); GLUCOSE,RANDOM 144 mg/dL (70-110); PHOSPHORUS 3.5 mg/dL (2.5-4.9); POTASSIUM 3.4 mmol/L (3.5-5.1); SODIUM SERUM 135 mmol/L (136-145); UREA NITROGEN, BLOOD 14 mg/dL (7-18)
[2020-12-15] MEDS: LURASIDONE HCL 20 MG TABLET PO PRN ×2 (12:13→17:08)
[2020-12-15] MEDS: POTASSIUM CHLORIDE 20 MEQ ER TABLET PO PRN (12:13)
[2020-12-15 13:56] LABS: GLUCOMETER DEV NAME(LOC) 6S.1; GLUCOSE,POINT OF CARE 110 MG/DL (70-110)
[2020-12-15 15:10] VITALS: BP 148/82
[2020-12-15] MEDS ORDERED: SODIUM CHLORIDE 0.9% 500 ML IV ONE (17:11)
[2020-12-15] MEDS: INSULIN LISPRO 100 UNITS/ML SQ PRN ×2 (17:25→20:36)
[2020-12-15] MEDS: MIRTAZAPINE 15 MG TABLET PO SCH (20:14)
[2020-12-15] MEDS: ACETAMINOPHEN 325 MG TABLET PO PRN (20:15)
[2020-12-15 20:44] VITALS: BP 160/89
[2020-12-15] MEDS: MELATONIN 3 MG TABLET PO PRN (20:45)
[2020-12-15] MEDS: ZOLPIDEM TARTRATE 5 MG TABLET PO PRN (23:09)
[2020-12-15 23:14] VITALS: BP 145/84
[2020-12-16] MEDS: CeFAZolin 2 GM/DEXTROSE 50 ML IV SCH ×3 (00:40→14:45)
[2020-12-16 01:20] LABS: GLUCOMETER DEV NAME(LOC) 6S.1; GLUCOSE,POINT OF CARE 224 MG/DL (70-110)
[2020-12-16] MEDS: ACETAMINOPHEN 325 MG TABLET PO PRN ×3 (02:11→14:55)
[2020-12-16 03:04] VITALS: BP 144/80
[2020-12-16] MEDS: HYDROmorphone HCL 2 MG TABLET PO PRN (05:54)
[2020-12-16] MEDS: CANAGLIFLOZIN 100 MG TABLET PO SCH (05:54)
[2020-12-16] MEDS: INSULIN LISPRO 100 UNITS/ML SQ PRN ×2 (05:58→11:27)
[2020-12-16 06:38] LABS: GLUCOMETER DEV NAME(LOC) 6N.1; GLUCOSE,POINT OF CARE 153 MG/DL (70-110)
[2020-12-16 07:44] LABS: GLUCOMETER DEV NAME(LOC) 6S.1; GLUCOSE,POINT OF CARE 195 MG/DL (70-110)
[2020-12-16] MEDS: OXYGEN THERAPY IH SCH (08:00)
[2020-12-16] MEDS: GABAPENTIN 300 MG CAPSULE PO SCH ×2 (08:17→14:45)
[2020-12-16] MEDS: METOPROLOL TARTRATE 25 MG TABLET PO SCH (08:17)
[2020-12-16] MEDS: AmLODIPine BESYLATE 10 MG TABLET PO SCH (08:17)
[2020-12-16] MEDS: MULTIVITAMINS WITH MINERALS, THERAPEUTIC TABLET PO SCH (08:17)
[2020-12-16] MEDS: FAMOTIDINE 20 MG TABLET PO SCH (08:17)
[2020-12-16] MEDS: FERROUS SULFATE 325 MG EC TABLET PO SCH (08:17)
[2020-12-16] MEDS: FUROSEMIDE 40 MG TABLET PO SCH (08:17)
[2020-12-16] MEDS: LURASIDONE HCL 40 MG TABLET PO SCH (08:18)
[2020-12-16] MEDS: LOSARTAN POTASSIUM 25 MG TABLET PO SCH (08:18)
[2020-12-16] MEDS: INSULIN GLARGINE,HUM.REC.ANLOG 100 UNITS/ML SQ SCH (08:19)
[2020-12-16 08:20] VITALS: BP 141/77
[2020-12-16] MEDS: DOCUSATE SODIUM 100 MG CAPSULE PO SCH (08:20)
[2020-12-16] MEDS ORDERED: AMLO-258 PO (12:27)
[2020-12-16] MEDS ORDERED: CANA100T PO (12:27)
[2020-12-16] MEDS ORDERED: DOCU-275 PO (12:29)
[2020-12-16] MEDS ORDERED: CEFA2PLA9 IVPB (12:29)
[2020-12-16] MEDS ORDERED: FERR-89 PO (12:30)
[2020-12-16] MEDS ORDERED: FAMO20 PO (12:30)
[2020-12-16] MEDS ORDERED: FURO40 PO (12:31)
[2020-12-16] MEDS ORDERED: GABA-1181 PO (12:31)
[2020-12-16] MEDS ORDERED: LOSA50TA37 PO (12:32)
[2020-12-16] MEDS ORDERED: INSLAN SQ (12:32)
[2020-12-16] MEDS ORDERED: LURA40TA2 PO (12:32)
[2020-12-16] MEDS ORDERED: METO25 PO (12:33)
[2020-12-16] MEDS ORDERED: MIRT-89 PO (12:33)
[2020-12-16] MEDS ORDERED: ACET-2247 PO (12:34)
[2020-12-16] MEDS ORDERED: MULT-248 PO (12:34)
[2020-12-16] MEDS ORDERED: BISA-151 PO (12:35)
[2020-12-16] MEDS ORDERED: AUD NEB (12:35)
[2020-12-16] MEDS ORDERED: CLON0.1T2 PO (12:36)
[2020-12-16] MEDS ORDERED: INSU100V SQ (12:37)
[2020-12-16] MEDS ORDERED: MELA3TAB89 PO (12:38)
[2020-12-16] MEDS ORDERED: [UNRECOGNIZED DRUG - CODE] TP (12:39)
[2020-12-16] MEDS ORDERED: SIME80TA14 PO (12:40)
[2020-12-16] MEDS ORDERED: ONDA4VIA22 IV (12:40)
[2020-12-16] MEDS: LORazepam 2 MG/ML VIAL IVP PRN (15:23)
[2020-12-16 15:31] LABS: GLUCOMETER DEV NAME(LOC) 6N.1; GLUCOSE,POINT OF CARE 167 MG/DL (70-110)
[2020-12-16 15:54] VITALS: BP 146/84
[2021-01-03] MEDS ORDERED: CEPHALEXIN MONOHYDRATE 500 MG CAPSULE PO SCH (09:00)
== END 2020-12-16 17:00 | DRG 463 ==
LOC: EMS 20:38 → ICU 11-14 06:31 → 6N 11-16 09:49 → 5S 11-24 10:15 → 6N 12-02 11:45
PROVIDERS: ADMIT Internal Medicine; ATTEND Internal Medicine
PROC: 02HV33Z Insertion of Infusion Device into Superior Vena Cava, Percutaneous Approach (ICD-10-PCS; 2020-11-14)
PROC: 0JBN0ZZ Excision of Right Lower Leg Subcutaneous Tissue and Fascia, Open Approach (ICD-10-PCS; principal; 2020-11-15 13:00)
PROC: 0JBN0ZZ Excision of Right Lower Leg Subcutaneous Tissue and Fascia, Open Approach (ICD-10-PCS; 2020-12-08)
PROC: 0SPC0JZ Removal of Synthetic Substitute from Right Knee Joint, Open Approach (ICD-10-PCS; 2020-12-08)
PROC: 0SRC0EZ Replacement of Right Knee Joint with Articulating Spacer, Open Approach (ICD-10-PCS; 2020-12-08)
DX: T84.53XA Infection and inflammatory reaction due to internal right knee prosthesis, initial encounter (principal); A41.01 Sepsis due to Methicillin susceptible Staphylococcus aureus; M00.9 Pyogenic arthritis, unspecified; N39.0 Urinary tract infection, site not specified; E87.1 Hypo-osmolality and hyponatremia; N17.9 Acute kidney failure, unspecified; E87.2 Acidosis; F11.20 Opioid dependence, uncomplicated; M86.9 Osteomyelitis, unspecified; E44.1 Mild protein-calorie malnutrition; Z20.822 Contact with and (suspected) exposure to COVID-19; E11.65 Type 2 diabetes mellitus with hyperglycemia; Z96.651 Presence of right artificial knee joint; Z96.649 Presence of unspecified artificial hip joint; D64.9 Anemia, unspecified; E11.40 Type 2 diabetes mellitus with diabetic neuropathy, unspecified; E11.21 Type 2 diabetes mellitus with diabetic nephropathy; E11.69 Type 2 diabetes mellitus with other specified complication; E87.5 Hyperkalemia; E78.5 Hyperlipidemia, unspecified; D50.9 Iron deficiency anemia, unspecified; N40.0 Benign prostatic hyperplasia without lower urinary tract symptoms; I80.9 Phlebitis and thrombophlebitis of unspecified site; E66.01 Morbid (severe) obesity due to excess calories; E88.09 Other disorders of plasma-protein metabolism, not elsewhere classified; J45.909 Unspecified asthma, uncomplicated; I25.10 Atherosclerotic heart disease of native coronary artery without angina pectoris; N45.3 Epididymo-orchitis; G89.29 Other chronic pain; F12.90 Cannabis use, unspecified, uncomplicated; F20.9 Schizophrenia, unspecified; Y83.8 Other surgical procedures as the cause of abnormal reaction of the patient, or of later complication, without mention of misadventure at the time of the procedure; F60.0 Paranoid personality disorder; I10 Essential (primary) hypertension; Z91.19 Patient's noncompliance with other medical treatment and regimen; Z87.442 Personal history of urinary calculi; Z82.49 Family history of ischemic heart disease and other diseases of the circulatory system; Z79.899 Other long term (current) drug therapy; Z79.2 Long term (current) use of antibiotics; Z81.8 Family history of other mental and behavioral disorders; Z83.3 Family history of diabetes mellitus; Y92.89 Other specified places as the place of occurrence of the external cause; Z68.37 Body mass index [BMI] 37.0-37.9, adult
CPT/HCPCS: 36600; 71045; 71550; 72146; 73221; 74176; 76770; 76870; 78806; 80048; 80053; 80076; 80202; 81001; 81002; 81050; 82009; 82043; 82271; 82533; 82550; 82570; 82728; 82805; 82962; 83036; 83540; 83550; 83605; 83615; 83735; 83880; 83935; 84100; 84132; 84145; 84156; 84166; 84295; 84300; 84439; 84443; 84484; 85007; 85014; 85018; 85025; 85027; 85610; 85651; 85730; 86038; 86140; 86160; 86256; 86850; 86900; 86901; 86923; 87040; 87070; 87077; 87081; 87086; 87186; 87205; 87491; 87591; 88300; 89050; 89051; 89060; 92610; 93306; 93312; 93970; 93971; 94640; 97110; 97116; 97162; 97164; 97167; 97530; 97535; 99291; A9547; A9575; C9290; G0238; G0378; J0330; J0360; J0690; J0692; J0878; J0885; J1100; J1170; J1644; J1815; J1940; J1956; J2060; J2250; J2270; J2370; J2405; J2704; J3010; J3370; J3480; J3490; J3535; J7030; J7040; J7050; J7060; J7120; P9016; 36415-L1; 36415-TC; C1716; J7613; Z7610

== ENCOUNTER 2021-01-08 14:07 | Emergency (ER) | payer MEDICARE, OTHER ==
[~2021-01-08] VITALS: Ht 162.6 cm; Wt 82.3 kg
[~2021-01-08 14:07] MED LIST changes: +ACET-2247 PO; +AMLO-258 PO; +AUD NEB; +CANA100T PO; +CEFA2PLA9 IVPB; +CHOL-35 PO; -CHOL100044 PO; +CLON0.1T2 PO; +DOCU-270 PO; -DULO-8 PO; +DULO60CA98 PO; +FURO40 PO; -GLIM2 PO; -IBUP-2071 PO; +INSLAN SQ; -INSU100I26 SQ; -INSU100I3 SQ; +INSU100V SQ; +LOSA50TA37 PO; +MELA3TAB89 PO; -MENT1ADH18 TP; -METF-960 PO; +METO25 PO; +MIRT-89 PO; +MULT-248 PO; -OMEP20 PO; +ONDA4VIA22 IV; +SIME80TA14 PO; -TAMS-13 PO; -TRAZ-252 PO
[2021-01-08] MEDS ORDERED: MORPHINE SULFATE 4 MG/ML SYRINGE IVP ONE (15:30)
[2021-01-08 16:06] LABS: BASOPHILS % (AUTO) 0.4 % (0.0-2.0); EOSINOPHILS % (AUTO) 4.3 % (1.0-6.0); HEMATOCRIT 22.5 % (41-53); HEMOGLOBIN 7.4 g/dL (13.5-17.5); LYMPHOCYTES # (AUTO) 1.5 K/uL (1.0-4.8); LYMPHOCYTES % (AUTO) 20.5 % (22.0-44.0); MEAN CORPUSCULAR HEMOGLOBIN 24.6 pg (26.0-34.0); MEAN CORPUSCULAR HGB CONC 32.7 G/dL (31.0-37.0); MEAN CORPUSCULAR VOLUME 75 fL (80-100); MONOCYTES # (AUTO) 0.6 K/uL (0.1-1.0); MONOCYTES % (AUTO) 7.4 % (2.0-9.0); NEUTROPHILS # (AUTO) 5.1 K/uL (1.8-7.7); NEUTROPHILS % (AUTO) 67.4 % (40.0-70.0); PLATELET COUNT (AUTO) 197 K/uL (150-450); RED CELL DISTRIBUTION WIDTH 18.4 % (11.5-14.5)
[2021-01-08 16:17] LABS: CALCIUM, TOTAL 8.5 mg/dL (8.8-10.5); CREATININE 1.98 mg/dL (0.60-1.30); POTASSIUM 4.1 mmol/L (3.5-5.1)
[2021-01-08 16:19] LABS: GLUCOMETER DEV NAME(LOC) ERT.5; GLUCOSE,POINT OF CARE 102 MG/DL (70-110)
[2021-01-08 16:23] LABS: ALBUMIN 2.1 g/dL (3.4-5.0); BILIRUBIN,TOTAL 0.2 mg/dL (0.1-1.0); TOTAL PROTEIN, SERUM 8.6 g/dL (6.4-8.2)
[2021-01-08 16:25] LABS: LACTIC ACID 1.3 mmol/L (0.4-2.0)
[2021-01-08 19:00] VITALS: BP 129/81
== END 2021-01-08 19:24 ==
LOC: EMS 14:45
DX: M25.561 Pain in right knee (principal); G89.29 Other chronic pain; D64.9 Anemia, unspecified; N28.9 Disorder of kidney and ureter, unspecified; J45.909 Unspecified asthma, uncomplicated; E11.9 Type 2 diabetes mellitus without complications; F32.9 Major depressive disorder, single episode, unspecified; I11.9 Hypertensive heart disease without heart failure; E78.00 Pure hypercholesterolemia, unspecified; F20.9 Schizophrenia, unspecified; I25.2 Old myocardial infarction; F12.90 Cannabis use, unspecified, uncomplicated; Z87.891 Personal history of nicotine dependence; Z79.899 Other long term (current) drug therapy; Z79.4 Long term (current) use of insulin
CPT/HCPCS: 36415; 80053; 82962; 83605; 85025; 96374; 99285; J2270; 82948

== ENCOUNTER 2021-01-19 08:58 | Inpatient (IN) | payer MEDICARE, OTHER ==
[~2021-01-19] VITALS: Ht 160 cm; Wt 82.3 kg
[2021-01-19] MEDS ORDERED: ONDANSETRON HCL 4 MG/2 ML VIAL IVP ONE (09:30)
[2021-01-19] MEDS ORDERED: MORPHINE SULFATE 4 MG/ML SYRINGE IVP ONE (09:30)
[2021-01-19 10:06] LABS: HEMOGLOBIN 8.4 g/dL (13.5-17.5); LYMPHOCYTES % (AUTO) 8.9 % (22.0-44.0); MEAN CORPUSCULAR HEMOGLOBIN 24.7 pg (26.0-34.0); MEAN CORPUSCULAR HGB CONC 32.4 G/dL (31.0-37.0); MEAN CORPUSCULAR VOLUME 76 fL (80-100); NEUTROPHILS % (AUTO) 84.4 % (40.0-70.0); PLATELET COUNT (AUTO) 225 K/uL (150-450); RED BLOOD CELL COUNT(AUTO) 3.41 MIL/uL (4.50-5.90); RED CELL DISTRIBUTION WIDTH 17.3 % (11.5-14.5)
[2021-01-19 10:07] LABS: BASOPHILS % (AUTO) 0.5 % (0.0-2.0); EOSINOPHILS % (AUTO) 0.7 % (1.0-6.0); LYMPHOCYTES # (AUTO) 0.8 K/uL (1.0-4.8); MONOCYTES # (AUTO) 0.5 K/uL (0.1-1.0); MONOCYTES % (AUTO) 5.5 % (2.0-9.0); NEUTROPHILS # (AUTO) 7.3 K/uL (1.8-7.7)
[2021-01-19 10:12] LABS: COVID AG,FIA SOURCE NASOPHARYNGEAL
[2021-01-19 10:20] LABS: CALCIUM, TOTAL 8.7 mg/dL (8.8-10.5); CREATININE 1.65 mg/dL (0.60-1.30); POTASSIUM 4.2 mmol/L (3.5-5.1)
[2021-01-19 10:25] LABS: ALBUMIN 2.6 g/dL (3.4-5.0); BILIRUBIN,TOTAL 0.2 mg/dL (0.1-1.0); C-REACTIVE PROTEIN QUANT 4.48 mg/dL (0.00-0.30)
[2021-01-19 10:27] LABS: D-DIMER 6.38 mg/L FEU (0.00-0.50); INR 1.1 (0.9-1.1); PROTHROMBIN TIME 11.3 SEC (9.4-11.6)
[2021-01-19 10:38] LABS: LACTIC ACID 1.7 mmol/L (0.4-2.0)
[2021-01-19 10:43] LABS: GLUCOSE,POINT OF CARE 66 MG/DL (70-110)
[2021-01-19 10:43] LABS: GLUCOSE,POINT OF CARE 79 MG/DL (70-110)
[2021-01-19] MEDS ORDERED: HYDROCODONE/ACETAMINOPHEN 5-325 MG TABLET PO ONE (11:30)
[2021-01-19 11:32] LABS: ERYTHROCYTE SEDIMENTATION RATE > 140 MM/HR (0-15)
[2021-01-19] MEDS ORDERED: DEXTROSE 50%-WATER 25 GM/50 ML SYRINGE IVP ONE ×2 (15:15→17:45)
[2021-01-19] MEDS ORDERED: ACETAMINOPHEN 325 MG TABLET PO PRN ×2 (16:00→17:15)
[2021-01-19] MEDS ORDERED: 0.9% SODIUM CHLORIDE 10 ML SYRINGE IVP PRN (16:00)
[2021-01-19] MEDS ORDERED: ONDANSETRON HCL 4 MG/2 ML VIAL IVP PRN ×2 (16:00→17:15)
[2021-01-19 16:12] LABS: GLUCOSE,POINT OF CARE 86 MG/DL (70-110)
[2021-01-19 16:12] LABS: GLUCOSE,POINT OF CARE 61 MG/DL (70-110)
[2021-01-19 16:12] LABS: GLUCOSE,POINT OF CARE 65 MG/DL (70-110)
[2021-01-19 16:12] LABS: GLUCOSE,POINT OF CARE 116 MG/DL (70-110)
[2021-01-19 16:12] LABS: GLUCOSE,POINT OF CARE 42 MG/DL (70-110)
[2021-01-19] MEDS ORDERED: MORPHINE SULFATE 2 MG/ML SYRINGE IVP PRN (17:15)
[2021-01-19] MEDS ORDERED: ZOLPIDEM TARTRATE 5 MG TABLET PO PRN (17:15)
[2021-01-19] MEDS ORDERED: ALBUTEROL SULFATE 2.5 MG/0.5 ML NEB SOLUTION NEB PRN (17:15)
[2021-01-19] MEDS ORDERED: BISACODYL 10 MG RECTAL RECTAL SUPPOSITORY PR PRN (17:15)
[2021-01-19] MEDS ORDERED: [UNRECOGNIZED DRUG - OTHER] IVPB SCH (17:15)
[2021-01-19] MEDS ORDERED: MELATONIN 3 MG TABLET PO PRN (17:15)
[2021-01-19] MEDS ORDERED: MAGNESIUM HYDROXIDE SUSPENSION 30 ML UDCUP PO PRN (17:15)
[2021-01-19] MEDS: INSULIN GLARGINE,HUM.REC.ANLOG 100 UNITS/ML SQ SCH (17:36)
[2021-01-19 17:49] VITALS: BP 149/77
[2021-01-19] MEDS ORDERED: SODIUM CHLORIDE 0.9% 1,000 ML ONE (18:03)
[2021-01-19] MEDS: CeFAZolin 2 GM/DEXTROSE 50 ML IV SCH (18:14)
[2021-01-19] MEDS ORDERED: MORPHINE SULFATE 2 MG/ML SYRINGE IVP ONE (18:45)
[2021-01-19 19:59] VITALS: BP 147/82
[2021-01-19 20:09] LABS: GLUCOMETER DEV NAME(LOC) 6N.1; GLUCOSE,POINT OF CARE 47 MG/DL (70-110)
[2021-01-19 20:10] LABS: GLUCOMETER DEV NAME(LOC) 6N.1; GLUCOSE,POINT OF CARE 167 MG/DL (70-110)
[2021-01-19 20:10] LABS: GLUCOMETER DEV NAME(LOC) 6N.1; GLUCOSE,POINT OF CARE 58 MG/DL (70-110)
[2021-01-19] MEDS: HYDROCODONE/ACETAMINOPHEN 5-325 MG TABLET PO PRN (20:36)
[2021-01-19] MEDS: DOCUSATE SODIUM 100 MG CAPSULE PO SCH (20:36)
[2021-01-19] MEDS: CHOLECALCIFEROL (VIT D3) 2,000 UNITS [50 MCG] TABLET PO SCH (20:36)
[2021-01-19 22:22] LABS: GLUCOMETER DEV NAME(LOC) 6S.1; GLUCOSE,POINT OF CARE 97 MG/DL (70-110)
[2021-01-19] MEDS: HEPARIN SODIUM,PORCINE 5,000 UNITS/ML VIAL SQ SCH (22:50)
[2021-01-19] MEDS: MORPHINE SULFATE 2 MG/ML SYRINGE IVP PRN (22:50)
[2021-01-20] MEDS: HYDROCODONE/ACETAMINOPHEN 5-325 MG TABLET PO PRN ×4 (00:53→14:53)
[2021-01-20] MEDS: CeFAZolin 2 GM/DEXTROSE 50 ML IV SCH ×2 (02:22→10:00)
[2021-01-20] MEDS: MORPHINE SULFATE 2 MG/ML SYRINGE IVP PRN ×3 (03:21→12:21)
[2021-01-20 04:16] VITALS: BP 143/79
[2021-01-20 06:47] LABS: GLUCOMETER DEV NAME(LOC) 6S.1; GLUCOSE,POINT OF CARE 76 MG/DL (70-110)
[2021-01-20 07:58] VITALS: BP 145/80
[2021-01-20] MEDS: HEPARIN SODIUM,PORCINE 5,000 UNITS/ML VIAL SQ SCH (08:01)
[2021-01-20] MEDS: CANAGLIFLOZIN 100 MG TABLET PO SCH ×2 (08:01→08:09)
[2021-01-20] MEDS: DOCUSATE SODIUM 100 MG CAPSULE PO SCH (08:01)
[2021-01-20] MEDS: CHOLECALCIFEROL (VIT D3) 2,000 UNITS [50 MCG] TABLET PO SCH (08:01)
[2021-01-20] MEDS: INSULIN GLARGINE,HUM.REC.ANLOG 100 UNITS/ML SQ SCH (08:09)
[2021-01-20 08:27] LABS: BASOPHILS % (AUTO) 0.4 % (0.0-2.0); EOSINOPHILS % (AUTO) 3.2 % (1.0-6.0); HEMATOCRIT 22.8 % (41-53); HEMOGLOBIN 7.5 g/dL (13.5-17.5); LYMPHOCYTES % (AUTO) 16.1 % (22.0-44.0); MEAN CORPUSCULAR HEMOGLOBIN 25.3 pg (26.0-34.0); MEAN CORPUSCULAR HGB CONC 33.2 G/dL (31.0-37.0); MEAN CORPUSCULAR VOLUME 76 fL (80-100); MONOCYTES # (AUTO) 0.3 K/uL (0.1-1.0); MONOCYTES % (AUTO) 5.3 % (2.0-9.0); NEUTROPHILS # (AUTO) 4.5 K/uL (1.8-7.7); PLATELET COUNT (AUTO) 212 K/uL (150-450); RED BLOOD CELL COUNT(AUTO) 2.99 MIL/uL (4.50-5.90); RED CELL DISTRIBUTION WIDTH 17.9 % (11.5-14.5)
[2021-01-20 08:42] LABS: CALCIUM, TOTAL 8.5 mg/dL (8.8-10.5); CREATININE 1.4 mg/dL (0.60-1.30); POTASSIUM 4.5 mmol/L (3.5-5.1)
[2021-01-20] MEDS ORDERED: LISINOPRIL 20 MG TABLET PO SCH (09:00)
[2021-01-20] MEDS ORDERED: PANTOPRAZOLE SODIUM 40 MG DR TABLET PO SCH (09:00)
[2021-01-20] MEDS ORDERED: AmLODIPine BESYLATE 10 MG TABLET PO SCH (09:00)
[2021-01-20 14:46] LABS: GLUCOMETER DEV NAME(LOC) 6S.1; GLUCOSE,POINT OF CARE 160 MG/DL (70-110)
[2021-01-20 14:46] LABS: GLUCOMETER DEV NAME(LOC) 6S.1; GLUCOSE,POINT OF CARE 139 MG/DL (70-110)
[2021-01-20 15:29] VITALS: BP 137/78
[2021-01-20 20:01] LABS: GLUCOMETER DEV NAME(LOC) 6N.1; GLUCOSE,POINT OF CARE 114 MG/DL (70-110)
== END 2021-01-20 18:00 | DRG 560 ==
LOC: EMS 08:58 → 6N 16:53
PROVIDERS: ADMIT Internal Medicine; ATTEND Internal Medicine
DX: T84.53XA Infection and inflammatory reaction due to internal right knee prosthesis, initial encounter (principal); N17.9 Acute kidney failure, unspecified; F11.20 Opioid dependence, uncomplicated; E44.0 Moderate protein-calorie malnutrition; I10 Essential (primary) hypertension; E66.9 Obesity, unspecified; E78.5 Hyperlipidemia, unspecified; F20.9 Schizophrenia, unspecified; J45.909 Unspecified asthma, uncomplicated; N40.0 Benign prostatic hyperplasia without lower urinary tract symptoms; Z96.649 Presence of unspecified artificial hip joint; E78.00 Pure hypercholesterolemia, unspecified; Y83.1 Surgical operation with implant of artificial internal device as the cause of abnormal reaction of the patient, or of later complication, without mention of misadventure at the time of the procedure; F12.90 Cannabis use, unspecified, uncomplicated; F32.9 Major depressive disorder, single episode, unspecified; Z96.651 Presence of right artificial knee joint; E11.40 Type 2 diabetes mellitus with diabetic neuropathy, unspecified; Z20.822 Contact with and (suspected) exposure to COVID-19; Z79.4 Long term (current) use of insulin; Z68.32 Body mass index [BMI] 32.0-32.9, adult; Z87.442 Personal history of urinary calculi; Z87.891 Personal history of nicotine dependence; Z91.19 Patient's noncompliance with other medical treatment and regimen; Y92.89 Other specified places as the place of occurrence of the external cause
CPT/HCPCS: 80048; 80053; 82962; 83605; 83880; 85025; 85379; 85610; 85651; 85730; 86140; 87040; 87081; 93971; 99285; J0690; J1644; J1815; J2270; J2405; J7030; Q9967

== ENCOUNTER 2021-03-05 16:22 | Inpatient (IN) | payer MEDICARE, OTHER ==
[~2021-03-05] VITALS: Ht 162.6 cm; Wt 78.2 kg
[2021-03-05 19:09] LABS: GLUCOMETER DEV NAME(LOC) ERT.5; GLUCOSE,POINT OF CARE 122 MG/DL (70-110)
[2021-03-05] MEDS ORDERED: OxyCODONE HCL/ACETAMINOPHEN 5-325 MG TABLET PO ONE (19:15)
[2021-03-05 19:28] LABS: BASOPHILS % (AUTO) 0.5 % (0.0-2.0); EOSINOPHILS % (AUTO) 2.7 % (1.0-6.0); HEMATOCRIT 30.3 % (41-53); HEMOGLOBIN 10.4 g/dL (13.5-17.5); LYMPHOCYTES # (AUTO) 2.6 K/uL (1.0-4.8); LYMPHOCYTES % (AUTO) 25.7 % (22.0-44.0); MEAN CORPUSCULAR HEMOGLOBIN 26.8 pg (26.0-34.0); MEAN CORPUSCULAR HGB CONC 34.2 G/dL (31.0-37.0); MEAN CORPUSCULAR VOLUME 78 fL (80-100); MONOCYTES # (AUTO) 0.8 K/uL (0.1-1.0); MONOCYTES % (AUTO) 7.5 % (2.0-9.0); NEUTROPHILS # (AUTO) 6.4 K/uL (1.8-7.7); NEUTROPHILS % (AUTO) 63.6 % (40.0-70.0); PLATELET COUNT (AUTO) 191 K/uL (150-450); RED BLOOD CELL COUNT(AUTO) 3.87 MIL/uL (4.50-5.90); RED CELL DISTRIBUTION WIDTH 19.9 % (11.5-14.5)
[2021-03-05 19:38] LABS: ANION GAP 9 mmol/L (8-16); CALCIUM, TOTAL 8.7 mg/dL (8.8-10.5); CARBON DIOXIDE 25 mmol/L (22-29); CHLORIDE 102 mmol/L (98-107); CREATININE 1.12 mg/dL (0.60-1.30); GLOMERULAR FILTR. RATE CALC > 60 mL/min (>60); GLUCOSE,RANDOM 132 mg/dL (70-110); SODIUM SERUM 136 mmol/L (136-145); UREA NITROGEN, BLOOD 19 mg/dL (7-18)
[2021-03-05 19:44] LABS: SALICYLATE 1.4 mg/dL (2.8-20.0)
[2021-03-05 19:45] LABS: ALANINE AMINOTRANSFERASE 17 U/L (12-78); ALBUMIN 3.3 g/dL (3.4-5.0); ALKALINE PHOSPHATASE 125 U/L (46-116); ASPARTATE AMINOTRANSFERASE 14 U/L (15-37); BILIRUBIN,TOTAL 0.3 mg/dL (0.1-1.0); C-REACTIVE PROTEIN QUANT 0.86 mg/dL (0.00-0.30); TOTAL PROTEIN, SERUM 8.1 g/dL (6.4-8.2)
[2021-03-05 19:46] LABS: COVID AG,FIA SOURCE NASOPHARYNGEAL
[2021-03-05 19:47] LABS: ACETAMINOPHEN < 2 mcg/mL (10-30)
[2021-03-05 20:35] LABS: ERYTHROCYTE SEDIMENTATION RATE 59 MM/HR (0-15)
[2021-03-05] MEDS ORDERED: SODIUM CHLORIDE 0.9% 100 ML ONE (20:49)
[2021-03-05] MEDS ORDERED: IOHEXOL 350 MG/ML 100 ML VIAL ONE (20:49)
[2021-03-05] MEDS ORDERED: MORPHINE SULFATE 4 MG/ML SYRINGE IVP ONE ×2 (21:00→23:15)
[2021-03-05 22:12] LABS: AMPHET/METH SCREEN,URINE NEGATIVE (NEGATIVE); BARBITURATE SCREEN, URINE NEGATIVE (NEGATIVE); BENZODIAZEPINES SCREEN,URINE NEGATIVE (NEGATIVE); CANNABINOID SCREEN,URINE NEGATIVE (NEGATIVE); COCAINE SCREEN,URINE NEGATIVE (NEGATIVE); METHADONE SCREEN, URINE NEGATIVE (NEGATIVE); OPIATE SCREEN,URINE POSITIVE (NEGATIVE)
[2021-03-05] MEDS ORDERED: VANCOMYCIN HCL 1 GM/D5% WATER 200 ML IV ONE (22:15)
[2021-03-05] MEDS ORDERED: ONDANSETRON HCL 4 MG/2 ML VIAL IVP ONE (22:15)
[2021-03-05 22:25] LABS: PHENCYCLIDINE SCREEN,URINE NEGATIVE (NEGATIVE)
[2021-03-05] MEDS ORDERED: ACETAMINOPHEN 325 MG TABLET PO PRN (22:45)
[2021-03-05] MEDS ORDERED: ONDANSETRON HCL 4 MG/2 ML VIAL IVP PRN (22:45)
[2021-03-05] MEDS ORDERED: 0.9% SODIUM CHLORIDE 10 ML SYRINGE IVP PRN (22:45)
[2021-03-06] MEDS ORDERED: ACETAMINOPHEN 325 MG TABLET PO PRN
[2021-03-06] MEDS ORDERED: BISACODYL 10 MG RECTAL RECTAL SUPPOSITORY PR PRN
[2021-03-06] MEDS ORDERED: ONDANSETRON HCL 4 MG/2 ML VIAL IVP PRN
[2021-03-06] MEDS ORDERED: MAGNESIUM HYDROXIDE SUSPENSION 30 ML UDCUP PO PRN
[2021-03-06] MEDS: HEPARIN SODIUM,PORCINE 5,000 UNITS/ML VIAL SQ SCH ×4 (00:57→23:40)
[2021-03-06] MEDS: CeFAZolin 1 GM/DEXTROSE 50 ML IV SCH ×2 (00:58→23:40)
[2021-03-06] MEDS: MORPHINE SULFATE 2 MG/ML SYRINGE IVP PRN ×5 (01:00→15:20)
[2021-03-06] MEDS ORDERED: SODIUM CHLORIDE 0.9% 500 ML IV ONE (01:43)
[2021-03-06 02:06] VITALS: BP 154/91
[2021-03-06] MEDS ORDERED: INFLUENZA VIRUS VACCINE QVS 2021-22 (6MO+)/PF 60 MCG/0.5 ML SYRINGE IM. ONE (04:30)
[2021-03-06] MEDS ORDERED: PNEUMOCOCCAL VACCINE POLYVALENT 0.5 ML VIAL [PPSV23] IM. ONE (04:30)
[2021-03-06 04:41] VITALS: BP 160/84
[2021-03-06] MEDS: HYDROCODONE/ACETAMINOPHEN 5-325 MG TABLET PO PRN ×2 (05:48→20:58)
[2021-03-06] MEDS ORDERED: DEXTROSE 50%-WATER 25 GM/50 ML SYRINGE IVP PRN (06:30)
[2021-03-06] MEDS: INSULIN LISPRO 100 UNITS/ML SQ PRN ×4 (06:54→21:05)
[2021-03-06 07:29] VITALS: BP 154/82
[2021-03-06 07:36] LABS: GLUCOMETER DEV NAME(LOC) 6S.1; GLUCOSE,POINT OF CARE 231 MG/DL (70-110)
[2021-03-06 09:01] VITALS: BP 153/79
[2021-03-06] MEDS: CHOLECALCIFEROL (VIT D3) 1,000 UNITS [25 MCG] TABLET PO SCH ×2 (09:29→20:58)
[2021-03-06] MEDS: PANTOPRAZOLE SODIUM 40 MG DR TABLET PO SCH (09:29)
[2021-03-06] MEDS: FUROSEMIDE 40 MG TABLET PO SCH (09:30)
[2021-03-06] MEDS: DULoxetine HCL 60 MG CAPSULE PO SCH (09:30)
[2021-03-06] MEDS: FERROUS SULFATE 325 MG EC TABLET PO SCH ×2 (09:30→17:24)
[2021-03-06] MEDS: GABAPENTIN 300 MG CAPSULE PO SCH ×2 (09:30→20:57)
[2021-03-06] MEDS: AmLODIPine BESYLATE 10 MG TABLET PO SCH (09:30)
[2021-03-06] MEDS: DOCUSATE SODIUM 100 MG CAPSULE PO SCH ×2 (09:30→20:57)
[2021-03-06] MEDS: LISINOPRIL 20 MG TABLET PO SCH (09:31)
[2021-03-06] MEDS: INSULIN GLARGINE,HUM.REC.ANLOG 100 UNITS/ML SQ SCH ×2 (09:36→21:04)
[2021-03-06 14:04] LABS: GLUCOMETER DEV NAME(LOC) 6S.1; GLUCOSE,POINT OF CARE 188 MG/DL (70-110)
[2021-03-06 14:47] VITALS: BP 126/87
[2021-03-06] MEDS: METOPROLOL TARTRATE 25 MG TABLET PO SCH ×2 (15:50→20:57)
[2021-03-06 16:10] LABS: SPECIMENTYPE,BODY FLUID ASP
[2021-03-06] MEDS: LURASIDONE HCL 40 MG TABLET PO SCH (17:24)
[2021-03-06 17:42] LABS: APPEARANCE,SPUN,BODY FLUID CLEAR (CLEAR); BASOPHILS,BODY FLUID 0 %; COLOR,BODY FLUID RED (LT YELLOW); EOSINOPHILS,BF (ANAL) 0 %; LYMPHOCYTES,BODY FLUID 2 %; MONOCYTES,BODY FLUID 6 %; NEUTROPHILS,BODY FLUID 92 %; TOTAL VOLUME,BODY FLUID 10 mL; WBC, BODY FLUID 122 /cu. mm.
[2021-03-06 17:43] LABS: APPEARANCE,UNSPUN,BODY FLUID CLOUDY (CLEAR)
[2021-03-06 18:02] LABS: CRYSTALS, SYNOVIAL FLUID None Seen (None Seen)
[2021-03-06 19:12] LABS: GLUCOMETER DEV NAME(LOC) 6N.1; GLUCOSE,POINT OF CARE 156 MG/DL (70-110)
[2021-03-06 20:15] VITALS: BP 126/83
[2021-03-06] MEDS: ZOLPIDEM TARTRATE 5 MG TABLET PO PRN (20:57)
[2021-03-07 00:08] LABS: GLUCOMETER DEV NAME(LOC) 6S.1; GLUCOSE,POINT OF CARE 218 MG/DL (70-110)
[2021-03-07 01:15] VITALS: BP 118/79
[2021-03-07] MEDS: HYDROCODONE/ACETAMINOPHEN 5-325 MG TABLET PO PRN ×2 (01:19→20:22)
[2021-03-07 04:30] VITALS: BP 120/71
[2021-03-07 06:21] LABS: GLUCOMETER DEV NAME(LOC) 6S.1; GLUCOSE,POINT OF CARE 120 MG/DL (70-110)
[2021-03-07 07:34] LABS: BASOPHILS % (AUTO) 0.3 % (0.0-2.0); EOSINOPHILS % (AUTO) 3.5 % (1.0-6.0); HEMATOCRIT 30.4 % (41-53); HEMOGLOBIN 10.6 g/dL (13.5-17.5); LYMPHOCYTES # (AUTO) 2.2 K/uL (1.0-4.8); LYMPHOCYTES % (AUTO) 24.3 % (22.0-44.0); MEAN CORPUSCULAR HEMOGLOBIN 27.1 pg (26.0-34.0); MEAN CORPUSCULAR HGB CONC 34.8 G/dL (31.0-37.0); MEAN CORPUSCULAR VOLUME 78 fL (80-100); MONOCYTES # (AUTO) 0.6 K/uL (0.1-1.0); MONOCYTES % (AUTO) 6.9 % (2.0-9.0); PLATELET COUNT (AUTO) 165 K/uL (150-450); RED CELL DISTRIBUTION WIDTH 19.6 % (11.5-14.5)
[2021-03-07 07:49] LABS: ANION GAP 9 mmol/L (8-16); CALCIUM, TOTAL 8.8 mg/dL (8.8-10.5); CARBON DIOXIDE 28 mmol/L (22-29); CHLORIDE 103 mmol/L (98-107); CREATININE 1.08 mg/dL (0.60-1.30); GLOMERULAR FILTR. RATE CALC > 60 mL/min (>60); GLUCOSE,RANDOM 131 mg/dL (70-110); POTASSIUM 3.9 mmol/L (3.5-5.1); SODIUM SERUM 140 mmol/L (136-145); UREA NITROGEN, BLOOD 22 mg/dL (7-18)
[2021-03-07 08:15] VITALS: BP 141/80
[2021-03-07] MEDS: MORPHINE SULFATE 2 MG/ML SYRINGE IVP PRN ×3 (08:23→17:09)
[2021-03-07] MEDS: INSULIN GLARGINE,HUM.REC.ANLOG 100 UNITS/ML SQ SCH ×2 (08:24→21:14)
[2021-03-07] MEDS: HEPARIN SODIUM,PORCINE 5,000 UNITS/ML VIAL SQ SCH ×3 (08:26→23:53)
[2021-03-07] MEDS: GABAPENTIN 300 MG CAPSULE PO SCH ×2 (08:27→20:18)
[2021-03-07] MEDS: METOPROLOL TARTRATE 25 MG TABLET PO SCH ×2 (08:27→20:18)
[2021-03-07] MEDS: CHOLECALCIFEROL (VIT D3) 1,000 UNITS [25 MCG] TABLET PO SCH ×2 (08:27→20:18)
[2021-03-07] MEDS: AmLODIPine BESYLATE 10 MG TABLET PO SCH (08:27)
[2021-03-07] MEDS: DULoxetine HCL 60 MG CAPSULE PO SCH (08:27)
[2021-03-07] MEDS: LISINOPRIL 20 MG TABLET PO SCH (08:27)
[2021-03-07] MEDS: FUROSEMIDE 40 MG TABLET PO SCH (08:27)
[2021-03-07] MEDS: PANTOPRAZOLE SODIUM 40 MG DR TABLET PO SCH (08:27)
[2021-03-07] MEDS: FERROUS SULFATE 325 MG EC TABLET PO SCH ×2 (08:28→17:09)
[2021-03-07] MEDS: DOCUSATE SODIUM 100 MG CAPSULE PO SCH ×2 (08:28→20:18)
[2021-03-07] MEDS: INSULIN LISPRO 100 UNITS/ML SQ PRN ×3 (11:27→21:15)
[2021-03-07 13:50] LABS: GLUCOMETER DEV NAME(LOC) 6S.1; GLUCOSE,POINT OF CARE 176 MG/DL (70-110)
[2021-03-07 16:15] VITALS: BP 131/78
[2021-03-07] MEDS: LURASIDONE HCL 40 MG TABLET PO SCH (17:10)
[2021-03-07 19:37] VITALS: BP 105/56
[2021-03-07] MEDS: ETHYL ALCOHOL 62% ANTISEPTIC NASAL INHALANT 0.6 ML AMPUL NASAL SCH (20:18)
[2021-03-07] MEDS: ZOLPIDEM TARTRATE 5 MG TABLET PO PRN (20:18)
[2021-03-07 21:57] LABS: GLUCOMETER DEV NAME(LOC) 6S.1; GLUCOSE,POINT OF CARE 165 MG/DL (70-110)
[2021-03-07 21:57] LABS: GLUCOMETER DEV NAME(LOC) 6N.1; GLUCOSE,POINT OF CARE 296 MG/DL (70-110)
[2021-03-08] MEDS: HYDROCODONE/ACETAMINOPHEN 5-325 MG TABLET PO PRN (00:10)
[2021-03-08 05:02] VITALS: BP 135/82
[2021-03-08 07:20] LABS: BASOPHILS % (AUTO) 0.3 % (0.0-2.0); EOSINOPHILS % (AUTO) 3.9 % (1.0-6.0); HEMATOCRIT 31.2 % (41-53); HEMOGLOBIN 10.9 g/dL (13.5-17.5); LYMPHOCYTES # (AUTO) 2.3 K/uL (1.0-4.8); LYMPHOCYTES % (AUTO) 23.5 % (22.0-44.0); MEAN CORPUSCULAR HEMOGLOBIN 27.4 pg (26.0-34.0); MEAN CORPUSCULAR VOLUME 78 fL (80-100); MONOCYTES # (AUTO) 0.6 K/uL (0.1-1.0); MONOCYTES % (AUTO) 6.3 % (2.0-9.0); NEUTROPHILS # (AUTO) 6.4 K/uL (1.8-7.7); PLATELET COUNT (AUTO) 173 K/uL (150-450); RED BLOOD CELL COUNT(AUTO) 3.99 MIL/uL (4.50-5.90); RED CELL DISTRIBUTION WIDTH 19.6 % (11.5-14.5)
[2021-03-08 07:36] LABS: ANION GAP 8 mmol/L (8-16); CALCIUM, TOTAL 8.9 mg/dL (8.8-10.5); CARBON DIOXIDE 30 mmol/L (22-29); CHLORIDE 102 mmol/L (98-107); CREATININE 1.04 mg/dL (0.60-1.30); GLOMERULAR FILTR. RATE CALC > 60 mL/min (>60); GLUCOSE,RANDOM 126 mg/dL (70-110); SODIUM SERUM 140 mmol/L (136-145); UREA NITROGEN, BLOOD 22 mg/dL (7-18)
[2021-03-08 07:54] LABS: GLUCOMETER DEV NAME(LOC) 6N.1; GLUCOSE,POINT OF CARE 128 MG/DL (70-110)
[2021-03-08] MEDS: FUROSEMIDE 40 MG TABLET PO SCH (08:02)
[2021-03-08] MEDS: LISINOPRIL 20 MG TABLET PO SCH (08:02)
[2021-03-08] MEDS: CHOLECALCIFEROL (VIT D3) 1,000 UNITS [25 MCG] TABLET PO SCH (08:02)
[2021-03-08] MEDS: METOPROLOL TARTRATE 25 MG TABLET PO SCH (08:02)
[2021-03-08] MEDS: PANTOPRAZOLE SODIUM 40 MG DR TABLET PO SCH (08:02)
[2021-03-08] MEDS: DOCUSATE SODIUM 100 MG CAPSULE PO SCH (08:02)
[2021-03-08] MEDS: HEPARIN SODIUM,PORCINE 5,000 UNITS/ML VIAL SQ SCH (08:02)
[2021-03-08] MEDS: GABAPENTIN 300 MG CAPSULE PO SCH (08:02)
[2021-03-08] MEDS: DULoxetine HCL 60 MG CAPSULE PO SCH (08:03)
[2021-03-08] MEDS: FERROUS SULFATE 325 MG EC TABLET PO SCH (08:03)
[2021-03-08] MEDS: INSULIN GLARGINE,HUM.REC.ANLOG 100 UNITS/ML SQ SCH (08:07)
[2021-03-08] MEDS: ETHYL ALCOHOL 62% ANTISEPTIC NASAL INHALANT 0.6 ML AMPUL NASAL SCH (08:16)
[2021-03-08 08:21] VITALS: BP 136/71
[2021-03-08] MEDS: AmLODIPine BESYLATE 10 MG TABLET PO SCH (08:23)
[2021-03-08] MEDS ORDERED: OxyCODONE HCL/ACETAMINOPHEN 5-325 MG TABLET PO PRN (11:30)
[2021-03-08] MEDS: INSULIN LISPRO 100 UNITS/ML SQ PRN (12:16)
[2021-03-08 14:50] LABS: GLUCOMETER DEV NAME(LOC) 6S.1; GLUCOSE,POINT OF CARE 152 MG/DL (70-110)
== END 2021-03-08 13:50 | disposition home or self-care (01) | DRG 948 ==
LOC: EMS 16:25 → 6N 21:12
PROVIDERS: ADMIT Internal Medicine; ATTEND Internal Medicine
DX: G89.18 Other acute postprocedural pain (principal); R45.851 Suicidal ideations; K57.92 Diverticulitis of intestine, part unspecified, without perforation or abscess without bleeding; M25.561 Pain in right knee; F25.1 Schizoaffective disorder, depressive type; F32.A Depression, unspecified; J45.909 Unspecified asthma, uncomplicated; I10 Essential (primary) hypertension; F17.200 Nicotine dependence, unspecified, uncomplicated; E78.00 Pure hypercholesterolemia, unspecified; N40.0 Benign prostatic hyperplasia without lower urinary tract symptoms; D64.9 Anemia, unspecified; Z20.822 Contact with and (suspected) exposure to COVID-19; E11.40 Type 2 diabetes mellitus with diabetic neuropathy, unspecified; Z96.649 Presence of unspecified artificial hip joint; Z96.659 Presence of unspecified artificial knee joint; E78.5 Hyperlipidemia, unspecified; Z98.890 Other specified postprocedural states; I25.2 Old myocardial infarction
CPT/HCPCS: 73701; 80048; 80053; 82550; 82962; 83605; 85025; 85651; 86140; 87040; 87070; 87081; 87205; 89051; 89060; 93970; 97110; 97162; 97166; 97530; 97535; 99285; G0480; G0481; J0690; J1644; J1815; J2270; J2405; J3370; J7040; J7050; Q9967

== ENCOUNTER 2021-03-24 17:32 | Emergency (ER) | payer MEDICARE, OTHER ==
[~2021-03-24] VITALS: Ht 162.6 cm; Wt 76.4 kg
[~2021-03-24 17:32] MED LIST changes: -CEFA2PLA9 IVPB
[2021-03-24] MEDS ORDERED: DiphenhydrAMINE HCL 25 MG CAPSULE PO ONE (18:30)
[2021-03-24] MEDS ORDERED: OxyCODONE HCL/ACETAMINOPHEN 10-325 MG TABLET PO ONE (18:30)
[2021-03-24] MEDS ORDERED: KETOROLAC TROMETHAMINE 30 MG/ML VIAL IM ONE (18:30)
[2021-03-24 19:23] VITALS: BP 163/93
== END 2021-03-24 20:42 | disposition home or self-care (01) ==
LOC: EMS 17:32
DX: G89.29 Other chronic pain (principal); M25.561 Pain in right knee; J45.909 Unspecified asthma, uncomplicated; F32.9 Major depressive disorder, single episode, unspecified; E11.9 Type 2 diabetes mellitus without complications; E78.00 Pure hypercholesterolemia, unspecified; I11.9 Hypertensive heart disease without heart failure; F20.9 Schizophrenia, unspecified; F17.210 Nicotine dependence, cigarettes, uncomplicated; F12.90 Cannabis use, unspecified, uncomplicated; Z79.899 Other long term (current) drug therapy; Z79.4 Long term (current) use of insulin
CPT/HCPCS: 82962; 96372; 99283; J1885

== ENCOUNTER 2021-05-12 14:37 | Emergency (ER) | payer MEDICARE, OTHER ==
[~2021-05-12] VITALS: Ht 162.6 cm; Wt 82.3 kg
[2021-05-12] MEDS ORDERED: KETOROLAC TROMETHAMINE 30 MG/ML VIAL IM ONE (15:15)
[2021-05-12] MEDS ORDERED: OxyCODONE HCL/ACETAMINOPHEN 10-325 MG TABLET PO ONE (15:15)
[2021-05-12 18:29] VITALS: BP 175/118
== END 2021-05-12 19:24 | disposition home or self-care (01) ==
LOC: EMS 14:40
DX: M25.561 Pain in right knee (principal); I11.9 Hypertensive heart disease without heart failure; J45.909 Unspecified asthma, uncomplicated; F32.9 Major depressive disorder, single episode, unspecified; E11.9 Type 2 diabetes mellitus without complications; F20.9 Schizophrenia, unspecified; I25.2 Old myocardial infarction; E78.00 Pure hypercholesterolemia, unspecified; F17.210 Nicotine dependence, cigarettes, uncomplicated; F12.90 Cannabis use, unspecified, uncomplicated; Z79.899 Other long term (current) drug therapy; Z79.4 Long term (current) use of insulin
CPT/HCPCS: 73562; 96372; 99283; J1885

== ENCOUNTER 2021-05-31 22:01 | Emergency (ER) | payer MEDICARE, OTHER ==
[~2021-05-31] VITALS: Ht 167.6 cm; Wt 73.2 kg
[~2021-05-31 22:01] MED LIST changes: +LOSA-382 PO; -LOSA50TA37 PO
[2021-05-31] MEDS ORDERED: TRANEXAMIC ACID 1,000 MG in DEXTROSE 5%-WATER 50 ML IV ONE (22:45)
[2021-05-31] MEDS ORDERED: GELATIN SPONGE,ABSORBABLE 12-7 MM TP ONE (22:45)
[2021-05-31] MEDS ORDERED: THROMBIN, BOVINE 20000 UNITS/VIAL POWDER TP ONE (23:00)
[2021-05-31 23:23] LABS: BASOPHILS % (AUTO) 0.3 % (0.0-2.0); EOSINOPHILS % (AUTO) 4.2 % (1.0-6.0); HEMATOCRIT 22.9 % (41-53); LYMPHOCYTES # (AUTO) 1.1 K/uL (1.0-4.8); LYMPHOCYTES % (AUTO) 17.7 % (22.0-44.0); MEAN CORPUSCULAR HEMOGLOBIN 29.1 pg (26.0-34.0); MEAN CORPUSCULAR HGB CONC 34.8 G/dL (31.0-37.0); MEAN CORPUSCULAR VOLUME 84 fL (80-100); MONOCYTES # (AUTO) 0.8 K/uL (0.1-1.0); MONOCYTES % (AUTO) 12.8 % (2.0-9.0); NEUTROPHILS # (AUTO) 3.9 K/uL (1.8-7.7); PLATELET COUNT (AUTO) 193 K/uL (150-450); RED BLOOD CELL COUNT(AUTO) 2.74 MIL/uL (4.50-5.90)
[2021-05-31] MEDS ORDERED: GELATIN SPONGE,ABSORBABLE 100 MM TP ONE (23:30)
[2021-05-31] MEDS ORDERED: MORPHINE SULFATE 4 MG/ML SYRINGE IVP ONE (23:30)
[2021-06-01 01:41] VITALS: BP 124/73
== END 2021-06-01 01:45 | disposition home or self-care (01) ==
LOC: EMS 22:08
DX: M96.830 Postprocedural hemorrhage of a musculoskeletal structure following a musculoskeletal system procedure (principal); D64.9 Anemia, unspecified; E11.9 Type 2 diabetes mellitus without complications; J45.909 Unspecified asthma, uncomplicated; I10 Essential (primary) hypertension; E78.00 Pure hypercholesterolemia, unspecified; F12.90 Cannabis use, unspecified, uncomplicated; F17.210 Nicotine dependence, cigarettes, uncomplicated; Z79.4 Long term (current) use of insulin; Z79.899 Other long term (current) drug therapy; Z96.651 Presence of right artificial knee joint
CPT/HCPCS: 36415; 85025; 96374; 99283; J2270; J3490; J7060

== ENCOUNTER 2021-09-07 13:36 | Emergency (ER) | payer MEDICARE, OTHER ==
[~2021-09-07] VITALS: Ht 162.6 cm; Wt 74.1 kg
[~2021-09-07 13:36] MED LIST changes: -CHOL-35 PO; +CHOL25TA4 PO; -DOCU-270 PO; +DOCU-385 PO; +DULO-113 PO; -DULO60CA98 PO; -FERR-89 PO; +FERR325T27 PO; -SIME80TA14 PO; +SIME80TA82 PO
[2021-09-07] MEDS ORDERED: ACETAMINOPHEN 500 MG TABLET PO ONE (14:45)
[2021-09-07 14:53] VITALS: BP 178/103
== END 2021-09-07 16:26 | disposition home or self-care (01) ==
LOC: EMS 13:36
DX: M79.662 Pain in left lower leg (principal); M79.661 Pain in right lower leg; M19.90 Unspecified osteoarthritis, unspecified site; J45.909 Unspecified asthma, uncomplicated; F32.A Depression, unspecified; E11.9 Type 2 diabetes mellitus without complications; E78.00 Pure hypercholesterolemia, unspecified; I10 Essential (primary) hypertension; F20.9 Schizophrenia, unspecified; G62.9 Polyneuropathy, unspecified; N40.0 Benign prostatic hyperplasia without lower urinary tract symptoms; Z96.649 Presence of unspecified artificial hip joint; Z96.651 Presence of right artificial knee joint; Z98.890 Other specified postprocedural states; Z87.19 Personal history of other diseases of the digestive system; Z87.39 Personal history of other diseases of the musculoskeletal system and connective tissue; Z86.79 Personal history of other diseases of the circulatory system; Z87.442 Personal history of urinary calculi; Z86.2 Personal history of diseases of the blood and blood-forming organs and certain disorders involving the immune mechanism
CPT/HCPCS: 82962; 93970; 99284

== ENCOUNTER 2021-09-11 17:46 | Emergency (ER) | payer MEDICARE, OTHER ==
[~2021-09-11] VITALS: Ht 162.6 cm; Wt 74.1 kg
[2021-09-11] MEDS ORDERED: HYDR-4723 PO (18:10)
[2021-09-11] MEDS ORDERED: DOXY-354 PO (18:10)
[2021-09-11] MEDS ORDERED: DOXY50 PO (18:12)
[2021-09-11 18:26] LABS: GLUCOMETER DEV NAME(LOC) ERT.5; GLUCOSE,POINT OF CARE 190 MG/DL (70-110)
[2021-09-11] MEDS ORDERED: CHOL10002 PO (18:30)
[2021-09-11] MEDS ORDERED: FAMO20 PO (18:30)
[2021-09-11] MEDS ORDERED: LISI20TA24 PO (18:30)
[2021-09-11] MEDS ORDERED: DOXY100C5 PO (18:30)
[2021-09-11] MEDS ORDERED: ACETAMINOPHEN 325 MG TABLET PO ONE (18:30)
[2021-09-11] MEDS ORDERED: SITA100 PO (18:30)
[2021-09-11] MEDS ORDERED: ASPI-1522 PO (18:30)
[2021-09-11] MEDS ORDERED: METF-1211 PO (18:30)
[2021-09-11] MEDS ORDERED: ATOR10TA69 PO (18:30)
[2021-09-11] MEDS ORDERED: TAMS-13 PO (18:30)
[2021-09-11] MEDS ORDERED: ACET-66 PO (18:30)
[2021-09-11 18:50] VITALS: BP 157/95
== END 2021-09-11 19:07 | disposition home or self-care (01) ==
LOC: EMS 17:50
DX: M25.561 Pain in right knee (principal); G89.29 Other chronic pain; J45.909 Unspecified asthma, uncomplicated; F32.9 Major depressive disorder, single episode, unspecified; E11.9 Type 2 diabetes mellitus without complications; I11.9 Hypertensive heart disease without heart failure; E78.00 Pure hypercholesterolemia, unspecified; I25.2 Old myocardial infarction; F20.9 Schizophrenia, unspecified; F17.210 Nicotine dependence, cigarettes, uncomplicated; F12.90 Cannabis use, unspecified, uncomplicated; Z79.4 Long term (current) use of insulin; Z79.899 Other long term (current) drug therapy
CPT/HCPCS: 82962; 99282; 99283

== ENCOUNTER 2022-10-29 13:29 | Emergency (ER) | payer MEDICARE, OTHER ==
[~2022-10-29] VITALS: Ht 162.6 cm; Wt 80.0 kg
[~2022-10-29 13:29] MED LIST changes: -ACET-2247 PO; +ACET-66 PO; -AMLO-258 PO; +ASPI-1522 PO; +ATOR10TA69 PO; -BISA-151 PO; -CANA100T PO; +CHOL10002 PO; -CHOL25TA4 PO; -CLON0.1T2 PO; -DOCU-385 PO; -DULO-113 PO; -FERR325T27 PO; +HYDR-4723 PO; -LISI-894 PO; +LISI20TA24 PO; -LOSA-382 PO; -LURA40TA2 PO; -MELA3TAB89 PO; +METF-1211 PO; -METO25 PO; -MIRT-89 PO; -ONDA4VIA22 IV; -SIME80TA82 PO; +SITA100 PO; +TAMS-13 PO
[2022-10-29 13:51] LABS: COVID AG,FIA SOURCE NASAL SWAB
[2022-10-29 14:16] LABS: INFLUENZA TYPE A NEGATIVE FOR TYPE A (NEGATIVE); INFLUENZA TYPE B NEGATIVE FOR TYPE B (NEGATIVE)
[2022-10-29 14:30] LABS: BASOPHILS % (AUTO) 0.2 % (0.0-2.0); EOSINOPHILS % (AUTO) 1.5 % (1.0-6.0); HEMATOCRIT 42.7 % (41-53); LYMPHOCYTES # (AUTO) 1.1 K/uL (1.0-4.8); LYMPHOCYTES % (AUTO) 11.7 % (22.0-44.0); MEAN CORPUSCULAR HEMOGLOBIN 31.7 pg (26.0-34.0); MEAN CORPUSCULAR HGB CONC 35.1 G/dL (31.0-37.0); MEAN CORPUSCULAR VOLUME 91 fL (80-100); MONOCYTES # (AUTO) 0.6 K/uL (0.1-1.0); NEUTROPHILS # (AUTO) 7.4 K/uL (1.8-7.7); NEUTROPHILS % (AUTO) 80.6 % (40.0-70.0); PLATELET COUNT (AUTO) 115 K/uL (150-450); RED BLOOD CELL COUNT(AUTO) 4.72 MIL/uL (4.50-5.90); RED CELL DISTRIBUTION WIDTH 14.1 % (11.5-14.5)
[2022-10-29] MEDS ORDERED: SODIUM CHLORIDE 0.9% 1,000 ML IV ONE (14:30)
[2022-10-29 14:35] LABS: ANION GAP 11 mmol/L (8-16); CALCIUM, TOTAL 8.4 mg/dL (8.8-10.5); CARBON DIOXIDE 24 mmol/L (22-29); CHLORIDE 102 mmol/L (98-107); CREATININE 0.86 mg/dL (0.60-1.30); GLOMERULAR FILTR. RATE CALC > 60 mL/min (>60); GLUCOSE,RANDOM 149 mg/dL (70-110); POTASSIUM 3.2 mmol/L (3.5-5.1); SODIUM SERUM 137 mmol/L (136-145)
[2022-10-29 14:43] LABS: ALANINE AMINOTRANSFERASE 15 U/L (12-78); ALBUMIN 3.6 g/dL (3.4-5.0); ALKALINE PHOSPHATASE 92 U/L (46-116); ASPARTATE AMINOTRANSFERASE 14 U/L (15-37); LIPASE 48 U/L (73-393); TOTAL PROTEIN, SERUM 7.1 g/dL (6.4-8.2)
[2022-10-29] MEDS ORDERED: HYDROmorphone HCL 2 MG/ML SYRINGE IVP ONE (15:30)
[2022-10-29] MEDS ORDERED: HYDR-4808 PO (15:35)
[2022-10-29] MEDS ORDERED: ALBU0.8311 NEB (15:35)
[2022-10-29] MEDS ORDERED: NITR0.4T52 SL (15:35)
[2022-10-29] MEDS ORDERED: LIDO35.422 TP (15:35)
[2022-10-29] MEDS ORDERED: DULO20CA71 PO (15:35)
[2022-10-29] MEDS ORDERED: LISI40TA9 PO (15:35)
[2022-10-29] MEDS ORDERED: ALBU18HF12 IH (15:35)
[2022-10-29] MEDS ORDERED: NICO-803 TD (15:35)
[2022-10-29] MEDS ORDERED: OXCA300T28 PO (15:35)
[2022-10-29] MEDS ORDERED: HYDR200T76 PO (15:35)
[2022-10-29] MEDS ORDERED: GABA600T10 PO (15:35)
[2022-10-29] MEDS ORDERED: DICL100G31 TP (15:35)
[2022-10-29] MEDS ORDERED: LUMA42CA PO (15:35)
[2022-10-29] MEDS ORDERED: CELE-84 PO (15:35)
[2022-10-29 15:46] LABS: APPEARANCE,URINE CLEAR (CLEAR); BILIRUBIN,URINE NEGATIVE (NEGATIVE); GLUCOSE, URINE (UA) NEGATIVE (NEGATIVE); KETONES,URINE TRACE mg/dL (NEGATIVE); LEUKOCYTE ESTERASE ,URINE NEGATIVE (NEGATIVE); NITRATE,URINE NEGATIVE (NEGATIVE); OCCULT BLOOD,URINE LARGE (NEGATIVE); PH,URINE 5.5 (5.0-8.0); PROTEIN,URINE 30-70 mg/dL (NEGATIVE); SPECIFIC GRAVITIY, URINE 1.014 (1.003-1.030); UROBILINOGEN,URINE <=1.0 mg/dL (<=1.0)
[2022-10-29 16:06] LABS: BACTERIA,URINE None Seen /HPF (None Seen); RBC,URINE 26-50 /HPF (0-2); SQUAMOUS EPITHELIAL CELL,UR Few /LPF (None Seen); WBC,URINE None Seen /HPF (0-5)
[2022-10-29] MEDS ORDERED: KETOROLAC TROMETHAMINE 30 MG/ML VIAL IVP ONE (16:15)
[2022-10-29 17:53] VITALS: BP 145/100
== END 2022-10-29 17:53 | disposition home or self-care (01) ==
LOC: EMS 13:31
DX: R10.9 Unspecified abdominal pain (principal); N20.0 Calculus of kidney; M19.90 Unspecified osteoarthritis, unspecified site; J45.909 Unspecified asthma, uncomplicated; F32.A Depression, unspecified; E78.00 Pure hypercholesterolemia, unspecified; F20.9 Schizophrenia, unspecified; E11.40 Type 2 diabetes mellitus with diabetic neuropathy, unspecified; I11.9 Hypertensive heart disease without heart failure; N40.0 Benign prostatic hyperplasia without lower urinary tract symptoms; F17.210 Nicotine dependence, cigarettes, uncomplicated; F12.90 Cannabis use, unspecified, uncomplicated; Z96.649 Presence of unspecified artificial hip joint; Z96.659 Presence of unspecified artificial knee joint; Z98.890 Other specified postprocedural states; Z20.822 Contact with and (suspected) exposure to COVID-19
CPT/HCPCS: 99285; 74176; 96374; 96361; 87426; 80053; 81001; 83690; 84484; 85025; 87804; 36415; 93005; J1885; J7030

== ENCOUNTER 2024-01-04 19:48 | Emergency (ER) | payer MEDICARE, OTHER ==
[~2024-01-04] VITALS: Ht 162.6 cm; Wt 82.7 kg
[~2024-01-04 19:48] MED LIST changes: -ACET-66 PO; -ASPI-1522 PO; -ATOR10TA69 PO; -AUD NEB; +DICL2100G TP; -FAMO20 PO; -GABA-1181 PO; -HYDR-4723 PO; -INSLAN SQ; -INSU100V SQ; -LISI20TA24 PO; +LISI40TA9 PO; -MULT-248 PO; -SITA100 PO; -TAMS-13 PO; +TAMS0.4C94 PO
[2024-01-04 19:54] VITALS: TEMP 98.4
[2024-01-04 21:15] VITALS: BP 156/90; PULSE 79; RESP 16
[2024-01-04] MEDS ORDERED: SULF-261 PO (21:17)
== END 2024-01-04 21:49 | disposition home or self-care (01) ==
LOC: EMS 19:48
DX: L03.114 Cellulitis of left upper limb (principal); M19.90 Unspecified osteoarthritis, unspecified site; J45.909 Unspecified asthma, uncomplicated; F32.A Depression, unspecified; E11.9 Type 2 diabetes mellitus without complications; E78.00 Pure hypercholesterolemia, unspecified; F20.9 Schizophrenia, unspecified; F17.210 Nicotine dependence, cigarettes, uncomplicated; F12.90 Cannabis use, unspecified, uncomplicated; Z96.649 Presence of unspecified artificial hip joint; Z96.659 Presence of unspecified artificial knee joint; Z98.890 Other specified postprocedural states
CPT/HCPCS: 82962; 99283

== ENCOUNTER 2024-03-05 21:24 | Inpatient (IN) | payer MEDICARE, MEDICAID ==
[~2024-03-05] VITALS: Ht 162.6 cm; Wt 77.1 kg
[~2024-03-05 21:24] MED LIST changes: -FURO40 PO; +FURO40TA6 PO; +SULF-261 PO
[2024-03-05 21:55] LABS: GLUCOMETER DEV NAME(LOC) ER.7; GLUCOSE,POINT OF CARE 295 MG/DL (70-110)
[2024-03-05 22:32] LABS: BASOPHILS % (AUTO) 0.5 % (0.0-2.0); EOSINOPHILS % (AUTO) 0.9 % (1.0-6.0); HEMATOCRIT 45.7 % (41-53); HEMOGLOBIN 14.4 g/dL (13.5-17.5); LYMPHOCYTES # (AUTO) 1.7 K/uL (1.0-4.8); LYMPHOCYTES % (AUTO) 18.6 % (22.0-44.0); MEAN CORPUSCULAR HEMOGLOBIN 22.7 pg (26.0-34.0); MEAN CORPUSCULAR HGB CONC 31.6 G/dL (31.0-37.0); MEAN CORPUSCULAR VOLUME 72 fL (80-100); MONOCYTES # (AUTO) 0.7 K/uL (0.1-1.0); MONOCYTES % (AUTO) 7.3 % (2.0-9.0); NEUTROPHILS # (AUTO) 6.7 K/uL (1.8-7.7); NEUTROPHILS % (AUTO) 72.7 % (40.0-70.0); PLATELET COUNT (AUTO) 209 K/uL (150-450); RED BLOOD CELL COUNT(AUTO) 6.36 MIL/uL (4.50-5.90); WHITE BLOOD COUNT (AUTO) 9.2 K/uL (4.5-11.0)
[2024-03-05 22:43] LABS: CALCIUM, TOTAL 8.6 mg/dL (8.8-10.5); CREATININE 1.21 mg/dL (0.60-1.30); POTASSIUM 3.5 mmol/L (3.5-5.1)
[2024-03-05 22:57] LABS: RBC MORPHOLOGY COMMENT ABNORMAL RBC MORPH
[2024-03-05] MEDS: LORazepam 1 MG TABLET PO ONE (23:10)
[2024-03-05 23:32] LABS: COVID AG,FIA SOURCE NASAL SWAB
[2024-03-05 23:55] LABS: SARS-COV2 (COVID) ANTIGEN,FIA Negative (Negative)
[2024-03-06 00:28] LABS: PH,URINE DRUG SCREEN 5.5 (5.0-8.0)
[2024-03-06 00:36] LABS: ALCOHOL, URINE DRUG SCREEN POSITIVE (NEGATIVE); AMPHET/METH SCREEN,URINE NEGATIVE (NEGATIVE); BARBITURATE SCREEN, URINE NEGATIVE (NEGATIVE); BENZODIAZEPINES SCREEN,URINE NEGATIVE (NEGATIVE); CANNABINOID SCREEN,URINE NEGATIVE (NEGATIVE); COCAINE SCREEN,URINE NEGATIVE (NEGATIVE); METHADONE SCREEN, URINE NEGATIVE (NEGATIVE); OPIATE SCREEN,URINE NEGATIVE (NEGATIVE); PHENCYCLIDINE SCREEN,URINE NEGATIVE (NEGATIVE)
[2024-03-06 10:00] VITALS: O2SAT 98
[2024-03-06] MEDS ORDERED: TUBERCULIN, PURIFIED PROTEIN DERIVATIVE 5 TU/0.1 ML SYRINGE ID ONE (14:00)
[2024-03-06] MEDS ORDERED: MAGNESIUM HYDROXIDE SUSPENSION 30 ML UDCUP PO PRN (14:00)
[2024-03-06] MEDS ORDERED: OLANZapine 5 MG RAPDIS TABLET PO PRN (14:00)
[2024-03-06] MEDS ORDERED: PROMETHAZINE HCL 25 MG TABLET PO PRN (14:00)
[2024-03-06] MEDS ORDERED: GuaiFENesin/D-METHORPHAN [SUGAR-FREE] 200-20MG/10 ML SYRUP UDCUP PO PRN (14:00)
[2024-03-06] MEDS ORDERED: MAG HYDROX/ALUMINUM HYD/SIMETH ES 30 ML SUSPENSION UDCUP PO PRN (14:00)
[2024-03-06] MEDS ORDERED: HydrOXYzine PAMOATE 50 MG CAPSULE PO PRN (14:00)
[2024-03-06] MEDS ORDERED: LOPERAMIDE HCL 2 MG CAPSULE PO PRN (14:00)
[2024-03-06] MEDS ORDERED: FINA5TAB41 PO (14:13)
[2024-03-06] MEDS ORDERED: CELE400C16 PO (14:13)
[2024-03-06] MEDS ORDERED: ERGO500054 PO (14:13)
[2024-03-06] MEDS ORDERED: GABA-1404 PO (14:13)
[2024-03-06] MEDS ORDERED: ASPI-1522 PO (14:13)
[2024-03-06] MEDS ORDERED: AMLO2.5T29 PO (14:13)
[2024-03-06] MEDS ORDERED: EMPA25TA3 PO (14:13)
[2024-03-06] MEDS ORDERED: ALBU18HF12 PO (14:13)
[2024-03-06] MEDS ORDERED: PANT40TA54 PO (14:13)
[2024-03-06] MEDS ORDERED: CETI10TA58 PO (14:13)
[2024-03-06] MEDS ORDERED: METF-446 PO (14:13)
[2024-03-06] MEDS ORDERED: HYDR200T76 PO (14:13)
[2024-03-06] MEDS ORDERED: INSU3INS3 SQ (14:13)
[2024-03-06] MEDS ORDERED: DULO20CA71 PO (14:13)
[2024-03-06] MEDS ORDERED: ISOS30TA92 PO (14:13)
[2024-03-06] MEDS ORDERED: ACET325T51 PO (14:13)
[2024-03-06] MEDS ORDERED: MONT-40 PO (14:13)
[2024-03-06] MEDS ORDERED: SACU1TAB7 PO (14:13)
[2024-03-06] MEDS ORDERED: LID5O TP (14:13)
[2024-03-06] MEDS ORDERED: FAMO20 PO (14:13)
[2024-03-06] MEDS ORDERED: OMEG100014 PO (14:13)
[2024-03-06] MEDS ORDERED: SEMA0.258 SQ (14:13)
[2024-03-06] MEDS ORDERED: ATOR20TA65 PO (14:13)
[2024-03-06 14:52] VITALS: BP 148/90; PULSE 60; RESP 18; TEMP 97; O2SAT 98
[2024-03-06] MEDS ORDERED: AmLODIPine BESYLATE 2.5 MG TABLET PO SCH (15:45)
[2024-03-06] MEDS ORDERED: GLUCAGON,HUMAN RECOMBINANT 1 MG VIAL IM PRN (15:45)
[2024-03-06] MEDS: PALIPERIDONE PALMITATE 234 MG/1.5 ML SYRINGE IM ONE (16:00)
[2024-03-06] MEDS: THIAMINE 100 MG TABLET PO SCH (16:00)
[2024-03-06] MEDS: INSULIN LISPRO 100 UNITS/ML SQ PRN (16:10)
[2024-03-06 16:11] LABS: GLUCOMETER DEV NAME(LOC) BV2X.3; GLUCOSE,POINT OF CARE 160 MG/DL (70-110)
[2024-03-06] MEDS ORDERED: LIDOCAINE 5% 36 GM OINTMENT TP PRN (21:15)
[2024-03-06] MEDS ORDERED: ALBUTEROL SULFATE HFA 90 MCG/PUFF 8 GM INHALER IH PRN (21:15)
[2024-03-06] MEDS: MELATONIN 5 MG TABLET PO SCH (21:45)
[2024-03-06 23:37] VITALS: RESP 18
[2024-03-07 05:51] LABS: GLUCOMETER DEV NAME(LOC) 3E.C; GLUCOSE,POINT OF CARE 174 MG/DL (70-110)
[2024-03-07] MEDS: MetFORMIN HCL 500 MG TABLET PO SCH (06:57)
[2024-03-07] MEDS: ASPIRIN 81 MG CHEWABLE TABLET PO SCH (06:58)
[2024-03-07 07:05] LABS: BASOPHILS % (AUTO) 0.5 % (0.0-2.0); EOSINOPHILS % (AUTO) 3.4 % (1.0-6.0); LYMPHOCYTES # (AUTO) 1.2 K/uL (1.0-4.8); LYMPHOCYTES % (AUTO) 14.2 % (22.0-44.0); MEAN CORPUSCULAR HEMOGLOBIN 22.9 pg (26.0-34.0); MEAN CORPUSCULAR HGB CONC 31.8 G/dL (31.0-37.0); MEAN CORPUSCULAR VOLUME 72 fL (80-100); MONOCYTES # (AUTO) 0.6 K/uL (0.1-1.0); MONOCYTES % (AUTO) 6.5 % (2.0-9.0); NEUTROPHILS # (AUTO) 6.5 K/uL (1.8-7.7); NEUTROPHILS % (AUTO) 75.4 % (40.0-70.0); PLATELET COUNT (AUTO) 152 K/uL (150-450); RED CELL DISTRIBUTION WIDTH 20.1 % (11.5-14.5); WHITE BLOOD COUNT (AUTO) 8.6 K/uL (4.5-11.0)
[2024-03-07 07:38] LABS: ALANINE AMINOTRANSFERASE 14 U/L (12-78); ALBUMIN 3.2 g/dL (3.4-5.0); ALKALINE PHOSPHATASE 126 U/L (46-116); ANION GAP 7 mmol/L (8-16); ASPARTATE AMINOTRANSFERASE 11 U/L (15-37); BILIRUBIN,TOTAL 0.7 mg/dL (0.1-1.0); CALCIUM, TOTAL 8.7 mg/dL (8.8-10.5); CARBON DIOXIDE 24 mmol/L (22-29); CHLORIDE 103 mmol/L (98-107); CHOL/HDL RATIO 2.3 (4.2-7.3); CHOLESTEROL 115 mg/dL (131-200); CREATININE 0.99 mg/dL (0.60-1.30); FREE T4 (FREE THYROXINE) 0.98 ng/dL (0.76-1.46); GLOMERULAR FILTR. RATE CALC > 60 mL/min (>60); GLUCOSE,RANDOM 244 mg/dL (70-110); HDL CHOLESTEROL 51 mg/dL (40-60); LDL CHOL (CALC.) 24 mg/dL (0-130); POTASSIUM 3.9 mmol/L (3.5-5.1); SODIUM SERUM 134 mmol/L (136-145); THYROID STIMULATING HORMONE 2.06 uIU/mL (0.36-3.74); TOTAL PROTEIN, SERUM 7.1 g/dL (6.4-8.2); TRIGLYCERIDES 199 mg/dL (15-150); UREA NITROGEN, BLOOD 19 mg/dL (7-18)
[2024-03-07 08:25] LABS: RBC MORPHOLOGY COMMENT ABNORMAL RBC MORPH
[2024-03-07] MEDS: SACUBITRIL/VALSARTAN 49-51 MG TABLET PO SCH (08:53)
[2024-03-07] MEDS: EMPAGLIFLOZIN 25 MG TABLET PO SCH (08:53)
[2024-03-07] MEDS: TAMSULOSIN HCL 0.4 MG CAPSULE PO SCH (08:54)
[2024-03-07] MEDS: AmLODIPine BESYLATE 10 MG TABLET PO SCH (08:54)
[2024-03-07] MEDS: FINASTERIDE 5 MG TABLET PO SCH (08:54)
[2024-03-07] MEDS: ISOSORBIDE MONONITRATE 30 MG ER TABLET PO SCH (08:54)
[2024-03-07] MEDS: HYDROXYCHLOROQUINE SULFATE 200 MG TABLET PO SCH (08:54)
[2024-03-07] MEDS: PANTOPRAZOLE SODIUM 40 MG DR TABLET PO SCH (08:55)
[2024-03-07] MEDS: DULoxetine HCL 20 MG CAPSULE PO SCH (08:55)
[2024-03-07] MEDS: LORazepam 1 MG TABLET PO PRN (08:55)
[2024-03-07] MEDS: NALTREXONE HCL 50 MG TABLET PO SCH (08:55)
[2024-03-07] MEDS: FOLIC ACID 1 MG TABLET PO SCH (08:55)
[2024-03-07] MEDS: FUROSEMIDE 40 MG TABLET PO SCH (08:55)
[2024-03-07] MEDS: ATORVASTATIN CALCIUM 20 MG TABLET PO SCH (08:57)
[2024-03-07] MEDS: MULTIVITAMINS WITH MINERALS, THERAPEUTIC TABLET PO SCH (08:57)
[2024-03-07 10:21] VITALS: BP 153/80; PULSE 69; RESP 19; TEMP 97.8; O2SAT 97
[2024-03-07 12:05] LABS: GLUCOMETER DEV NAME(LOC) 3EX.2; GLUCOSE,POINT OF CARE 172 MG/DL (70-110)
[2024-03-07 14:11] LABS: HEMOGLOBIN A1C 7.9 % (3.8-5.6)
[2024-03-07] MEDS: ACETAMINOPHEN 325 MG TABLET PO PRN (16:46)
[2024-03-07 17:16] LABS: GLUCOMETER DEV NAME(LOC) 3EX.2; GLUCOSE,POINT OF CARE 188 MG/DL (70-110)
[2024-03-07 20:49] VITALS: BP 116/66; PULSE 84; RESP 16; TEMP 98; O2SAT 95
[2024-03-07] MEDS: MONTELUKAST SODIUM 10 MG TABLET PO SCH (21:08)
[2024-03-07 21:21] LABS: GLUCOMETER DEV NAME(LOC) 3E.I 2; GLUCOSE,POINT OF CARE 211 MG/DL (70-110)
[2024-03-08 06:31] LABS: GLUCOMETER DEV NAME(LOC) 3E.I 2; GLUCOSE,POINT OF CARE 238 MG/DL (70-110)
[2024-03-08] MEDS: DULoxetine HCL 30 MG CAPSULE PO SCH (08:51)
[2024-03-08] MEDS: ETHYL ALCOHOL 62% ANTISEPTIC NASAL SANITIZER 0.6 ML AMPUL NASAL SCH (09:00)
[2024-03-08 09:33] VITALS: BP 133/74; PULSE 100; RESP 18; TEMP 97.5; O2SAT 97
[2024-03-08 11:56] LABS: GLUCOMETER DEV NAME(LOC) 3EX.2; GLUCOSE,POINT OF CARE 193 MG/DL (70-110)
[2024-03-08 17:11] LABS: GLUCOMETER DEV NAME(LOC) 3EX.2; GLUCOSE,POINT OF CARE 302 MG/DL (70-110)
[2024-03-08] MEDS ORDERED: NALT50TA33 PO (17:19)
[2024-03-08] MEDS ORDERED: DULO-114 PO (17:19)
[2024-03-08] MEDS ORDERED: PALI156D IM (17:19)
[2024-03-08] MEDS ORDERED: MELA5TAB40 PO (17:19)
[2024-03-08] MEDS ORDERED: MetFORMIN HCL 850 MG TABLET PO SCH (17:30)
[2024-03-08 21:31] VITALS: BP 116/67; PULSE 92; RESP 18; TEMP 97.6; O2SAT 95
[2024-03-08 21:36] LABS: GLUCOMETER DEV NAME(LOC) 3E.I 2; GLUCOSE,POINT OF CARE 184 MG/DL (70-110)
[2024-03-08] MEDS: ZOLPIDEM TARTRATE 10 MG TABLET PO PRN (22:30)
[2024-03-09 06:01] LABS: GLUCOMETER DEV NAME(LOC) 3E.I 2; GLUCOSE,POINT OF CARE 162 MG/DL (70-110)
[2024-03-09] MEDS: EMPAGLIFLOZIN 10 MG TABLET PO SCH (08:14)
[2024-03-09] MEDS: LinaGLIPtin 5 MG TABLET PO SCH (08:14)
[2024-03-09 08:15] VITALS: BP 125/76; PULSE 98; RESP 18; TEMP 97.6; O2SAT 96
[2024-03-09] MEDS ORDERED: AMLO-258 PO (08:32)
[2024-03-09] MEDS ORDERED: EMPA10TA3 PO (08:37)
[2024-03-09] MEDS ORDERED: LINA5TAB PO (08:40)
[2024-03-09 11:51] LABS: GLUCOMETER DEV NAME(LOC) 3EX.2; GLUCOSE,POINT OF CARE 183 MG/DL (70-110)
[2024-03-10] MEDS ORDERED: PALIPERIDONE PALMITATE 156 MG/ML SYRINGE IM ONE (09:00)
[2024-03-13] MEDS ORDERED: ERGOCALCIFEROL (VIT D2) 50,000 UNITS [1,250 MCG] CAPSULE PO SCH (09:00)
== END 2024-03-09 15:20 | disposition home or self-care (01) | DRG 885 ==
LOC: EMS 21:24 → B2X 03-06 11:56 → 3EX 03-06 18:44
PROVIDERS: ADMIT Psychiatry & Neurology Psychiatry; ATTEND Psychiatry & Neurology Psychiatry
PROC: GZHZZZZ Group Psychotherapy (ICD-10-PCS; principal; 2024-03-07)
PROC: GZ58ZZZ Individual Psychotherapy, Cognitive-Behavioral (ICD-10-PCS; 2024-03-07)
PROC: GZ56ZZZ Individual Psychotherapy, Supportive (ICD-10-PCS; 2024-03-07)
DX: F25.0 Schizoaffective disorder, bipolar type (principal); I11.0 Hypertensive heart disease with heart failure; K86.1 Other chronic pancreatitis; J44.9 Chronic obstructive pulmonary disease, unspecified; F17.200 Nicotine dependence, unspecified, uncomplicated; G47.33 Obstructive sleep apnea (adult) (pediatric); I50.9 Heart failure, unspecified; N40.0 Benign prostatic hyperplasia without lower urinary tract symptoms; I25.10 Atherosclerotic heart disease of native coronary artery without angina pectoris; Z20.822 Contact with and (suspected) exposure to COVID-19; F11.90 Opioid use, unspecified, uncomplicated; Z96.649 Presence of unspecified artificial hip joint; E78.00 Pure hypercholesterolemia, unspecified; Z96.651 Presence of right artificial knee joint; K21.9 Gastro-esophageal reflux disease without esophagitis; E11.40 Type 2 diabetes mellitus with diabetic neuropathy, unspecified; G89.29 Other chronic pain; R45.850 Homicidal ideations; Z87.442 Personal history of urinary calculi; Z55.9 Problems related to education and literacy, unspecified; I25.2 Old myocardial infarction; Z59.9 Problem related to housing and economic circumstances, unspecified; Z63.9 Problem related to primary support group, unspecified; Z65.3 Problems related to other legal circumstances; Z90.49 Acquired absence of other specified parts of digestive tract
CPT/HCPCS: 80048; 80053; 80061; 80307; 82962; 83036; 84439; 84443; 85025; 87081; 99285; G0378; G0480

== ENCOUNTER 2024-04-28 13:05 | Emergency (ER) | payer MEDICARE, OTHER ==
[~2024-04-28] VITALS: Ht 162.6 cm; Wt 79.1 kg
[~2024-04-28 13:05] MED LIST changes: +AMLO-258 PO; +ASPI-1522 PO; +ATOR20TA65 PO; -CHOL10002 PO; -DICL2100G TP; +DULO-114 PO; +EMPA10TA3 PO; +ERGO500054 PO; +FINA5TAB41 PO; +HYDR200T76 PO; +ISOS30TA92 PO; +LINA5TAB PO; -LISI40TA9 PO; +MELA5TAB40 PO; -METF-1211 PO; +METF-446 PO; +MONT-40 PO; +NALT50TA33 PO; +PALI156D IM; +PANT40TA54 PO; +SACU1TAB7 PO; -SULF-261 PO
[2024-04-28 13:50] VITALS: TEMP 98.5
[2024-04-28] MEDS ORDERED: LIDO700A15 TP (15:41)
[2024-04-28] MEDS ORDERED: HYDR-4062 PO (15:41)
[2024-04-28] MEDS: HYDROCODONE/ACETAMINOPHEN 5-325 MG TABLET PO ONE (15:51)
[2024-04-28] MEDS: LIDOCAINE 5% TRANSDERMAL PATCH TD ONE (15:51)
[2024-04-28] MEDS: KETOROLAC TROMETHAMINE 60 MG/2 ML VIAL IM ONE (15:51)
[2024-04-28 16:00] VITALS: BP 119/74; PULSE 87; RESP 17; O2SAT 98
== END 2024-04-28 16:02 | disposition home or self-care (01) ==
LOC: EMS 13:07
DX: M16.12 Unilateral primary osteoarthritis, left hip (principal); E11.9 Type 2 diabetes mellitus without complications; I10 Essential (primary) hypertension; J45.909 Unspecified asthma, uncomplicated; E78.00 Pure hypercholesterolemia, unspecified; F20.9 Schizophrenia, unspecified; F32.A Depression, unspecified; F12.90 Cannabis use, unspecified, uncomplicated; F17.210 Nicotine dependence, cigarettes, uncomplicated; Z79.82 Long term (current) use of aspirin; Z79.84 Long term (current) use of oral hypoglycemic drugs; Z87.442 Personal history of urinary calculi; Z98.890 Other specified postprocedural states; Z79.899 Other long term (current) drug therapy
CPT/HCPCS: 99283; 96372; J1885

== ENCOUNTER 2025-03-02 22:38 | Inpatient (IN) | payer MEDICARE, OTHER ==
[~2025-03-02] VITALS: Ht 162.6 cm; Wt 75.3 kg
[~2025-03-02 22:38] MED LIST changes: -DULO-114 PO; +DULO30CA62 PO; +HYDR-4062 PO; +LIDO-57 TP
[2025-03-02] MEDS: LORazepam 2 MG/ML VIAL IM ONE (23:16)
[2025-03-02 23:36] LABS: PLATELET COUNT (AUTO) 192 K/uL (150-450); RED BLOOD CELL COUNT(AUTO) 6.03 MIL/uL (4.50-5.90); RED CELL DISTRIBUTION WIDTH 18.0 % (11.5-14.5); WHITE BLOOD COUNT (AUTO) 9.2 K/uL (4.5-11.0)
[2025-03-02 23:43] LABS: CALCIUM, TOTAL 8.4 mg/dL (8.8-10.5); CREATININE 0.89 mg/dL (0.60-1.30); GLOMERULAR FILTR. RATE CALC > 60 mL/min (>60); SODIUM SERUM 139 mmol/L (136-145); UREA NITROGEN, BLOOD 10 mg/dL (7-18)
[2025-03-02 23:49] LABS: ASPARTATE AMINOTRANSFERASE 16.0 U/L (15-37); TOTAL PROTEIN, SERUM 7.7 g/dL (6.4-8.2)
[2025-03-02 23:51] LABS: GLUCOSE,RANDOM 411 mg/dL (70-110)
[2025-03-02 23:54] LABS: ALCOHOL, BLOOD (SERUM) 295.0 mg/dL (0-10)
[2025-03-03] MEDS: INSULIN REGULAR, HUMAN 100 UNITS/ML SQ ONE ×2 (00:20→04:56)
[2025-03-03] MEDS: POTASSIUM CHLORIDE 20 MEQ ER TABLET PO ONE (01:00)
[2025-03-03 01:29] LABS: COVID AG,FIA SOURCE NASAL SWAB
[2025-03-03 01:51] LABS: SARS-COV2 (COVID) ANTIGEN,FIA Negative (Negative)
[2025-03-03 02:01] LABS: GLUCOMETER DEV NAME(LOC) ER.7; GLUCOSE,POINT OF CARE 345 MG/DL (70-110)
[2025-03-03 04:11] LABS: GLUCOMETER DEV NAME(LOC) ER.7; GLUCOSE,POINT OF CARE 347 MG/DL (70-110)
[2025-03-03 06:36] LABS: GLUCOMETER DEV NAME(LOC) ER.7; GLUCOSE,POINT OF CARE 336 MG/DL (70-110)
[2025-03-03] MEDS ORDERED: DEXTROSE 50%-WATER 25 GM/50 ML SYRINGE IVP PRN (07:00)
[2025-03-03] MEDS: INSULIN LISPRO 100 UNITS/ML SQ PRN (07:15)
[2025-03-03] MEDS: SODIUM CHLORIDE 0.9% 1,000 ML IV ONE (07:15)
[2025-03-03 15:47] LABS: APPEARANCE,URINE CLEAR (CLEAR); GLUCOSE, URINE (UA) >=1000 mg/dL (NEGATIVE); LEUKOCYTE ESTERASE ,URINE LARGE (NEGATIVE); NITRATE,URINE NEGATIVE (NEGATIVE); OCCULT BLOOD,URINE SMALL (NEGATIVE); PH,URINE DRUG SCREEN 6.0 (5.0-8.0); SPECIFIC GRAVITIY, URINE 1.014 (1.003-1.030)
[2025-03-03 15:54] LABS: ALCOHOL, URINE DRUG SCREEN NEGATIVE (NEGATIVE); AMPHET/METH SCREEN,URINE NEGATIVE (NEGATIVE); BARBITURATE SCREEN, URINE NEGATIVE (NEGATIVE); CANNABINOID SCREEN,URINE NEGATIVE (NEGATIVE); COCAINE SCREEN,URINE NEGATIVE (NEGATIVE); METHADONE SCREEN, URINE NEGATIVE (NEGATIVE)
[2025-03-03 16:12] LABS: SQUAMOUS EPITHELIAL CELL,UR Few /LPF (None Seen); YEAST,URINE Few /HPF (None Seen)
[2025-03-03 20:21] LABS: GLUCOMETER DEV NAME(LOC) ER.7; GLUCOSE,POINT OF CARE 242 MG/DL (70-110)
[2025-03-03 22:40] VITALS: BP 148/72; PULSE 77; RESP 20; TEMP 97.8; O2SAT 98
[2025-03-03] MEDS ORDERED: PETROLATUM,WHITE 28 GM JELLY TP PRN (23:15)
[2025-03-03] MEDS ORDERED: ALBUTEROL SULFATE HFA 90 MCG/PUFF 8 GM INHALER IH PRN (23:15)
[2025-03-03] MEDS ORDERED: MAGNESIUM HYDROXIDE SUSPENSION 30 ML UDCUP PO PRN (23:15)
[2025-03-03] MEDS ORDERED: BENZOCAINE/MENTHOL [CEPACOL] LOZENGE PO PRN (23:15)
[2025-03-03] MEDS ORDERED: ONDANSETRON 4 MG TABLET PO PRN (23:15)
[2025-03-03] MEDS ORDERED: DOCUSATE SODIUM 100 MG CAPSULE PO PRN (23:15)
[2025-03-03] MEDS ORDERED: OMEPRAZOLE 20 MG CAPSULE PO PRN (23:15)
[2025-03-03] MEDS ORDERED: BACITRACIN 28 GM OINTMENT TP PRN (23:15)
[2025-03-03] MEDS ORDERED: IBUPROFEN 600 MG TABLET PO PRN (23:15)
[2025-03-04 05:26] LABS: GLUCOMETER DEV NAME(LOC) 3EX.2; GLUCOSE,POINT OF CARE 177 MG/DL (70-110)
[2025-03-04 08:25] LABS: RED BLOOD CELL COUNT(AUTO) 5.56 MIL/uL (4.50-5.90); RED CELL DISTRIBUTION WIDTH 17.4 % (11.5-14.5); WHITE BLOOD COUNT (AUTO) 9.4 K/uL (4.5-11.0)
[2025-03-04 08:27] LABS: PLATELET COUNT (AUTO) 183 K/uL (150-450)
[2025-03-04 08:28] LABS: RBC MORPHOLOGY COMMENT ABNORMAL RBC MORPH
[2025-03-04] MEDS: LIDOCAINE 5% TRANSDERMAL PATCH TD SCH (09:00)
[2025-03-04 09:04] LABS: ASPARTATE AMINOTRANSFERASE 29 U/L (15-37); CALCIUM, TOTAL 8.4 mg/dL (8.8-10.5); CHOL/HDL RATIO 3.5 (4.2-7.3); CREATININE 0.75 mg/dL (0.60-1.30); GLOMERULAR FILTR. RATE CALC > 60 mL/min (>60); GLUCOSE,RANDOM 251 mg/dL (70-110); LDL CHOL (CALC.) 49 mg/dL (0-130); SODIUM SERUM 136 mmol/L (136-145); TOTAL PROTEIN, SERUM 7.0 g/dL (6.4-8.2); UREA NITROGEN, BLOOD 10 mg/dL (7-18)
[2025-03-04 09:35] VITALS: BP 148/87; PULSE 81; RESP 17; TEMP 98.2; O2SAT 99
[2025-03-04] MEDS: TAMSULOSIN HCL 0.4 MG CAPSULE PO SCH (09:38)
[2025-03-04] MEDS: ASPIRIN 81 MG DR TABLET PO SCH (09:38)
[2025-03-04] MEDS: FUROSEMIDE 40 MG TABLET PO SCH (09:38)
[2025-03-04] MEDS: ISOSORBIDE MONONITRATE 30 MG ER TABLET PO SCH (09:38)
[2025-03-04] MEDS: HYDROXYCHLOROQUINE SULFATE 200 MG TABLET PO SCH (09:38)
[2025-03-04] MEDS: HYDROCODONE/ACETAMINOPHEN 5-325 MG TABLET PO PRN (09:38)
[2025-03-04] MEDS: FLUCONAZOLE 200 MG TABLET PO ONE (09:39)
[2025-03-04] MEDS: FINASTERIDE 5 MG TABLET PO SCH (09:39)
[2025-03-04] MEDS: ATORVASTATIN CALCIUM 20 MG TABLET PO SCH (09:39)
[2025-03-04] MEDS: EMPAGLIFLOZIN 10 MG TABLET PO SCH (09:39)
[2025-03-04] MEDS: SACUBITRIL/VALSARTAN 49-51 MG TABLET PO SCH (09:40)
[2025-03-04] MEDS: LOPERAMIDE HCL 2 MG CAPSULE PO PRN (09:48)
[2025-03-04 12:06] LABS: GLUCOMETER DEV NAME(LOC) 3EX.2; GLUCOSE,POINT OF CARE 292 MG/DL (70-110)
[2025-03-04] MEDS ORDERED: SEMA2PEN SQ (12:39)
[2025-03-04] MEDS ORDERED: EMPA25TA3 PO (12:39)
[2025-03-04] MEDS: DULoxetine HCL 30 MG CAPSULE PO SCH (15:18)
[2025-03-04] MEDS: ACETAMINOPHEN 325 MG TABLET PO PRN (15:30)
[2025-03-04 17:31] LABS: GLUCOMETER DEV NAME(LOC) 3EX.2; GLUCOSE,POINT OF CARE 345 MG/DL (70-110)
[2025-03-04 17:43] VITALS: BP 110/70; PULSE 119; RESP 20; TEMP 98; O2SAT 95
[2025-03-04 20:06] LABS: GLUCOMETER DEV NAME(LOC) 3EX.2; GLUCOSE,POINT OF CARE 256 MG/DL (70-110)
[2025-03-04] MEDS: MONTELUKAST SODIUM 10 MG TABLET PO SCH (20:08)
[2025-03-04] MEDS: -LIDODERM PATCH NOTE- MISC SCH (20:08)
[2025-03-04] MEDS: MELATONIN 5 MG TABLET PO SCH (20:08)
[2025-03-04] MEDS: ZOLPIDEM TARTRATE 10 MG TABLET PO PRN (21:32)
[2025-03-04 22:20] VITALS: BP 100/59; PULSE 91; RESP 18; TEMP 97.8; O2SAT 100
[2025-03-05 05:31] LABS: GLUCOMETER DEV NAME(LOC) 3EX.2; GLUCOSE,POINT OF CARE 223 MG/DL (70-110)
[2025-03-05 11:20] VITALS: BP 110/70; PULSE 100; RESP 18; TEMP 98.4; O2SAT 96
[2025-03-05 11:43] VITALS: RESP 18
[2025-03-05 11:45] LABS: GLUCOMETER DEV NAME(LOC) 3EX.2; GLUCOSE,POINT OF CARE 208 MG/DL (70-110)
[2025-03-05 12:45] VITALS: RESP 16
[2025-03-05] MEDS: MAG HYDROX/ALUMINUM HYD/SIMETH ES 30 ML SUSPENSION UDCUP PO PRN (13:02)
[2025-03-05 13:15] LABS: GLUCOMETER DEV NAME(LOC) 3EX.2; GLUCOSE,POINT OF CARE 281 MG/DL (70-110)
[2025-03-05 14:51] LABS: PLATELET COUNT (AUTO) 188 K/uL (150-450); RED BLOOD CELL COUNT(AUTO) 5.51 MIL/uL (4.50-5.90); RED CELL DISTRIBUTION WIDTH 17.5 % (11.5-14.5); WHITE BLOOD COUNT (AUTO) 11.0 K/uL (4.5-11.0)
[2025-03-05 14:59] LABS: CALCIUM, TOTAL 8.7 mg/dL (8.8-10.5); CREATININE 1.00 mg/dL (0.60-1.30); GLOMERULAR FILTR. RATE CALC > 60 mL/min (>60); GLUCOSE,RANDOM 258 mg/dL (70-110); SODIUM SERUM 136 mmol/L (136-145); UREA NITROGEN, BLOOD 15 mg/dL (7-18)
[2025-03-05 15:04] LABS: ASPARTATE AMINOTRANSFERASE 23 U/L (15-37); TOTAL PROTEIN, SERUM 7.4 g/dL (6.4-8.2)
[2025-03-05 15:09] LABS: TROPONIN I-HIGH SENSITIVITY 4 ng/L (<76)
[2025-03-05 15:31] LABS: LACTIC ACID 1.7 mmol/L (0.4-2.0)
[2025-03-05 16:31] VITALS: BP 106/67; PULSE 110; RESP 19; TEMP 97.8; O2SAT 96
[2025-03-05 18:54] VITALS: BP 111/60; PULSE 107; RESP 18; TEMP 98.1; O2SAT 95
[2025-03-05 21:32] VITALS: BP 107/64; PULSE 100; RESP 18; TEMP 98.2; O2SAT 98
[2025-03-05 22:01] LABS: GLUCOMETER DEV NAME(LOC) 3EX.2; GLUCOSE,POINT OF CARE 211 MG/DL (70-110)
[2025-03-05 22:01] LABS: GLUCOMETER DEV NAME(LOC) 3EX.2; GLUCOSE,POINT OF CARE 268 MG/DL (70-110)
[2025-03-06] VITALS: BP 115/100; PULSE 89; RESP 20; O2SAT 100
[2025-03-06 06:26] LABS: GLUCOMETER DEV NAME(LOC) 3EX.2; GLUCOSE,POINT OF CARE 185 MG/DL (70-110)
[2025-03-06 09:12] VITALS: BP 124/80; PULSE 95; RESP 18; TEMP 97.5; O2SAT 98
[2025-03-06] MEDS ORDERED: LIDO700A30 TD (11:22)
[2025-03-06] MEDS ORDERED: HYDR200T38 PO (11:22)
[2025-03-06] MEDS ORDERED: ATOR20TA65 PO (11:22)
[2025-03-06] MEDS ORDERED: TAMS0.4C94 PO (11:22)
[2025-03-06] MEDS ORDERED: LINA5TAB PO (11:22)
[2025-03-06] MEDS ORDERED: EMPA10TA3 PO (11:22)
[2025-03-06] MEDS ORDERED: FINA-27 PO (11:22)
[2025-03-06] MEDS ORDERED: MONT-35 PO (11:22)
[2025-03-06] MEDS ORDERED: METF-1211 PO (11:22)
[2025-03-06] MEDS ORDERED: FURO40TA5 PO (11:22)
[2025-03-06] MEDS ORDERED: MELA5TAB40 PO (11:22)
[2025-03-06] MEDS ORDERED: ASPI-1444 PO (11:22)
[2025-03-06] MEDS ORDERED: AMLO-258 PO (11:22)
[2025-03-06] MEDS ORDERED: SACU1TAB7 PO (11:22)
[2025-03-06] MEDS ORDERED: ISOS30TA92 PO (11:22)
[2025-03-06] MEDS ORDERED: DULO30CA62 PO (11:22)
[2025-03-06 11:51] LABS: GLUCOMETER DEV NAME(LOC) 3EX.2; GLUCOSE,POINT OF CARE 200 MG/DL (70-110)
[2025-03-06] MEDS ORDERED: CEFU250T87 PO (11:55)
== END 2025-03-06 13:30 | disposition home or self-care (01) | DRG 885 ==
LOC: EMS 22:38 → 3EI 03-03 20:28
PROVIDERS: ADMIT Psychiatry & Neurology Psychiatry; ATTEND Psychiatry & Neurology Psychiatry
PROC: GZHZZZZ Group Psychotherapy (ICD-10-PCS; principal; 2025-03-04)
PROC: GZ52ZZZ Individual Psychotherapy, Cognitive (ICD-10-PCS; 2025-03-04)
DX: F33.2 Major depressive disorder, recurrent severe without psychotic features (principal); J44.89 Other specified chronic obstructive pulmonary disease; E11.65 Type 2 diabetes mellitus with hyperglycemia; N39.0 Urinary tract infection, site not specified; R45.851 Suicidal ideations; F11.20 Opioid dependence, uncomplicated; Z20.822 Contact with and (suspected) exposure to COVID-19; F10.229 Alcohol dependence with intoxication, unspecified; D64.9 Anemia, unspecified; E11.40 Type 2 diabetes mellitus with diabetic neuropathy, unspecified; E55.9 Vitamin D deficiency, unspecified; E78.00 Pure hypercholesterolemia, unspecified; F41.9 Anxiety disorder, unspecified; G47.00 Insomnia, unspecified; I10 Essential (primary) hypertension; K74.60 Unspecified cirrhosis of liver; Y90.8 Blood alcohol level of 240 mg/100 ml or more; E87.6 Hypokalemia; F20.9 Schizophrenia, unspecified; N40.0 Benign prostatic hyperplasia without lower urinary tract symptoms; Z79.899 Other long term (current) drug therapy; Z87.442 Personal history of urinary calculi; Z87.891 Personal history of nicotine dependence; Z96.649 Presence of unspecified artificial hip joint; Z96.659 Presence of unspecified artificial knee joint; M19.90 Unspecified osteoarthritis, unspecified site
CPT/HCPCS: 71101; 80048; 80053; 80061; 80076; 80307; 81001; 82962; 83036; 83605; 84132; 84436; 84443; 84484; 85025; 87086; 93005; 96372; 99291; G0480; J1815